=== PATIENT | female | born 2000 | race Caucasian/White ===

== ENCOUNTER 2020-04-04 13:54 | Outpatient (REF) | payer OTHER, SELFPAY | END 2020-04-04 13:55 | disposition home or self-care (01) | LOC: HO.LAB 13:54 | PROVIDERS: Visit Provider Internal Medicine | DX: Z20.828 Contact with and (suspected) exposure to other viral communicable diseases (principal) | CPT/HCPCS: 87635 ==

== ENCOUNTER 2020-05-31 04:48 | Emergency (ER) | payer OTHER, SELFPAY ==
[2020-05-31 04:51] VITALS: BP 123/69; PULSE 106; RESP 18; TEMP 36.8; O2SAT 99; BMI 26.4
[2020-05-31 05:20] LABS: Glucose Urine UA NEG (NEG); Leukocyte Esterase Urine 1+ (NEG); Nitrite Urine NEG (NEG); PH 5.5 (5.0-8.0); Specific Gravity - Urine >= 1.030 (1.005-1.025); Urine Blood TRACE (NEG); Urine Ketones NEG (NEG); Urine Protein NEG (NEG-TRACE)
--- NOTE | 2020-05-31 05:20 | ED_ITS ---
HPI - Abdominal Pain General Chief Complaint: Abdominal Pain Stated Complaint: ABD PAIN Time Seen by Provider: 05/31/20 05:20 Source: patient Mode of arrival: ambulatory Limitations: no limitations History of Present Illness HPI narrative: This is a 19-year-old female without any significant past medical history and states her LMP was 2 weeks ago and presents with onset of some vague periumbilical pain that started approximately 4:00 p.m. yesterday and then has since progressed into the right lower quadrant and patient does state that she has a history of ovarian cyst. This is not been associated with any n ausea, vomiting, fever, chills at this point. The pain is noted to be sharp and nonradiating. Related Data Allergies Allergy/AdvReac Type Severity Reaction Status Date / Time No Known Allergies Allergy Verified 05/31/20 04:51 Review of Systems Review of Systems Pertinent positives and negatives as stated in HPI 10 point review of systems otherwise negative. Physical Exam Vital Signs: Vital Signs: Last Vital Signs Temp 98.2 F 05/31/20 04:51 Pulse 106 H 05/31/20 04:51 Resp 18 05/31/20 04:51 BP 123/69 05/31/20 04:51 Pulse Ox 99 05/31/20 04:51 Body Mass Index 26.4 VITAL SIGNS: Reviewed. GENERAL: Well developed, well nourished, in no acute distress. HEAD: Normocephalic/atraumatic, EYES: PERRLA, EOMI intact without pain, no nystagmus/pallor/icterus noted EARS: Ext canals without abnormality, TMs non-bulging and non-erythematous NOSE: Nares patent bilateral OROPHARYNX: no oral lesions noted, posterior pharynx clear and non-erythematous without noted tonsillar enlargement/erythema/exudates NECK: Supple, no adenopathy LUNGS: Normal breath sounds. No adventitious sounds or accessory muscle use. SpO2<99> CARDIOVASCULAR: Regular rate and rhythm without noted murmurs, no JVD or lower extremity edema. ABDOMEN: Soft, Focal tenderness at the right lower quadrant, non-distended with bowel sounds. No rigidity. No guarding. No palpable masses or hernias noted MUSCULOSKELETAL: No tenderness, deformities, or effusions noted on gross inspection. EXTREMITIES: No cyanosis, clubbing or edema. SKIN: Inspection of the skin reveals no rashes, ulcerations, jaundice, pallor, or petechiae. NEUROLOGIC: Alert and oriented x 4. Strength and sensation to light touch were grossly intact x 4. Course Course Course Narrative: This is a 19-year-old female with history and clinical pr esentation suggestive of possible ectopic, ovarian cyst plus/ minus ruptured, mittelschmerz, appendicitis, or mesenteric adenitis. Signed out to Dr Lyle. MDM - Abdominal Pain Lab Data Result diagrams: 05/31/20 05:29 05/31/20 05:29 Labs: Lab Results 05/31/20 05/31/20 05/31/20 Range/Units 05:02 05:02 05:29 WBC 7.7 (4.8-10.8) X10*3/uL RBC 4.86 (4.20-5.50) X10*6/uL Hgb 14.7 (12.0-16.0) g/dl Hct 42.9 (37-47) % MCV 88.3 (80-98) fL MCH 30.2 (27.0-33.0) pg MCHC 34.3 (31.0-35.0) g/dl RDW 12.0 (11.0-16.0) % Plt Count 368 (160-400) X10*3/uL MPV 10.1 (9.4-12.3) fL Immature Gran % (Auto) 0.1 (0.0-0.4) % Neut % (Auto) 62.1 (45-73) % Lymph % (Auto) 28.9 (20-40) % [place] % (Auto) 4.8 (2-11) % Eos % (Auto) 3.3 (0-4) % Baso % (Auto) 0.8 (0-2) % Lymph # (Auto) 2.2 (1.2-4.9) X10*3/uL [place] # (Auto) 0.4 (0.1-1.2) X10*3/uL Eos # (Auto) 0.3 (0.0-0.4) X10*3/uL Baso # (Auto) 0.1 (0.0-0.2) X10*3/uL Abs Immat Gran (auto) 0.01 (0.00-0.03) X10*3/uL Absolute Neuts (auto) 4.8 (2.0-8.3) X10*3/uL Absolute Nucleated RBC 0.000 (0.0-0.012) X10*3/uL Nucleated RBC % (auto) 0.0 (0.0-0.2) /100WBC PT (10.8-13.0) SEC INR (0.9-1.1) Sodium (135-145) mmol/L Potassium (3.3-5.1) mmol/l Chloride (96-108) mmol/L Carbon Dioxide (22-29) mmol/L Anion Gap (12-20) BUN (9-16) mg/dL Creatinine (0.5-1.4) mg/dL Estim Creat Clear Calc Estimated GFR Random Glucose (60-115) mg/dL Calcium (8.4-10.2) mg/dL Total Bilirubin (0.0-1.0) mg/dL AST (5-31) U/L ALT (0-31) U/L Alkaline Phosphatase (39-117) U/L Total Protein (6.5-8.0) g/dL Albumin (3.5-5.0) g/dL Lipase (8-78) U/L Urine Color YELLOW Urine Appearance HAZY Urine pH 5.5 (5.0-8.0) Ur Specific [place] >= 1.030 H (1.005-1.025) Urine Protein NEG (NEG-TRACE) MG/DL Urine Glucose (UA) NEG (NEG) MG/DL Urine Ketones NEG (NEG) MG/DL Urine Blood TRACE (NEG) Urine Nitrite NEG (NEG) Ur Leukocyte Esterase 1+ H (NEG) Urine RBC 0-2 (0) /HPF Urine WBC 10-14 H (0-4) /HPF Ur Squamous Epith Cells 3+ /LPF Urine Bacteria 1+ /LPF Urine Test NEGATIVE (NEGATIVE) Coronavirus (PCR) (Negative) Influenza Type A (PCR) (Negative) Influenza Type B (PCR) (Negative) RSV RNA Qual (PCR) (Negative) 05/31/20 05/31/20 05/31/20 Range/Units 05:29 05:29 05:31 WBC (4.8-10.8) X10*3/uL RBC (4.20-5.50) X10*6/uL Hgb (12.0-16.0) g/dl Hct (37-47) % MCV (80-98) fL MCH (27.0-33.0) pg MCHC (31.0-35.0) g/dl RDW (11.0-16.0) % Plt Count (160-400) X10*3/uL MPV (9.4-12.3) fL Immature Gran % (Auto) (0.0-0.4) % Neut % (Auto) (45-73) % Lymph % (Auto) (20-40) % [place] % (Auto) (2-11) % Eos % (Auto) (0-4) % Baso % (Auto) (0-2) % Lymph # (Auto) (1.2-4.9) X10*3/uL [place] # (Auto) (0.1-1.2) X10*3/uL Eos # (Auto) (0.0-0.4) X10*3/uL Baso # (Auto) (0.0-0.2) X10*3/uL Abs Immat Gran (auto) (0.00-0.03) X10*3/uL Absolute Neuts (auto) (2.0-8.3) X10*3/uL Absolute Nucleated RBC (0.0-0.012) X10*3/uL Nucleated RBC % (auto) (0.0-0.2) /100WBC PT 12.4 (10.8-13.0) SEC INR 1.0 (0.9-1.1) Sodium 139 (135-145) mmol/L Potassium 4.1 (3.3-5.1) mmol/l Chloride 106 (96-108) mmol/L Carbon Dioxide 25 (22-29) mmol/L Anion Gap 12 (12-20) BUN 10 (9-16) mg/dL Creatinine 0.76 (0.5-1.4) mg/dL Estim Creat Clear Calc 100.7 Estimated GFR > 60 Random Glucose 95 (60-115) mg/dL Calcium 9.6 (8.4-10.2) mg/dL Total Bilirubin 0.6 (0.0-1.0) mg/dL AST 22 (5-31) U/L ALT 41 H (0-31) U/L Alkaline Phosphatase 91 (39-117) U/L Total Protein 7.6 (6.5-8.0) g/dL Albumin 4.6 (3.5-5.0) g/dL Lipase 19 (8-78) U/L Urine Color Urine Appearance Urine pH (5.0-8.0) Ur Specific [place] (1.005-1.025) Urine Protein (NEG-TRACE) MG/DL Urine Glucose (UA) (NEG) MG/DL Urine Ketones (NEG) MG/DL Urine Blood (NEG) Urine Nitrite (NEG) Ur Leukocyte Esterase (NEG) Urine RBC (0) /HPF Urine WBC (0-4) /HPF Ur Squamous Epith Cells /LPF Urine Bacteria /LPF Urine Test (NEGATIVE) Coronavirus (PCR) (Negative) Influenza Type A (PCR) (Negative) Influenza Type B (PCR) (Negative) RSV RNA Qual (PCR) (Negative) 05/31/20 Range/Units 05:49 WBC (4.8-10.8) X10*3/uL RBC (4.20-5.50) X10*6/uL Hgb (12.0-16.0) g/dl Hct (37-47) % MCV (80-98) fL MCH (27.0-33.0) pg MCHC (31.0-35.0) g/dl RDW (11.0-16.0) % Plt Count (160-400) X10*3/uL MPV (9.4-12.3) fL Immature Gran % (Auto) (0.0-0.4) % Neut % (Auto) (45-73) % Lymph % (Auto) (20-40) % [place] % (Auto) (2-11) % Eos % (Auto) (0-4) % Baso % (Auto) (0-2) % Lymph # (Auto) (1.2-4.9) X10*3/uL [place] # (Auto) (0.1-1.2) X10*3/uL Eos # (Auto) (0.0-0.4) X10*3/uL Baso # (Auto) (0.0-0.2) X10*3/uL Abs Immat Gran (auto) (0.00-0.03) X10*3/uL Absolute Neuts (auto) (2.0-8.3) X10*3/uL Absolute Nucleated RBC (0.0-0.012) X10*3/uL Nucleated RBC % (auto) (0.0-0.2) /100WBC PT (10.8-13.0) SEC INR (0.9-1.1) Sodium (135-145) mmol/L Potassium (3.3-5.1) mmol/l Chloride (96-108) mmol/L Carbon Dioxide (22-29) mmol/L Anion Gap (12-20) BUN (9-16) mg/dL Creatinine (0.5-1.4) mg/dL Estim Creat Clear Calc Estimated GFR Random Glucose (60-115) mg/dL Calcium (8.4-10.2) mg/dL Total Bilirubin (0.0-1.0) mg/dL AST (5-31) U/L ALT (0-31) U/L Alkaline Phosphatase (39-117) U/L Total Protein (6.5-8.0) g/dL Albumin (3.5-5.0) g/dL Lipase (8-78) U/L Urine Color Urine Appearance Urine pH (5.0-8.0) Ur Specific [place] (1.005-1.025) Urine Protein (NEG-TRACE) MG/DL Urine Glucose (UA) (NEG) MG/DL Urine Ketones (NEG) MG/DL Urine Blood (NEG) Urine Nitrite (NEG) Ur Leukocyte Esterase (NEG) Urine RBC (0) /HPF Urine WBC (0-4) /HPF Ur Squamous Epith Cells /LPF Urine Bacteria /LPF Urine Test (NEGATIVE) Coronavirus (PCR) NEGATIVE (Negative) Influenza Type A (PCR) NEGATIVE (Negative) Influenza Type B (PCR) NEGATIVE (Negative) RSV RNA Qual (PCR) NEGATIVE (Negative) [facility] Past Medical History Source: nursing notes reviewed Medical History No known health problems Social History Social History Advance Directives: No Advance Directives Information Provided: No
[2020-05-31 05:21] LABS: Appearance Urine HAZY; Color Urine YELLOW
[2020-05-31 05:46] LABS: MANUAL DIFF FLAG NO
[2020-05-31] MEDS: 0.9 % Sodium Chloride 1,000 ML 1000 ML IV (05:46)
[2020-05-31 05:51] LABS: Basophils Absolute Auto 0.1 X10*3/uL (0.0-0.2); Basophils Percent Auto 0.8 % (0-2); Eosinophils Absolute Auto 0.3 X10*3/uL (0.0-0.4); Eosinophils Percent Auto 3.3 % (0-4); Hematocrit 42.9 % (37-47); Hemoglobin 14.7 g/dl (12.0-16.0); Imm Gran Abs Auto 0.01 X10*3/uL (0.00-0.03); Imm Gran Pct Auto 0.1 % (0.0-0.4); Lymphocytes Absolute Auto 2.2 X10*3/uL (1.2-4.9); Lymphocytes Percent Auto 28.9 % (20-40); Mean Corpuscular HGB Conc 34.3 g/dl (31.0-35.0); Mean Corpuscular Hemoglobin 30.2 pg (27.0-33.0); Mean Corpuscular Volume 88.3 fL (80-98); Mean Platelet Volume 10.1 fL (9.4-12.3); Monocytes Absolute Auto 0.4 X10*3/uL (0.1-1.2); Monocytes Percent Auto 4.8 % (2-11); Neutrophils Absolute Auto 4.8 X10*3/uL (2.0-8.3); Neutrophils Percent Auto 62.1 % (45-73); Platelet Count 368 X10*3/uL (160-400); Red Blood Count 4.86 X10*6/uL (4.20-5.50); White Blood Count 7.7 X10*3/uL (4.8-10.8)
[2020-05-31 06:05] LABS: Bacteria Urine 1+ /LPF; RBC Urine 0-2 /HPF (0); Squamous Epithelial Cell Urine 3+ /LPF
[2020-05-31 06:11] LABS: Prothrombin Time 12.4 SEC (10.8-13.0)
--- NOTE | 2020-05-31 06:19 | CT_ITS ---
EXAMINATION: CT ABDOMEN AND PELVIS WITH CONTRAST CLINICAL INFORMATION: Right lower quadrant pain. COMPARISON: None TECHNIQUE: Multidetector volumetric images were obtained from the superior aspect of the liver through the pubic symphysis following administration 85 mL of Omnipaque 350 intravenous contrast. Sagittal and coronal reformatted images were obtained on the technologist's workstation. Oral contrast: No This CT examination was performed using dose optimization techniques as appropriate, variously including the following: *Automated exposure control *Adjustment of mA and/or kV according to patient size (this includes techniques or standardized protocols for targeted exams where dose is matched to indication/reason for exam; i.e. extremities or head) *Use of iterative reconstruction technique DLP: 463 mGy-cm FINDINGS: LUNG BASES: There is 2 mm pleural-based nodule right lower lobe image 6/5. At size is normal. LIVER, GALLBLADDER, AND BILIARY TREE: The liver is normal in size, shape, and attenuation. No focal hepatic lesion or biliary ductal dilatation is present. The gallbladder is contracted with no evidence of radiopaque gallstones or wall thickening. PANCREAS: Unremarkable. SPLEEN: Unremarkable. ADRENAL GLANDS: Unremarkable. KIDNEYS AND URETERS: The kidneys are normal in size, shape, and attenuation. No hydronephrosis, hydroureter, or calculi seen. No perinephric stranding. BLADDER: Unremarkable. GASTROINTESTINAL TRACT: Scattered stool and gas is seen throughout the colon. The small bowel loops are unremarkable. Appendix is not visualized with certainty. No inflammatory changes seen in the area abdomen. There are small shotty lymph nodes in the ileocecal mesentery. ABDOMINAL WALL: No significant hernia is appreciated. LYMPH NODES: Normal. VASCULAR: Unremarkable. PELVIC VISCERA: The uterus is anteverted and appears unremarkable. No adnexal mass or free fluid seen. There is no abnormal lymph nodes. There is minimal physiological free fluid in the cul-de-sac OSSEOUS STRUCTURES: Unremarkable. CT/CT abdomen pelvis w con IMPRESSION: Mild constipation. No acute intra-abdominal process seen.
[2020-05-31 06:33] LABS: Alanine Aminotransferase 41 U/L (0-31); Albumin Level 4.6 g/dL (3.5-5.0); Alkaline Phosphatase 91 U/L (39-117); Anion Gap 12 (12-20); Aspartate Amino Transferase 22 U/L (5-31); Bilirubin Total 0.6 mg/dL (0.0-1.0); Blood Urea Nitrogen 10 mg/dL (9-16); Calcium 9.6 mg/dL (8.4-10.2); Carbon Dioxide 25 mmol/L (22-29); Chloride 106 mmol/L (96-108); Creatinine Clr Calc Pharmacy 100.7; Estimated Glomerular Filt Rate > 60; Glucose Random 95 mg/dL (60-115); Lipase 19 U/L (8-78); Potassium 4.1 mmol/l (3.3-5.1); Sodium 139 mmol/L (135-145); Total Protein 7.6 g/dL (6.5-8.0)
[2020-05-31 06:37] LABS: Influenza A PCR NEGATIVE (Negative); Influenza B PCR NEGATIVE (Negative); Resp Syncy Virus RNA Qual PCR NEGATIVE (Negative); SARS COV2 PCR INHOUSE NEGATIVE (Negative)
[2020-05-31 06:49] LABS: UPreg QC Valid YES; Urine Pregnancy NEGATIVE (NEGATIVE)
[2020-05-31 07:28] VITALS: BP 102/61; PULSE 76; RESP 16; TEMP 37.3; O2SAT 99
[2020-05-31] MEDS: iohexoL 350 MG/ML 100 ML INFUS..BTL 85 ML IV (08:40)
== END 2020-05-31 10:05 | disposition home or self-care (01) ==
PROVIDERS: Emergency Provider Student in an Organized Health Care Education/Training Program
DX: R10.31 Right lower quadrant pain (principal)
CPT/HCPCS: 0241U; 36415; 74177; 80053; 81001; 81025; 83690; 85025; 85610; 87086; 96360; 99284; Q9967

== ENCOUNTER 2020-11-06 09:42 | Emergency (ER) | payer OTHER, SELFPAY ==
--- NOTE | ~2020-11-06 | XR_ITS ---
EXAMINATION: XR CHEST CLINICAL INFORMATION: Chest symptoms, COVID-like symptoms COMPARISON: None TECHNIQUE: CT abdomen 05/31/2020 view of the chest was obtained. FINDINGS: The lungs are clear. The vascularity is normal. The costophrenic sulci are well-defined. Heart normal in size. Hilar and mediastinal contours are unremarkable. There is mild levocurvature upper thoracic spine and mild dextrocurvature lower thoracic spine. XR/XR chest 1V IMPRESSION: Lungs clear.
[2020-11-06 10:10] VITALS: BP 114/51; PULSE 110; RESP 20; TEMP 37.3; O2SAT 97; BMI 27.3
--- NOTE | 2020-11-06 10:25 | ECG_ITS ---
Test Reason : UPPER RESPIRTORY Blood Pressure : / mmHG Vent. Rate : 082 BPM Atrial Rate : 082 BPM P-R Int : 132 ms QRS Dur : 078 ms QT Int : 380 ms P-R-T Axes : 054 049 032 degrees QTc Int : 443 ms Normal sinus rhythm with sinus arrhythmia Normal ECG No previous ECGs available Referred By: Emma Oneill Electronically Signed By:Naeem Petersen
--- NOTE | 2020-11-06 10:40 | ED.URI ---
HPI - URI/Sore Throat General Chief Complaint: Upper Respiratory Symptoms Stated Complaint: cough Time Seen by Provider: 11/06/20 10:15 Source: patient Mode of arrival: ambulatory Limitations: no limitations History of Present Illness HPI Narrative: A 20-year-old female with no significant past medical history presenting to the ED with complaints of Intermittent headaches, nasal congestion/runny nose, sore throat, productive cough with green-colored mucus with associated shortness of breath/orthopnea and chest pain which she reports she feels like someone is sitting on her chest for the past week worse today. Reports that she was COVID tested last Friday and was negative. Denies any measured fevers, chills, neck pain/stiffness, dizziness, change in vision, nausea/vomiting, dyspnea on exertion, palpitations, back pain, abdominal pain, diarrhea, constipation, dysuria, hematuria, abnormal vaginal discharge, recent travel or sick contacts or any other symptoms complaints or concerns at this time. MD elicited complaint: cough, sore throat, rhinorrhea and nasal congestion Onset (ago): week(s) (One week worse today) Consistency: constant and progressively worsening Severity: moderate Description of mucous: clear, watery, yellow and green Able to tolerate fluids by mouth: Yes Exacerbating factors: deep breaths Related Data Previous Rx's Medication Instructions Recorded cephalexin [Keflex] 500 mg PO QID #20 cap 05/31/20 albuterol sulfate 1 inh INHALATION QID PRN #8.5 g 11/06/20 azithromycin See Rx Instructions .ROUTE 11/06/20 .COMPLEX #6 tab codeine-guaifenesin [Guaifenesin 5 ml PO Q6H PRN #120 ml 11/06/20 AC] cyclobenzaprine 10 mg PO Q8H #10 tab 11/06/20 dexamethasone [Decadron] 6 mg PO DAILY 7 Days #7 tab 11/06/20 Allergies Allergy/AdvReac Type Severity Reaction Status Date / Time No Known Allergies Allergy Verified 05/31/20 04:51 Review of Systems Review of Systems: Constitutional : No Weight loss, No Fever, No Chills, No Night Sweats, No Fatigue, No Malaise ENT/Mouth : Positive runny nose/nasal congestion, positive sore throat, No Hearing loss, No Ear Pain, No Sinus Pain, No Hoarseness, No Swallowing Difficulty Eyes: No Eye Pain, No Swelling, No Redness, No Foreign Body, No Discharge, No Vision Changes Cardiovascular : Positive shortness of breath/orthopnea/chest discomfort, no Dyspnea on Exertion, No Edema, No extremity swelling, No Palpitations Respiratory : Positive cough/sputum/wheezing Gastrointestinal : No Nausea, No Vomiting, No Diarrhea, No abdominal Pain, No Hematochezia, No Melena Genitourinary : No irregular bleeding, No Dysuria, No Urinary Frequency, No Hematuria, No Urinary Incontinence, No Urgency, No Flank Pain, No Urinary Flow Changes, No Hesitancy Musculoskeletal : No joint pain, No Myalgias, No Joint Swelling Skin : No Skin Lesions, No rash Neuro : No Weakness, No Numbness, No Paresthesias, No Loss of Consciousness, No Dizziness, No Headache Psych : No Anxiety/Panic, No Depression, No SI/HI/AH/VH Heme/Lymph: No Bruising, No Bleeding,No Lymphadenopathy Endocrine : No Polyuria, No Polydipsia, No Temperature Intolerance Yes all other systems are reviewed and are negative [facility] Past Medical History Attestation statement: The following information was validated with the patient. Medical History No known health problems Social History Social History Advance Directives: No Advance Directives Information Provided: No Patient : No Physical Exam Vital Signs: Vital Signs: Last Vital Signs Temp 99.1 F 11/06/20 10:10 Pulse 85 11/06/20 11:15 Resp 17 11/06/20 10:57 BP 104/59 L 11/06/20 10:57 Pulse Ox 98 11/06/20 10:57 Body Mass Index 27.3 vital signs have been reviewed as normal and appeared to be correct. Blood pressure normal. Heart rate tachycardic at 110. Respiration rate normal. Temperature normal. Oxygen saturation normal. Appearance: Alert. Oriented X3. Mild respiratory distress otherwise no other acute distress. Head: Normal external exam. Normocephalic. Eyes: PERRLA. EOMI. Conjunctiva and sclera normal. Eyelids normal. ENT: Pharynx normal. Uvula midline. Moist mucous membranes. No trismus noted. No drooling noted. No muffled voice noted. Neck: Normal inspection. Neck supple. FROM. No adenopathy. No meningeal signs. CVS: Normal heart rate and rhythm. Heart sound normal. No murmurs noted. Pulses normal throughout. Respiratory: Mild respiratory distress with pain with deep inspiration with decreased breath sounds throughout with inspiratory and expiratory wheezing throughout. No rales/rhonchi noted. Chest is nontender. No accessory muscles usage is noted. Chest is nontender. Abdomen: Soft and nontender. Nondistended. No guarding. No rigidity. Bowel sounds normal in all 4 quadrants. No distention noted. No organomegaly noted. No visible injury noted. No rebound tenderness. Negative Rovsing sign. Negative obturator's sign. Negative psoas sign. Negative Escobedo sign. Back: No CVA tenderness. Full range of motion noted. Skin: Skin warm and dry. Normal skin color. Normal skin turgor. No rashes/lesions/lacerations noted. Extremities: No lower extremity edema or calf tenderness noted. Extremities exhibit normal range of motion. Extremities nontender. Neuro: Oriented X 3. No motor deficit. No sensory deficit. Reflexes normal. Normal steady gait. Course Course Course Narrative: 12:15pm - labs reviewed and patient with an elevated white blood cell count at 12,000. D-dimer is negative. CRP 2.67. All other labs are within normal limits. COVID/RSV/flu negative. Chest x-ray negative for pneumonia or any other acute processes noted. EKG was normal sinus rhythm no acute ischemic changes noted. - patient feels much better after the hour long breathing treatment and IV Decadron. Will DC home with symptomatic treatment and antibiotics and instructions return if any new or worsening symptoms to follow up with primary care provider. Patient understands agrees with this plan. MDM - URI/Sore Throat MDM Narrative Medical decision making narrative: 10:25am - 20-year-old female with no significant past medical history presenting to the ED with complaints of Intermittent headaches, nasal congestion/runny nose, sore throat, productive cough with green-colored mucus with associated shortness of breath/orthopnea and chest pain which she reports she feels like someone is sitting on her chest for the past week worse today. - Plan: Labs, chest x-ray, EKG, rapid strep, COVID/RSV/flu swab. Provide an hour long breathing treatment and 10 mg of IV Decadron and re-evaluate. Medical Records Attestation: I reviewed the patient's medical records. Lab Data Attestation: I reviewed the patient's lab results. Result diagrams: 11/06/20 10:48 11/06/20 10:47 Labs: Lab Results 11/06/20 11/06/20 11/06/20 Range/Units 10:47 10:47 10:47 WBC (4.8-10.8) X10*3/uL RBC (4.20-5.50) X10*6/uL Hgb (12.0-16.0) g/dl Hct (37-47) % MCV (80-98) fL MCH (27.0-33.0) pg MCHC (31.0-35.0) g/dl RDW (11.0-16.0) % Plt Count (160-400) X10*3/uL MPV (9.4-12.3) fL Immature Gran % (Auto) (0.0-0.4) % Neut % (Auto) (45-73) % Lymph % (Auto) (20-40) % [place] % (Auto) (2-11) % Eos % (Auto) (0-4) % Baso % (Auto) (0-2) % Lymph # (Auto) (1.2-4.9) X10*3/uL [place] # (Auto) (0.1-1.2) X10*3/uL Eos # (Auto) (0.0-0.4) X10*3/uL Baso # (Auto) (0.0-0.2) X10*3/uL Abs Immat Gran (auto) (0.00-0.03) X10*3/uL Absolute Neuts (auto) (2.0-8.3) X10*3/uL Absolute Nucleated RBC (0.0-0.012) X10*3/uL Nucleated RBC % (auto) (0.0-0.2) /100WBC PT (10.8-13.0) SEC INR (0.9-1.1) D-Dimer 224 NG/ML Sodium 140 (135-145) mmol/L Potassium 3.9 (3.3-5.1) mmol/L Chloride 104 (96-108) mmol/L Carbon Dioxide 24 (22-29) mmol/L Anion Gap 16 (12-20) BUN 7 L (9-16) mg/dL Creatinine 0.79 (0.5-1.4) mg/dL Estim Creat Clear Calc 97.8 Estimated GFR > 60 Random Glucose 92 (60-115) mg/dL Calcium 9.8 (8.4-10.2) mg/dL Magnesium (1.6-2.6) mg/dL Ferritin 69 (10-122) ng/mL Total Bilirubin 0.7 (0.0-1.0) mg/dL AST 16 (5-31) U/L ALT 27 (0-31) U/L Alkaline Phosphatase 110 D (39-117) U/L Lactate Dehydrogenase 155 (122-220) U/L Troponin I High Sens (<3.5-17.0) ng/L C-Reactive Protein 2.67 H (< or = 0.50) mg/dL Total Protein 7.9 (6.5-8.0) g/dL Albumin 4.9 (3.5-5.0) g/dL Procalcitonin ng/mL Beta HCG, Quant < 2 mIU/mL Coronavirus (PCR) NEGATIVE (Negative) Influenza Type A (PCR) NEGATIVE (Negative) Influenza Type B (PCR) NEGATIVE (Negative) RSV RNA Qual (PCR) NEGATIVE (Negative) 11/06/20 11/06/20 11/06/20 Range/Units 10:47 10:48 10:48 WBC 12.5 H (4.8-10.8) X10*3/uL RBC 4.92 (4.20-5.50) X10*6/uL Hgb 15.1 (12.0-16.0) g/dl Hct 43.9 (37-47) % MCV 89.2 (80-98) fL MCH 30.7 (27.0-33.0) pg MCHC 34.4 (31.0-35.0) g/dl RDW 12.2 (11.0-16.0) % Plt Count 388 (160-400) X10*3/uL MPV 9.7 (9.4-12.3) fL Immature Gran % (Auto) 0.2 (0.0-0.4) % Neut % (Auto) 71.4 (45-73) % Lymph % (Auto) 15.9 L (20-40) % [place] % (Auto) 7.9 (2-11) % Eos % (Auto) 4.0 (0-4) % Baso % (Auto) 0.6 (0-2) % Lymph # (Auto) 2.0 (1.2-4.9) X10*3/uL [place] # (Auto) 1.0 (0.1-1.2) X10*3/uL Eos # (Auto) 0.5 H (0.0-0.4) X10*3/uL Baso # (Auto) 0.1 (0.0-0.2) X10*3/uL Abs Immat Gran (auto) 0.03 (0.00-0.03) X10*3/uL Absolute Neuts (auto) 8.9 H (2.0-8.3) X10*3/uL Absolute Nucleated RBC 0.000 (0.0-0.012) X10*3/uL Nucleated RBC % (auto) 0.0 (0.0-0.2) /100WBC PT 13.4 H (10.8-13.0) SEC INR 1.1 (0.9-1.1) D-Dimer NG/ML Sodium (135-145) mmol/L Potassium (3.3-5.1) mmol/L Chloride (96-108) mmol/L Carbon Dioxide (22-29) mmol/L Anion Gap (12-20) BUN (9-16) mg/dL Creatinine (0.5-1.4) mg/dL Estim Creat Clear Calc Estimated GFR Random Glucose (60-115) mg/dL Calcium (8.4-10.2) mg/dL Magnesium (1.6-2.6) mg/dL Ferritin (10-122) ng/mL Total Bilirubin (0.0-1.0) mg/dL AST (5-31) U/L ALT (0-31) U/L Alkaline Phosphatase (39-117) U/L Lactate Dehydrogenase (122-220) U/L Troponin I High Sens (<3.5-17.0) ng/L C-Reactive Protein (< or = 0.50) mg/dL Total Protein (6.5-8.0) g/dL Albumin (3.5-5.0) g/dL Procalcitonin 0.04 ng/mL Beta HCG, Quant mIU/mL Coronavirus (PCR) (Negative) Influenza Type A (PCR) (Negative) Influenza Type B (PCR) (Negative) RSV RNA Qual (PCR) (Negative) 11/06/20 11/06/20 Range/Units 10:48 10:48 WBC (4.8-10.8) X10*3/uL RBC (4.20-5.50) X10*6/uL Hgb (12.0-16.0) g/dl Hct (37-47) % MCV (80-98) fL MCH (27.0-33.0) pg MCHC (31.0-35.0) g/dl RDW (11.0-16.0) % Plt Count (160-400) X10*3/uL MPV (9.4-12.3) fL Immature Gran % (Auto) (0.0-0.4) % Neut % (Auto) (45-73) % Lymph % (Auto) (20-40) % [place] % (Auto) (2-11) % Eos % (Auto) (0-4) % Baso % (Auto) (0-2) % Lymph # (Auto) (1.2-4.9) X10*3/uL [place] # (Auto) (0.1-1.2) X10*3/uL Eos # (Auto) (0.0-0.4) X10*3/uL Baso # (Auto) (0.0-0.2) X10*3/uL Abs Immat Gran (auto) (0.00-0.03) X10*3/uL Absolute Neuts (auto) (2.0-8.3) X10*3/uL Absolute Nucleated RBC (0.0-0.012) X10*3/uL Nucleated RBC % (auto) (0.0-0.2) /100WBC PT (10.8-13.0) SEC INR (0.9-1.1) D-Dimer NG/ML Sodium (135-145) mmol/L Potassium (3.3-5.1) mmol/L Chloride (96-108) mmol/L Carbon Dioxide (22-29) mmol/L Anion Gap (12-20) BUN (9-16) mg/dL Creatinine (0.5-1.4) mg/dL Estim Creat Clear Calc Estimated GFR Random Glucose (60-115) mg/dL Calcium (8.4-10.2) mg/dL Magnesium 1.9 (1.6-2.6) mg/dL Ferritin (10-122) ng/mL Total Bilirubin (0.0-1.0) mg/dL AST (5-31) U/L ALT (0-31) U/L Alkaline Phosphatase (39-117) U/L Lactate Dehydrogenase (122-220) U/L Troponin I High Sens < 3.5 (<3.5-17.0) ng/L C-Reactive Protein (< or = 0.50) mg/dL Total Protein (6.5-8.0) g/dL Albumin (3.5-5.0) g/dL Procalcitonin ng/mL Beta HCG, Quant mIU/mL Coronavirus (PCR) (Negative) Influenza Type A (PCR) (Negative) Influenza Type B (PCR) (Negative) RSV RNA Qual (PCR) (Negative) Imaging Data Chest x-ray: Attestation: I personally reviewed and interpreted this imaging study as follows: Radiologist's impression: FINDINGS: The lungs are clear. The vascularity is normal. The costophrenic sulci are well-defined. Heart normal in size. Hilar and mediastinal contours are unremarkable. There is mild levocurvature upper thoracic spine and mild dextrocurvature lower thoracic spine. XR/XR chest 1V IMPRESSION: Lungs clear. ECG Data Attestation: I personally reviewed and interpreted this ECG as follows: ECG interpretation date: 11/06/20 ECG interpretation time: 10:55 Interpretation: Normal sinus rhythm with sinus arrhythmia with ventricular rate of 82 with a normal [place] interval normal QRS duration normal QT/QTC interval. No acute ischemic changes are noted. No prior EKGs in our system to compare to at this time. Critical Care Time Critical Care Time Critical Care Time: Yes Total Critical Care Time: 60 Attestation: I personally attest to this time spent taking care of the patient Discharge Plan Discharge Clinical Impression: Bronchitis, Upper respiratory infection Patient Disposition: Home, Self-Care Instructions: Acute Bronchitis (ED), Bronchospasm (ED), Wheezing (ED) Prescriptions: New azithromycin 250 mg tablet See Rx Instructions .ROUTE .COMPLEX Qty: 6 RF: 0 codeine-guaifenesin [Guaifenesin AC] 10-100 mg/5 mL liquid 5 ml PO Q6H PRN (Reason: cold symptoms) Qty: 120 RF: 0 albuterol sulfate 90 mcg/actuation HFA aerosol inhaler 1 inh inhalation QID PRN (Reason: shortness of breath or wheezing) Qty: 8.5 RF: 0 dexamethasone [Decadron] 6 mg tablet 6 mg PO DAILY 7 Days Qty: 7 RF: 0 cyclobenzaprine 10 mg tablet 10 mg PO Q8H Qty: 10 RF: 0 No Action cephalexin [Keflex] 500 mg capsule 500 mg PO QID Qty: 20 RF: 0 Referrals: Physician,None [Primary Care Provider] - 2 days (Your PCP) Stand Alone Forms: Work/School Release Print Language: Italian
[2020-11-06 10:55] LABS: MANUAL DIFF FLAG NO
[2020-11-06 10:57] VITALS: BP 104/59; PULSE 85; RESP 17; O2SAT 98
[2020-11-06 10:57] LABS: Basophils Absolute Auto 0.1 X10*3/uL (0.0-0.2); Basophils Percent Auto 0.6 % (0-2); Eosinophils Absolute Auto 0.5 X10*3/uL (0.0-0.4); Hematocrit 43.9 % (37-47); Hemoglobin 15.1 g/dl (12.0-16.0); Imm Gran Abs Auto 0.03 X10*3/uL (0.00-0.03); Imm Gran Pct Auto 0.2 % (0.0-0.4); Lymphocytes Percent Auto 15.9 % (20-40); Mean Corpuscular HGB Conc 34.4 g/dl (31.0-35.0); Mean Corpuscular Hemoglobin 30.7 pg (27.0-33.0); Mean Corpuscular Volume 89.2 fL (80-98); Mean Platelet Volume 9.7 fL (9.4-12.3); Monocytes Percent Auto 7.9 % (2-11); Neutrophils Absolute Auto 8.9 X10*3/uL (2.0-8.3); Neutrophils Percent Auto 71.4 % (45-73); Platelet Count 388 X10*3/uL (160-400); Red Blood Count 4.92 X10*6/uL (4.20-5.50); Red Cell Distribution Width 12.2 % (11.0-16.0); White Blood Count 12.5 X10*3/uL (4.8-10.8)
[2020-11-06 11:03] LABS: INTERNATIONAL NORM RATIO 1.1 (0.9-1.1); Prothrombin Time 13.4 SEC (10.8-13.0)
[2020-11-06 11:07] LABS: D Dimer 224 NG/ML
[2020-11-06] MEDS: Albuterol Sulfate (0.083%) 2.5 MG/3 ML VIAL.NEB 10 MG INHALE (11:14)
[2020-11-06 11:15] VITALS: PULSE 85; O2SAT 99
[2020-11-06 11:31] LABS: Magnesium 1.9 mg/dL (1.6-2.6)
[2020-11-06 11:33] LABS: Alanine Aminotransferase 27 U/L (0-31); Albumin Level 4.9 g/dL (3.5-5.0); Alkaline Phosphatase 110 U/L (39-117); Anion Gap 16 (12-20); Aspartate Amino Transferase 16 U/L (5-31); Bilirubin Total 0.7 mg/dL (0.0-1.0); Blood Urea Nitrogen 7 mg/dL (9-16); C Reactive Protein 2.67 mg/dL (< or = 0.50); Calcium 9.8 mg/dL (8.4-10.2); Carbon Dioxide 24 mmol/L (22-29); Chloride 104 mmol/L (96-108); Creatinine Clr Calc Pharmacy 97.8; Estimated Glomerular Filt Rate > 60; Glucose Random 92 mg/dL (60-115); Lactate Dehydrogenase 155 U/L (122-220); Potassium 3.9 mmol/L (3.3-5.1); Sodium 140 mmol/L (135-145); Total Protein 7.9 g/dL (6.5-8.0)
[2020-11-06 11:38] LABS: Influenza A PCR NEGATIVE (Negative); Influenza B PCR NEGATIVE (Negative); Resp Syncy Virus RNA Qual PCR NEGATIVE (Negative); SARS COV2 PCR INHOUSE NEGATIVE (Negative)
[2020-11-06 11:39] LABS: Troponin-I High Sensitivity < 3.5 ng/L (<3.5-17.0)
[2020-11-06 11:54] LABS: Ferritin 69 ng/mL (10-122); HCG Quantitative < 2 mIU/mL
[2020-11-06 12:00] LABS: Procalcitonin 0.04 ng/mL
== END 2020-11-06 12:43 | disposition home or self-care (01) ==
PROVIDERS: Physician Assistant Medical; Emergency Provider Emergency Medicine
DX: J20.9 Acute bronchitis, unspecified (principal); J06.9 Acute upper respiratory infection, unspecified; Z20.822 Contact with and (suspected) exposure to COVID-19; R00.0 Tachycardia, unspecified; R06.03 Acute respiratory distress
CPT/HCPCS: 0241U; 36415; 71045; 80053; 82728; 83615; 83735; 84145; 84484; 84702; 85025; 85379; 85610; 86140; 87071; 87880; 93005; 94640; 94644; 96374; 99284; 99291; J1100

== ENCOUNTER 2021-01-25 13:59 | Outpatient (REF) | payer OTHER, SELFPAY | END 2021-01-25 14:00 | disposition home or self-care (01) | LOC: HO.LAB 13:59 | PROVIDERS: Visit Provider Internal Medicine | DX: Z20.822 Contact with and (suspected) exposure to COVID-19 (principal) | CPT/HCPCS: C9803; U0003; U0005 ==

== ENCOUNTER 2021-01-26 10:49 | Emergency (ER) | payer OTHER, SELFPAY ==
--- NOTE | ~2021-01-26 | CT_ITS ---
EXAMINATION: CT ABDOMEN AND PELVIS WITH CONTRAST CLINICAL INFORMATION: Periumbilical and right lower quadrant pain. COMPARISON: CT abdomen and pelvis 05/31/2020 TECHNIQUE: Multidetector volumetric images were obtained from the superior aspect of the liver through the pubic symphysis following administration 85 mL of Omnipaque 350 intravenous contrast. Sagittal and coronal reformatted images were obtained on the technologist's workstation. Oral contrast: No This CT examination was performed using dose optimization techniques as appropriate, variously including the following: *Automated exposure control *Adjustment of mA and/or kV according to patient size (this includes techniques or standardized protocols for targeted exams where dose is matched to indication/reason for exam; i.e. extremities or head) *Use of iterative reconstruction technique DLP: 393 mGy-cm FINDINGS: LUNG BASES: No airspace consolidation or effusion. There is a small incidental pleural-based nodule left lateral base under 4 mm stable from prior exam 2019. No follow-up recommended, Fleischner guidelines. LIVER, GALLBLADDER, AND BILIARY TREE: The liver is normal in size, shape, and attenuation. No focal hepatic lesion or biliary ductal dilatation is present. The gallbladder is unremarkable with no evidence of radiopaque gallstones, gallbladder wall thickening, or obvious pericholecystic inflammatory changes. PANCREAS: Unremarkable. SPLEEN: Unremarkable. ADRENAL GLANDS: Unremarkable. KIDNEYS AND URETERS: The kidneys are normal in size, shape, and attenuation. No hydronephrosis, hydroureter, or calculi seen. No perinephric stranding. BLADDER: Unremarkable. GASTROINTESTINAL TRACT: There is no inflammatory changes in the bowel or adjacent mesentery. No abdominal ascites or fluid collection. There is no pneumatosis or free air. The appendix appears of normal caliber. No inflammatory changes around the terminal ileum or cecum. ABDOMINAL WALL: No significant hernia is appreciated. LYMPH NODES: No lymphadenopathy. VASCULAR: Unremarkable. PELVIC VISCERA: There is small to moderate pelvic ascites. No visible adnexal mass. The uterus is normal in size. There is an arcuate uterus versus intramural nonenhancing fibroid right of midline not seen on prior exam. No definite adnexal mass. OSSEOUS STRUCTURES: Transitional vertebrae lumbosacral junction. No acute bony abnormality. CT/CT abdomen pelvis w con IMPRESSION: 1. No bowel obstruction or focal inflammatory changes in bowel. Appendix normal in caliber. 2. Small to moderate pelvic ascites. No adnexal mass. Submucous cystic area right of midline in uterus versus arcuate uterus, not appreciated on prior exam. Recommend correlation with test. Ultrasound may be considered for further assessment.
[2021-01-26 11:26] VITALS: BP 107/67; PULSE 62; RESP 19; TEMP 35.6; O2SAT 99; BMI 26.4
[2021-01-26 12:07] LABS: Glucose Urine UA NEG (NEG); Leukocyte Esterase Urine NEG (NEG); Nitrite Urine NEG (NEG); Specific Gravity - Urine >= 1.030 (1.005-1.025); UACC Culture Trigger NO; UPreg QC Valid YES; Urine Blood TRACE (NEG); Urine Ketones NEG (NEG); Urine Pregnancy NEGATIVE (NEGATIVE); Urine Protein NEG (NEG-TRACE)
[2021-01-26 12:08] LABS: Appearance Urine HAZY; Color Urine YELLOW
[2021-01-26 12:16] LABS: Bacteria Urine TRACE /LPF; Mucus Urine TRACE /LPF; RBC Urine 0-2 /HPF (0); Squamous Epithelial Cell Urine 2+ /LPF
--- NOTE | 2021-01-26 14:20 | ED.ABDPAIN ---
HPI - Abdominal Pain General Chief Complaint: Abdominal Pain Stated Complaint: abd pain Time Seen by Provider: 01/26/21 13:55 Source: patient Mode of arrival: ambulatory Limitations: no limitations History of Present Illness HPI narrative: Patient comes emergency room complaining of right lower quadrant pain. Patient states that this morning, approximately 12 hours ago, patient woke up with periumbilical pain, has been slowly radiating towards the right lower quadrant. Patient denies nausea vomiting or diarrhea. Patient states she has not been hungry and has not eaten anything since last night. Patient states the pain is worse if she sits or stands. Patient denies UTI symptoms, no fever chills, no flank pain Related Data Previous Rx's Medication Instructions Recorded cephalexin 500 mg capsule (Keflex) 500 mg PO QID #20 cap 05/31/20 albuterol sulfate 90 mcg/actuation 1 inh INHALATION QID PRN #8.5 g 11/06/20 aerosol inhaler azithromycin 250 mg tablet See Rx Instructions .ROUTE 11/06/20 .COMPLEX #6 tab codeine 10 mg-guaifenesin 100 mg/5 5 ml PO Q6H PRN #120 ml 11/06/20 mL oral liquid (Guaifenesin AC) codeine 10 mg-guaifenesin 100 mg/5 5 ml PO Q6H PRN #120 ml 11/06/20 mL oral liquid (Guaifenesin AC) cyclobenzaprine 10 mg tablet 10 mg PO Q8H #10 tab 11/06/20 dexamethasone 6 mg tablet 6 mg PO DAILY 7 Days #7 tab 11/06/20 (Decadron) ibuprofen 600 mg tablet 600 mg PO Q6H PRN #14 tab 01/26/21 Allergies Allergy/AdvReac Type Severity Reaction Status Date / Time No Known Allergies Allergy Verified 05/31/20 04:51 Review of Systems Review of Systems Constitutional : No Weight loss, No Fever, No Chills, No Night Sweats, No Fatigue, No Malaise ENT/Mouth : No Hearing loss, No Ear Pain, No Nasal Congestion, No Sinus Pain, No Hoarseness, No sore throat, No Rhinorrhea, No Swallowing Difficulty Eyes: No Eye Pain, No Swelling, No Redness, No Foreign Body, No Discharge, No Vision Changes Cardiovascular : No Chest Pain, No SOB, No Dyspnea on Exertion, No Orthopnea, No Edema, No Palpitations Respiratory : No Cough, No Sputum, No Wheezing, No Smoke Exposure, No Dyspnea Gastrointestinal : No Nausea, No Vomiting, No Diarrhea, No Constipation, complaining of periumbilical and right lower quadrant pain, No Hematochezia, No Melena Genitourinary : no irregular bleeding, No Dysuria, No Urinary Frequency, No Hematuria, No Urinary Incontinence, No Urgency, No Flank Pain, No Urinary Flow Changes, No Hesitancy Musculoskeletal : No joint pain, No Myalgias, No Joint Swelling Skin : No Skin Lesions, No rash Neuro : No Weakness, No Numbness, No Paresthesias, No Loss of Consciousness, No Dizziness, No Headache Psych : No Anxiety/Panic, No Depression, No SI/HI/AH/VH, No Social Issues, Heme/Lymph: No Bruising, No Bleeding,No Lymphadenopathy Endocrine : No Polyuria, No Polydipsia, No Temperature Intolerance Physical Exam Vital Signs: Vital Signs: Last Vital Signs Temp 96.1 F L 01/26/21 11:26 Pulse 65 01/26/21 16:19 Resp 18 01/26/21 16:19 BP 106/60 01/26/21 16:19 Pulse Ox 100 01/26/21 16:19 Body Mass Index 26.4 Const: Other: Appearance: Alert. Oriented X3. No acute distress. Eyes: Pupils equal, round and reactive to light. ENT: Pharynx normal. Neck: Normal inspection. Neck supple. No lymph nodes noted. No crepitus CVS: Normal heart rate and rhythm. Pulses normal. Normal S1 and S2 Respiratory: No respiratory distress. Breath sounds normal. No Wheezing. No rales Abdomen: Soft, tenderness to palpation over the periumbilical area, pain more pronounced in the right lower quadrant, positive rebound, no guarding, no distension. Skin: Skin warm and dry. Normal skin color. Normal skin turgor. Extremities: No lower extremity edema. No lower extremity edema. No Lacerations. No Rash Neuro: Oriented X 3. No motor deficit. No sensory deficit. Moving all extermities. No slurred speech. Course Course Course Narrative: I discussed the CT scan with the patient, and her labs. Is possible the patient's source of pain is the submucous cystic area. Patient will follow-up with her PCP. Urinalysis negative for . At this time, patient feeling more comfortable the 1 time dose of IV Toradol. MDM - Abdominal Pain Lab Data Result diagrams: 01/26/21 14:54 01/26/21 14:55 Labs: Lab Results 01/26/21 01/26/21 01/26/21 Range/Units 11:44 11:44 14:54 WBC 8.4 (4.8-10.8) X10*3/uL RBC 4.74 (4.20-5.50) X10*6/uL Hgb 14.5 (12.0-16.0) g/dl Hct 42.2 (37-47) % MCV 89.0 (80-98) fL MCH 30.6 (27.0-33.0) pg MCHC 34.4 (31.0-35.0) g/dl RDW 11.9 (11.0-16.0) % Plt Count 353 (160-400) X10*3/uL MPV 9.7 (9.4-12.3) fL Immature Gran % (Auto) 0.2 (0.0-0.4) % Neut % (Auto) 61.6 (45-73) % Lymph % (Auto) 28.9 (20-40) % [place] % (Auto) 4.4 (2-11) % Eos % (Auto) 4.2 H (0-4) % Baso % (Auto) 0.7 (0-2) % Lymph # (Auto) 2.4 (1.2-4.9) X10*3/uL [place] # (Auto) 0.4 (0.1-1.2) X10*3/uL Eos # (Auto) 0.4 (0.0-0.4) X10*3/uL Baso # (Auto) 0.1 (0.0-0.2) X10*3/uL Abs Immat Gran (auto) 0.02 (0.00-0.03) X10*3/uL Absolute Neuts (auto) 5.2 (2.0-8.3) X10*3/uL Absolute Nucleated RBC 0.000 (0.0-0.012) X10*3/uL Nucleated RBC % (auto) 0.0 (0.0-0.2) /100WBC Sodium (135-145) mmol/L Potassium (3.3-5.1) mmol/L Chloride (96-108) mmol/L Carbon Dioxide (22-29) mmol/L Anion Gap (12-20) BUN (9-16) mg/dL Creatinine (0.5-1.4) mg/dL Estim Creat Clear Calc Estimated GFR Random Glucose (60-115) mg/dL Calcium (8.4-10.2) mg/dL Total Bilirubin (0.0-1.0) mg/dL Direct Bilirubin (0.0-0.5) mg/dL AST (5-31) U/L ALT (0-31) U/L Alkaline Phosphatase (39-117) U/L Total Protein (6.5-8.0) g/dL Albumin (3.5-5.0) g/dL Urine Color YELLOW Urine Appearance HAZY Urine pH 6.0 (5.0-8.0) Ur Specific [place] >= 1.030 H (1.005-1.025) Urine Protein NEG (NEG-TRACE) MG/DL Urine Glucose (UA) NEG (NEG) MG/DL Urine Ketones NEG (NEG) MG/DL Urine Blood TRACE (NEG) Urine Nitrite NEG (NEG) Ur Leukocyte Esterase NEG (NEG) Urine RBC 0-2 (0) /HPF Urine WBC 5-9 H (0-4) /HPF Ur Squamous Epith Cells 2+ /LPF Urine Bacteria TRACE /LPF Urine Mucus TRACE /LPF Urine Test NEGATIVE (NEGATIVE) 01/26/21 Range/Units 14:55 WBC (4.8-10.8) X10*3/uL RBC (4.20-5.50) X10*6/uL Hgb (12.0-16.0) g/dl Hct (37-47) % MCV (80-98) fL MCH (27.0-33.0) pg MCHC (31.0-35.0) g/dl RDW (11.0-16.0) % Plt Count (160-400) X10*3/uL MPV (9.4-12.3) fL Immature Gran % (Auto) (0.0-0.4) % Neut % (Auto) (45-73) % Lymph % (Auto) (20-40) % [place] % (Auto) (2-11) % Eos % (Auto) (0-4) % Baso % (Auto) (0-2) % Lymph # (Auto) (1.2-4.9) X10*3/uL [place] # (Auto) (0.1-1.2) X10*3/uL Eos # (Auto) (0.0-0.4) X10*3/uL Baso # (Auto) (0.0-0.2) X10*3/uL Abs Immat Gran (auto) (0.00-0.03) X10*3/uL Absolute Neuts (auto) (2.0-8.3) X10*3/uL Absolute Nucleated RBC (0.0-0.012) X10*3/uL Nucleated RBC % (auto) (0.0-0.2) /100WBC Sodium 138 (135-145) mmol/L Potassium 4.5 (3.3-5.1) mmol/L Chloride 107 (96-108) mmol/L Carbon Dioxide 23 (22-29) mmol/L Anion Gap 13 (12-20) BUN 8 L (9-16) mg/dL Creatinine 0.68 (0.5-1.4) mg/dL Estim Creat Clear Calc 111.7 Estimated GFR > 60 Random Glucose 86 (60-115) mg/dL Calcium 9.6 (8.4-10.2) mg/dL Total Bilirubin 0.6 (0.0-1.0) mg/dL Direct Bilirubin 0.2 (0.0-0.5) mg/dL AST 15 (5-31) U/L ALT 23 (0-31) U/L Alkaline Phosphatase 89 (39-117) U/L Total Protein 6.9 (6.5-8.0) g/dL Albumin 4.3 (3.5-5.0) g/dL Urine Color Urine Appearance Urine pH (5.0-8.0) Ur Specific [place] (1.005-1.025) Urine Protein (NEG-TRACE) MG/DL Urine Glucose (UA) (NEG) MG/DL Urine Ketones (NEG) MG/DL Urine Blood (NEG) Urine Nitrite (NEG) Ur Leukocyte Esterase (NEG) Urine RBC (0) /HPF Urine WBC (0-4) /HPF Ur Squamous Epith Cells /LPF Urine Bacteria /LPF Urine Mucus /LPF Urine Test (NEGATIVE) Imaging Data CT scan - abdomen: Radiologist's impression: FINDINGS: LUNG BASES: No airspace consolidation or effusion. There is a small incidental pleural-based nodule left lateral base under 4 mm stable from prior exam 2019. No follow-up recommended, Fleischner guidelines. LIVER, GALLBLADDER, AND BILIARY TREE: The liver is normal in size, shape, and attenuation. No focal hepatic lesion or biliary ductal dilatation is present. The gallbladder is unremarkable with no evidence of radiopaque gallstones, gallbladder wall thickening, or obvious pericholecystic inflammatory changes.? PANCREAS: Unremarkable.? SPLEEN: Unremarkable.? ADRENAL GLANDS: Unremarkable.? KIDNEYS AND URETERS: The kidneys are normal in size, shape, and attenuation. No hydronephrosis, hydroureter, or calculi seen. No perinephric stranding. ? BLADDER: Unremarkable.? GASTROINTESTINAL TRACT: There is no inflammatory changes in the bowel or adjacent mesentery. No abdominal ascites or fluid collection. There is no pneumatosis or free air. The appendix appears of normal caliber. No inflammatory changes around the terminal ileum or cecum.? ABDOMINAL WALL: No significant hernia is appreciated.? LYMPH NODES: No lymphadenopathy. VASCULAR: Unremarkable. PELVIC VISCERA: There is small to moderate pelvic ascites. No visible adnexal mass. The uterus is normal in size. There is an arcuate uterus versus intramural nonenhancing fibroid right of midline not seen on prior exam.? No definite adnexal mass. OSSEOUS STRUCTURES: Transitional vertebrae lumbosacral junction. No acute bony abnormality.? CT/CT abdomen pelvis w con IMPRESSION: ? 1. No bowel obstruction or focal inflammatory changes in bowel. Appendix normal in caliber. ? 2. Small to moderate pelvic ascites. No adnexal mass. Submucous cystic area right of midline in uterus versus arcuate uterus, not appreciated on prior exam. Recommend correlation with test. Ultrasound may be considered for further assessment.? Discharge Plan Discharge Clinical Impression: Abdominal pain Qualifiers: Abdominal location: unspecified location Qualified Code(s): R10.9 - Unspecified abdominal pain Patient Disposition: Home, Self-Care Instructions: Abdominal Pain (ED) Additional Instructions: Please follow-up with your primary care physician tomorrow. If you have any worsening or new symptoms, please return to the emergency room or call 911 Prescriptions: New ibuprofen 600 mg tablet 600 mg PO Q6H PRN (Reason: pain) Qty: 14 RF: 0 No Action azithromycin 250 mg tablet See Rx Instructions .ROUTE .COMPLEX Qty: 6 RF: 0 codeine-guaifenesin [Guaifenesin AC] 10-100 mg/5 mL liquid 5 ml PO Q6H PRN (Reason: cold symptoms) Qty: 120 RF: 0 albuterol sulfate 90 mcg/actuation HFA aerosol inhaler 1 inh inhalation QID PRN (Reason: shortness of breath or wheezing) Qty: 8.5 RF: 0 dexamethasone [Decadron] 6 mg tablet 6 mg PO DAILY 7 Days Qty: 7 RF: 0 cyclobenzaprine 10 mg tablet 10 mg PO Q8H Qty: 10 RF: 0 codeine-guaifenesin [Guaifenesin AC] 10-100 mg/5 mL liquid 5 ml PO Q6H PRN (Reason: cold symptoms) Qty: 120 RF: 0 cephalexin [Keflex] 500 mg capsule 500 mg PO QID Qty: 20 RF: 0 PMFSH Past Medical History Medical History (Updated 01/26/21 @ 17:03 by Judith Welsh MD) No known health problems Ovarian cyst Social History Social History Advance Directives: No Advance Directives Information Provided: No Patient : No
[2021-01-26 14:59] LABS: MANUAL DIFF FLAG NO
[2021-01-26 15:00] LABS: Basophils Absolute Auto 0.1 X10*3/uL (0.0-0.2); Basophils Percent Auto 0.7 % (0-2); Eosinophils Absolute Auto 0.4 X10*3/uL (0.0-0.4); Eosinophils Percent Auto 4.2 % (0-4); Hematocrit 42.2 % (37-47); Hemoglobin 14.5 g/dl (12.0-16.0); Imm Gran Abs Auto 0.02 X10*3/uL (0.00-0.03); Imm Gran Pct Auto 0.2 % (0.0-0.4); Lymphocytes Absolute Auto 2.4 X10*3/uL (1.2-4.9); Lymphocytes Percent Auto 28.9 % (20-40); Mean Corpuscular HGB Conc 34.4 g/dl (31.0-35.0); Mean Corpuscular Hemoglobin 30.6 pg (27.0-33.0); Mean Platelet Volume 9.7 fL (9.4-12.3); Monocytes Absolute Auto 0.4 X10*3/uL (0.1-1.2); Monocytes Percent Auto 4.4 % (2-11); Neutrophils Absolute Auto 5.2 X10*3/uL (2.0-8.3); Neutrophils Percent Auto 61.6 % (45-73); Platelet Count 353 X10*3/uL (160-400); Red Blood Count 4.74 X10*6/uL (4.20-5.50); Red Cell Distribution Width 11.9 % (11.0-16.0); White Blood Count 8.4 X10*3/uL (4.8-10.8)
[2021-01-26] MEDS: Ketorolac Tromethamine 15 MG/ML VIAL 30 MG IVPUSH (15:00)
[2021-01-26 15:03] VITALS: BP 111/56; PULSE 68; RESP 18; O2SAT 100
[2021-01-26 15:28] LABS: Alanine Aminotransferase 23 U/L (0-31); Albumin Level 4.3 g/dL (3.5-5.0); Alkaline Phosphatase 89 U/L (39-117); Anion Gap 13 (12-20); Aspartate Amino Transferase 15 U/L (5-31); Bilirubin Direct 0.2 mg/dL (0.0-0.5); Bilirubin Total 0.6 mg/dL (0.0-1.0); Blood Urea Nitrogen 8 mg/dL (9-16); Calcium 9.6 mg/dL (8.4-10.2); Carbon Dioxide 23 mmol/L (22-29); Chloride 107 mmol/L (96-108); Creatinine Clr Calc Pharmacy 111.7; Estimated Glomerular Filt Rate > 60; Glucose Random 86 mg/dL (60-115); Potassium 4.5 mmol/L (3.3-5.1); Sodium 138 mmol/L (135-145); Total Protein 6.9 g/dL (6.5-8.0)
[2021-01-26] MEDS: iohexoL 350 MG/ML 100 ML INFUS..BTL IV (15:58)
[2021-01-26 16:19] VITALS: BP 106/60; PULSE 65; RESP 18; O2SAT 100
== END 2021-01-26 17:13 | disposition home or self-care (01) ==
PROVIDERS: Emergency Provider Emergency Medicine
DX: R10.9 Unspecified abdominal pain (principal)
CPT/HCPCS: 36415; 74177; 80048; 80076; 81001; 81025; 85025; 87086; 96374; 96375; 99284; J1885; J2405; Q9967

== ENCOUNTER 2021-01-29 19:15 | Emergency (ER) | payer OTHER, SELFPAY ==
--- NOTE | ~2021-01-29 | US_ITS ---
EXAMINATION: ULTRASOUND PELVIS, COMPLETE CLINICAL INFORMATION: Right-sided pain for one week. History of ovarian cyst. COMPARISON: CT abdomen/pelvis dated 01/26/2021 TECHNIQUE: Transabdominal and transvaginal imaging utilizing grayscale and color Doppler technique with spectral analysis FINDINGS: Uterus normal in size and configuration measuring 5.6 x 2.5 x 3.8 cm. Endometrial signature measures 1.2 cm. No uterine or endometrial mass. Ovaries are normal in size and appearance measuring 3.7 x 2.3 x 2.4 cm on the right and 2.9 x 1.6 x 2.3 cm on the left. There is a 2.4 cm corpus luteum within the right ovary. Normal arterial and venous waveforms present within each ovary. Small pelvic free fluid is physiologic. US/US pelvic ovarian doppler IMPRESSION: No pathologic findings within the pelvis. There is a 2.4 cm corpus luteum within the right ovary.
--- NOTE | ~2021-01-29 | US_ITS ---
EXAMINATION: ULTRASOUND PELVIS, COMPLETE CLINICAL INFORMATION: Right-sided pain for one week. History of ovarian cyst. COMPARISON: CT abdomen/pelvis dated 01/26/2021 TECHNIQUE: Transabdominal and transvaginal imaging utilizing grayscale and color Doppler technique with spectral analysis FINDINGS: Uterus normal in size and configuration measuring 5.6 x 2.5 x 3.8 cm. Endometrial signature measures 1.2 cm. No uterine or endometrial mass. Ovaries are normal in size and appearance measuring 3.7 x 2.3 x 2.4 cm on the right and 2.9 x 1.6 x 2.3 cm on the left. There is a 2.4 cm corpus luteum within the right ovary. Normal arterial and venous waveforms present within each ovary. Small pelvic free fluid is physiologic. US/US pelvic and transvaginal IMPRESSION: No pathologic findings within the pelvis. There is a 2.4 cm corpus luteum within the right ovary.
[2021-01-29 20:27] VITALS: BP 99/61; PULSE 83; RESP 18; TEMP 37.1; O2SAT 100; BMI 26.4
--- NOTE | 2021-01-30 00:40 | ED.ABDPAIN ---
HPI - Abdominal Pain General Chief Complaint: Abdominal Pain Stated Complaint: abd pain Time Seen by Provider: 01/30/21 00:16 Source: patient Mode of arrival: ambulatory History of Present Illness HPI narrative: 20-year-old female without significant past medical history who presents with acute onset of worsening right lower quadrant pain that started this afternoon and has not been associated with nausea, vomiting, fever, chills, diarrhea, the patient reports urinary frequency. Related Data Previous Rx's Medication Instructions Recorded cephalexin 500 mg capsule (Keflex) 500 mg PO QID #20 cap 05/31/20 albuterol sulfate 90 mcg/actuation 1 inh INHALATION QID PRN #8.5 g 11/06/20 aerosol inhaler azithromycin 250 mg tablet See Rx Instructions .ROUTE 11/06/20 .COMPLEX #6 tab codeine 10 mg-guaifenesin 100 mg/5 5 ml PO Q6H PRN #120 ml 11/06/20 mL oral liquid (Guaifenesin AC) codeine 10 mg-guaifenesin 100 mg/5 5 ml PO Q6H PRN #120 ml 11/06/20 mL oral liquid (Guaifenesin AC) cyclobenzaprine 10 mg tablet 10 mg PO Q8H #10 tab 11/06/20 dexamethasone 6 mg tablet 6 mg PO DAILY 7 Days #7 tab 11/06/20 (Decadron) ibuprofen 600 mg tablet 600 mg PO Q6H PRN #14 tab 01/26/21 Allergies Allergy/AdvReac Type Severity Reaction Status Date / Time No Known Allergies Allergy Verified 01/29/21 20:25 Review of Systems Review of Systems Pertinent positives and negatives as stated in HPI 10 point review of systems is otherwise negative. Physical Exam Vital Signs: Vital Signs: Last Vital Signs Temp 98.6 F 01/30/21 02:37 Pulse 70 01/30/21 02:37 Resp 16 01/30/21 02:37 BP 115/58 L 01/30/21 02:37 Pulse Ox 100 01/30/21 00:43 Body Mass Index 26.4 VITAL SIGNS: Reviewed. GENERAL: Well developed, well nourished, in no acute distress. HEAD: Normocephalic/atraumatic, EYES: PERRLA, EOMI EARS: Ext canals without abnormality NOSE: Nares patent bilateral OROPHARYNX: no oral lesions noted, posterior pharynx clear NECK: Supple, no adenopathy LUNGS: Normal breath sounds. No adventitious sounds or accessory muscle use. SpO2<100> CARDIOVASCULAR: Regular rate and rhythm without noted murmurs ABDOMEN: Soft, tenderness along right side and maximal at right lower quadrant without rebound, non-distended with bowel sounds. SKIN: Inspection of the skin reveals no rashes NEUROLOGIC: Alert and oriented x 4. Strength and sensation to light touch were grossly intact x 4. Course Course Course Narrative: 20-year-old female with history and clinical presentation suggestive of renal colic, appendicitis, cholecystitis, but on review CT scan from 01/26 there was a small to moderate pelvic ascites but no visible ovarian mass and a normal caliber appendix. Review of all investigations without acute findings other than corpus luteum within the right ovary. All results and findings discussed with the patient at bedside and she was discharged home in stable condition. MDM - Abdominal Pain Lab Data Result diagrams: 01/30/21 00:52 01/30/21 00:52 Labs: Lab Results 01/30/21 01/30/21 01/30/21 Range/Units 00:41 00:41 00:52 WBC 9.0 (4.8-10.8) X10*3/uL RBC 4.49 (4.20-5.50) X10*6/uL Hgb 13.9 (12.0-16.0) g/dl Hct 39.9 (37-47) % MCV 88.9 (80-98) fL MCH 31.0 (27.0-33.0) pg MCHC 34.8 (31.0-35.0) g/dl RDW 11.9 (11.0-16.0) % Plt Count 332 (160-400) X10*3/uL MPV 9.7 (9.4-12.3) fL Immature Gran % (Auto) 0.2 (0.0-0.4) % Neut % (Auto) 55.8 (45-73) % Lymph % (Auto) 35.5 (20-40) % [place] % (Auto) 5.1 (2-11) % Eos % (Auto) 3.0 (0-4) % Baso % (Auto) 0.4 (0-2) % Lymph # (Auto) 3.2 (1.2-4.9) X10*3/uL [place] # (Auto) 0.5 (0.1-1.2) X10*3/uL Eos # (Auto) 0.3 (0.0-0.4) X10*3/uL Baso # (Auto) 0.0 (0.0-0.2) X10*3/uL Abs Immat Gran (auto) 0.02 (0.00-0.03) X10*3/uL Absolute Neuts (auto) 5.0 (2.0-8.3) X10*3/uL Absolute Nucleated RBC 0.000 (0.0-0.012) X10*3/uL Nucleated RBC % (auto) 0.0 (0.0-0.2) /100WBC Sodium (135-145) mmol/L Potassium (3.3-5.1) mmol/L Chloride (96-108) mmol/L Carbon Dioxide (22-29) mmol/L Anion Gap (12-20) BUN (9-16) mg/dL Creatinine (0.5-1.4) mg/dL Estim Creat Clear Calc Estimated GFR Random Glucose (60-115) mg/dL Calcium (8.4-10.2) mg/dL Total Bilirubin (0.0-1.0) mg/dL AST (5-31) U/L ALT (0-31) U/L Alkaline Phosphatase (39-117) U/L Total Protein (6.5-8.0) g/dL Albumin (3.5-5.0) g/dL Lipase (8-78) U/L Urine Color YELLOW Urine Appearance HAZY Urine pH 6.0 (5.0-8.0) Ur Specific [place] >= 1.030 H (1.005-1.025) Urine Protein NEG (NEG-TRACE) MG/DL Urine Glucose (UA) NEG (NEG) MG/DL Urine Ketones 40 (NEG) MG/DL Urine Blood NEG (NEG) Urine Nitrite NEG (NEG) Ur Leukocyte Esterase 1+ H (NEG) Urine RBC 0-2 (0) /HPF Urine WBC 5-9 H (0-4) /HPF Ur Squamous Epith Cells 4+ /LPF Urine Bacteria 2+ /LPF Urine Mucus 2+ /LPF Urine Test NEGATIVE (NEGATIVE) 01/30/21 Range/Units 00:52 WBC (4.8-10.8) X10*3/uL RBC (4.20-5.50) X10*6/uL Hgb (12.0-16.0) g/dl Hct (37-47) % MCV (80-98) fL MCH (27.0-33.0) pg MCHC (31.0-35.0) g/dl RDW (11.0-16.0) % Plt Count (160-400) X10*3/uL MPV (9.4-12.3) fL Immature Gran % (Auto) (0.0-0.4) % Neut % (Auto) (45-73) % Lymph % (Auto) (20-40) % [place] % (Auto) (2-11) % Eos % (Auto) (0-4) % Baso % (Auto) (0-2) % Lymph # (Auto) (1.2-4.9) X10*3/uL [place] # (Auto) (0.1-1.2) X10*3/uL Eos # (Auto) (0.0-0.4) X10*3/uL Baso # (Auto) (0.0-0.2) X10*3/uL Abs Immat Gran (auto) (0.00-0.03) X10*3/uL Absolute Neuts (auto) (2.0-8.3) X10*3/uL Absolute Nucleated RBC (0.0-0.012) X10*3/uL Nucleated RBC % (auto) (0.0-0.2) /100WBC Sodium 138 (135-145) mmol/L Potassium 4.0 (3.3-5.1) mmol/L Chloride 106 (96-108) mmol/L Carbon Dioxide 24 (22-29) mmol/L Anion Gap 12 (12-20) BUN 10 (9-16) mg/dL Creatinine 0.76 (0.5-1.4) mg/dL Estim Creat Clear Calc 100.0 Estimated GFR > 60 Random Glucose 82 (60-115) mg/dL Calcium 9.5 (8.4-10.2) mg/dL Total Bilirubin 0.5 (0.0-1.0) mg/dL AST 18 (5-31) U/L ALT 16 (0-31) U/L Alkaline Phosphatase 81 (39-117) U/L Total Protein 7.0 (6.5-8.0) g/dL Albumin 4.5 (3.5-5.0) g/dL Lipase 18 (8-78) U/L Urine Color Urine Appearance Urine pH (5.0-8.0) Ur Specific [place] (1.005-1.025) Urine Protein (NEG-TRACE) MG/DL Urine Glucose (UA) (NEG) MG/DL Urine Ketones (NEG) MG/DL Urine Blood (NEG) Urine Nitrite (NEG) Ur Leukocyte Esterase (NEG) Urine RBC (0) /HPF Urine WBC (0-4) /HPF Ur Squamous Epith Cells /LPF Urine Bacteria /LPF Urine Mucus /LPF Urine Test (NEGATIVE) Discharge Plan Discharge Clinical Impression: Corpus luteum cyst of right ovary Patient Disposition: Home, Self-Care Instructions: Ovarian Cyst (ED) Additional Instructions: 1. Tylenol 1000 mg, orally, every 6 hours as needed for pain control. Do not exceed 4000 mg within 24 hours. 2. Ibuprofen 400 mg, orally with milk or food, every 6 hours as needed for pain control. 3. Please utilize a heating pad as well for additional symptom relief. 4. Please follow-up with your primary care provider in the next 2-3 days for re-evaluation. Return to the ER for acute worsening of symptoms. Prescriptions: No Action azithromycin 250 mg tablet See Rx Instructions .ROUTE .COMPLEX Qty: 6 RF: 0 codeine-guaifenesin [Guaifenesin AC] 10-100 mg/5 mL liquid 5 ml PO Q6H PRN (Reason: cold symptoms) Qty: 120 RF: 0 albuterol sulfate 90 mcg/actuation HFA aerosol inhaler 1 inh inhalation QID PRN (Reason: shortness of breath or wheezing) Qty: 8.5 RF: 0 dexamethasone [Decadron] 6 mg tablet 6 mg PO DAILY 7 Days Qty: 7 RF: 0 cyclobenzaprine 10 mg tablet 10 mg PO Q8H Qty: 10 RF: 0 codeine-guaifenesin [Guaifenesin AC] 10-100 mg/5 mL liquid 5 ml PO Q6H PRN (Reason: cold symptoms) Qty: 120 RF: 0 ibuprofen 600 mg tablet 600 mg PO Q6H PRN (Reason: pain) Qty: 14 RF: 0 cephalexin [Keflex] 500 mg capsule 500 mg PO QID Qty: 20 RF: 0 Referrals: Physician,Unknown [Primary Care Provider] - 2 days PMFSH Past Medical History Source: nursing notes reviewed Medical History No known health problems Ovarian cyst Social History Social History Advance Directives: No Patient : No
[2021-01-30 00:43] VITALS: BP 107/67; PULSE 70; RESP 18; TEMP 36.6; O2SAT 100
[2021-01-30 00:48] LABS: Glucose Urine UA NEG (NEG); Leukocyte Esterase Urine 1+ (NEG); Nitrite Urine NEG (NEG); Specific Gravity - Urine >= 1.030 (1.005-1.025); UACC Culture Trigger YES; Urine Blood NEG (NEG); Urine Ketones 40 MG/DL (NEG); Urine Protein NEG (NEG-TRACE)
[2021-01-30 00:49] LABS: UPreg QC Valid YES; Urine Pregnancy NEGATIVE (NEGATIVE)
[2021-01-30 00:50] LABS: Appearance Urine HAZY; Color Urine YELLOW
[2021-01-30 00:56] LABS: Bacteria Urine 2+ /LPF; Mucus Urine 2+ /LPF; RBC Urine 0-2 /HPF (0); Squamous Epithelial Cell Urine 4+ /LPF
[2021-01-30 00:58] LABS: MANUAL DIFF FLAG NO
[2021-01-30 00:59] LABS: Basophils Percent Auto 0.4 % (0-2); Eosinophils Absolute Auto 0.3 X10*3/uL (0.0-0.4); Hematocrit 39.9 % (37-47); Hemoglobin 13.9 g/dl (12.0-16.0); Imm Gran Abs Auto 0.02 X10*3/uL (0.00-0.03); Imm Gran Pct Auto 0.2 % (0.0-0.4); Lymphocytes Absolute Auto 3.2 X10*3/uL (1.2-4.9); Lymphocytes Percent Auto 35.5 % (20-40); Mean Corpuscular HGB Conc 34.8 g/dl (31.0-35.0); Mean Corpuscular Volume 88.9 fL (80-98); Mean Platelet Volume 9.7 fL (9.4-12.3); Monocytes Absolute Auto 0.5 X10*3/uL (0.1-1.2); Monocytes Percent Auto 5.1 % (2-11); Neutrophils Percent Auto 55.8 % (45-73); Platelet Count 332 X10*3/uL (160-400); Red Blood Count 4.49 X10*6/uL (4.20-5.50); Red Cell Distribution Width 11.9 % (11.0-16.0)
[2021-01-30] MEDS: Acetaminophen 325 MG TABLET 975 MG PO (01:01)
[2021-01-30] MEDS: Ketorolac Tromethamine 15 MG/ML VIAL IVPUSH (01:02)
[2021-01-30 01:21] LABS: Alanine Aminotransferase 16 U/L (0-31); Albumin Level 4.5 g/dL (3.5-5.0); Alkaline Phosphatase 81 U/L (39-117); Anion Gap 12 (12-20); Aspartate Amino Transferase 18 U/L (5-31); Bilirubin Total 0.5 mg/dL (0.0-1.0); Blood Urea Nitrogen 10 mg/dL (9-16); Calcium 9.5 mg/dL (8.4-10.2); Carbon Dioxide 24 mmol/L (22-29); Chloride 106 mmol/L (96-108); Estimated Glomerular Filt Rate > 60; Glucose Random 82 mg/dL (60-115); Lipase 18 U/L (8-78); Sodium 138 mmol/L (135-145)
[2021-01-30 02:37] VITALS: BP 115/58; PULSE 70; RESP 16; TEMP 37
== END 2021-01-30 03:20 | disposition home or self-care (01) ==
PROVIDERS: Emergency Provider Student in an Organized Health Care Education/Training Program
DX: N83.11 Corpus luteum cyst of right ovary (principal); Z79.899 Other long term (current) drug therapy
CPT/HCPCS: 36415; 76830; 76856; 80053; 81001; 81025; 83690; 85025; 87086; 93975; 96372; 99284; J1885

== ENCOUNTER 2021-02-01 15:07 | Outpatient (REF) | payer OTHER, SELFPAY | END 2021-02-01 15:08 | disposition home or self-care (01) | LOC: HO.LAB 15:07 | PROVIDERS: Visit Provider Internal Medicine | DX: Z20.822 Contact with and (suspected) exposure to COVID-19 (principal) | CPT/HCPCS: C9803; U0003; U0005 ==

== ENCOUNTER 2021-02-14 13:40 | Outpatient (REF) | payer OTHER, SELFPAY ==
[2021-02-15 09:31] LABS: CT PCR NOT DETECTED (Not Detect.); NG PCR NOT DETECTED (Not Detect.)
== END 2021-02-14 13:41 | disposition home or self-care (01) ==
LOC: HO.LAB 13:40
PROVIDERS: Visit Provider Obstetrics & Gynecology
DX: Z01.419 Encounter for gynecological examination (general) (routine) without abnormal findings (principal); R10.2 Pelvic and perineal pain; N83.11 Corpus luteum cyst of right ovary
CPT/HCPCS: 87491; 87591; 88142; 99202

== ENCOUNTER 2021-02-15 10:04 | Outpatient (REF) | payer OTHER, SELFPAY | END 2021-02-15 10:05 | disposition home or self-care (01) | LOC: HO.LAB 10:04 | PROVIDERS: Visit Provider Obstetrics & Gynecology | DX: Z13.89 Encounter for screening for other disorder (principal) ==

== ENCOUNTER → 2021-03-07 14:09 | Outpatient (BNVA) | payer OTHER, SELFPAY | PROVIDERS: Visit Provider Obstetrics & Gynecology | DX: R10.2 Pelvic and perineal pain (principal) | CPT/HCPCS: 99212 ==

== ENCOUNTER 2021-04-01 21:46 | Emergency (ER) | payer OTHER, SELFPAY ==
--- NOTE | ~2021-04-01 | XR_ITS ---
EXAMINATION: XR CHEST CLINICAL INFORMATION: Cough and chest tightness. COMPARISON: Chest radiograph dated from 11/06/2020. TECHNIQUE: 2 views of the chest were obtained. FINDINGS: No significant abnormality is noted involving the heart, lungs, mediastinum, bony thorax or soft tissues. XR/XR chest 2V IMPRESSION: Unremarkable examination.
[2021-04-01 21:56] VITALS: BP 111/77; PULSE 82; RESP 16; TEMP 36.9; O2SAT 97; BMI 25.4
[2021-04-01 22:38] LABS: COVID-19 Test Negative (Negative)
--- NOTE | 2021-04-01 23:50 | ED_ITS ---
HPI - URI/Sore Throat General Chief Complaint: Upper Respiratory Symptoms Stated Complaint: diff breathing, cough Time Seen by Provider: 04/01/21 23:02 History of Present Illness HPI Narrative: Patient 20-year-old female presents today with having coughing upper respiratory symptoms that is been ongoing for 4 days. She did not receive her coronavirus vaccine. Patient from home. Claims that there is also possibility of mole in her work place. No diaphoresis. No fever no chills. P atient from home. No travel history. Related Data Previous Rx's Medication Instructions Recorded cephalexin 500 mg capsule (Keflex) 500 mg PO QID #20 cap 05/31/20 albuterol sulfate 90 mcg/actuation 1 inh INHALATION QID PRN #8.5 g 11/06/20 aerosol inhaler azithromycin 250 mg tablet See Rx Instructions .ROUTE 11/06/20 .COMPLEX #6 tab codeine 10 mg-guaifenesin 100 mg/5 5 ml PO Q6H PRN #120 ml 11/06/20 mL oral liquid (Guaifenesin AC) codeine 10 mg-guaifenesin 100 mg/5 5 ml PO Q6H PRN #120 ml 11/06/20 mL oral liquid (Guaifenesin AC) cyclobenzaprine 10 mg tablet 10 mg PO Q8H #10 tab 11/06/20 dexamethasone 6 mg tablet 6 mg PO DAILY 7 Days #7 tab 11/06/20 (Decadron) ibuprofen 600 mg tablet 600 mg PO Q6H PRN #14 tab 01/26/21 L norgest/E estradiol-E estrad 1 tab PO DAILY 84 Days #84 ea 02/14/21 0.15 mg-30 mcg (84)/10 mcg(7) tabs,3mos (Seasonique) Allergies Allergy/AdvReac Type Severity Reaction Status Date / Time No Known Allergies Allergy Verified 04/01/21 23:09 Review of Systems Review of Systems: Positive coughing congestion upper respiratory symptoms Yes all other systems are reviewed and are negative PMFSH Past Medical History Attestation statement: The following information was validated with the patient. Medical History No known health problems Ovarian cyst Social History Social History Patient Tobacco Use Status: Current everyday Tobacco user Advance Directives: No Advance Directives Information Provided: No Physical Exam Vital Signs: Vital Signs: Last Vital Signs Temp 98.5 F 04/01/21 21:56 Pulse 82 04/01/21 21:56 Resp 16 04/01/21 21:56 BP 111/77 04/01/21 21:56 Pulse Ox 97 04/01/21 21:56 Body Mass Index 25.4 Appearance: Alert. Oriented X3. No acute distress. Eyes: Pupils equal, round and reactive to light. ENT: Pharynx normal. Neck: Normal inspection. Neck supple. No lymph nodes noted. No crepitus CVS: Normal heart rate and rhythm. Pulses normal. Normal S1 and S2 Respiratory: No respiratory distress. Breath sounds normal. No Wheezing. No rales Abdomen: Soft and nontender. No rigidity. No distention. good BS x4 Skin: Skin warm and dry. Normal skin color. Normal skin turgor. Extremities: No lower extremity edema. Neurovascular intact to all extremities. No Lacerations. No Rash Neuro: Oriented X 3. No motor deficit. No sensory deficit. Moving all extermities. No slurred speech MDM - URI/Sore Throat MDM Narrative Medical decision making narrative: Patient O2 sat 97% on room air. Lungs are clear. Well-appearing. COVID test was negative. Chest x-ray showed no focal infiltrate will discharge patient home close follow-up on outpatient basis. As patient to follow strict home quarantine into all symptom has resolved. Currently in stable condition. Differential Diagnosis Differential diagnosis: Likely upper respiratory infection Medical Records Attestation: I reviewed the patient's medical records. Lab Data Attestation: I reviewed the patient's lab results. Labs: Lab Results 04/01/21 Range/Units 22:05 COVID-19 ([facility]) Negative (Negative) COVID-19 Clin Com See Note Discharge Plan Discharge Clinical Impression: Upper respiratory infection Patient Disposition: Home, Self-Care Instructions: Upper Respiratory Infection (ED) Prescriptions: No Action azithromycin 250 mg tablet See Rx Instructions .ROUTE .COMPLEX Qty: 6 RF: 0 codeine-guaifenesin [Guaifenesin AC] 10-100 mg/5 mL liquid 5 ml PO Q6H PRN (Reason: cold symptoms) Qty: 120 RF: 0 albuterol sulfate 90 mcg/actuation HFA aerosol inhaler 1 inh inhalation QID PRN (Reason: shortness of breath or wheezing) Qty: 8.5 RF: 0 dexamethasone [Decadron] 6 mg tablet 6 mg PO DAILY 7 Days Qty: 7 RF: 0 cyclobenzaprine 10 mg tablet 10 mg PO Q8H Qty: 10 RF: 0 codeine-guaifenesin [Guaifenesin AC] 10-100 mg/5 mL liquid 5 ml PO Q6H PRN (Reason: cold symptoms) Qty: 120 RF: 0 ibuprofen 600 mg tablet 600 mg PO Q6H PRN (Reason: pain) Qty: 14 RF: 0 cephalexin [Keflex] 500 mg capsule 500 mg PO QID Qty: 20 RF: 0 L norgest/e.estradiol-e.estrad [Seasonique] 0.15 mg-30 mcg (84)/10 mcg (7) tablets,dose pack,3 month 1 tab PO DAILY 84 Days Qty: 84 RF: 0 Referrals: Physician,None [Primary Care Provider] - 2 days (Small risk of COVID still exist. Please follow strict home quarantine into all symptom has resolved. No fever for at least 24-48 hours.) Stand Alone Forms: Work/School Release
== END 2021-04-02 00:22 | disposition home or self-care (01) ==
PROVIDERS: Emergency Provider Emergency Medicine Emergency Medical Services
DX: J39.8 Other specified diseases of upper respiratory tract (principal); F17.200 Nicotine dependence, unspecified, uncomplicated; Z71.6 Tobacco abuse counseling; Z20.822 Contact with and (suspected) exposure to COVID-19; Z79.899 Other long term (current) drug therapy
CPT/HCPCS: 36415; 71046; 87635; 99283

== ENCOUNTER 2021-04-08 20:21 | Emergency (ER) | payer OTHER, SELFPAY ==
--- NOTE | ~2021-04-08 | XR_ITS ---
EXAMINATION: XR CHEST CLINICAL INFORMATION: Cough COMPARISON: 04/01/2021 TECHNIQUE: 2 views of the chest were obtained. FINDINGS: Lungs are clear. No focal consolidation or mass. Normal pulmonary vascularity. No pleural effusion or pneumothorax. Normal heart size. No acute osseous abnormality. XR/XR chest 2V IMPRESSION: No acute pulmonary disease. No significant change from prior study.
[2021-04-08 20:33] VITALS: BP 122/74; PULSE 91; RESP 20; TEMP 36.9; O2SAT 99; BMI 25.4
[2021-04-08 21:19] LABS: COVID-19 Test Negative (Negative); IDNOW Serial# 9DD0AD1C
--- NOTE | 2021-04-08 21:45 | ED_ITS ---
HPI - Extremity Problem General Chief complaint: Extremity Injury, Upper Stated complaint: Cough/Wheezing Time Seen by Provider: 04/08/21 21:25 Source: patient Mode of arrival: ambulatory Limitations: no limitations History of Present Illness HPI Narrative: Patient comes to the emergency room complaining cough for 1 week, congestion. Patient was evaluated last week, patient states that she needs to be COVID tested for work. Patient denies significant shortness of breath, no vomiting, no diarrhea, no chest pain. Related Data Previous Rx's Medication Instructions Recorded cephalexin 500 mg capsule (Keflex) 500 mg PO QID #20 cap 05/31/20 albuterol sulfate 90 mcg/actuation 1 inh INHALATION QID PRN #8.5 g 11/06/20 aerosol inhaler azithromycin 250 mg tablet See Rx Instructions .ROUTE 11/06/20 .COMPLEX #6 tab codeine 10 mg-guaifenesin 100 mg/5 5 ml PO Q6H PRN #120 ml 11/06/20 mL oral liquid (Guaifenesin AC) codeine 10 mg-guaifenesin 100 mg/5 5 ml PO Q6H PRN #120 ml 11/06/20 mL oral liquid (Guaifenesin AC) cyclobenzaprine 10 mg tablet 10 mg PO Q8H #10 tab 11/06/20 dexamethasone 6 mg tablet 6 mg PO DAILY 7 Days #7 tab 11/06/20 (Decadron) ibuprofen 600 mg tablet 600 mg PO Q6H PRN #14 tab 01/26/21 L norgest/E estradiol-E estrad 1 tab PO DAILY 84 Days #84 ea 02/14/21 0.15 mg-30 mcg (84)/10 mcg(7) tabs,3mos (Seasonique) guaifenesin 400 mg tablet 400 mg PO Q4H PRN #20 tab 04/08/21 Allergies Allergy/AdvReac Type Severity Reaction Status Date / Time No Known Allergies Allergy Verified 04/01/21 23:09 Review of Systems Review of Systems: Constitutional : No Weight loss, No Fever, No Chills, No Night Sweats, No Fatigue, No Malaise ENT/Mouth : No Hearing loss, No Ear Pain, No Nasal Congestion, No Sinus Pain, No Hoarseness, No sore throat, No Rhinorrhea, No Swallowing Difficulty Eyes: No Eye Pain, No Swelling, No Redness, No Foreign Body, No Discharge, No Vision Changes Cardiovascular : No Chest Pain, No SOB, No Dyspnea on Exertion, No Orthopnea, No Edema, No Palpitations Respiratory : Complaining of cough, No Sputum, No Wheezing, No Smoke Exposure, No Dyspnea Gastrointestinal : No Nausea, No Vomiting, No Diarrhea, No Constipation, No abdominal Pain, No Hematochezia, No Melena Genitourinary : no irregular bleeding, No Dysuria, No Urinary Frequency, No Hematuria, No Urinary Incontinence, No Urgency, No Flank Pain, No Urinary Flow Changes, No Hesitancy Musculoskeletal : No joint pain, No Myalgias, No Joint Swelling Skin : No Skin Lesions, No rash Neuro : No Weakness, No Numbness, No Paresthesias, No Loss of Consciousness, No Dizziness, No Headache Psych : No Anxiety/Panic, No Depression, No SI/HI/AH/VH, No Social Issues, Heme/Lymph: No Bruising, No Bleeding,No Lymphadenopathy Endocrine : No Polyuria, No Polydipsia, No Temperature Intolerance [facility] Past Medical History Medical History No known health problems Ovarian cyst Social History Social History Patient Tobacco Use Status: Current everyday Tobacco user Advance Directives: No Advance Directives Information Provided: Yes Physical Exam Vital Signs: Vital Signs: Last Vital Signs Temp 98.4 F 04/08/21 20:33 Pulse 91 04/08/21 20:33 Resp 20 04/08/21 20:33 BP 122/74 04/08/21 20:33 Pulse Ox 99 04/08/21 20:33 Body Mass Index 25.4 Const: Other: Appearance: Alert. Oriented X3. No acute distress. Eyes: Pupils equal, round and reactive to light. ENT: Pharynx normal. Neck: Normal inspection. Neck supple. No lymph nodes noted. No crepitus CVS: Normal heart rate and rhythm. Pulses normal. Normal S1 and S2 Respiratory: No respiratory distress. Mild bilateral rhonchi, no wheezing, no rales Abdomen: Soft and nontender. No rigidity. No distention. good BS x4 Skin: Skin warm and dry. Normal skin color. Normal skin turgor. Extremities: No lower extremity edema. No lower extremity edema. No Lacerations. No Rash Neuro: Oriented X 3. No motor deficit. No sensory deficit. Moving all extermities. No slurred speech. Course Course Course Narrative: Patient tested negative for COVID-19. Patient has no fever or chills. Patient likely having bronchitis MDM - Extremity (Nontraumatic) Lab Data Labs: Lab Results 04/08/21 Range/Units 20:56 COVID-19 ([facility]) Negative (Negative) COVID-19 Clin Com See Note Imaging Data Chest x-ray: Radiologist's impression: FINDINGS: Lungs are clear. No focal consolidation or mass. Normal pulmonary vascularity.? No pleural effusion or pneumothorax. Normal heart size. No acute osseous abnormality. XR/XR chest 2V IMPRESSION: No acute pulmonary disease. No significant change from prior study. Discharge Plan Discharge Clinical Impression: Acute bronchitis, viral Patient Disposition: Home, Self-Care Instructions: Acute Bronchitis (ED) Additional Instructions: You tested negative for COVID-19. Please follow-up with your primary care physician tomorrow. If you have any worsening or new symptoms, please return to the emergency room or call 911 Prescriptions: New guaifenesin 400 mg tablet 400 mg PO Q4H PRN (Reason: cough) Qty: 20 RF: 0 No Action azithromycin 250 mg tablet See Rx Instructions .ROUTE .COMPLEX Qty: 6 RF: 0 codeine-guaifenesin [Guaifenesin AC] 10-100 mg/5 mL liquid 5 ml PO Q6H PRN (Reason: cold symptoms) Qty: 120 RF: 0 albuterol sulfate 90 mcg/actuation HFA aerosol inhaler 1 inh inhalation QID PRN (Reason: shortness of breath or wheezing) Qty: 8.5 RF: 0 dexamethasone [Decadron] 6 mg tablet 6 mg PO DAILY 7 Days Qty: 7 RF: 0 cyclobenzaprine 10 mg tablet 10 mg PO Q8H Qty: 10 RF: 0 codeine-guaifenesin [Guaifenesin AC] 10-100 mg/5 mL liquid 5 ml PO Q6H PRN (Reason: cold symptoms) Qty: 120 RF: 0 ibuprofen 600 mg tablet 600 mg PO Q6H PRN (Reason: pain) Qty: 14 RF: 0 cephalexin [Keflex] 500 mg capsule 500 mg PO QID Qty: 20 RF: 0 L norgest/e.estradiol-e.estrad [Seasonique] 0.15 mg-30 mcg (84)/10 mcg (7) tablets,dose pack,3 month 1 tab PO DAILY 84 Days Qty: 84 RF: 0
== END 2021-04-08 22:45 | disposition home or self-care (01) ==
PROVIDERS: Emergency Provider Emergency Medicine
DX: J20.8 Acute bronchitis due to other specified organisms (principal); Z20.822 Contact with and (suspected) exposure to COVID-19
CPT/HCPCS: 36415; 71046; 87635; 99283

== ENCOUNTER 2021-04-12 22:50 | Emergency (ER) | payer OTHER, SELFPAY ==
--- NOTE | ~2021-04-12 | XR_ITS ---
EXAMINATION: XR CHEST CLINICAL INFORMATION: Cough with dark mucous . COMPARISON: Chest radiograph dated from 04/08/2021. TECHNIQUE: PA view of the chest was obtained. FINDINGS: Normal appearance of the cardiomediastinal silhouette. Clear lungs. No pleural effusions or pneumothorax. No acute osseous findings. XR/XR chest 1V IMPRESSION: No acute cardiopulmonary findings.
[2021-04-12 22:59] VITALS: BP 109/71; PULSE 101; RESP 18; TEMP 36.1; O2SAT 98; BMI 25.4
--- NOTE | 2021-04-12 23:11 | ED.URI ---
HPI - URI/Sore Throat General Chief Complaint: Upper Respiratory Symptoms Stated Complaint: Cough/Dark Mucus Time Seen by Provider: 04/12/21 23:07 Source: patient Mode of arrival: ambulatory Limitations: no limitations History of Present Illness HPI Narrative: 28-year-old female with no known medical history presents to the emergency department with a wet cough X 9 days. She states that the cough has been worsening over the past 4 days. She says it is productive of a thick yellow/dark green sputum. She states that the cough is worse at night, and worse when she is lying down. She states she is recently diagnosed with bronchitis and upper respiratory infection. She denies chest pain, shortness of breath, fevers, weakness, abdominal pain, changes in bowel habits, problems with urination. She has been able to eat and drink well. She tried guaifenesin, with little to no relief. MD elicited complaint: cough Pertinent past history: other (Bronchitis) Onset (ago): day(s) (Nine) Consistency: intermittent Severity: severe Description of mucous: yellow and green Able to tolerate fluids by mouth: Yes Exacerbating factors: supine positioning and other (Worse tonight) Relieving factors: nothing Treatments prior to arrival: other (guaifenesin) Related Data Previous Rx's Medication Instructions Recorded cephalexin 500 mg capsule (Keflex) 500 mg PO QID #20 cap 05/31/20 albuterol sulfate 90 mcg/actuation 1 inh INHALATION QID PRN #8.5 g 11/06/20 aerosol inhaler azithromycin 250 mg tablet See Rx Instructions .ROUTE 11/06/20 .COMPLEX #6 tab codeine 10 mg-guaifenesin 100 mg/5 5 ml PO Q6H PRN #120 ml 11/06/20 mL oral liquid (Guaifenesin AC) codeine 10 mg-guaifenesin 100 mg/5 5 ml PO Q6H PRN #120 ml 11/06/20 mL oral liquid (Guaifenesin AC) cyclobenzaprine 10 mg tablet 10 mg PO Q8H #10 tab 11/06/20 dexamethasone 6 mg tablet 6 mg PO DAILY 7 Days #7 tab 11/06/20 (Decadron) ibuprofen 600 mg tablet 600 mg PO Q6H PRN #14 tab 01/26/21 L norgest/E estradiol-E estrad 1 tab PO DAILY 84 Days #84 ea 02/14/21 0.15 mg-30 mcg (84)/10 mcg(7) tabs,3mos (Seasonique) guaifenesin 400 mg tablet 400 mg PO Q4H PRN #20 tab 04/08/21 azithromycin 500 mg tablet See Rx Instructions .ROUTE 04/12/21 .COMPLEX #3 tab codeine 10 mg-guaifenesin 100 mg/5 5 ml PO Q6H PRN #120 ml 04/12/21 mL oral liquid (Guaifenesin AC) Allergies Allergy/AdvReac Type Severity Reaction Status Date / Time No Known Allergies Allergy Verified 04/01/21 23:09 Review of Systems Review of Systems: Constitutional : No Weight loss, No Fever, No Chills, No Night Sweats, No Fatigue, No Malaise ENT/Mouth : No Hearing loss, No Ear Pain, No Nasal Congestion, No Sinus Pain, No Hoarseness, No sore throat, No Rhinorrhea, No Swallowing Difficulty Eyes: No Eye Pain, No Swelling, No Redness, No Foreign Body, No Discharge, No Vision Changes Cardiovascular : No Chest Pain, No SOB, No Dyspnea on Exertion, No Orthopnea, No Edema, No Palpitations Respiratory : + Cough, + Sputum, No Wheezing, No Smoke Exposure, No Dyspnea Gastrointestinal : No Nausea, No Vomiting, No Diarrhea, No Constipation, No abdominal Pain, No Hematochezia, No Melena Genitourinary : no irregular bleeding, No Dysuria, No Urinary Frequency, No Hematuria, No Urinary Incontinence, No Urgency, No Flank Pain, No Urinary Flow Changes, No Hesitancy Musculoskeletal : No joint pain, No Myalgias, No Joint Swelling Skin : No Skin Lesions, No rash Neuro : No Weakness, No Numbness, No Paresthesias, No Loss of Consciousness, No Dizziness, No Headache Yes all other systems are reviewed and are negative [facility] Past Medical History Attestation statement: The following information was validated with the patient. Source: old records reviewed and nursing notes reviewed Medical History No known health problems Ovarian cyst Social History Social History Patient Tobacco Use Status: Current everyday Tobacco user Advance Directives: No Advance Directives Information Provided: Yes Physical Exam Vital Signs: Vital Signs: Last Vital Signs Temp 97 F 04/12/21 22:59 Pulse 101 H 04/12/21 22:59 Resp 18 04/12/21 22:59 BP 109/71 04/12/21 22:59 Pulse Ox 98 04/12/21 22:59 Body Mass Index 25.4 vital signs have been reviewed as normal and appeared to be correct. Blood pressure normal. Heart rate normal. Respiration rate normal. Temperature normal. Oxygen saturation normal. Appearance: Alert. Oriented X3. No acute distress. Head: Normal external exam. Normocephalic. Atraumatic. Eyes: PERRLA. EOMI. Conjunctiva and sclera normal. Eyelids normal. ENT: EAC normal. TM's Normal. Pharynx normal. Uvula midline. Moist mucous membranes. No trismus noted. No drooling noted. No muffled voice noted. Neck: Normal inspection. Neck supple. FROM. No adenopathy. Thyroid normal. No meningeal signs. CVS: Normal heart rate and rhythm. Heart sound normal. Pulses normal throughout. No murmurs/rales/gallops. Respiratory: No respiratory distress. Painless inspiration. + diminished Breath sounds over all lung espinosa b/l. + expiratory wheezes over b/l lung espinosa No accessory muscle usage noted or decreased air movement noted. + wet cough Abdomen: Soft and nontender. Bowel sounds normal in all 4 quadrants. No distention noted. No organomegaly noted. No visible injury noted. Back: Full range of motion noted. No rashes/lesion/induration/fluctuance or signs of infection noted. Skin: Skin warm and dry. Normal skin color. Normal skin turgor. No rashes/lesions/lacerations noted. Extremities: No lower extremity edema. Extremities exhibit normal range of motion. Neuro: Oriented X 3. No motor deficit. No sensory deficit. Reflexes normal. Normal steady gait. No focal neuro deficits noted. Vascular: + radial pulses/+ 2 distal pedal pulses/+2 dorsalis pedis b/l. Normal cap refill. Course Course Course Narrative: Female no known medical history presents to the emergency department stating that she was recently diagnosed with bronchitis on 04/08/21, and over the past 4 days she has been having worsening cough and increased sputum production yellow/dark green in color. Upon physical examination she is coughing throughout the examination, it is a wet cough. There are diminished lung sounds noted over all lung espinosa, bilaterally. There is also expiratory wheezes noted over all lung espinosa. Plan- chest x-ray, and COVID To note, patient was seen here on 04/08/2021, where she was diagnosed with acute bronchitis. She was discharged home with guaifenesin 400 mg for the cough. On that visit she tested negative for COVID-19. And there were no acute findings on chest x-ray. She was also seen here on April 01, where she was diagnosed with an upper respiratory infection. Reevaluation(s) Reevaluation #1: COVID negative. Chest Xray shows no acute findings. Plan at this time is to discharge the patient home on antibiotics, albuterol rescue inhaler and Robitussin with codeine for cough. She has been educated to return to the emergency department with new or worsening symptoms such as high fevers, chest pain, shortness of breath, or if she develops new or worsening symptoms. She is aware the plan, she has no questions, she feels comfortable getting discharged home. She is safe for discharge home, with PCP follow-up. MDM - URI/Sore Throat Medical Records Attestation: I reviewed the patient's medical records. Lab Data Attestation: I reviewed the patient's lab results. Labs: Lab Results 04/12/21 Range/Units 23:30 COVID-19 ([facility]) Negative (Negative) COVID-19 Clin Com See Note Imaging Data Chest x-ray: Attestation: I personally reviewed and interpreted this imaging study as follows: Radiologist's impression: FINDINGS: Normal appearance of the cardiomediastinal silhouette. Clear lungs. No pleural effusions or pneumothorax. No acute osseous findings. XR/XR chest 1V IMPRESSION: No acute cardiopulmonary findings. ? Discharge Plan Discharge Clinical Impression: Upper respiratory infection Qualifiers: URI type: unspecified URI Qualified Code(s): J06.9 - Acute upper respiratory infection, unspecified Patient Disposition: Home, Self-Care Instructions: Upper Respiratory Infection (ED) Additional Instructions: Follow-up with your primary care provider Return to the emergency department with new or worsening symptoms Prescriptions: New azithromycin 500 mg tablet See Rx Instructions .ROUTE .COMPLEX Qty: 3 RF: 0 codeine-guaifenesin [Guaifenesin AC] 10-100 mg/5 mL liquid 5 ml PO Q6H PRN (Reason: cold symptoms) Qty: 120 RF: 0 No Action azithromycin 250 mg tablet See Rx Instructions .ROUTE .COMPLEX Qty: 6 RF: 0 codeine-guaifenesin [Guaifenesin AC] 10-100 mg/5 mL liquid 5 ml PO Q6H PRN (Reason: cold symptoms) Qty: 120 RF: 0 albuterol sulfate 90 mcg/actuation HFA aerosol inhaler 1 inh inhalation QID PRN (Reason: shortness of breath or wheezing) Qty: 8.5 RF: 0 dexamethasone [Decadron] 6 mg tablet 6 mg PO DAILY 7 Days Qty: 7 RF: 0 cyclobenzaprine 10 mg tablet 10 mg PO Q8H Qty: 10 RF: 0 codeine-guaifenesin [Guaifenesin AC] 10-100 mg/5 mL liquid 5 ml PO Q6H PRN (Reason: cold symptoms) Qty: 120 RF: 0 ibuprofen 600 mg tablet 600 mg PO Q6H PRN (Reason: pain) Qty: 14 RF: 0 cephalexin [Keflex] 500 mg capsule 500 mg PO QID Qty: 20 RF: 0 guaifenesin 400 mg tablet 400 mg PO Q4H PRN (Reason: cough) Qty: 20 RF: 0 L norgest/e.estradiol-e.estrad [Seasonique] 0.15 mg-30 mcg (84)/10 mcg (7) tablets,dose pack,3 month 1 tab PO DAILY 84 Days Qty: 84 RF: 0 Referrals: Physician,Unknown J [Physician] - 2 days Stand Alone Forms: Work/School Release Print Language: [place]an
[2021-04-12 23:51] LABS: COVID-19 Test Negative (Negative); IDNOW Serial# 9DD0AD1C
[2021-04-13] MEDS: Albuterol Sulfate 90 MCG 8 GM INHALER 4 PUFF INHALE (00:26)
[2021-04-13] MEDS: predniSONE 20 MG TABLET 60 MG PO (00:26)
== END 2021-04-13 00:38 | disposition home or self-care (01) ==
LOC: HO.ED 23:20
PROVIDERS: Physician Assistant Medical; Emergency Provider Emergency Medicine; PCP Internal Medicine
DX: J06.9 Acute upper respiratory infection, unspecified (principal); Z20.822 Contact with and (suspected) exposure to COVID-19
CPT/HCPCS: 36415; 71045; 87635; 99283; 99284

== ENCOUNTER → 2021-05-17 14:20 | Outpatient (BNVA) | payer OTHER, SELFPAY | PROVIDERS: PCP Internal Medicine; Visit Provider Obstetrics & Gynecology | DX: R10.2 Pelvic and perineal pain (principal); F17.210 Nicotine dependence, cigarettes, uncomplicated | CPT/HCPCS: 99212 ==

== ENCOUNTER 2021-08-30 18:06 | Emergency (ER) | payer OTHER, SELFPAY ==
[2021-08-30 18:16] VITALS: BP 114/77; PULSE 99; RESP 18; TEMP 36.9; O2SAT 99; BMI 27.3
[2021-08-30 19:14] LABS: MANUAL DIFF FLAG NO
[2021-08-30 19:18] LABS: Basophils Absolute Auto 0.1 X10*3/uL (0.0-0.2); Basophils Percent Auto 0.8 % (0-2); Eosinophils Absolute Auto 0.1 X10*3/uL (0.0-0.4); Hematocrit 40.6 % (37.0-47.0); Hemoglobin 13.9 g/dl (12.0-16.0); Imm Gran Abs Auto 0.01 X10*3/uL (0.00-0.03); Imm Gran Pct Auto 0.1 % (0.0-0.4); Lymphocytes Absolute Auto 2.2 X10*3/uL (1.2-4.9); Lymphocytes Percent Auto 31.4 % (20-40); Mean Corpuscular HGB Conc 34.2 g/dl (31.0-35.0); Mean Corpuscular Hemoglobin 30.8 pg (27.0-33.0); Mean Corpuscular Volume 89.8 fL (80.0-98.0); Mean Platelet Volume 9.4 fL (9.4-12.3); Monocytes Absolute Auto 0.4 X10*3/uL (0.1-1.2); Monocytes Percent Auto 5.1 % (2-11); Neutrophils Absolute Auto 4.3 x10*3/uL (2.0-8.3); Neutrophils Percent Auto 60.6 % (45-73); Platelet Count 353 X10*3/uL (160-400); Red Blood Count 4.52 X10*6/uL (4.20-5.50); Red Cell Distribution Width 11.7 % (11.0-16.0); White Blood Count 7.1 X10*3/uL (4.8-10.8)
[2021-08-30 19:19] LABS: UPreg QC Valid YES; Urine Pregnancy NEGATIVE (NEGATIVE)
[2021-08-30 19:59] LABS: Alanine Aminotransferase 15 U/L (0-31); Albumin Level 4.4 g/dL (3.5-5.0); Alkaline Phosphatase 73 U/L (39-117); Anion Gap 8 (12-20); Aspartate Amino Transferase 17 U/L (5-31); Bilirubin Total 0.5 mg/dL (0.0-1.0); Blood Urea Nitrogen 9 mg/dL (9-16); Calcium 9.6 mg/dL (8.4-10.2); Carbon Dioxide 28 mmol/L (22-29); Chloride 106 mmol/L (96-108); Creatinine Clr Calc Pharmacy 101.6; Estimated Glomerular Filt Rate > 60; Glucose Random 80 mg/dL (60-115); Potassium 4.4 mmol/L (3.3-5.1); Sodium 138 mmol/L (135-145); Total Protein 7.1 g/dL (6.5-8.0)
[2021-08-30 20:39] LABS: Appearance Urine CLOUDY; Color Urine YELLOW; Glucose Urine UA NEG (NEG); Leukocyte Esterase Urine 2+ (NEG); Nitrite Urine NEG (NEG); Specific Gravity - Urine 1.025 (1.005-1.025); UACC Culture Trigger YES; Urine Blood NEG (NEG); Urine Ketones NEG (NEG); Urine Protein NEG (NEG-TRACE)
[2021-08-30 20:42] LABS: Bacteria Urine 1+ /LPF; Mucus Urine 1+ /LPF; RBC Urine 0-2 /HPF (0); Squamous Epithelial Cell Urine 2+ /LPF
[2021-08-30 21:01] VITALS: BP 114/66; PULSE 65; RESP 16; TEMP 37.1; O2SAT 100
--- NOTE | 2021-08-30 21:57 | ED.ABDPAIN ---
HPI - Abdominal Pain General Chief Complaint: Abdominal Pain Stated Complaint: abdominal cyst? Time Seen by Provider: 08/30/21 21:15 Source: patient Mode of arrival: ambulatory History of Present Illness HPI narrative: 20-year-old female without significant past medical history presents with right lower quadrant discomfort that has been ongoing since 08/19/2021 that is not been associated with fever, chills, nausea, vomiting, diarrhea. Patient states that she spotted ?a little bit? on the and then has no longer had any periods. She is sexually active. Related Data Previous Rx's Medication Instructions Recorded cephalexin 500 mg capsule (Keflex) 500 mg PO QID #20 cap 05/31/20 albuterol sulfate 90 mcg/actuation 1 inh INHALATION QID PRN #8.5 g 11/06/20 aerosol inhaler azithromycin 250 mg tablet See Rx Instructions .ROUTE 11/06/20 .COMPLEX #6 tab codeine 10 mg-guaifenesin 100 mg/5 5 ml PO Q6H PRN #120 ml 11/06/20 mL oral liquid (Guaifenesin AC) codeine 10 mg-guaifenesin 100 mg/5 5 ml PO Q6H PRN #120 ml 11/06/20 mL oral liquid (Guaifenesin AC) cyclobenzaprine 10 mg tablet 10 mg PO Q8H #10 tab 11/06/20 dexamethasone 6 mg tablet 6 mg PO DAILY 7 Days #7 tab 11/06/20 (Decadron) ibuprofen 600 mg tablet 600 mg PO Q6H PRN #14 tab 01/26/21 guaifenesin 400 mg tablet 400 mg PO Q4H PRN #20 tab 04/08/21 azithromycin 500 mg tablet See Rx Instructions .ROUTE 04/12/21 .COMPLEX #3 tab codeine 10 mg-guaifenesin 100 mg/5 5 ml PO Q6H PRN #120 ml 04/12/21 mL oral liquid (Guaifenesin AC) prednisone 20 mg tablet 40 mg PO DAILY 5 Days #10 tab 04/13/21 L norgest/E estradiol-E estrad 1 tab PO DAILY 84 Days #84 ea 05/17/21 0.15 mg-30 mcg (84)/10 mcg(7) tabs,3mos (Seasonique) ciprofloxacin HCl 500 mg tablet 500 mg PO Q12H 5 Days #10 tab 08/30/21 phenazopyridine 100 mg tablet 200 mg PO TID PRN #6 tab 08/30/21 (Pyridium) Allergies Allergy/AdvReac Type Severity Reaction Status Date / Time No Known Allergies Allergy Verified 08/30/21 18:16 Review of Systems Review of Systems Pertinent positives and negatives as stated in HPI 10 point review of systems is otherwise negative. PMFSH Past Medical History Source: nursing notes reviewed Medical History No known health problems Ovarian cyst Social History Social History Patient Tobacco Use Status: Current everyday Tobacco user Advance Directives: No Advance Directives Information Provided: No Physical Exam ED Vital Signs: Vital Signs - 24 hr 08/30/21 18:16 08/30/21 21:01 Temperature 98.5 F 98.7 F Pulse Rate 99 65 Respiratory Rate 18 16 Blood Pressure 114/77 114/66 Pulse Oximetry 99 100 BMI result Body Mass Index 27.3 VITAL SIGNS: Reviewed. GENERAL: Well developed, well nourished, in no acute distress. HEAD: Normocephalic/atraumatic EYES: PERRLA, EOMI EARS: Ext canals without abnormality OROPHARYNX: no oral lesions noted, posterior pharynx clear LUNGS: Normal breath sounds. No adventitious sounds or accessory muscle use. SpO2<99> CARDIOVASCULAR: Regular rate and rhythm without noted murmurs ABDOMEN: Soft, non-tender, non-distended with bowel sounds, mild right CVA tenderness SKIN: Inspection of the skin reveals no rashes NEUROLOGIC: Alert and oriented x 4. Strength and sensation to light touch were grossly intact x 4. Course Course Course Narrative: 20-year-old female with history and clinical presentation suggestive of cystitis or possible pyelonephritis and on review of all investigations urinalysis is positive for leukocyte esterase as well as presence of wbc's. Due to duration of symptoms and lack of associated symptoms this is not consistent with appendicitis, ovarian torsion. Patient was treated with initial antibiotics as well as combination analgesics here in the emergency room and discharged home in stable condition. MDM - Abdominal Pain Lab Data Result diagrams: 08/30/21 19:10 08/30/21 19:10 Labs: Lab Results 03/03/22 03/03/22 03/03/22 Range/Units 19:05 19:05 19:10 WBC 7.1 (4.8-10.8) X10*3/uL RBC 4.52 (4.20-5.50) X10*6/uL Hgb 13.9 (12.0-16.0) g/dl Hct 40.6 (37.0-47.0) % MCV 89.8 (80.0-98.0) fL MCH 30.8 (27.0-33.0) pg MCHC 34.2 (31.0-35.0) g/dl RDW 11.7 (11.0-16.0) % Plt Count 353 (160-400) X10*3/uL MPV 9.4 (9.4-12.3) fL Immature Gran % (Auto) 0.1 (0.0-0.4) % Neut % (Auto) 60.6 (45-73) % Lymph % (Auto) 31.4 (20-40) % [place] % (Auto) 5.1 (2-11) % Eos % (Auto) 2.0 (0-4) % Baso % (Auto) 0.8 (0-2) % Lymph # (Auto) 2.2 (1.2-4.9) X10*3/uL [place] # (Auto) 0.4 (0.1-1.2) X10*3/uL Eos # (Auto) 0.1 (0.0-0.4) X10*3/uL Baso # (Auto) 0.1 (0.0-0.2) X10*3/uL Abs Immat Gran (auto) 0.01 (0.00-0.03) X10*3/uL Absolute Neuts (auto) 4.3 (2.0-8.3) x10*3/uL Absolute Nucleated RBC 0.000 (0.0-0.012) X10*3/uL Nucleated RBC % (auto) 0.0 (0.0-0.2) /100WBC Sodium (135-145) mmol/L Potassium (3.3-5.1) mmol/L Chloride (96-108) mmol/L Carbon Dioxide (22-29) mmol/L Anion Gap (12-20) BUN (9-16) mg/dL Creatinine (0.5-1.4) mg/dL Estim Creat Clear Calc Estimated GFR Random Glucose (60-115) mg/dL Calcium (8.4-10.2) mg/dL Total Bilirubin (0.0-1.0) mg/dL AST (5-31) U/L ALT (0-31) U/L Alkaline Phosphatase (39-117) U/L Total Protein (6.5-8.0) g/dL Albumin (3.5-5.0) g/dL Urine Color YELLOW Urine Appearance CLOUDY Urine pH 6.0 (5.0-8.0) Ur Specific [place] 1.025 (1.005-1.025) Urine Protein NEG (NEG-TRACE) MG/DL Urine Glucose (UA) NEG (NEG) MG/DL Urine Ketones NEG (NEG) MG/DL Urine Blood NEG (NEG) Urine Nitrite NEG (NEG) Ur Leukocyte Esterase 2+ H (NEG) Urine RBC 0-2 (0) /HPF Urine WBC 10-14 H (0-4) /HPF Ur Squamous Epith Cells 2+ /LPF Urine Bacteria 1+ /LPF Urine Mucus 1+ /LPF Urine Test NEGATIVE (NEGATIVE) 08/30/21 Range/Units 19:10 WBC (4.8-10.8) X10*3/uL RBC (4.20-5.50) X10*6/uL Hgb (12.0-16.0) g/dl Hct (37.0-47.0) % MCV (80.0-98.0) fL MCH (27.0-33.0) pg MCHC (31.0-35.0) g/dl RDW (11.0-16.0) % Plt Count (160-400) X10*3/uL MPV (9.4-12.3) fL Immature Gran % (Auto) (0.0-0.4) % Neut % (Auto) (45-73) % Lymph % (Auto) (20-40) % [place] % (Auto) (2-11) % Eos % (Auto) (0-4) % Baso % (Auto) (0-2) % Lymph # (Auto) (1.2-4.9) X10*3/uL [place] # (Auto) (0.1-1.2) X10*3/uL Eos # (Auto) (0.0-0.4) X10*3/uL Baso # (Auto) (0.0-0.2) X10*3/uL Abs Immat Gran (auto) (0.00-0.03) X10*3/uL Absolute Neuts (auto) (2.0-8.3) x10*3/uL Absolute Nucleated RBC (0.0-0.012) X10*3/uL Nucleated RBC % (auto) (0.0-0.2) /100WBC Sodium 138 (135-145) mmol/L Potassium 4.4 (3.3-5.1) mmol/L Chloride 106 (96-108) mmol/L Carbon Dioxide 28 (22-29) mmol/L Anion Gap 8 L (12-20) BUN 9 (9-16) mg/dL Creatinine 0.76 (0.5-1.4) mg/dL Estim Creat Clear Calc 101.6 Estimated GFR > 60 Random Glucose 80 (60-115) mg/dL Calcium 9.6 (8.4-10.2) mg/dL Total Bilirubin 0.5 (0.0-1.0) mg/dL AST 17 (5-31) U/L ALT 15 (0-31) U/L Alkaline Phosphatase 73 (39-117) U/L Total Protein 7.1 (6.5-8.0) g/dL Albumin 4.4 (3.5-5.0) g/dL Urine Color Urine Appearance Urine pH (5.0-8.0) Ur Specific [place] (1.005-1.025) Urine Protein (NEG-TRACE) MG/DL Urine Glucose (UA) (NEG) MG/DL Urine Ketones (NEG) MG/DL Urine Blood (NEG) Urine Nitrite (NEG) Ur Leukocyte Esterase (NEG) Urine RBC (0) /HPF Urine WBC (0-4) /HPF Ur Squamous Epith Cells /LPF Urine Bacteria /LPF Urine Mucus /LPF Urine Test (NEGATIVE) Discharge Plan Discharge Clinical Impression: Pyelonephritis Patient Disposition: Home, Self-Care Instructions: Kidney Infection (ED) Additional Instructions: 1. Recommend [id number] Tylenol/ibuprofen as needed for pain control. 2. Complete the entire course of antibiotics. 3. Follow-up with your primary care provider next 2-3 days for re-evaluation further outpatient management. Return to the ER for worsening symptoms. Prescriptions: New ciprofloxacin HCl 500 mg tablet 500 mg PO Q12H 5 Days Qty: 10 0RF phenazopyridine [Pyridium] 100 mg tablet 200 mg PO TID PRN (Reason: pain) Qty: 6 0RF No Action azithromycin 250 mg tablet See Rx Instructions .ROUTE .COMPLEX Qty: 6 0RF Rx Instructions: take 500 mg today (day 1), then 250 mg for 4 days (days 2-5) codeine-guaifenesin [Guaifenesin AC] 10-100 mg/5 mL liquid 5 ml PO Q6H PRN (Reason: cold symptoms) Qty: 120 0RF albuterol sulfate 90 mcg/actuation HFA aerosol inhaler 1 inh inhalation QID PRN (Reason: shortness of breath or wheezing) Qty: 8.5 0RF dexamethasone [Decadron] 6 mg tablet 6 mg PO DAILY 7 Days Qty: 7 0RF cyclobenzaprine 10 mg tablet 10 mg PO Q8H Qty: 10 0RF codeine-guaifenesin [Guaifenesin AC] 10-100 mg/5 mL liquid 5 ml PO Q6H PRN (Reason: cold symptoms) Qty: 120 0RF ibuprofen 600 mg tablet 600 mg PO Q6H PRN (Reason: pain) Qty: 14 0RF cephalexin [Keflex] 500 mg capsule 500 mg PO QID Qty: 20 0RF guaifenesin 400 mg tablet 400 mg PO Q4H PRN (Reason: cough) Qty: 20 0RF azithromycin 500 mg tablet See Rx Instructions .ROUTE .COMPLEX Qty: 3 0RF Rx Instructions: take 500 mg today (day 1), then 250 mg for 4 days (days 2-5) codeine-guaifenesin [Guaifenesin AC] 10-100 mg/5 mL liquid 5 ml PO Q6H PRN (Reason: cold symptoms) Qty: 120 0RF prednisone 20 mg tablet 40 mg PO DAILY 5 Days Qty: 10 0RF L norgest/e.estradiol-e.estrad [Seasonique] 0.15 mg-30 mcg (84)/10 mcg (7) tablets,dose pack,3 month 1 tab PO DAILY 84 Days Qty: 84 0RF
[2021-08-30 22:16] VITALS: BP 126/70; PULSE 71; RESP 16; O2SAT 100
[2021-08-30] MEDS: Acetaminophen 325 MG TABLET 975 MG PO (22:17)
[2021-08-30] MEDS: levoFLOXacin 500 MG TABLET PO (22:18)
[2021-08-30] MEDS: Ibuprofen 400 MG TABLET PO (22:18)
== END 2021-08-30 22:22 | disposition home or self-care (01) ==
PROVIDERS: Emergency Provider Student in an Organized Health Care Education/Training Program
DX: N12 Tubulo-interstitial nephritis, not specified as acute or chronic (principal); R10.31 Right lower quadrant pain; F17.200 Nicotine dependence, unspecified, uncomplicated
CPT/HCPCS: 36415; 80053; 81001; 81003; 81025; 85025; 87086; 99283; 99284

== ENCOUNTER 2021-11-04 16:38 | Emergency (ER) | payer OTHER, SELFPAY ==
[2021-11-04 16:41] VITALS: BP 115/69; PULSE 100; RESP 18; TEMP 37.7; O2SAT 100; BMI 26.4
--- NOTE | 2021-11-04 17:11 | ED.URI ---
HPI - URI/Sore Throat General Chief Complaint: Upper Respiratory Symptoms Stated Complaint: Covid + Time Seen by Provider: 11/04/21 16:51 Source: patient Mode of arrival: ambulatory Limitations: no limitations History of Present Illness HPI Narrative: 21-year-old female presents with 3 days of upper respiratory symptoms, fatigue, intermittent fevers, chills, tested positive for COVID at home. Also is requesting test for abnormal menstrual cycle with spotting MD elicited complaint: fever and nasal congestion Onset (ago): day(s) (3) Consistency: constant Severity: mild Description of mucous: clear and watery Able to tolerate fluids by mouth: Yes Relieving factors: nothing Context: sick contacts Associated symptoms: fever, chills, myalgias, rhinorrhea, nasal congestion, sore throat and cough Treatments prior to arrival: none Related Data Previous Rx's Medication Instructions Recorded cephalexin 500 mg capsule (Keflex) 500 mg PO QID #20 cap 05/31/20 albuterol sulfate 90 mcg/actuation 1 inh INHALATION QID PRN #8.5 g 11/06/20 aerosol inhaler azithromycin 250 mg tablet See Rx Instructions .ROUTE 11/06/20 .COMPLEX #6 tab codeine 10 mg-guaifenesin 100 mg/5 5 ml PO Q6H PRN #120 ml 11/06/20 mL oral liquid (Guaifenesin AC) codeine 10 mg-guaifenesin 100 mg/5 5 ml PO Q6H PRN #120 ml 11/06/20 mL oral liquid (Guaifenesin AC) cyclobenzaprine 10 mg tablet 10 mg PO Q8H #10 tab 11/06/20 dexamethasone 6 mg tablet 6 mg PO DAILY 7 Days #7 tab 11/06/20 (Decadron) ibuprofen 600 mg tablet 600 mg PO Q6H PRN #14 tab 01/26/21 guaifenesin 400 mg tablet 400 mg PO Q4H PRN #20 tab 04/08/21 azithromycin 500 mg tablet See Rx Instructions .ROUTE 04/12/21 .COMPLEX #3 tab codeine 10 mg-guaifenesin 100 mg/5 5 ml PO Q6H PRN #120 ml 04/12/21 mL oral liquid (Guaifenesin AC) prednisone 20 mg tablet 40 mg PO DAILY 5 Days #10 tab 04/13/21 L norgest/E estradiol-E estrad 1 tab PO DAILY 84 Days #84 ea 05/17/21 0.15 mg-30 mcg (84)/10 mcg(7) tabs,3mos (Seasonique) ciprofloxacin HCl 500 mg tablet 500 mg PO Q12H 5 Days #10 tab 08/30/21 phenazopyridine 100 mg tablet 200 mg PO TID PRN #6 tab 08/30/21 (Pyridium) Allergies Allergy/AdvReac Type Severity Reaction Status Date / Time No Known Allergies Allergy Verified 11/04/21 16:41 Review of Systems Review of Systems: Constitutional: positive Fever, positive Chills, positive fatigue, positive Malaise ENT/Mouth: positive sore throat, positive runny nose Eyes: No Discharge Cardiovascular: No Chest Pain, No SOB Respiratory: No Cough, No Sputum, No Wheezing, No Smoke Exposure, No Dyspnea Gastrointestinal: No Nausea, No Vomiting, No Diarrhea Genitourinary: no irregular bleeding, No Dysuria, No Urinary Frequency, No Hematuria, No Urinary Incontinence, No Urgency, No Flank Pain, Musculoskeletal: positive Myalgia Skin: No rash Neuro: No Headache Yes all other systems are reviewed and are negative [facility] Past Medical History Attestation statement: The following information was validated with the patient. Source: old records reviewed Medical History No known health problems Ovarian cyst Social History Social History Patient Tobacco Use Status: Current everyday Tobacco user Advance Directives: No Advance Directives Information Provided: No Physical Exam Vital Signs: Vital Signs: Last Vital Signs Temp 99.9 F 11/04/21 16:41 Pulse 100 11/04/21 16:41 Resp 18 11/04/21 16:41 BP 115/69 11/04/21 16:41 Pulse Ox 100 11/04/21 16:41 BMI result Body Mass Index 26.4 Appearance: Alert. Oriented X3. No acute distress. Eyes: Pupils equal, round and reactive to light. ENT: Pharynx normal. Neck: Normal inspection. Neck supple. CVS: Normal heart rate and rhythm. Pulses normal. Respiratory: No respiratory distress. Breath sounds normal. Abdomen: Soft and nontender. Skin: Skin warm and dry. Normal skin color. Normal skin turgor. Extremities: No lower extremity edema. Moves all extremities against resistance. Gait well balanced well coordinated. Neuro: No motor deficit. No sensory deficit. Cranial nerves 2-12 intact Course Course Course Narrative: 21-year-old female presents with a COVID positive test with upper respiratory symptoms consistent with COVID. Also complains of an abnormal menstrual cycle and was requesting a test. Patient does not have any other concerns at this time. Physical exam is unremarkable, vital signs stable within normal limits, afebrile, not appears nontoxic. COVID-19 test is positive, test is negative. Patient verbalized understanding of and agrees to plan of care to discharge home. Verbalized understanding of signs and symptoms indicating need for emergent intervention MDM - URI/Sore Throat Differential Diagnosis Differential diagnosis: Likely upper respiratory infection, otitis media, sinusitis, viral infection, bronchitis, influenza and pharyngitis Medical Records Attestation: I reviewed the patient's medical records. Lab Data Attestation: I reviewed the patient's lab results. Labs: Lab Results 11/04/21 11/04/21 Range/Units 17:07 17:07 Urine Test NEGATIVE (NEGATIVE) COVID-19 (BARBARA) Positive A (Negative) COVID-19 Clin Com See Note Discharge Plan Discharge Clinical Impression: COVID-19 Patient Disposition: Home, Self-Care Instructions: Covid-19 Viral Syndrome and Novel Coronavirus (ED) Hey/Ath Additional Instructions: You tested positive for COVID-19. Please maintain social isolation per State and Federal guidelines. Alternate Tylenol 650 mg every 6 hours and Motrin 600 mg every 6 hours as needed for fever and pain management. Write down what time you take these medications to prevent accidental overdose. Your test was negative Thank you for choosing this emergency department for evaluation. Please follow-up with primary care physician as needed. Return to the emergency department for any new, concerning, or worsening symptoms. Prescriptions: No Action azithromycin 250 mg tablet See Rx Instructions .ROUTE .COMPLEX Qty: 6 0RF Rx Instructions: take 500 mg today (day 1), then 250 mg for 4 days (days 2-5) codeine-guaifenesin [Guaifenesin AC] 10-100 mg/5 mL liquid 5 ml PO Q6H PRN (Reason: cold symptoms) Qty: 120 0RF albuterol sulfate 90 mcg/actuation HFA aerosol inhaler 1 inh inhalation QID PRN (Reason: shortness of breath or wheezing) Qty: 8.5 0RF dexamethasone [Decadron] 6 mg tablet 6 mg PO DAILY 7 Days Qty: 7 0RF cyclobenzaprine 10 mg tablet 10 mg PO Q8H Qty: 10 0RF codeine-guaifenesin [Guaifenesin AC] 10-100 mg/5 mL liquid 5 ml PO Q6H PRN (Reason: cold symptoms) Qty: 120 0RF ibuprofen 600 mg tablet 600 mg PO Q6H PRN (Reason: pain) Qty: 14 0RF cephalexin [Keflex] 500 mg capsule 500 mg PO QID Qty: 20 0RF guaifenesin 400 mg tablet 400 mg PO Q4H PRN (Reason: cough) Qty: 20 0RF azithromycin 500 mg tablet See Rx Instructions .ROUTE .COMPLEX Qty: 3 0RF Rx Instructions: take 500 mg today (day 1), then 250 mg for 4 days (days 2-5) codeine-guaifenesin [Guaifenesin AC] 10-100 mg/5 mL liquid 5 ml PO Q6H PRN (Reason: cold symptoms) Qty: 120 0RF prednisone 20 mg tablet 40 mg PO DAILY 5 Days Qty: 10 0RF ciprofloxacin HCl 500 mg tablet 500 mg PO Q12H 5 Days Qty: 10 0RF phenazopyridine [Pyridium] 100 mg tablet 200 mg PO TID PRN (Reason: pain) Qty: 6 0RF L norgest/e.estradiol-e.estrad [Seasonique] 0.15 mg-30 mcg (84)/10 mcg (7) tablets,dose pack,3 month 1 tab PO DAILY 84 Days Qty: 84 0RF Stand Alone Forms: Work/School Release Interventions: ED Discharge Assessment Last Done: 11/04/21 17:59
[2021-11-04 17:17] LABS: UPreg QC Valid YES; Urine Pregnancy NEGATIVE (NEGATIVE)
[2021-11-04 17:26] LABS: COVID-19 Test Positive (Negative); IDNOW Serial# 16C4AD1C
== END 2021-11-04 18:03 | disposition home or self-care (01) ==
PROVIDERS: Emergency Provider Emergency Medicine
DX: U07.1 COVID-19 (principal); R50.9 Fever, unspecified; M79.10 Myalgia, unspecified site; R05.9 Cough, unspecified; Z79.899 Other long term (current) drug therapy
CPT/HCPCS: 81025; 87635; 99282; 99283

== ENCOUNTER 2022-02-22 14:51 | Outpatient (REF) | payer OTHER, SELFPAY ==
[2022-02-22 21:35] LABS: CT PCR NOT DETECTED (Not Detect.); NG PCR NOT DETECTED (Not Detect.)
[2022-02-23 15:17] LABS: BV Int Neg Control Negative (Negative); BV Int Pos Control Positive (Positive)
== END 2022-02-22 14:52 | disposition home or self-care (01) ==
LOC: HO.LAB 14:51
PROVIDERS: Visit Provider Advanced Practice Midwife
DX: N92.6 Irregular menstruation, unspecified (principal); R10.2 Pelvic and perineal pain; N64.52 Nipple discharge; L70.9 Acne, unspecified; N89.8 Other specified noninflammatory disorders of vagina; Z20.2 Contact with and (suspected) exposure to infections with a predominantly sexual mode of transmission; N64.4 Mastodynia; N73.9 Female pelvic inflammatory disease, unspecified
CPT/HCPCS: 87480; 87491; 87510; 87591; 87660; 96372; 99212; J0696

== ENCOUNTER 2022-03-12 11:13 | Outpatient (REF) | payer OTHER, SELFPAY ==
--- NOTE | ~2022-03-12 | US_ITS ---
EXAMINATION: US DIAGNOSTIC ULTRASOUND BREAST, LEFT CLINICAL INFORMATION: 21-year-old with 2 episodes of spontaneous clear left nipple discharge, most recent approximately 2 weeks ago. No palpable mass. Patient also notes history pain upper outer left breast. Family history breast cancer paternal grandmother and paternal aunt. No prior breast imaging. COMPARISON: None. TECHNIQUE: Ultrasound left breast is targeted to the retroareolar and periareolar region. In addition, the left breast is also evaluated upper outer quadrant. FINDINGS: There is no focal suspicious finding. There is no cystic or solid mass, architectural abnormality, or duct ectasia. No skin thickening or edema tracking in soft tissue planes. Results are discussed with the patient at time of visit. US/US breast LT complete IMPRESSION: Normal study. ASSESSMENT: BI-RADS 1: Negative RECOMMENDATION: Patient should be managed based on the clinical impression. If there is bilateral nipple discharge, then further assessment with laboratories is recommended. If there is recurrent unilateral nipple discharge, further imaging may be considered with mammography and/or MRI.
== END 2022-03-12 11:14 | disposition home or self-care (01) ==
LOC: HO.MAMMO 11:13
PROVIDERS: Visit Provider Advanced Practice Midwife
DX: N64.52 Nipple discharge (principal); N64.4 Mastodynia
CPT/HCPCS: 76641

== ENCOUNTER 2022-04-11 13:57 | Outpatient (REF) | payer OTHER, SELFPAY ==
--- NOTE | ~2022-04-11 | US_ITS ---
EXAMINATION: US PELVIS CLINICAL INFORMATION: Pelvic and perineal pain COMPARISON: Previous pelvic ultrasound January [address] of the abdomen and pelvis December 2020 TECHNIQUE: Ultrasound of the pelvis is performed using both transabdominal and transvaginal transducers along with Doppler. Transvaginal imaging is performed due to inadequate visualization transabdominally. FINDINGS: The uterus is anteverted and measures 7.9 x 2.8 x 3.6 cm in dimension. No focal uterine lesion is seen. Endometrial thickness is normal measuring 1 cm. The ovaries are normal. The right ovary measures 3.4 x 2.2 x 2 cm. The left ovary measures 3 x 2.6 x 1.8 cm. There is a small amount of fluid in the pelvis. US/US pelvic and transvaginal IMPRESSION: Normal pelvic ultrasound.
== END 2022-04-11 13:58 | disposition home or self-care (01) ==
LOC: HO.US 13:57
PROVIDERS: Visit Provider Advanced Practice Midwife
DX: R10.2 Pelvic and perineal pain (principal); N92.6 Irregular menstruation, unspecified
CPT/HCPCS: 76830; 76856

== ENCOUNTER 2022-04-25 14:13 | Outpatient (REF) | payer OTHER, SELFPAY ==
[2022-04-25 14:59] LABS: Hematocrit 41.2 % (37.0-47.0); Hemoglobin 13.9 g/dl (12.0-16.0); Mean Corpuscular HGB Conc 33.7 g/dl (31.0-35.0); Mean Corpuscular Hemoglobin 29.4 pg (27.0-33.0); Mean Corpuscular Volume 87.3 fL (80.0-98.0); Mean Platelet Volume 9.7 fL (9.4-12.3); Platelet Count 379 X10*3/uL (160-400); Red Blood Count 4.72 X10*6/uL (4.20-5.50); White Blood Count 7.5 X10*3/uL (4.8-10.8)
[2022-04-25 15:47] LABS: Thyroid Stimulating Hormone 1.33 uIU/mL (0.32-4.0)
[2022-04-27 06:36] LABS: DHEA Sulfate 255 mcg/dL (14-349); Prolactin 11.7 ng/mL
[2022-05-05 12:16] LABS: Testosterone, Free 2.9 pg/mL (0.1-6.4); Testosterone, Total 24 ng/dL (2-45)
== END 2022-04-25 14:14 | disposition home or self-care (01) ==
LOC: HO.LAB 14:13
PROVIDERS: Visit Provider Advanced Practice Midwife
DX: N92.1 Excessive and frequent menstruation with irregular cycle (principal); Z71.2 Person consulting for explanation of examination or test findings
CPT/HCPCS: 36415; 82627; 83498; 84146; 84402; 84403; 84443; 85027; 99212

== ENCOUNTER 2022-05-05 02:01 | Emergency (ER) | payer OTHER, SELFPAY ==
[2022-05-05 02:15] VITALS: BP 131/66; PULSE 102; RESP 14; TEMP 36.9; O2SAT 99; BMI 27.8
[2022-05-05 02:38] LABS: COVID-19 Test Negative (Negative); IDNOW Serial# 16C4AD1C; Strep A Nucleic Acid Negative (Negative)
[2022-05-05 02:42] LABS: Influenza A Negative (Negative); Influenza B2 Negative (Negative)
== END 2022-05-05 05:02 | disposition left against medical advice (07) ==
PROVIDERS: Emergency Provider Emergency Medicine
DX: R07.0 Pain in throat (principal); Z79.899 Other long term (current) drug therapy
CPT/HCPCS: 87502; 87635; 87651; 99281

== ENCOUNTER → 2022-05-07 10:57 | Outpatient (BNVA) | payer OTHER, SELFPAY | PROVIDERS: Visit Provider Advanced Practice Midwife | DX: Z71.2 Person consulting for explanation of examination or test findings (principal); N64.4 Mastodynia | CPT/HCPCS: 99212 ==

== ENCOUNTER 2022-07-21 19:58 | Emergency (ER) | payer OTHER, SELFPAY ==
--- NOTE | 2022-07-21 20:13 | ED_ITS ---
HPI - Female Genitourinary General Chief complaint: Urogenital-Female <Naomi Vera CNP - Last Filed: 07/21/22 20:17> Stated complaint: positive uti, back pain <Naomi Vera CNP - Last Filed: 07/21/22 20:17> Time Seen by Provider: 07/21/22 22:01 <Naomi Vera CNP - Last Filed: 07/21/22 20:17> Source: patient <Edgar Kee MD - Last Filed: 07/21/22 22:15> Mode of arrival: ambulatory <Edgar Kee MD - Last Filed: 07/21/22 22:15> Limitations: no limitations <Edgar Kee MD - Last Filed: 07/21/22 22:15> History of Present Illness HPI Narrative: Patient with frequency dysuria for last 4 days taking Macrobid without much response now complaining of pain in the right flank no fever had some chills no blood in the urine no history of STI no nausea no vomiting patient does not get UTI very often <Edgar Kee MD - Last Filed: 07/21/22 22:15> Related Data Home medications: Previous Rx's Medication Instructions Recorded albuterol sulfate 90 mcg/actuation 1 inh inhalation QID PRN shortness 11/06/20 aerosol inhaler of breath or wheezing #8.5 grams vitamin with calcium 1 tab PO DAILY 30 days #30 tabs 04/30/22 no.72-iron 27 mg-folic acid 1 mg tablet ( Vitamins Plus Low Iron) cefuroxime axetil 250 mg tablet 250 mg PO BID 7 days #14 tabs 07/21/22 phenazopyridine 200 mg tablet 200 mg PO TID 2 days #6 tabs 07/21/22 (Pyridium) <Naomi Vera CNP - Last Filed: 07/21/22 20:17> Allergies/Adverse reactions: Allergies Allergy/AdvReac Type Severity Reaction Status Date / Time No Known Allergies Allergy Verified 05/07/22 11:13 <Naomi Vera CNP - Last Filed: 07/21/22 20:17> Review of Systems Review of Systems: Yes all other systems are reviewed and are negative <Edgar Kee MD - Last Filed: 07/21/22 22:15> [facility] Past Medical History Medical History: Medical History Breast pain No known health problems <Naomi Vera CNP - Last Filed: 07/21/22 20:17> Social History Social History: Social History Patient Tobacco Use Status: Former Tobacco user Advance Directives: No Advance Directives Information Provided: No <Naomi Vera CNP - Last Filed: 07/21/22 20:17> Physical Exam Vital Signs: Vital Signs: Last Vital Signs Temp 98.2 F 07/21/22 20:15 Pulse 87 07/21/22 20:15 Resp 16 07/21/22 20:15 BP 139/70 07/21/22 20:15 Pulse Ox 97 07/21/22 20:15 O2 Del Method 07/21/22 20:15 BMI result Body Mass Index 27.9 <Naomi Vera CNP - Last Filed: 07/21/22 20:17> Vital Signs: Last Vital Signs Temp 98.2 F 07/21/22 20:15 Pulse 87 07/21/22 20:15 Resp 16 07/21/22 20:15 BP 139/70 07/21/22 20:15 Pulse Ox 97 07/21/22 20:15 O2 Del Method 07/21/22 20:15 BMI result Body Mass Index 27.9 <Edgar Kee MD - Last Filed: 07/21/22 22:15> Appearance: Alert. Oriented X3. No acute distress. ENT: Pharynx normal. Oral Mucosa moist Neck: Normal inspection. Neck supple. CVS: Normal heart rate and rhythm. Pulses normal. Respiratory: No respiratory distress. Equal air entry bilateral, no wheezing/rales/rhonchi Abdomen: Soft and nontender. Bowel sounds are present, no mass palpable, no CVA tenderness Skin: Skin warm and dry. Normal skin color. Normal skin turgor. Extremities: No lower extremity edema. No calf tenderness Neuro: Oriented X 3. No motor deficit. <Edgar Kee MD - Last Filed: 07/21/22 22:15> Course Course Course Narrative: This is an RME: Additional HPI, ROS, PE not included below will be deferred to primary provider. Patient is a 21-year-old female who presents emergency department for genitourinary symptoms. Symptom onset was 5 days ago, was evaluated at Urgent Care 2 days ago, given a prescription for Macrobid to treat UTI; dysuria, urinary frequency, right lower back pain. Feels her symptoms are worsening despite being on antibiotics over the past 2 days. a/w nausea no vomiting, chills, breaking out in sweats. Denies hx of renal calculi or pyelonephritis. Plan: urinalysis, labs <Naomi Vera CNP - Last Filed: 07/21/22 20:17> Medical Decision Making Medical Decision Making [facility] Narrative: Patient has stable labs afebrile had UTI likely the cause of the pain clinically does not look like pyelonephritis. Will change antibiotic to Ceftin add Pyridium advised to follow up as outpatient <Edgar Kee MD - Last Filed: 07/21/22 22:15> Lab Data [facility] Lab Attestation statement: I reviewed the patient's lab results. <Edgar Kee MD - Last File d: 07/21/22 22:15> Result Diagrams: 07/21/22 20:28 07/21/22 20:28 <Naomi Vera CNP - Last Filed: 07/21/22 20:17> Labs: Lab Results 07/21/22 07/21/22 07/21/22 Range/Units 20:28 20:28 20:33 WBC 8.9 (4.8-10.8) X10*3/uL RBC 5.10 (4.20-5.50) X10*6/uL Hgb 15.0 (12.0-16.0) g/dl Hct 43.0 (37.0-47.0) % MCV 84.3 (80.0-98.0) fL MCH 29.4 (27.0-33.0) pg MCHC 34.9 (31.0-35.0) g/dl RDW 11.9 (11.0-16.0) % Plt Count 379 (160-400) X10*3/uL MPV 9.5 (9.4-12.3) fL Immature Gran % (Auto) 0.2 (0.0-0.4) % Neut % (Auto) 61.0 (45-73) % Lymph % (Auto) 30.7 (20-40) % [place] % (Auto) 4.3 (2-11) % Eos % (Auto) 3.0 (0-4) % Baso % (Auto) 0.8 (0-2) % Lymph # (Auto) 2.7 (1.2-4.9) X10*3/uL [place] # (Auto) 0.4 (0.1-1.2) X10*3/uL Eos # (Auto) 0.3 (0.0-0.4) X10*3/uL Baso # (Auto) 0.1 (0.0-0.2) X10*3/uL Abs Immat Gran (auto) 0.02 (0.00-0.03) X10*3/uL Absolute Neuts (auto) 5.4 (2.0-8.3) x10*3/uL Absolute Nucleated RBC 0.000 (0.0-0.012) X10*3/uL Nucleated RBC % (auto) 0.0 (0.0-0.2) /100WBC Sodium 138 (135-145) mmol/L Potassium 4.3 (3.3-5.1) mmol/L Chloride 110 H (96-108) mmol/L Carbon Dioxide 19 L (22-29) mmol/L Anion Gap 13 (12-20) BUN 12 (9-16) mg/dL Creatinine 0.71 (0.5-1.4) mg/dL Estim Creat Clear Calc 108.9 Estimated GFR > 60 Random Glucose 86 (60-115) mg/dL Calcium 9.2 (8.4-10.2) mg/dL Total Bilirubin 0.6 (0.0-1.0) mg/dL AST 17 (5-31) U/L ALT 26 (0-31) U/L Alkaline Phosphatase 90 (39-117) U/L Total Protein 7.1 (6.5-8.0) g/dL Albumin 4.4 (3.5-5.0) g/dL Urine Color Yellow Urine Appearance Clear Urine pH 5.5 (5.0-9.0) Ur Specific [place] >= 1.030 H (1.005-1.025) Urine Protein Negative (Neg-Trace) mg/dL Urine Glucose (UA) Negative (Negative) mg/dL Urine Ketones Negative (Negative) mg/dL Urine Blood Negative (Negative) Urine Nitrite Negative (Negative) Ur Leukocyte Esterase Moderate (2+) H (Negative) Urine RBC 0-2 (0-2) /HPF Urine WBC 21-50 H (0-5) /HPF Ur Squamous Epith Cells 6-10 (0-2) /HPF Urine Bacteria 1+ (None Seen) Hyaline Casts 0-2 (0-2) /LPF Urine Test (NEGATIVE) 07/21/22 Range/Units 20:33 WBC (4.8-10.8) X10*3/uL RBC (4.20-5.50) X10*6/uL Hgb (12.0-16.0) g/dl Hct (37.0-47.0) % MCV (80.0-98.0) fL MCH (27.0-33.0) pg MCHC (31.0-35.0) g/dl RDW (11.0-16.0) % Plt Count (160-400) X10*3/uL MPV (9.4-12.3) fL Immature Gran % (Auto) (0.0-0.4) % Neut % (Auto) (45-73) % Lymph % (Auto) (20-40) % [place] % (Auto) (2-11) % Eos % (Auto) (0-4) % Baso % (Auto) (0-2) % Lymph # (Auto) (1.2-4.9) X10*3/uL [place] # (Auto) (0.1-1.2) X10*3/uL Eos # (Auto) (0.0-0.4) X10*3/uL Baso # (Auto) (0.0-0.2) X10*3/uL Abs Immat Gran (auto) (0.00-0.03) X10*3/uL Absolute Neuts (auto) (2.0-8.3) x10*3/uL Absolute Nucleated RBC (0.0-0.012) X10*3/uL Nucleated RBC % (auto) (0.0-0.2) /100WBC Sodium (135-145) mmol/L Potassium (3.3-5.1) mmol/L Chloride (96-108) mmol/L Carbon Dioxide (22-29) mmol/L Anion Gap (12-20) BUN (9-16) mg/dL Creatinine (0.5-1.4) mg/dL Estim Creat Clear Calc Estimated GFR Random Glucose (60-115) mg/dL Calcium (8.4-10.2) mg/dL Total Bilirubin (0.0-1.0) mg/dL AST (5-31) U/L ALT (0-31) U/L Alkaline Phosphatase (39-117) U/L Total Protein (6.5-8.0) g/dL Albumin (3.5-5.0) g/dL Urine Color Urine Appearance Urine pH (5.0-9.0) Ur Specific [place] (1.005-1.025) Urine Protein (Neg-Trace) mg/dL Urine Glucose (UA) (Negative) mg/dL Urine Ketones (Negative) mg/dL Urine Blood (Negative) Urine Nitrite (Negative) Ur Leukocyte Esterase (Negative) Urine RBC (0-2) /HPF Urine WBC (0-5) /HPF Ur Squamous Epith Cells (0-2) /HPF Urine Bacteria (None Seen) Hyaline Casts (0-2) /LPF Urine Test NEGATIVE (NEGATIVE) <Naomi Vera, MANE - Last Filed: 07/21/22 20:17> Lab Results 07/21/22 07/21/22 07/21/22 Range/Units 20:28 20:28 20:33 WBC 8.9 (4.8-10.8) X10*3/uL RBC 5.10 (4.20-5.50) X10*6/uL Hgb 15.0 (12.0-16.0) g/dl Hct 43.0 (37.0-47.0) % MCV 84.3 (80.0-98.0) fL MCH 29.4 (27.0-33.0) pg MCHC 34.9 (31.0-35.0) g/dl RDW 11.9 (11.0-16.0) % Plt Count 379 (160-400) X10*3/uL MPV 9.5 (9.4-12.3) fL Immature Gran % (Auto) 0.2 (0.0-0.4) % Neut % (Auto) 61.0 (45-73) % Lymph % (Auto) 30.7 (20-40) % [place] % (Auto) 4.3 (2-11) % Eos % (Auto) 3.0 (0-4) % Baso % (Auto) 0.8 (0-2) % Lymph # (Auto) 2.7 (1.2-4.9) X10*3/uL [place] # (Auto) 0.4 (0.1-1.2) X10*3/uL Eos # (Auto) 0.3 (0.0-0.4) X10*3/uL Baso # (Auto) 0.1 (0.0-0.2) X10*3/uL Abs Immat Gran (auto) 0.02 (0.00-0.03) X10*3/uL Absolute Neuts (auto) 5.4 (2.0-8.3) x10*3/uL Absolute Nucleated RBC 0.000 (0.0-0.012) X10*3/uL Nucleated RBC % (auto) 0.0 (0.0-0.2) /100WBC Sodium 138 (135-145) mmol/L Potassium 4.3 (3.3-5.1) mmol/L Chloride 110 H (96-108) mmol/L Carbon Dioxide 19 L (22-29) mmol/L Anion Gap 13 (12-20) BUN 12 (9-16) mg/dL Creatinine 0.71 (0.5-1.4) mg/dL Estim Creat Clear Calc 108.9 Estimated GFR > 60 Random Glucose 86 (60-115) mg/dL Calcium 9.2 (8.4-10.2) mg/dL Total Bilirubin 0.6 (0.0-1.0) mg/dL AST 17 (5-31) U/L ALT 26 (0-31) U/L Alkaline Phosphatase 90 (39-117) U/L Total Protein 7.1 (6.5-8.0) g/dL Albumin 4.4 (3.5-5.0) g/dL Urine Color Yellow Urine Appearance Clear Urine pH 5.5 (5.0-9.0) Ur Specific [place] >= 1.030 H (1.005-1.025) Urine Protein Negative (Neg-Trace) mg/dL Urine Glucose (UA) Negative (Negative) mg/dL Urine Ketones Negative (Negative) mg/dL Urine Blood Negative (Negative) Urine Nitrite Negative (Negative) Ur Leukocyte Esterase Moderate (2+) H (Negative) Urine RBC 0-2 (0-2) /HPF Urine WBC 21-50 H (0-5) /HPF Ur Squamous Epith Cells 6-10 (0-2) /HPF Urine Bacteria 1+ (None Seen) Hyaline Casts 0-2 (0-2) /LPF Urine Test (NEGATIVE) 07/21/22 Range/Units 20:33 WBC (4.8-10.8) X10*3/uL RBC (4.20-5.50) X10*6/uL Hgb (12.0-16.0) g/dl Hct (37.0-47.0) % MCV (80.0-98.0) fL MCH (27.0-33.0) pg MCHC (31.0-35.0) g/dl RDW (11.0-16.0) % Plt Count (160-400) X10*3/uL MPV (9.4-12.3) fL Immature Gran % (Auto) (0.0-0.4) % Neut % (Auto) (45-73) % Lymph % (Auto) (20-40) % [place] % (Auto) (2-11) % Eos % (Auto) (0-4) % Baso % (Auto) (0-2) % Lymph # (Auto) (1.2-4.9) X10*3/uL [place] # (Auto) (0.1-1.2) X10*3/uL Eos # (Auto) (0.0-0.4) X10*3/uL Baso # (Auto) (0.0-0.2) X10*3/uL Abs Immat Gran (auto) (0.00-0.03) X10*3/uL Absolute Neuts (auto) (2.0-8.3) x10*3/uL Absolute Nucleated RBC (0.0-0.012) X10*3/uL Nucleated RBC % (auto) (0.0-0.2) /100WBC Sodium (135-145) mmol/L Potassium (3.3-5.1) mmol/L Chloride (96-108) mmol/L Carbon Dioxide (22-29) mmol/L Anion Gap (12-20) BUN (9-16) mg/dL Creatinine (0.5-1.4) mg/dL Estim Creat Clear Calc Estimated GFR Random Glucose (60-115) mg/dL Calcium (8.4-10.2) mg/dL Total Bilirubin (0.0-1.0) mg/dL AST (5-31) U/L ALT (0-31) U/L Alkaline Phosphatase (39-117) U/L Total Protein (6.5-8.0) g/dL Albumin (3.5-5.0) g/dL Urine Color Urine Appearance Urine pH (5.0-9.0) Ur Specific [place] (1.005-1.025) Urine Protein (Neg-Trace) mg/dL Urine Glucose (UA) (Negative) mg/dL Urine Ketones (Negative) mg/dL Urine Blood (Negative) Urine Nitrite (Negative) Ur Leukocyte Esterase (Negative) Urine RBC (0-2) /HPF Urine WBC (0-5) /HPF Ur Squamous Epith Cells (0-2) /HPF Urine Bacteria (None Seen) Hyaline Casts (0-2) /LPF Urine Test NEGATIVE (NEGATIVE) <Edgar Kee MD - Last Filed: 07/21/22 22:15> Discharge Plan Discharge Clinical Impression: Urinary tract infection <Naomi Vera CNP - Last Filed: 07/21/22 20:17> Patient Disposition: Home, Self-Care <Naomi Vera CNP - Last Filed: 07/21/22 20:17> Instructions: Urinary Tract Infection in Women (ED) <Naomi Vera CNP - Last Filed: 07/21/22 20:17> Additional Instructions: Drink plenty of fluids Ceftin antibiotic as advised for UTI stop nitrofurantoin Pyridium as prescribed Report to the ER if increased flank pain/fever/vomiting <Naomi Vera CNP - Last Filed: 07/21/22 20:17> Prescriptions: New cefuroxime axetil 250 mg tablet 250 mg PO BID 7 Days Qty: 14 0RF phenazopyridine [Pyridium] 200 mg tablet 200 mg PO TID 2 Days Qty: 6 0RF No Action Vitamin Plus Low Iron 27 mg iron- 1 mg tablet 1 tab PO DAILY 30 Days Qty: 30 11RF albuterol sulfate 90 mcg/actuation HFA aerosol inhaler 1 inh inhalation QID PRN (Reason: shortness of breath or wheezing) Qty: 8.5 0RF <Naomi Vera CNP - Last Filed: 07/21/22 20:17>
[2022-07-21 20:15] VITALS: BP 139/70; PULSE 87; RESP 16; TEMP 36.8; O2SAT 97; BMI 27.9
[2022-07-21 20:35] LABS: MANUAL DIFF FLAG NO
[2022-07-21 20:36] LABS: Basophils Absolute Auto 0.1 X10*3/uL (0.0-0.2); Basophils Percent Auto 0.8 % (0-2); Eosinophils Absolute Auto 0.3 X10*3/uL (0.0-0.4); Imm Gran Abs Auto 0.02 X10*3/uL (0.00-0.03); Imm Gran Pct Auto 0.2 % (0.0-0.4); Lymphocytes Absolute Auto 2.7 X10*3/uL (1.2-4.9); Lymphocytes Percent Auto 30.7 % (20-40); Mean Corpuscular HGB Conc 34.9 g/dl (31.0-35.0); Mean Corpuscular Hemoglobin 29.4 pg (27.0-33.0); Mean Corpuscular Volume 84.3 fL (80.0-98.0); Mean Platelet Volume 9.5 fL (9.4-12.3); Monocytes Absolute Auto 0.4 X10*3/uL (0.1-1.2); Monocytes Percent Auto 4.3 % (2-11); Neutrophils Absolute Auto 5.4 x10*3/uL (2.0-8.3); Platelet Count 379 X10*3/uL (160-400); Red Cell Distribution Width 11.9 % (11.0-16.0); White Blood Count 8.9 X10*3/uL (4.8-10.8)
[2022-07-21 20:43] LABS: Appearance Urine Clear; Color Urine Yellow; Glucose Urine UA Negative (Negative); Leukocyte Esterase Urine Moderate (2+) (Negative); Nitrite Urine Negative (Negative); PH 5.5 (5.0-9.0); Specific Gravity - Urine >= 1.030 (1.005-1.025); UMIC TRIGGER UACC YES; Urine Blood Negative (Negative); Urine Ketones Negative (Negative); Urine Protein Negative (Neg-Trace)
[2022-07-21 20:46] LABS: UPreg QC Valid YES; Urine Pregnancy NEGATIVE (NEGATIVE)
[2022-07-21 20:53] LABS: Alanine Aminotransferase 26 U/L (0-31); Albumin Level 4.4 g/dL (3.5-5.0); Alkaline Phosphatase 90 U/L (39-117); Anion Gap 13 (12-20); Aspartate Amino Transferase 17 U/L (5-31); Bilirubin Total 0.6 mg/dL (0.0-1.0); Blood Urea Nitrogen 12 mg/dL (9-16); Calcium 9.2 mg/dL (8.4-10.2); Carbon Dioxide 19 mmol/L (22-29); Chloride 110 mmol/L (96-108); Creatinine Clr Calc Pharmacy 108.9; Estimated Glomerular Filt Rate > 60; Glucose Random 86 mg/dL (60-115); Potassium 4.3 mmol/L (3.3-5.1); Sodium 138 mmol/L (135-145); Total Protein 7.1 g/dL (6.5-8.0)
[2022-07-21 21:22] LABS: Bacteria Urine 1+ (None Seen); Hyaline Casts Urine 0-2 /LPF (0-2); RBC Urine 0-2 /HPF (0-2); UACC Culture Trigger YES; WBC Urine 21-50 /HPF (0-5)
--- NOTE | 2022-07-21 21:33 | PC.NURSE ---
pt aox4, no apparent distress
[2022-07-21] MEDS: Phenazopyridine HCL 200 MG TABLET PO (22:18)
[2022-07-21] MEDS: Ibuprofen 600 MG TABLET PO (22:18)
--- NOTE | 2022-07-21 22:26 | PC.NURSE ---
c/o RLQ abdominal pain that radiates to lower back; 10 pain
--- NOTE | 2022-07-21 22:27 | PC.NURSE ---
admin ceftin PO, ibuprofen PO, and pyridium PO per MAR
--- NOTE | 2022-07-21 22:27 | PC.NURSE ---
pt recalls having allergy to amoxicillin and azithromycin; provider (Dr Kee) notified and provider states not an interaction with ceftin PO prescribed
--- NOTE | 2022-07-21 22:29 | PC.NURSE ---
discharge instructions given/explained; ambulates safely/independently; aox4; no apparent distress
== END 2022-07-21 22:35 | disposition home or self-care (01) ==
PROVIDERS: Nurse Practitioner Family; Emergency Provider Internal Medicine
DX: N39.0 Urinary tract infection, site not specified (principal); R30.0 Dysuria; Z79.899 Other long term (current) drug therapy
CPT/HCPCS: 36415; 80053; 81001; 81025; 85025; 87086; 99284

== ENCOUNTER 2022-07-28 18:10 | Emergency (ER) | payer OTHER, SELFPAY ==
--- NOTE | 2022-07-28 18:14 | ED_ITS ---
HPI - Female Genitourinary General Chief complaint: Urogenital-Female <Naomi Vera CNP - Last Filed: 07/28/22 18:21> Stated complaint: bladder infection? pain <Naomi Vera CNP - Last Filed: 07/28/22 18:21> Time Seen by Provider: 07/28/22 20:43 <Naomi Vera CNP - Last Filed: 07/28/22 18:21> Source: patient <Daniela Ford NP - Last Filed: 07/28/22 21:42> Mode of arrival: ambulatory <Daniela Ford NP - Last Filed: 07/28/22 21:42> Limitations: no limitations <Daniela Ford NP - Last Filed: 07/28/22 21:42> History of Present Illness HPI Narrative: 21-year-old female presents with recurrent UTI, was treated last week with cefuroxime however states that her symptoms have not resolved in fact have worsened. She does not report any risk for sexually transmitted infections, was evaluated in urgent care and had a pelvic exam with STI panel. <Daniela Ford NP - Last Filed: 07/28/22 21:42> MD elicited complaint: dysuria and difficulty urinating <Daniela Ford NP - Last Filed: 07/28/22 21:42> Pertinent past history: recurrent UTIs <Daniela Ford NP - Last Filed: 07/28/22 21:42> Onset (ago): week(s) <Daniela Ford NP - Last Filed: 07/28/22 21:42> Location of symptoms: urethra <Daniela Ford NP - Last Filed: 07/28/22 21:42> Severity: moderate <Daniela Ford NP - Last Filed: 07/28/22 21:42> Female Urogenital Radiation: Non-Radiating <Daniela Ford NP - Last Filed: 07/28/22 21:42> Severity scale (1-10): 6 <Daniela Ford NP - Last Filed: 07/28/22 21:42> Quality of pain: burning <Daniela Ford NP - Last Filed: 07/28/22 21:42> Consistency: other (With micturition) <Daniela Ford NP - Last Filed: 07/28/22 21:42> Vaginal discharge: none <Daniela Ford NP - Last Filed: 07/28/22 21:42> Vaginal bleeding: none <Daniela Ford NP - Last Filed: 07/28/22 21:42> Urinary symptoms: Dysuria, Urgency and Hematuria <Daniela oFrd NP - Last Filed: 07/28/22 21:42> Exacerbating factors: urination <Daniela Ford NP - Last Filed: 07/28/22 21:42> Relieving factors: none <Daniela Ford NP - Last Filed: 07/28/22 21:42> Treatment prior to arrival: none <Daniela Ford NP - Last Filed: 07/28/22 21:42> Sexual activity: Yes <Daniela Ford NP - Last Filed: 07/28/22 21:42> Patient : No <Daniela Ford NP - Last Filed: 07/28/22 21:42> Related Data Home medications: Previous Rx's Medication Instructions Recorded albuterol sulfate 90 mcg/actuation 1 inh inhalation QID PRN shortness 11/06/20 aerosol inhaler of breath or wheezing #8.5 grams vitamin with calcium 1 tab PO DAILY 30 days #30 tabs 04/30/22 no.72-iron 27 mg-folic acid 1 mg tablet ( Vitamins Plus Low Iron) cefuroxime axetil 250 mg tablet 250 mg PO BID 7 days #14 tabs 07/21/22 phenazopyridine 200 mg tablet 200 mg PO TID 2 days #6 tabs 07/21/22 (Pyridium) sulfamethoxazole 800 1 tab PO Q12H 3 days #6 tabs 07/28/22 mg-trimethoprim 160 mg tablet (Bactrim DS) <Naomi Vera CNP - Last Filed: 07/28/22 18:21> Allergies/Adverse reactions: Allergies Allergy/AdvReac Type Severity Reaction Status Date / Time amoxicillin Allergy Anaphylaxis Verified 07/21/22 22:21 azithromycin Allergy Hives Verified 07/21/22 22:21 <Naomi Vera CNP - Last Filed: 07/28/22 18:21> Review of Systems Review of Systems: Constitutional: No Fever, No Chills Cardiovascular: No Chest Pain, No SOB Respiratory: No Cough, No Dyspnea Gastrointestinal: No Nausea, No Vomiting, No Diarrhea, positive suprapubic abdominal Pain Genitourinary: Positive Dysuria, No Hematuria Musculoskeletal: No joint pain, No Myalgias, No Joint Swelling Skin: No Skin lacerations, No rash Neuro: No Weakness, No Numbness, No Dizziness, No Headache <Daniela Ford NP - Last Filed: 07/28/22 21:42> Yes all other systems are reviewed and are negative <Daniela Ford NP - Last Filed: 07/28/22 21:42> PMF Past Medical History Attestation statement: The following information was validated with the patient. <Daniela Ford NP - Last Filed: 07/28/22 21:42> Source: old records reviewed <Daniela Ford NP - Last Filed: 07/28/22 21:42> Medical History: Medical History Breast pain No known health problems <Naomi Vera CNP - Last Filed: 07/28/22 18:21> Social History Social History: Social History Patient Tobacco Use Status: Former Tobacco user Advance Directives: No Advance Directives Information Provided: Yes <Naomi Vera CNP - Last Filed: 07/28/22 18:21> Physical Exam Vital Signs: Vital Signs: Last Vital Signs Temp 98.1 F 07/28/22 18:16 Pulse 96 07/28/22 18:16 Resp 18 07/28/22 18:16 BP 146/84 H 07/28/22 18:16 Pulse Ox 99 07/28/22 18:16 O2 Del Method 07/28/22 18:16 BMI result Body Mass Index 28.3 <Naomi Vera CNP - Last Filed: 07/28/22 18:21> Vital Signs: Last Vital Signs Temp 98.1 F 07/28/22 18:16 Pulse 96 07/28/22 18:16 Resp 18 07/28/22 18:16 BP 146/84 H 07/28/22 18:16 Pulse Ox 99 07/28/22 18:16 O2 Del Method 07/28/22 18:16 BMI result Body Mass Index 28.3 <Danilea Ford NP - Last Filed: 07/28/22 21:42> Appearance: Alert. Oriented X3. No acute distress. Eyes: Pupils equal, round and reactive to light. ENT: Pharynx normal. Neck: Normal inspection. Neck supple. CVS: Normal heart rate and rhythm. Pulses normal. Respiratory: No respiratory distress. Breath sounds normal. Abdomen: Soft and nontender. Skin: Skin warm and dry. Normal skin color. Normal skin turgor. Extremities: Gait well-balanced well coordinated. Neuro: No motor deficit. No sensory deficit. Cranial nerves 2-12 intact. <Daniela Ford NP - Last Filed: 07/28/22 21:42> Course Course Course Narrative: This is an RME: Additional HPI, ROS, PE not included below will be deferred to primary provider. Patient is a 21-year-old female who presents emergency department for evaluation of genitourinary complaints. States she was seen here 1 week ago, diagnosed with UTI, treated with oral ABX. Reports she we nt to [facility] 2 days later, has CT scan which she reports was normal. She went to urgent care 2 days ago, she was tested for STI (results pending) and urine which was negative, advised to complete ABX. Today she states she completed antibiotics, but has had no change in her lower abdominal pain, dysuria, hematuria. Reviewed prior urine culture, <100,000 mixed woo, likely urogenital contamination Plan: repeat urinalysis/ culture, although results likely to be skewed given oral antibiotics, BV panel, STI testing, may require urogenital examination. <Naomi Vera, MANE - Last Filed: 07/28/22 18:21> This is an RME: Additional HPI, ROS, PE not included below will be deferred to primary provider. Patient is a 21-year-old female who presents emergency department for evaluation of genitourinary complaints. States she was seen here 1 week ago, diagnosed with UTI, treated with oral ABX. Reports she went to [facility] 2 days later, has CT scan which she reports was normal. She went to urgent care 2 days ago, she was tested for STI (results pending) and urine which was negative, advised to complete ABX. Today she states she completed antibiotics, but has had no change in her lower abdominal pain, dysuria, hematuria. Reviewed prior urine culture, <100,000 mixed woo, likely urogenital contamination Plan: repeat urinalysis/ culture, although results likely to be skewed given oral antibiotics, BV panel, STI testing, may require urogenital examination. 21-year-old female presents with recurrent UTI. Was treated with cefuroxime last week with poor effect. Patient states in the past that she has been given Bactrim which has been effective. Patient was evaluated at [facility] as well as urgent care, had a pelvic exam with STI panel so is respectfully declining BV testing & pelvic exam and time. Will repeat urinalysis. Urinalysis indicates will treat for UTI with Bactrim. Patient understands she must follow-up with primary care for test of cure. Patient verbalized understanding of and agrees to plan of care. Relies understanding of signs symptoms indicate need for emergent intervention. <Daniela Ford NP - Last Filed: 07/28/22 21:42> Medical Decision Making Differential Diagnosis Differential Diagnoses: The differential diagnosis associated with the presentation includes <Daniela Ford NP - Last Filed: 07/28/22 21:42> UTI <Daniela Ford NP - Last Filed: 07/28/22 21:42> Lab Data MDM Lab Attestation statement: I reviewed the patient's lab results. <Daniela Ford NP - Last Filed: 07/28/22 21:42> Labs: Lab Results 07/28/22 07/28/22 Range/Units 20:42 20:42 Urine Color Yellow Urine Appearance Clear Urine pH 5.5 (5.0-9.0) Ur Specific [place] 1.025 (1.005-1.025) Urine Protein Negative (Neg-Trace) mg/dL Urine Glucose (UA) Negative (Negative) mg/dL Urine Ketones Negative (Negative) mg/dL Urine Blood Large (3+) H (Negative) Urine Nitrite Negative (Negative) Ur Leukocyte Esterase Trace H (Negative) Urine RBC >20 H (0-2) /HPF Urine WBC 0-5 (0-5) /HPF Ur Squamous Epith Cells 0-2 (0-2) /HPF Urine Bacteria None Seen (None Seen) Hyaline Casts 0-2 (0-2) /LPF Urine Test NEGATIVE (NEGATIVE) <Naomi Vera CNP - Last Filed: 07/28/22 18:21> Lab Results 07/28/22 07/28/22 Range/Units 20:42 20:42 Urine Color Yellow Urine Appearance Clear Urine pH 5.5 (5.0-9.0) Ur Specific [place] 1.025 (1.005-1.025) Urine Protein Negative (Neg-Trace) mg/dL Urine Glucose (UA) Negative (Negative) mg/dL Urine Ketones Negative (Negative) mg/dL Urine Blood Large (3+) H (Negative) Urine Nitrite Negative (Negative) Ur Leukocyte Esterase Trace H (Negative) Urine RBC >20 H (0-2) /HPF Urine WBC 0-5 (0-5) /HPF Ur Squamous Epith Cells 0-2 (0-2) /HPF Urine Bacteria None Seen (None Seen) Hyaline Casts 0-2 (0-2) /LPF Urine Test NEGATIVE (NEGATIVE) <Daniela Ford NP - Last Filed: 07/28/22 21:42> External Record Review External record reviewed: Outpatient record and Prior outpatient labs <Daniela Ford NP - Last Filed: 07/28/22 21:42> Prescription Management I considered prescription management with: Antibiotic <Daniela Ford NP - Last Filed: 07/28/22 21:42> Discharge Plan Discharge Clinical Impression: Urinary tract infection, Hematuria <Naomi Vera CNP - Last Filed: 07/28/22 18:21> Patient Disposition: Home, Self-Care <Naomi Vera CNP - Last Filed: 07/28/22 18:21> Instructions: Urinary Tract Infection in Women (ED), Hematuria (ED) <Naomi Vera CNP - Last Filed: 07/28/22 18:21> Additional Instructions: You were evaluated for urinary symptoms. Please take Bactrim DS every every 12 hours for the next 3 days. Please follow-up with your primary care physician for test of cure. This means that I want you to have a repeat urinalysis after you complete this course of antibiotics. Thank you for choosing this emergency department for evaluation. Please follow-up with primary care physician as needed. Return to the emergency department for any new, concerning, or worsening symptoms. <Naomi Vera CNP - Last Filed: 07/28/22 18:21> Prescriptions: New sulfamethoxazole-trimethoprim [Bactrim DS] 800-160 mg tablet 1 tab PO Q12H 3 Days Qty: 6 0RF No Action Vitamin Plus Low Iron 27 mg iron- 1 mg tablet 1 tab PO DAILY 30 Days Qty: 30 11RF albuterol sulfate 90 mcg/actuation HFA aerosol inhaler 1 inh inhalation QID PRN (Reason: shortness of breath or wheezing) Qty: 8.5 0RF cefuroxime axetil 250 mg tablet 250 mg PO BID 7 Days Qty: 14 0RF phenazopyridine [Pyridium] 200 mg tablet 200 mg PO TID 2 Days Qty: 6 0RF <Naomi Vera CNP - Last Filed: 07/28/22 18:21> Referrals: Physician,Unknown J [Primary Care Provider] - 2 weeks (Follow-up primary care) <Naomi Vera CNP - Last Filed: 07/28/22 18:21>
[2022-07-28 18:16] VITALS: BP 146/84; PULSE 96; RESP 18; TEMP 36.7; O2SAT 99; BMI 28.3
[2022-07-28 20:57] LABS: Appearance Urine Clear; Color Urine Yellow; Glucose Urine UA Negative (Negative); Leukocyte Esterase Urine Trace (Negative); Nitrite Urine Negative (Negative); PH 5.5 (5.0-9.0); Specific Gravity - Urine 1.025 (1.005-1.025); UMIC TRIGGER UACC YES; Urine Blood Large (3+) (Negative); Urine Ketones Negative (Negative); Urine Protein Negative (Neg-Trace)
[2022-07-28 21:00] LABS: UPreg QC Valid YES; Urine Pregnancy NEGATIVE (NEGATIVE)
[2022-07-28 21:04] LABS: Bacteria Urine None Seen (None Seen); Hyaline Casts Urine 0-2 /LPF (0-2); RBC Urine >20 /HPF (0-2); Squamous Epithelial Cell Urine 0-2 /HPF (0-2); WBC Urine 0-5 /HPF (0-5)
[2022-07-28] MEDS: Sulfamethox/Trimeth 800/160 TABLET 1 TAB PO (21:43)
== END 2022-07-28 22:18 | disposition home or self-care (01) ==
PROVIDERS: Nurse Practitioner Family; Emergency Provider Emergency Medicine
DX: N39.0 Urinary tract infection, site not specified (principal); R31.9 Hematuria, unspecified; Z79.899 Other long term (current) drug therapy
CPT/HCPCS: 81001; 81003; 81025; 99282

== ENCOUNTER 2022-08-02 08:28 | Emergency (ER) | payer OTHER, SELFPAY ==
[2022-08-02 08:30] VITALS: BP 122/79; PULSE 73; RESP 19; TEMP 36.6; O2SAT 98; BMI 28.3
[2022-08-02 08:51] LABS: Appearance Urine Cloudy; Color Urine Yellow; Glucose Urine UA Negative (Negative); Leukocyte Esterase Urine Trace (Negative); Nitrite Urine Negative (Negative); Specific Gravity - Urine >= 1.030 (1.005-1.025); UMIC TRIGGER UACC YES; Urine Blood Negative (Negative); Urine Ketones Negative (Negative); Urine Protein Negative (Neg-Trace)
[2022-08-02 08:53] LABS: Bacteria Urine None Seen (None Seen); Hyaline Casts Urine 0-2 /LPF (0-2); RBC Urine 0-2 /HPF (0-2); WBC Urine 0-5 /HPF (0-5)
--- NOTE | 2022-08-02 09:34 | ED.FEMALEGU ---
HPI - Female Genitourinary General Chief complaint: Urogenital-Female <Basil Lyle MD - Last Filed: 08/02/22 09:44> Stated complaint: UTI? Seen recently for same issue <Basil Lyle MD - Last Filed: 08/02/22 09:44> Time Seen by Provider: 08/02/22 09:30 <Basil Lyle MD - Last Filed: 08/02/22 09:44> Source: patient <Tyrese Tran - Last Filed: 08/02/22 09:57> Limitations: no limitations <Tyrese Tran - Last Filed: 08/02/22 09:57> History of Present Illness HPI Narrative: 21-year-old female who presents here complaining of ongoing dysuria. Patient has been treated for UTIs multiple times in the past recently finished some antibiotics without relief. Patient states she does not usually get relief with parade him either. Patient has follow-up planned with OBGYN in July. Patient had some slight body aches and nausea but no vomiting. No patient denies history states no concerns for STDs at this time. Symptoms mild to moderate. <Tyrese Millerens - Last Filed: 08/02/22 09:57> Related Data Home medications: Previous Rx's Medication Instructions Recorded albuterol sulfate 90 mcg/actuation 1 inh inhalation QID PRN shortness 11/06/20 aerosol inhaler of breath or wheezing #8.5 grams vitamin with calcium 1 tab PO DAILY 30 days #30 tabs 04/30/22 no.72-iron 27 mg-folic acid 1 mg tablet ( Vitamins Plus Low Iron) cefuroxime axetil 250 mg tablet 250 mg PO BID 7 days #14 tabs 07/21/22 phenazopyridine 200 mg tablet 200 mg PO TID 2 days #6 tabs 07/21/22 (Pyridium) sulfamethoxazole 800 1 tab PO Q12H 3 days #6 tabs 07/28/22 mg-trimethoprim 160 mg tablet (Bactrim DS) phenazopyridine 100 mg tablet 100 mg PO TID PRN pain #10 tabs 08/02/22 (Pyridium) <Basil Lyle MD - Last Filed: 08/02/22 09:44> Allergies/Adverse reactions: Allergies Allergy/AdvReac Type Severity Reaction Status Date / Time amoxicillin Allergy Anaphylaxis Verified 07/21/22 22:21 azithromycin Allergy Hives Verified 07/21/22 22:21 <Basil Lyle MD - Last Filed: 08/02/22 09:44> Review of Systems Review of Systems: Constitutional : No Weight loss, No Fever, No Chills, No Night Sweats, No Fatigue, No Malaise ENT/Mouth : No Hearing loss, No Ear Pain, No Nasal Congestion, No Sinus Pain, No Hoarseness, No sore throat, No Rhinorrhea, No Swallowing Difficulty Eyes: No Eye Pain, No Swelling, No Redness, No Foreign Body, No Discharge, No Vision Changes Cardiovascular : No Chest Pain, No SOB, No Dyspnea on Exertion, No Orthopnea, No Edema, No Palpitations Respiratory : No Cough, No Sputum, No Wheezing, No Smoke Exposure, No Dyspnea Gastrointestinal : positive nausea no vomiting no diarrhea or constipation patient does have some suprapubic pain Genitourinary : Positive dysuria positive urgency some slight vaginal discharge Musculoskeletal : No joint pain, No Myalgias, No Joint SwellingSkin : No Skin Lesions, No rash Neuro : No Weakness, No Numbness, No Paresthesias, No Loss of Consciousness, No Dizziness, No Headache Psych : No Anxiety/Panic, No Depression, No SI/HI/AH/VH, No Social Issues, Heme/Lymph: No Bruising, No Bleeding,No Lymphadenopathy Endocrine : No Polyuria, No Polydipsia, No Temperature Intolerance <Tyrese Tran - Last Filed: 08/02/22 09:57> [facility] Past Medical History Medical History: Medical History Breast pain No known health problems <Basil Lyle MD - Last Filed: 08/02/22 09:44> Social History Social History: Social History Patient Tobacco Use Status: Former Tobacco user Smoked in Last 30 Days: No Use of substances other than those prescribed or required for medical reasons: Yes Substance Use Type: Marijuana Advance Directives: No Advance Directives Information Provided: Yes <Basil Lyle MD - Last Filed: 08/02/22 09:44> Physical Exam Vital Signs: Vital Signs: Last Vital Signs Temp 98 F 08/02/22 08:30 Pulse 73 08/02/22 08:30 Resp 19 08/02/22 08:30 BP 122/79 08/02/22 08:30 Pulse Ox 98 08/02/22 08:30 O2 Del Method 08/02/22 08:30 BMI result Body Mass Index 28.3 <Basil Lyle MD - Last Filed: 08/02/22 09:44> Vital Signs: Last Vital Signs Temp 98 F 08/02/22 08:30 Pulse 73 08/02/22 08:30 Resp 19 08/02/22 08:30 BP 122/79 08/02/22 08:30 Pulse Ox 98 08/02/22 08:30 O2 Del Method 08/02/22 08:30 BMI result Body Mass Index 28.3 <Tyrese Marc - Last Filed: 08/02/22 09:57> Appearance: Alert. Oriented X3. No acute distress. Eyes: Pupils equal, round and reactive to light. Extraocular movements are intact ENT: Pharynx normal. oral mucosa is moist Neck: Normal inspection. Neck supple. CVS: Normal heart rate and rhythm. Pulses normal. Respiratory: No respiratory distress. Breath sounds normal. Abdomen: abdomen soft no rebound or guarding some slight suprapubic tenderness. Skin: Skin warm and dry. Normal skin color. Normal skin turgor. Extremities: Gait well-balanced well coordinated. Neuro: No motor deficit. No sensory deficit. No focal deficit noted or alert oriented x3 <Tyrese Tran - Last Filed: 08/02/22 09:57> Course Course Course Narrative: UTI Pyelonephritis Dysuria Chlamydia Gonorrhea Viral syndrome <Tyrese Tran - Last Filed: 08/02/22 09:57> Reevaluation(s) Reevaluation #1: I discussed and agree with BILL Tran plan and assessment <Basil Lyle MD - Last Filed: 08/02/22 09:44> Time: 09:44 <Basil Lyle MD - Last Filed: 08/02/22 09:44> Medical Decision Making Medical Decision Making MDM Narrative: 21-year-old female with a history of recurrent UTIs. States ongoing symptoms over the past week. Patient present treated with antibiotics and Pyridium without relief. Symptoms are [id number]. Patient has some slight nausea no vomiting at this time. Patient denies history of STDs or history of at this time. Patient has planned follow-up with OBGYN in mid July. Case discussed with Dr. Lyle every agrees with current treatment and plan patient has had 2- pelvic ultrasounds in the past also negative CT back in 01/26/2021 09:53 Case discussed at length with patient patient had a full pelvic exam 2 days prior at local hospital negative swabs at that time negative for BV. Will place patient on Pyridium at this time and plan follow-up with OBGYN. Patient's is informed that if the culture comes back positive for any changes treatments are needed we will call her. Patient also is instructed return if symptoms worsen. HCG is negative also at this time. <Tyrese Tran - Last Filed: 08/02/22 09:57> Lab Data Labs: Lab Results 08/02/22 08/02/22 Range/Units 08:42 09:36 Urine Color Yellow Urine Appearance Cloudy Urine pH 6.0 (5.0-9.0) Ur Specific [place] >= 1.030 H (1.005-1.025) Urine Protein Negative (Neg-Trace) mg/dL Urine Glucose (UA) Negative (Negative) mg/dL Urine Ketones Negative (Negative) mg/dL Urine Blood Negative (Negative) Urine Nitrite Negative (Negative) Ur Leukocyte Esterase Trace H (Negative) Urine RBC 0-2 (0-2) /HPF Urine WBC 0-5 (0-5) /HPF Ur Squamous Epith Cells 6-10 (0-2) /HPF Urine Bacteria None Seen (None Seen) Hyaline Casts 0-2 (0-2) /LPF Urine Test NEGATIVE (NEGATIVE) <Basil Lyle MD - Last Filed: 08/02/22 09:44> Lab Results 08/02/22 08/02/22 Range/Units 08:42 09:36 Urine Color Yellow Urine Appearance Cloudy Urine pH 6.0 (5.0-9.0) Ur Specific [place] >= 1.030 H (1.005-1.025) Urine Protein Negative (Neg-Trace) mg/dL Urine Glucose (UA) Negative (Negative) mg/dL Urine Ketones Negative (Negative) mg/dL Urine Blood Negative (Negative) Urine Nitrite Negative (Negative) Ur Leukocyte Esterase Trace H (Negative) Urine RBC 0-2 (0-2) /HPF Urine WBC 0-5 (0-5) /HPF Ur Squamous Epith Cells 6-10 (0-2) /HPF Urine Bacteria None Seen (None Seen) Hyaline Casts 0-2 (0-2) /LPF Urine Test NEGATIVE (NEGATIVE) <Tyrese Tran - Last Filed: 08/02/22 09:57> Discharge Plan Discharge Clinical Impression: Dysuria <Basil Lyle MD - Last Filed: 08/02/22 09:44> Patient Disposition: Home, Self-Care <Basil Lyle MD - Last Filed: 08/02/22 09:44> Instructions: Dysuria (ED) <Basil Lyle MD - Last Filed: 08/02/22 09:44> Additional Instructions: Urine culture is pending we will call you with any positive results Increase fluids rest medications as directed return if symptoms worsen <Basil Lyle MD - Last Filed: 08/02/22 09:44> Prescriptions: New phenazopyridine [Pyridium] 100 mg tablet 100 mg PO TID PRN (Reason: pain) Qty: 10 0RF No Action Vitamin Plus Low Iron 27 mg iron- 1 mg tablet 1 tab PO DAILY 30 Days Qty: 30 11RF albuterol sulfate 90 mcg/actuation HFA aerosol inhaler 1 inh inhalation QID PRN (Reason: shortness of breath or wheezing) Qty: 8.5 0RF cefuroxime axetil 250 mg tablet 250 mg PO BID 7 Days Qty: 14 0RF phenazopyridine [Pyridium] 200 mg tablet 200 mg PO TID 2 Days Qty: 6 0RF sulfamethoxazole-trimethoprim [Bactrim DS] 800-160 mg tablet 1 tab PO Q12H 3 Days Qty: 6 0RF <Basil Lyle MD - Last Filed: 08/02/22 09:44> Stand Alone Forms: Work/School Release <Basil Lyle MD - Last Filed: 08/02/22 09:44>
[2022-08-02 09:47] LABS: UPreg QC Valid YES; Urine Pregnancy NEGATIVE (NEGATIVE)
[2022-08-02 11:36] LABS: CT PCR NOT DETECTED (Not Detect.); NG PCR NOT DETECTED (Not Detect.)
== END 2022-08-02 10:02 | disposition home or self-care (01) ==
PROVIDERS: Physician Assistant; Emergency Provider Emergency Medicine
DX: R30.0 Dysuria (principal); M79.10 Myalgia, unspecified site; Z79.899 Other long term (current) drug therapy
CPT/HCPCS: 0353U; 81001; 81025; 99283; 99284

== ENCOUNTER 2022-08-14 13:06 | Outpatient (REF) | payer OTHER, SELFPAY | END 2022-08-14 13:07 | disposition home or self-care (01) | LOC: HO.LAB 13:06 | PROVIDERS: Visit Provider Advanced Practice Midwife | DX: R10.2 Pelvic and perineal pain (principal); R30.0 Dysuria; R35.0 Frequency of micturition; N92.6 Irregular menstruation, unspecified | CPT/HCPCS: 81003; 81025; 99212 ==

== ENCOUNTER 2022-08-14 13:36 | Outpatient (REF) | payer OTHER, SELFPAY ==
[2022-08-15 11:14] LABS: BV Int Neg Control Negative (Negative); BV Int Pos Control Positive (Positive)
[2022-08-16 15:31] LABS: CT PCR NOT DETECTED (Not Detect.)
[2022-08-16 15:32] LABS: NG PCR NOT DETECTED (Not Detect.)
== END 2022-08-14 13:37 | disposition home or self-care (01) ==
LOC: HO.LNP 13:36
PROVIDERS: Visit Provider Advanced Practice Midwife
DX: Z11.3 Encounter for screening for infections with a predominantly sexual mode of transmission (principal); R10.2 Pelvic and perineal pain
CPT/HCPCS: 0353U; 87480; 87510; 87660

== ENCOUNTER 2022-08-30 11:04 | Outpatient (REF) | payer OTHER, SELFPAY ==
--- NOTE | ~2022-08-30 | US_ITS ---
EXAMINATION: US PELVIS CLINICAL INFORMATION: Pelvic and perineal pain; the last menstrual period was on 08/17/2022. COMPARISON: Pelvic ultrasound dated 01/30/2021. TECHNIQUE: Ultrasound of the pelvis is performed using both transabdominal and transvaginal transducers along with Doppler. Transvaginal imaging is performed due to inadequate visualization transabdominally. FINDINGS: Uterus: The uterus is anteverted and anteflexed. The uterus measures 6.6 x 3.1 x 3.2 cm. The double wall endometrial thickness is 0.6 mm. The uterus is smooth in contour and has normal myometrial echogenicity. No visible fibroid. Adnexa: Both ovaries are visualized. There is normal color flow to the adnexa. There is no ovarian torsion. There is a small amount of free fluid in the cul-de-sac. Right ovary measures 3.5 x 2.0 x 2.3 cm, volume 8.4 mL. The right ovary contains a 2.1 x 1.9 x 1.9 cm dominant simple cyst. Left ovary measures 3.0 x 1.3 x 2.5 cm, volume 5.1 mL. US/US pelvic and transvaginal IMPRESSION: 1. The right ovary contains a 2.1 cm dominant, simple cyst. This is a benign finding, for which no imaging follow-up is recommended. 2. A small amount of nonspecific free fluid is seen within the cul-de-sac.
== END 2022-08-30 11:05 | disposition home or self-care (01) ==
LOC: HO.US 11:04
PROVIDERS: Visit Provider Advanced Practice Midwife
DX: R10.2 Pelvic and perineal pain (principal)
CPT/HCPCS: 76830; 76856

== ENCOUNTER → 2022-09-12 14:34 | Outpatient (BNVA) | payer OTHER, SELFPAY | PROVIDERS: Visit Provider Urology | DX: Z71.2 Person consulting for explanation of examination or test findings (principal); R10.2 Pelvic and perineal pain; N83.291 Other ovarian cyst, right side; R30.0 Dysuria; R39.89 Other symptoms and signs involving the genitourinary system | CPT/HCPCS: 51798; 99202; 99212 ==

== ENCOUNTER 2022-09-17 08:03 | Day surgery (SDC) | payer OTHER, SELFPAY ==
--- NOTE | 2022-09-16 12:37 | HO.ANESPROP2 ---
Documented by User: Keira Mancuso NP 09/16/22 12:38 HPI - Anesthesia Eval Consult details Narrative: 21yo F for Cystoscopy Hydrodistention of Bladder PMFSH Active Problems Active Problems: All Active Problems (Updated 09/12/22 @ 15:15 by Geri Adams MD) Sensation of pressure in bladder area (Acute) Dysuria (Acute) Encounter to discuss test results (Acute) Breast pain (Acute) COVID-19 (Acute) Pelvic pain (Acute) Past Medical History Medical History No known health problems Surgical History Surgical History (Updated 09/17/22 @ 09:23 by Izabel San MD) H/O wisdom tooth extraction No pertinent past surgical history Social History Social History (Updated 09/17/22 @ 09:25 by Izabel San MD) Patient Tobacco Use Status: Former Tobacco user Use of substances other than those prescribed or required for medical reasons: Yes Substance Use Type: Marijuana Substance Use Frequency: Occasionally Last Used Substance: Weeks (ago) Are you DNR?: No Advance Directives: No Advance Directives Information Provided: Yes Meds Allergies Allergy/AdvReac Type Severity Reaction Status Date / Time amoxicillin Allergy Anaphylaxis Verified 09/12/22 14:46 azithromycin Allergy Hives Verified 09/12/22 14:46 Exam Exam Date and Time: September 16, 2022 1237 Pertinent Lab Results Pertinent Lab Results: Laboratory Tests 07/21/22 07/21/22 20:28 20:28 WBC 8.9 Hgb 15.0 Hct 43.0 Plt Count 379 Sodium 138 Potassium 4.3 Chloride 110 H Carbon Dioxide 19 L BUN 12 Creatinine 0.71 Assessment and Plan Assessment Anesthesia Assessment: Chart Reviewed Documented by User: Izabel San MD 09/17/22 09:33 PMFSH Past Medical History Medical History No known health problems Family History Family history of problems with anesthesia: No Surgical History Surgical History (Updated 09/17/22 @ 09:23 by Izabel San MD) H/O wisdom tooth extraction No pertinent past surgical history History of Problems with Anesthesia: No Social History Social History (Updated 09/17/22 @ 09:25 by Izabel San MD) Patient Tobacco Use Status: Former Tobacco user Use of substances other than those prescribed or required for medical reasons: Yes Substance Use Type: Marijuana Substance Use Frequency: Occasionally Last Used Substance: Weeks (ago) Are you DNR?: No Advance Directives: No Advance Directives Information Provided: Yes Meds Allergies Allergy/AdvReac Type Severity Reaction Status Date / Time amoxicillin Allergy Anaphylaxis Verified 09/12/22 14:46 azithromycin Allergy Hives Verified 09/12/22 14:46 Active Medications: vitamins - last dose 2weeks ago Exam Height,Weight and Vital Signs: Height 5 ft 1 in Weight 71.668 kg Vital Signs Temp Pulse Resp BP Pulse Ox O2 Del Method 09/17/22 08:45 97.9 F 76 15 110/72 98 Room Air Pertinent Lab Results Pertinent Lab Results: Laboratory Tests 07/21/22 07/21/22 20:28 20:28 WBC 8.9 Hgb 15.0 Hct 43.0 Plt Count 379 Sodium 138 Potassium 4.3 Chloride 110 H Carbon Dioxide 19 L BUN 12 Creatinine 0.71 Lab Results 09/17/22 Range/Units 08:20 Urine Test NEGATIVE (NEGATIVE) Narrative Narrative: Nose stud. Patient states unable to remove.Aware of possible loss, aspiration, cooper if cautery used. Wishes to proceed. Waiver signed Airway Mallampati Class: II TM Dist: >3cm Neck ROM: Full Loose/Missing/Broken Teeth: Yes (Missing wisdom teeth) Heart: RRR Lungs: CTAB Assessment and Plan Final Anesthetic Review Family History of Problems with Anesthesia: No History of Problems with Anesthesia: No NPO: Yes ASA Class: II Final Preanesthetic Review: No Changes in Pt Med Stat, Meds/Allgs Chart Reviewed, Consent Obtained/Reviewed and Anes Risks/Benef Reviewed Patient Risk: Low Procedure Risk: Low Assessment/Block/Sedation in SS: Assess/Block/Sedation-SS Anesthetic Plan Anesthetic Plan: GA Disposition: Standard PACU
[2022-09-17] VITALS (7 sets, daily range): BP systolic 105–116; BP diastolic 65–74; PULSE 74–90; RESP 15–20; TEMP 36.3–36.8; O2SAT 97–100; BMI 29.8
[2022-09-17 08:38] LABS: UPreg QC Valid YES; Urine Pregnancy NEGATIVE (NEGATIVE)
--- NOTE | 2022-09-17 08:43 | MHC.SHP ---
Pre-Procedural Eval Section A Date of Service: 09/17/22 The patient is an INPATIENT: No The History & Physical has been completed within 30 days and I have reviewed it.: Yes Section B Chief Complaint: Dysuria Allergies: Allergies Allergy/AdvReac Type Severity Reaction Status Date / Time amoxicillin Allergy Anaphylaxis Verified 09/12/22 14:46 azithromycin Allergy Hives Verified 09/12/22 14:46 Plan Diagnosis/Plan: Unchanged I have reviewed the history and physical and performed a pertinent physical examination on my patient. No changes have occurred unless specified. Cystoscopy Hydrodistension Time Spent With Patient Time: Total time managing care of this patient today ____ minutes.
[2022-09-17] MEDS: Lactated Ringers 1,000 ML 100 ML IVCONT (08:47)
--- NOTE | 2022-09-17 10:36 | P.OP_ITS ---
Operative Note Operative Note Date of Service: 09/17/22 Narrative: PREOP DIAGNOSIS: Dysuria, pelvic pain POSTOP DIAGNOSIS: Dysuria, pelvic pain, Interstitial cystitis PROCEDURE: CYSTOSCOPY HYDRODISTENTION Anethesia: General Surgeon: Dr. Geri Adams Indications: Mini is a 21-year-old female who is referred for evaluation for dysuria. She was referred by [facility] because of bladder pressure and discomfort while urinating. 08/30/2022-USG pelvic and transvaginal-- Significant for 2.1 cm dominant, simple cyst in the right ovary and small amount of nonspecific free fluid is seen within the cul-de-sac. 01/09/2021- CAT scan imaging of abdomen Kidneys WNL and no stones. Details of procedure: The patient was brought into the operating room placed on the OR table in supine position. 2 g of Ancef IV. General anesthesia was administered. The patient was repositioned into lithotomy position, prepped and draped in the usual sterile fashion. Time-out was done per protocol. A 22 fr cystoscope was placed transurethrally into the bladder. Urine was drained from the bladder measuring 25 mL. The right and left ureteral orifices were visualized. The entire bladder was visualized. There were no suspicious bladder lesions seen. There were mild trabeculations noted. The bladder was filled with sterile water at 80 cm of water pressure under gravity. The bladder was distended for 2 minutes. Bladder capacity measured 650 mL. Revisualization of the bladder, noted moderate glomerulations. No William ulcerations. The bladder was refilled with sterile water again at 80 cm of water pressure under gravity. The bladder was distended for 3 minutes. The fluid was drained from the bladder and measured 750 mL. The cystoscope was removed. 2% lidocaine urojet was passed transurethrally, Solution of (1% lidocaine plain, 15 mL, 0.5 % Marcaine 15 mL mixed with 30, 000 units of heparin concentration 5000 units per mL total of 6 mL hepaine) instilled transurethrally into the bladder. The patient was brought out of anesthesia and taken to recovery in stable condition. Complications: None Drains: none
[2022-09-17] MEDS: Ketorolac Tromethamine 30 MG/ML VIAL 15 MG IVPUSH (10:53)
[2022-09-17] MEDS: Acetaminophen 325 MG TABLET 650 MG PO (10:53)
[2022-09-17] MEDS: oxyCODONE HCl Immed Release 5 MG TABLET PO (10:54)
[2022-09-17] MEDS: Phenazopyridine HCL 100 MG TABLET 200 MG PO ×2 (10:54→10:55)
== END 2022-09-17 12:04 | disposition home or self-care (01) ==
PROVIDERS: Nurse Practitioner; Visit Provider Urology
PROC: 0T7B7ZZ Dilation of Bladder, Via Natural or Artificial Opening (ICD-10-PCS; CPT 52260; principal; 2022-09-17 10:00)
DX: N30.10 Interstitial cystitis (chronic) without hematuria (principal); R30.0 Dysuria; R10.2 Pelvic and perineal pain; N83.291 Other ovarian cyst, right side; Z88.1 Allergy status to other antibiotic agents
CPT/HCPCS: 52260; 81025; J1100; J1885; J1956; J2250; J2405; J3010

== ENCOUNTER → 2022-10-03 11:37 | Outpatient (BNVA) | payer OTHER, SELFPAY | PROVIDERS: Visit Provider Urology | DX: R10.2 Pelvic and perineal pain (principal); R30.0 Dysuria; R39.89 Other symptoms and signs involving the genitourinary system; N30.10 Interstitial cystitis (chronic) without hematuria | CPT/HCPCS: 99212 ==

== ENCOUNTER 2022-12-09 15:23 | Emergency (ER) | payer OTHER, SELFPAY ==
--- NOTE | ~2022-12-09 | US_ITS ---
EXAMINATION: US PELVIS CLINICAL INFORMATION: Lower abdominal pain with question of ovarian torsion COMPARISON: CT scan of the abdomen and pelvis earlier today. TECHNIQUE: Ultrasound of the pelvis is performed using both transabdominal and transvaginal transducers along with Doppler. Transvaginal imaging is performed due to inadequate visualization transabdominally. FINDINGS: Uterus: The uterus is anteverted and measures 6.0 x 2.4 x 3.7 cm. The double wall endometrial thickness is 1.0 mm. The uterus is smooth in contour and has normal myometrial echogenicity. No visible fibroid. Adnexa: Both ovaries are visualized. There is normal color flow to the adnexa. There is no ovarian torsion. There is no pelvic ascites or fluid collection. Right ovary measures 2.9 x 2.0 0.6 cm for a volume of 5.0 mL. Left ovary measures 2.5 x 2.3 x 2.8 cm for a volume of 8.4 mL which includes a 1.6 cm left ovarian cyst. US/US pelvic and transvaginal IMPRESSION: Negative exam. No evidence of ovarian torsion.
--- NOTE | ~2022-12-09 | CT_ITS ---
EXAMINATION: CT ABDOMEN AND PELVIS WITH CONTRAST CLINICAL INFORMATION: lower abd pain COMPARISON: 01/26/2021 TECHNIQUE: Multidetector volumetric imaging was performed from the superior aspect of the liver through the pubic symphysis following administration of 60 mL Omnipaque 300 intravenous contrast. Sagittal and coronal reformatted images were obtained on the technologist workstation.. This CT examination was performed using dose optimization techniques as appropriate, variously including the following: *Automated exposure control *Adjustment of mA and/or kV according to patient size (this includes techniques or standardized protocols for targeted exams where dose is matched to indication/reason for exam; i.e. extremities or head) *Use of iterative reconstruction technique DLP: 510 mGy-cm FINDINGS: LUNG BASES: Stable tiny subpleural lymph node along the lateral aspect of the left lower lobe not significantly changed from the 2020 study significance. LIVER, GALLBLADDER, AND BILIARY TREE: The liver is normal in size, shape, and attenuation. No focal hepatic lesion or biliary ductal dilatation is present. The gallbladder is contracted but otherwise unremarkable with no evidence of radiopaque gallstones, gallbladder wall thickening, or obvious pericholecystic inflammatory changes. PANCREAS: Unremarkable. SPLEEN: Unremarkable. ADRENAL GLANDS: Unremarkable. KIDNEYS AND URETERS: The kidneys are normal in size, shape, and attenuation. No hydronephrosis, hydroureter, or calculi seen. No perinephric stranding. BLADDER: Unremarkable. GASTROINTESTINAL TRACT: A few scattered colonic diverticula are seen more so in the sigmoid colon. I do not appreciate any colonic wall thickening or pericolonic inflammatory change to suggest diverticulitis. Normal-appearing appendix in the right lower quadrant. Visualized small bowel is grossly unremarkable ABDOMINAL WALL: No significant hernia is appreciated. LYMPHOVASCULAR STRUCTURES: Mildly prominent mesenteric lymph nodes in the right lower quadrant but no bulky adenopathy. Aorta is unremarkable PELVIC VISCERA: Physiologic changes OSSEOUS STRUCTURES: Unremarkable. CT/CT abdomen pelvis w IV con IMPRESSION: No acute intra-abdominal process seen. There are a few scattered colonic diverticula but I do not appreciate any evidence for diverticulitis. Normal-appearing appendix in the right lower quadrant. Mildly prominent mesenteric lymph nodes in the right lower quadrant but no bulky adenopathy.
--- NOTE | ~2022-12-09 | US_ITS ---
EXAMINATION: US PELVIS CLINICAL INFORMATION: Lower abdominal pain with question of ovarian torsion COMPARISON: CT scan of the abdomen and pelvis earlier today. TECHNIQUE: Ultrasound of the pelvis is performed using both transabdominal and transvaginal transducers along with Doppler. Transvaginal imaging is performed due to inadequate visualization transabdominally. FINDINGS: Uterus: The uterus is anteverted and measures 6.0 x 2.4 x 3.7 cm. The double wall endometrial thickness is 1.0 mm. The uterus is smooth in contour and has normal myometrial echogenicity. No visible fibroid. Adnexa: Both ovaries are visualized. There is normal color flow to the adnexa. There is no ovarian torsion. There is no pelvic ascites or fluid collection. Right ovary measures 2.9 x 2.0 0.6 cm for a volume of 5.0 mL. Left ovary measures 2.5 x 2.3 x 2.8 cm for a volume of 8.4 mL which includes a 1.6 cm left ovarian cyst. US/US pelvic ovarian doppler IMPRESSION: Negative exam. No evidence of ovarian torsion.
--- NOTE | 2022-12-09 15:43 | ED.ABDPAIN ---
HPI - Abdominal Pain General Chief Complaint: Abdominal Pain Stated Complaint: ? ? issue with belly button Time Seen by Provider: 12/09/22 18:26 Related Data Previous Rx's Medication Instructions Recorded albuterol sulfate 90 mcg/actuation 1 inh inhalation QID PRN shortness 11/06/20 aerosol inhaler of breath or wheezing #8.5 grams vitamin with calcium 1 tab PO DAILY 30 days #30 tabs 04/30/22 no.72-iron 27 mg-folic acid 1 mg tablet ( Vitamins Plus Low Iron) hydroxyzine pamoate 25 mg capsule 25 mg PO BEDTIME #60 caps 10/03/22 (Vistaril) Allergies Allergy/AdvReac Type Severity Reaction Status Date / Time amoxicillin Allergy Severe Anaphylaxis Verified 12/09/22 15:42 azithromycin Allergy Intermediate Hives Verified 12/09/22 15:42 [facility] Past Medical History Medical History No known health problems Surgical History H/O wisdom tooth extraction No pertinent past surgical history Social History Social History Alcohol intake: never Patient Tobacco Use Status: Former Tobacco user Smoked in Last 30 Days: No Use of substances other than those prescribed or required for medical reasons: Yes Substance Use Type: Marijuana Advance Directives: No Advance Directives Information Provided: No Physical Exam ED Vital Signs: Vital Signs - 24 hr 12/09/22 15:44 12/09/22 19:05 12/09/22 22:09 Temperature 96.7 F L 98.8 F Pulse Rate 74 69 76 Respiratory Rate 18 18 18 Blood Pressure 124/59 L 101/66 121/67 Pulse Oximetry 100 98 100 Oxygen Delivery Method Room Air Room Air Room Air 12/09/22 23:05 Temperature 98.7 F Pulse Rate 81 Respiratory Rate 16 Blood Pressure 114/75 Pulse Oximetry 98 Oxygen Delivery Method Room Air BMI result Body Mass Index 30.1 Course Course Course Narrative: RME: 22yo F w/PMHx cysitis, presenting to the ED c/o periumbilical abdominal pain, nausea, clear drainage from belly button w/ some bleeding noted yesterday. denies fever, dysuria, hematuria, V/D LMP 5/30. Abdomen soft/nontender. No open wounds/drainage noted from umbilicus Labs, UA, ordered Full HPI, ROS and PE to be performed by primary ED provider. Medical Decision Making Lab Data 12/09/22 16:30 12/09/22 16:30 Labs: Lab Results 12/09/22 12/09/22 12/09/22 Range/Units 14:18 16:30 16:30 WBC 8.5 (4.8-10.8) X10*3/uL RBC 4.47 (4.20-5.50) X10*6/uL Hgb 13.3 (12.0-16.0) g/dl Hct 39.7 (37.0-47.0) % MCV 88.8 (80.0-98.0) fL MCH 29.8 (27.0-33.0) pg MCHC 33.5 (31.0-35.0) g/dl RDW 12.2 (11.0-16.0) % Plt Count 362 (160-400) X10*3/uL MPV 9.6 (9.4-12.3) fL Immature Gran % (Auto) 0.4 (0.0-0.4) % Neut % (Auto) 59.4 (45-73) % Lymph % (Auto) 31.6 (20-40) % [place] % (Auto) 4.0 (2-11) % Eos % (Auto) 3.8 (0-4) % Baso % (Auto) 0.8 (0-2) % Lymph # (Auto) 2.7 (1.2-4.9) X10*3/uL [place] # (Auto) 0.3 (0.1-1.2) X10*3/uL Eos # (Auto) 0.3 (0.0-0.4) X10*3/uL Baso # (Auto) 0.1 (0.0-0.2) X10*3/uL Abs Immat Gran (auto) 0.03 (0.00-0.03) X10*3/uL Absolute Neuts (auto) 5.1 (2.0-8.3) x10*3/uL Absolute Nucleated RBC 0.000 (0.0-0.012) X10*3/uL Nucleated RBC % (auto) 0.0 (0.0-0.2) /100WBC Sodium 140 (135-145) mmol/L Potassium 4.4 (3.3-5.1) mmol/L Chloride 110 H (96-108) mmol/L Carbon Dioxide 25 (22-29) mmol/L Anion Gap 9 L (12-20) BUN 11 (9-16) mg/dL Creatinine 0.77 (0.5-1.4) mg/dL Estim Creat Clear Calc 103.2 Estimated GFR > 60 Random Glucose 93 (60-115) mg/dL Calcium 9.3 (8.4-10.2) mg/dL Magnesium 1.8 (1.6-2.6) mg/dL Total Bilirubin 0.2 (0.0-1.0) mg/dL Direct Bilirubin < 0.2 (0.0-0.5) mg/dL AST 14 (5-31) U/L ALT 19 (0-31) U/L Alkaline Phosphatase 85 (39-117) U/L Total Protein 6.7 (6.5-8.0) g/dL Albumin 4.2 (3.5-5.0) g/dL Lipase 26 (8-78) U/L Beta HCG, Quant < 2 mIU/mL Urine Color Yellow Urine Appearance Turbid Urine pH 8.5 (5.0-9.0) Ur Specific [place] 1.025 (1.005-1.025) Urine Protein Negative (Neg-Trace) mg/dL Urine Glucose (UA) Negative (Negative) mg/dL Urine Ketones Negative (Negative) mg/dL Urine Blood Negative (Negative) Urine Nitrite Negative (Negative) Ur Leukocyte Esterase Negative (Negative) Urine Test (NEGATIVE) 12/09/22 Range/Units 19:06 WBC (4.8-10.8) X10*3/uL RBC (4.20-5.50) X10*6/uL Hgb (12.0-16.0) g/dl Hct (37.0-47.0) % MCV (80.0-98.0) fL MCH (27.0-33.0) pg MCHC (31.0-35.0) g/dl RDW (11.0-16.0) % Plt Count (160-400) X10*3/uL MPV (9.4-12.3) fL Immature Gran % (Auto) (0.0-0.4) % Neut % (Auto) (45-73) % Lymph % (Auto) (20-40) % [place] % (Auto) (2-11) % Eos % (Auto) (0-4) % Baso % (Auto) (0-2) % Lymph # (Auto) (1.2-4.9) X10*3/uL [place] # (Auto) (0.1-1.2) X10*3/uL Eos # (Auto) (0.0-0.4) X10*3/uL Baso # (Auto) (0.0-0.2) X10*3/uL Abs Immat Gran (auto) (0.00-0.03) X10*3/uL Absolute Neuts (auto) (2.0-8.3) x10*3/uL Absolute Nucleated RBC (0.0-0.012) X10*3/uL Nucleated RBC % (auto) (0.0-0.2) /100WBC Sodium (135-145) mmol/L Potassium (3.3-5.1) mmol/L Chloride (96-108) mmol/L Carbon Dioxide (22-29) mmol/L Anion Gap (12-20) BUN (9-16) mg/dL Creatinine (0.5-1.4) mg/dL Estim Creat Clear Calc Estimated GFR Random Glucose (60-115) mg/dL Calcium (8.4-10.2) mg/dL Magnesium (1.6-2.6) mg/dL Total Bilirubin (0.0-1.0) mg/dL Direct Bilirubin (0.0-0.5) mg/dL AST (5-31) U/L ALT (0-31) U/L Alkaline Phosphatase (39-117) U/L Total Protein (6.5-8.0) g/dL Albumin (3.5-5.0) g/dL Lipase (8-78) U/L Beta HCG, Quant mIU/mL Urine Color Urine Appearance Urine pH (5.0-9.0) Ur Specific [place] (1.005-1.025) Urine Protein (Neg-Trace) mg/dL Urine Glucose (UA) (Negative) mg/dL Urine Ketones (Negative) mg/dL Urine Blood (Negative) Urine Nitrite (Negative) Ur Leukocyte Esterase (Negative) Urine Test NEGATIVE (NEGATIVE) Medications Administered Discontinued Medications Generic Name Dose Route Start Last Admin Trade Name Freq PRN Reason Stop Dose Admin Iohexol 100 ml 12/09/22 20:52 12/09/22 20:52 Iohexol 350 Mg/Ml 100 Ml Infus..Btl IV 12/09/22 20:53 85 ml ONCE ONE Administration Discharge Plan Discharge Clinical Impression: Abdominal pain Patient Disposition: Home, Self-Care Instructions: Abdominal Pain (ED) Prescriptions: No Action Vitamin Plus Low Iron 27 mg iron- 1 mg tablet 1 tab PO DAILY 30 Days Qty: 30 11RF albuterol sulfate 90 mcg/actuation HFA aerosol inhaler 1 inh inhalation QID PRN (Reason: shortness of breath or wheezing) Qty: 8.5 0RF hydroxyzine pamoate [Vistaril] 25 mg capsule 25 mg PO BEDTIME Qty: 60 3RF Rx Instructions: may increase to 2 capsules at bedtime in 3 weeks if no significant daytime drowsiness Referrals: Physician,Unknown J [Primary Care Provider] - 12/11/22 Stand Alone Forms: Work/School Release Interventions: ED Discharge Assessment Last Done: 12/09/22 23:07 Discharge Date/Time: 12/09/22 23:08
[2022-12-09 15:44] VITALS: BP 124/59; PULSE 74; RESP 18; TEMP 35.9; O2SAT 100; BMI 30.1
[2022-12-09 16:35] LABS: MANUAL DIFF FLAG NO
[2022-12-09 16:36] LABS: Basophils Absolute Auto 0.1 X10*3/uL (0.0-0.2); Basophils Percent Auto 0.8 % (0-2); Eosinophils Absolute Auto 0.3 X10*3/uL (0.0-0.4); Eosinophils Percent Auto 3.8 % (0-4); Hematocrit 39.7 % (37.0-47.0); Hemoglobin 13.3 g/dl (12.0-16.0); Imm Gran Abs Auto 0.03 X10*3/uL (0.00-0.03); Imm Gran Pct Auto 0.4 % (0.0-0.4); Lymphocytes Absolute Auto 2.7 X10*3/uL (1.2-4.9); Lymphocytes Percent Auto 31.6 % (20-40); Mean Corpuscular HGB Conc 33.5 g/dl (31.0-35.0); Mean Corpuscular Hemoglobin 29.8 pg (27.0-33.0); Mean Corpuscular Volume 88.8 fL (80.0-98.0); Mean Platelet Volume 9.6 fL (9.4-12.3); Monocytes Absolute Auto 0.3 X10*3/uL (0.1-1.2); Neutrophils Absolute Auto 5.1 x10*3/uL (2.0-8.3); Neutrophils Percent Auto 59.4 % (45-73); Platelet Count 362 X10*3/uL (160-400); Red Blood Count 4.47 X10*6/uL (4.20-5.50); Red Cell Distribution Width 12.2 % (11.0-16.0); White Blood Count 8.5 X10*3/uL (4.8-10.8)
[2022-12-09 16:51] LABS: Alanine Aminotransferase 19 U/L (0-31); Albumin Level 4.2 g/dL (3.5-5.0); Alkaline Phosphatase 85 U/L (39-117); Anion Gap 9 (12-20); Aspartate Amino Transferase 14 U/L (5-31); Bilirubin Direct < 0.2 mg/dL (0.0-0.5); Bilirubin Total 0.2 mg/dL (0.0-1.0); Blood Urea Nitrogen 11 mg/dL (9-16); Calcium 9.3 mg/dL (8.4-10.2); Carbon Dioxide 25 mmol/L (22-29); Chloride 110 mmol/L (96-108); Creatinine Clr Calc Pharmacy 103.2; Estimated Glomerular Filt Rate > 60; Glucose Random 93 mg/dL (60-115); Lipase 26 U/L (8-78); Magnesium 1.8 mg/dL (1.6-2.6); Potassium 4.4 mmol/L (3.3-5.1); Sodium 140 mmol/L (135-145); Total Protein 6.7 g/dL (6.5-8.0)
[2022-12-09 19:05] VITALS: BP 101/66; PULSE 69; RESP 18; O2SAT 98
[2022-12-09 19:16] LABS: HCG Quantitative < 2 mIU/mL
[2022-12-09 19:20] LABS: Appearance Urine Turbid; Color Urine Yellow; Glucose Urine UA Negative (Negative); Leukocyte Esterase Urine Negative (Negative); Nitrite Urine Negative (Negative); PH 8.5 (5.0-9.0); Specific Gravity - Urine 1.025 (1.005-1.025); Urine Blood Negative (Negative); Urine Ketones Negative (Negative); Urine Protein Negative (Neg-Trace)
[2022-12-09 19:22] LABS: UPreg QC Valid YES; Urine Pregnancy NEGATIVE (NEGATIVE)
--- NOTE | 2022-12-09 19:51 | PC.NURSE ---
pt aox4, reporting central abdominals pain and states that yesterday there was clear discharge and blood coming from their umbilicus. pt vitals stable, awaiting ed provider, will ctm
--- NOTE | 2022-12-09 20:28 | ED_ITS ---
HPI - Abdominal Pain General Chief Complaint: Abdominal Pain Stated Complaint: ? ? issue with belly button Time Seen by Provider: 12/09/22 18:26 History of Present Illness HPI narrative: Patient is a 22-year-old female presents today with having lower abdominal pain. This symptom has been ongoing for about 2 weeks. Patient had a history of cystitis. Been on antibiotic pain is not affected by movement. Patient does not think she is administration is been normal in timing and duration. No chest pain or shortness of breath no diaphoresis no nausea no vomiting. No flank pain. No new vaginal discharge. Patient is sexually active with 1 partner. Does not use condoms. Related Data Previous Rx's Medication Instructions Recorded albuterol sulfate 90 mcg/actuation 1 inh inhalation QID PRN shortness 11/06/20 aerosol inhaler of breath or wheezing #8.5 grams vitamin with calcium 1 tab PO DAILY 30 days #30 tabs 04/30/22 no.72-iron 27 mg-folic acid 1 mg tablet ( Vitamins Plus Low Iron) hydroxyzine pamoate 25 mg capsule 25 mg PO BEDTIME #60 caps 10/03/22 (Vistaril) Allergies Allergy/AdvReac Type Severity Reaction Status Date / Time amoxicillin Allergy Severe Anaphylaxis Verified 12/09/22 15:42 azithromycin Allergy Intermediate Hives Verified 12/09/22 15:42 Review of Systems Review of Systems Lower abdominal pain Yes all other systems are reviewed and are negative PMFSH Past Medical History Attestation statement: The following information was validated with the patient. Medical History No known health problems Surgical History H/O wisdom tooth extraction No pertinent past surgical history Social History Social History Alcohol intake: never Patient Tobacco Use Status: Former Tobacco user Smoked in Last 30 Days: No Use of substances other than those prescribed or required for medical reasons: Yes Substance Use Type: Marijuana Advance Directives: No Advance Directives Information Provided: No Physical Exam ED Vital Signs: Vital Signs - 24 hr 12/09/22 15:44 12/09/22 19:05 12/09/22 22:09 Temperature 96.7 F L 98.8 F Pulse Rate 74 69 76 Respiratory Rate 18 18 18 Blood Pressure 124/59 L 101/66 121/67 Pulse Oximetry 100 98 100 Oxygen Delivery Method Room Air Room Air Room Air BMI result Body Mass Index 30.1 Appearance: Alert. Oriented X3. No acute distress. Eyes: Pupils equal, round and reactive to light. ENT: Pharynx normal. Neck: Normal inspection. Neck supple. No lymph nodes noted. No crepitus CVS: Normal heart rate and rhythm. Pulses normal. Normal S1 and S2 Respiratory: No respiratory distress. Breath sounds normal. No Wheezing. No rales Abdomen: Soft and nontender. No rigidity. No distention. good BS x4 Skin: Skin warm and dry. Normal skin color. Normal skin turgor. Extremities: No lower extremity edema. Neurovascular intact to all extremities. No Lacerations. No Rash Neuro: Oriented X 3. No motor deficit. No sensory deficit. Moving all extermities. No slurred speech Medical Decision Making Medical Decision Making [facility] Narrative: Patient presents today with having diffuse abdominal pain. At times is worse in the lower abdomen. Denies any new vaginal discharges. CT scan of the abdomen pelvis showed no acute evidence of appendicitis. No obstruction no abscess no perforation. An ultrasound was done. It shows no evidence of torsion. Patient is well-appearing repeated abdominal exam is soft nontender. Urine showed no signs of infection. test was negative no evidence for related issues. Will discharge patient home. In stable condition. Differential Diagnosis Differential Diagnoses: The differential diagnosis associated with the presentation includes Ovarian torsion, urinary tract infection, kidney stone, obstruction, biliary issues, diverticulitis, related issues Lab Data [facility] Lab Attestation statement: I reviewed the patient's lab results. 12/09/22 16:30 12/09/22 16:30 Labs: Lab Results 12/09/22 12/09/22 12/09/22 Range/Units 14:18 16:30 16:30 WBC 8.5 (4.8-10.8) X10*3/uL RBC 4.47 (4.20-5.50) X10*6/uL Hgb 13.3 (12.0-16.0) g/dl Hct 39.7 (37.0-47.0) % MCV 88.8 (80.0-98.0) fL MCH 29.8 (27.0-33.0) pg MCHC 33.5 (31.0-35.0) g/dl RDW 12.2 (11.0-16.0) % Plt Count 362 (160-400) X10*3/uL MPV 9.6 (9.4-12.3) fL Immature Gran % (Auto) 0.4 (0.0-0.4) % Neut % (Auto) 59.4 (45-73) % Lymph % (Auto) 31.6 (20-40) % [place] % (Auto) 4.0 (2-11) % Eos % (Auto) 3.8 (0-4) % Baso % (Auto) 0.8 (0-2) % Lymph # (Auto) 2.7 (1.2-4.9) X10*3/uL [place] # (Auto) 0.3 (0.1-1.2) X10*3/uL Eos # (Auto) 0.3 (0.0-0.4) X10*3/uL Baso # (Auto) 0.1 (0.0-0.2) X10*3/uL Abs Immat Gran (auto) 0.03 (0.00-0.03) X10*3/uL Absolute Neuts (auto) 5.1 (2.0-8.3) x10*3/uL Absolute Nucleated RBC 0.000 (0.0-0.012) X10*3/uL Nucleated RBC % (auto) 0.0 (0.0-0.2) /100WBC Sodium 140 (135-145) mmol/L Potassium 4.4 (3.3-5.1) mmol/L Chloride 110 H (96-108) mmol/L Carbon Dioxide 25 (22-29) mmol/L Anion Gap 9 L (12-20) BUN 11 (9-16) mg/dL Creatinine 0.77 (0.5-1.4) mg/dL Estim Creat Clear Calc 103.2 Estimated GFR > 60 Random Glucose 93 (60-115) mg/dL Calcium 9.3 (8.4-10.2) mg/dL Magnesium 1.8 (1.6-2.6) mg/dL Total Bilirubin 0.2 (0.0-1.0) mg/dL Direct Bilirubin < 0.2 (0.0-0.5) mg/dL AST 14 (5-31) U/L ALT 19 (0-31) U/L Alkaline Phosphatase 85 (39-117) U/L Total Protein 6.7 (6.5-8.0) g/dL Albumin 4.2 (3.5-5.0) g/dL Lipase 26 (8-78) U/L Beta HCG, Quant < 2 mIU/mL Urine Color Yellow Urine Appearance Turbid Urine pH 8.5 (5.0-9.0) Ur Specific [place] 1.025 (1.005-1.025) Urine Protein Negative (Neg-Trace) mg/dL Urine Glucose (UA) Negative (Negative) mg/dL Urine Ketones Negative (Negative) mg/dL Urine Blood Negative (Negative) Urine Nitrite Negative (Negative) Ur Leukocyte Esterase Negative (Negative) Urine Test (NEGATIVE) 12/09/22 Range/Units 19:06 WBC (4.8-10.8) X10*3/uL RBC (4.20-5.50) X10*6/uL Hgb (12.0-16.0) g/dl Hct (37.0-47.0) % MCV (80.0-98.0) fL MCH (27.0-33.0) pg MCHC (31.0-35.0) g/dl RDW (11.0-16.0) % Plt Count (160-400) X10*3/uL MPV (9.4-12.3) fL Immature Gran % (Auto) (0.0-0.4) % Neut % (Auto) (45-73) % Lymph % (Auto) (20-40) % [place] % (Auto) (2-11) % Eos % (Auto) (0-4) % Baso % (Auto) (0-2) % Lymph # (Auto) (1.2-4.9) X10*3/uL [place] # (Auto) (0.1-1.2) X10*3/uL Eos # (Auto) (0.0-0.4) X10*3/uL Baso # (Auto) (0.0-0.2) X10*3/uL Abs Immat Gran (auto) (0.00-0.03) X10*3/uL Absolute Neuts (auto) (2.0-8.3) x10*3/uL Absolute Nucleated RBC (0.0-0.012) X10*3/uL Nucleated RBC % (auto) (0.0-0.2) /100WBC Sodium (135-145) mmol/L Potassium (3.3-5.1) mmol/L Chloride (96-108) mmol/L Carbon Dioxide (22-29) mmol/L Anion Gap (12-20) BUN (9-16) mg/dL Creatinine (0.5-1.4) mg/dL Estim Creat Clear Calc Estimated GFR Random Glucose (60-115) mg/dL Calcium (8.4-10.2) mg/dL Magnesium (1.6-2.6) mg/dL Total Bilirubin (0.0-1.0) mg/dL Direct Bilirubin (0.0-0.5) mg/dL AST (5-31) U/L ALT (0-31) U/L Alkaline Phosphatase (39-117) U/L Total Protein (6.5-8.0) g/dL Albumin (3.5-5.0) g/dL Lipase (8-78) U/L Beta HCG, Quant mIU/mL Urine Color Urine Appearance Urine pH (5.0-9.0) Ur Specific [place] (1.005-1.025) Urine Protein (Neg-Trace) mg/dL Urine Glucose (UA) (Negative) mg/dL Urine Ketones (Negative) mg/dL Urine Blood (Negative) Urine Nitrite (Negative) Ur Leukocyte Esterase (Negative) Urine Test NEGATIVE (NEGATIVE) Independent Interpretation I performed an independent interpretation of an: CT Scan Radiology Impression Discussion of test interpretation with radiology: I have reviewed the radiologist's reading. Medications Administered Discontinued Medications Generic Name Dose Route Start Last Admin Trade Name Freq PRN Reason Stop Dose Admin Iohexol 100 ml 12/09/22 20:52 12/09/22 20:52 Iohexol 350 Mg/Ml 100 Ml Infus..Btl IV 12/09/22 20:53 85 ml ONCE ONE Administration Discharge Plan Discharge Clinical Impression: Abdominal pain Patient Disposition: Home, Self-Care Instructions: Abdominal Pain (ED) Prescriptions: No Action Vitamin Plus Low Iron 27 mg iron- 1 mg tablet 1 tab PO DAILY 30 Days Qty: 30 11RF albuterol sulfate 90 mcg/actuation HFA aerosol inhaler 1 inh inhalation QID PRN (Reason: shortness of breath or wheezing) Qty: 8.5 0RF hydroxyzine pamoate [Vistaril] 25 mg capsule 25 mg PO BEDTIME Qty: 60 3RF Rx Instructions: may increase to 2 capsules at bedtime in 3 weeks if no significant daytime drowsiness Referrals: Physician,Unknown J [Primary Care Provider] - 12/11/22 Stand Alone Forms: Work/School Release
--- NOTE | 2022-12-09 20:43 | PC.NURSE ---
iv inserted, pt to CT scan
[2022-12-09] MEDS: iohexoL 350 MG/ML 100 ML INFUS..BTL IV (20:52)
[2022-12-09 22:09] VITALS: BP 121/67; PULSE 76; RESP 18; TEMP 37.1; O2SAT 100
[2022-12-09 23:05] VITALS: BP 114/75; PULSE 81; RESP 16; TEMP 37.1; O2SAT 98
--- NOTE | 2022-12-09 23:06 | PC.NURSE ---
this rn assumed care of pt @ 2100. pt calm and cooperative. pt mother at bedside for discharge. iv removed at discharge. pt ambulatory at discharge. pt provided with discharge packet and work note. pt verbalized understanding of discharge plan
== END 2022-12-09 23:08 | disposition home or self-care (01) ==
PROVIDERS: Physician Assistant; Emergency Provider Emergency Medicine Emergency Medical Services
DX: R10.30 Lower abdominal pain, unspecified (principal)
CPT/HCPCS: 36415; 74177; 76830; 76856; 80048; 80076; 81003; 81025; 83690; 83735; 84702; 85025; 93975; 99284; Q9967

== ENCOUNTER → 2023-01-03 09:44 | Outpatient (BNVA) | payer OTHER, SELFPAY | PROVIDERS: Visit Provider Urology | DX: R10.2 Pelvic and perineal pain (principal); R30.0 Dysuria; N30.10 Interstitial cystitis (chronic) without hematuria | CPT/HCPCS: 51798; 99212 ==

== ENCOUNTER 2023-01-06 11:05 | Outpatient (AMB) | payer OTHER, SELFPAY ==
--- NOTE | 2023-01-06 11:09 | AM.OFFVISNUR ---
Intake Intake Visit Reasons: IC Instillation #1 Allergies amoxicillin Allergy (Severe, Verified 01/03/23 10:11) Anaphylaxis azithromycin Allergy (Intermediate, Verified 01/03/23 10:11) Hives Office Procedures Bladder/Catheter Procedure Details: pt presents to office for daily bladder instillation #1. 10 mls lidocaine urojet used to prep, 12 fr straight cath used to drain bladder and instill per Dr Crowder: 10 mls bupivicaine 10 mls lidocaine 2% 10,000 units heparin (2 mls) 1 ml solumedrol (40 mg) 14845-Gxlwhgmzix of Bladder 95762-Yaosxe Bladder Catheter Procedure code (CPT) selection complete Coding Diagnoses CPT Codes Bladder/Catheter Procedure - CPT: 87947-Ifnqpbnvbh of Bladder ([id number]) Bladder/Catheter Procedure - CPT: 83887-Ybdhdl Bladder Catheter ([id number])
== END 2023-01-06 11:51 | disposition home or self-care (01) ==
PROVIDERS: Visit Provider Urology
DX: N30.10 Interstitial cystitis (chronic) without hematuria (principal)
CPT/HCPCS: 51700; 51701

== ENCOUNTER → 2023-01-06 11:05 | Outpatient (BNVA) | payer OTHER, SELFPAY | PROVIDERS: Visit Provider Urology | DX: N30.10 Interstitial cystitis (chronic) without hematuria (principal) | CPT/HCPCS: 51700; 51701; J1643; J2920 ==

== ENCOUNTER 2023-01-07 11:01 | Outpatient (AMB) | payer OTHER, SELFPAY ==
--- NOTE | 2023-01-07 11:11 | AM.OFFVISNUR ---
Intake Intake Visit Reasons: IC Installation #2 Allergies amoxicillin Allergy (Severe, Verified 01/03/23 10:11) Anaphylaxis azithromycin Allergy (Intermediate, Verified 01/03/23 10:11) Hives Office Procedures Bladder/Catheter Procedure Details: pt presents to office for daily bladder instillation #2. 10 mls lidocaine urojet used to prep, 12 fr straight cath used to drain bladder and instill per Dr Crowder: 10 mls bupivicaine 10 mls lidocaine 2% 10,000 units heparin (2 mls) 1 ml solumedrol (40 mg) 40874-Rabkoftrft of Bladder 64284-Iceknq Bladder Catheter Procedure code (CPT) selection complete Coding Diagnoses CPT Codes Bladder/Catheter Procedure - CPT: 25183-Oniooznart of Bladder ([id number]) Bladder/Catheter Procedure - CPT: 14808-Rvlmek Bladder Catheter ([id number]) Assessment & Plan Assessment & Plan Orders: Orders AMB Bladder/Catheter Procedure Today N30.10 - Interstitial cystitis (chronic) without hematuria
== END 2023-01-07 12:17 | disposition home or self-care (01) ==
PROVIDERS: Visit Provider Urology
DX: N30.10 Interstitial cystitis (chronic) without hematuria (principal)
CPT/HCPCS: 51700; 51701

== ENCOUNTER → 2023-01-07 11:01 | Outpatient (BNVA) | payer OTHER, SELFPAY | PROVIDERS: Visit Provider Urology | DX: N30.10 Interstitial cystitis (chronic) without hematuria (principal) | CPT/HCPCS: 51700; 51701; J1643; J2920 ==

== ENCOUNTER → 2023-01-08 11:27 | Outpatient (BNVA) | payer OTHER, SELFPAY | PROVIDERS: Visit Provider Urology ==

== ENCOUNTER 2023-01-13 17:40 | Emergency (ER) | payer OTHER, SELFPAY ==
[2023-01-13 19:31] VITALS: BP 121/72; PULSE 74; RESP 18; TEMP 36.9; O2SAT 99; BMI 29.3
--- NOTE | 2023-01-13 19:31 | ED.GENADULT ---
HPI - General Adult General Chief complaint: Urogenital-Female Stated complaint: bleeding heavily, blood clot? severe pain Time Seen by Provider: 01/14/23 01:49 Source: patient Mode of arrival: ambulatory Limitations: no limitations History of Present Illness HPI narrative: patient having a heavy period today and was passing clots. After her bleeding stopped. No further heavy bleeding Onset (ago): hour(s) Related Data Previous Rx's Medication Instructions Recorded albuterol sulfate 90 mcg/actuation 1 inh inhalation QID PRN shortness 11/06/20 aerosol inhaler of breath or wheezing #8.5 grams vitamin with calcium 1 tab PO DAILY 30 days #30 tabs 04/30/22 no.72-iron 27 mg-folic acid 1 mg tablet ( Vitamins Plus Low Iron) hydroxyzine pamoate 25 mg capsule 25 mg PO BEDTIME #60 caps 01/03/23 (Vistaril) naproxen 375 mg tablet 375 mg PO Q12H PRN pain #20 tabs 01/03/23 solifenacin 10 mg tablet (Vesicare) 10 mg PO DAILY #90 tabs 01/03/23 nitrofurantoin 100 mg PO BID UTI 7 days #14 caps 01/08/23 monohydrate/macrocrystals 100 mg capsule (Macrobid) ondansetron 8 mg disintegrating 8 mg PO Q8H PRN nausea and 01/13/23 tablet vomiting 5 days #30 tabs Allergies Allergy/AdvReac Type Severity Reaction Status Date / Time amoxicillin Allergy Severe Anaphylaxis Verified 01/13/23 19:31 azithromycin Allergy Intermediate Hives Verified 01/13/23 19:31 Review of Systems Review of Systems: Yes all other systems are reviewed and are negative Genitourinary: Comments: passing clots PMFSH Past Medical History Medical History No known health problems Surgical History H/O wisdom tooth extraction No pertinent past surgical history Social History Social History Alcohol intake: never Patient Tobacco Use Status: Former Tobacco user Substance Use Type: Marijuana Advance Directives: No Advance Directives Information Provided: Yes Physical Exam ED Vital Signs: Vital Signs - 24 hr 01/13/23 19:31 01/14/23 01:12 Temperature 98.4 F 98.5 F Pulse Rate 74 66 Respiratory Rate 18 18 Blood Pressure 121/72 112/63 Pulse Oximetry 99 98 Oxygen Delivery Method Room Air BMI result Body Mass Index 29.3 Const General: healthy appearing Nutritional Appearance: average body habitus Orientation/consciousness: oriented to person and patient oriented x3 Limitations: no limitations HENMT Head: Yes normal to inspection Ears: external ears normal General nose exam: Normal external nose present Mouth: Normal oral and palatal mucosa present and oropharynx normal Throat: Yes posterior oropharynx normal Eyes General: appearance normal, both eyes and all related structures Neck Neck: Yes normal visual inspection Chest Chest palpation & inspection: normal inspection of the chest Resp Auscultation: clear to auscultation bilaterally Cardio Jugular venous distension: no JVD Rate: regular rate Rhythm: regular rhythm Heart sounds: S1 normal heart sound present and S2 normal heart sound present GI Inspection: Yes normal to inspection Palpation (GI): Soft to palpation, nontender and No hepatosplenomegaly present Auscultation: normal bowel sounds General: Yes no CVA tenderness Back/Spine/Pelvis Back: no CVA tenderness Skin General skin exam: no rashes or lesions noted Neuro General: oriented to person and patient oriented x3 Cranial nerves: Yes CN's II-XII intact bilaterally Motor exam (neuro): 5/5 motor strength present throughout Extrem General: Yes normal to inspection Psych Appearance: grossly normal Course Course Course Narrative: This is an RME: Additional HPI, ROS, PE not included below will be deferred to primary provider. This is a [id number]-female presenting to the emergency department with complaints of right suprapubic and right lower abdominal pain early this morning. Has used 1 pad per hour x 3 hours today, starting this morning, now is spotting. LMP December 20. Does not typically have heavy menses. Plan: Labs, UA, upreg, beta quant Reevaluation(s) Reevaluation #1: patients bleeding has stopped, she is not in pain, she is not , can discharge home Time: 02:04 Medical Decision Making Differential Diagnosis Differential Diagnoses: The differential diagnosis associated with the presentation includes (, miscarriage, ectopic , disfunctional uterine bleeding were all considered) Admission/Observation Consideration of admission/observation: Escalation of care including admission/observation considered (This 22yo female passing clots was considered for admission) Lab Data MDM Lab Attestation statement: I reviewed the patient's lab results. (not anemic, not , urine is contaminated) 01/13/23 20:33 01/13/23 20:33 Labs: Lab Results 01/13/23 01/13/23 01/13/23 Range/Units 20:05 20:05 20:33 WBC 10.2 (4.8-10.8) X10*3/uL RBC 4.40 (4.20-5.50) X10*6/uL Hgb 13.1 (12.0-16.0) g/dl Hct 38.8 (37.0-47.0) % MCV 88.2 (80.0-98.0) fL MCH 29.8 (27.0-33.0) pg MCHC 33.8 (31.0-35.0) g/dl RDW 12.1 (11.0-16.0) % Plt Count 329 (160-400) X10*3/uL MPV 9.7 (9.4-12.3) fL Immature Gran % (Auto) 0.3 (0.0-0.4) % Neut % (Auto) 64.7 (45-73) % Lymph % (Auto) 26.7 (20-40) % Preston % (Auto) 3.9 (2-11) % Eos % (Auto) 3.8 (0-4) % Baso % (Auto) 0.6 (0-2) % Lymph # (Auto) 2.7 (1.2-4.9) X10*3/uL Preston # (Auto) 0.4 (0.1-1.2) X10*3/uL Eos # (Auto) 0.4 (0.0-0.4) X10*3/uL Baso # (Auto) 0.1 (0.0-0.2) X10*3/uL Abs Immat Gran (auto) 0.03 (0.00-0.03) X10*3/uL Absolute Neuts (auto) 6.6 (2.0-8.3) x10*3/uL Absolute Nucleated RBC 0.000 (0.0-0.012) X10*3/uL Nucleated RBC % (auto) 0.0 (0.0-0.2) /100WBC Sodium (135-145) mmol/L Potassium (3.3-5.1) mmol/L Chloride (96-108) mmol/L Carbon Dioxide (22-29) mmol/L Anion Gap (12-20) BUN (9-16) mg/dL Creatinine (0.5-1.4) mg/dL Estim Creat Clear Calc Estimated GFR Random Glucose (60-115) mg/dL Calcium (8.4-10.2) mg/dL Total Bilirubin (0.0-1.0) mg/dL Direct Bilirubin (0.0-0.5) mg/dL AST (5-31) U/L ALT (0-31) U/L Alkaline Phosphatase (39-117) U/L Total Protein (6.5-8.0) g/dL Albumin (3.5-5.0) g/dL Beta HCG, Quant mIU/mL Urine Color PINK Urine Appearance Cloudy Urine pH 6.0 (5.0-9.0) Ur Specific Sch[place]ield 1.025 (1.005-1.025) Urine Protein 30 (1+) H (Neg-Trace) mg/dL Urine Glucose (UA) Negative (Negative) mg/dL Urine Ketones Trace (Negative) mg/dL Urine Blood Large (3+) H (Negative) Urine Nitrite Negative (Negative) Ur Leukocyte Esterase Moderate (2+) H (Negative) Urine RBC >20 H (0-2) /HPF Urine WBC >50 H (0-5) /HPF Ur Squamous Epith Cells 3-5 (0-2) /HPF Urine Bacteria Trace (None Seen) Hyaline Casts 0-2 (0-2) /LPF Urine Test NEGATIVE (NEGATIVE) 01/13/23 01/13/23 Range/Units 20:33 20:33 WBC (4.8-10.8) X10*3/uL RBC (4.20-5.50) X10*6/uL Hgb (12.0-16.0) g/dl Hct (37.0-47.0) % MCV (80.0-98.0) fL MCH (27.0-33.0) pg MCHC (31.0-35.0) g/dl RDW (11.0-16.0) % Plt Count (160-400) X10*3/uL MPV (9.4-12.3) fL Immature Gran % (Auto) (0.0-0.4) % Neut % (Auto) (45-73) % Lymph % (Auto) (20-40) % Preston % (Auto) (2-11) % Eos % (Auto) (0-4) % Baso % (Auto) (0-2) % Lymph # (Auto) (1.2-4.9) X10*3/uL Preston # (Auto) (0.1-1.2) X10*3/uL Eos # (Auto) (0.0-0.4) X10*3/uL Baso # (Auto) (0.0-0.2) X10*3/uL Abs Immat Gran (auto) (0.00-0.03) X10*3/uL Absolute Neuts (auto) (2.0-8.3) x10*3/uL Absolute Nucleated RBC (0.0-0.012) X10*3/uL Nucleated RBC % (auto) (0.0-0.2) /100WBC Sodium 138 (135-145) mmol/L Potassium 3.5 D (3.3-5.1) mmol/L Chloride 108 (96-108) mmol/L Carbon Dioxide 21 L (22-29) mmol/L Anion Gap 13 (12-20) BUN 6 L (9-16) mg/dL Creatinine 0.73 (0.5-1.4) mg/dL Estim Creat Clear Calc 107.4 Estimated GFR > 60 Random Glucose 99 (60-115) mg/dL Calcium 8.7 D (8.4-10.2) mg/dL Total Bilirubin 0.2 (0.0-1.0) mg/dL Direct Bilirubin < 0.2 (0.0-0.5) mg/dL AST 17 (5-31) U/L ALT 24 (0-31) U/L Alkaline Phosphatase 88 (39-117) U/L Total Protein 7.1 (6.5-8.0) g/dL Albumin 4.0 (3.5-5.0) g/dL Beta HCG, Quant < 2 mIU/mL Urine Color Urine Appearance Urine pH (5.0-9.0) Ur Specific Sch[place]ield (1.005-1.025) Urine Protein (Neg-Trace) mg/dL Urine Glucose (UA) (Negative) mg/dL Urine Ketones (Negative) mg/dL Urine Blood (Negative) Urine Nitrite (Negative) Ur Leukocyte Esterase (Negative) Urine RBC (0-2) /HPF Urine WBC (0-5) /HPF Ur Squamous Epith Cells (0-2) /HPF Urine Bacteria (None Seen) Hyaline Casts (0-2) /LPF Urine Test (NEGATIVE) Tests considered The following testing was considered but not selected: I considered obtaining and ultrasound but patient bleeding has stopped and she is not Discharge Plan Discharge Clinical Impression: DUB (dysfunctional uterine bleeding) Patient Disposition: Home, Self-Care Instructions: Dysfunctional Uterine Bleeding (ED) Prescriptions: No Action Vitamin Plus Low Iron 27 mg iron- 1 mg tablet 1 tab PO DAILY 30 Days Qty: 30 11RF ondansetron 8 mg tablet,disintegrating 8 mg PO Q8H PRN (Reason: nausea and vomiting) 5 Days Qty: 30 0RF albuterol sulfate 90 mcg/actuation HFA aerosol inhaler 1 inh inhalation QID PRN (Reason: shortness of breath or wheezing) Qty: 8.5 0RF naproxen 375 mg tablet 375 mg PO Q12H PRN (Reason: pain) Qty: 20 1RF solifenacin [Vesicare] 10 mg tablet 10 mg PO DAILY Qty: 90 0RF hydroxyzine pamoate [Vistaril] 25 mg capsule 25 mg PO BEDTIME Qty: 60 3RF Rx Instructions: may increase to 2 capsules at bedtime in 3 weeks if no significant daytime drowsiness nitrofurantoin monohyd/m-cryst [Macrobid] 100 mg capsule 100 mg PO BID 7 Days Qty: 14 0RF Rx Instructions: must administer with a meal/food Referrals: Physician,None [Primary Care Provider] - 5 days Stand Alone Forms: Work/School Release
[2023-01-13 20:16] LABS: Appearance Urine Cloudy; Glucose Urine UA Negative (Negative); Leukocyte Esterase Urine Moderate (2+) (Negative); Nitrite Urine Negative (Negative); Specific Gravity - Urine 1.025 (1.005-1.025); UMIC TRIGGER UACC YES; Urine Blood Large (3+) (Negative); Urine Ketones Trace mg/dL (Negative); Urine Protein 30 (1+) mg/dL (Neg-Trace)
[2023-01-13 20:17] LABS: Bacteria Urine Trace (None Seen); Color Urine PINK; Hyaline Casts Urine 0-2 /LPF (0-2); RBC Urine >20 /HPF (0-2); UACC Culture Trigger YES; WBC Urine >50 /HPF (0-5)
--- NOTE | 2023-01-13 20:34 | MHC.EDTECH ---
PATIENT BLOOD DRAWN AND SENT TO LAB .
[2023-01-13 20:40] LABS: MANUAL DIFF FLAG NO
[2023-01-13 20:42] LABS: Basophils Absolute Auto 0.1 X10*3/uL (0.0-0.2); Basophils Percent Auto 0.6 % (0-2); Eosinophils Absolute Auto 0.4 X10*3/uL (0.0-0.4); Eosinophils Percent Auto 3.8 % (0-4); Hematocrit 38.8 % (37.0-47.0); Hemoglobin 13.1 g/dl (12.0-16.0); Imm Gran Abs Auto 0.03 X10*3/uL (0.00-0.03); Imm Gran Pct Auto 0.3 % (0.0-0.4); Lymphocytes Absolute Auto 2.7 X10*3/uL (1.2-4.9); Lymphocytes Percent Auto 26.7 % (20-40); Mean Corpuscular HGB Conc 33.8 g/dl (31.0-35.0); Mean Corpuscular Hemoglobin 29.8 pg (27.0-33.0); Mean Corpuscular Volume 88.2 fL (80.0-98.0); Mean Platelet Volume 9.7 fL (9.4-12.3); Monocytes Absolute Auto 0.4 X10*3/uL (0.1-1.2); Monocytes Percent Auto 3.9 % (2-11); Neutrophils Absolute Auto 6.6 x10*3/uL (2.0-8.3); Neutrophils Percent Auto 64.7 % (45-73); Platelet Count 329 X10*3/uL (160-400); Red Cell Distribution Width 12.1 % (11.0-16.0); White Blood Count 10.2 X10*3/uL (4.8-10.8)
[2023-01-13 20:59] LABS: Alanine Aminotransferase 24 U/L (0-31); Alkaline Phosphatase 88 U/L (39-117); Anion Gap 13 (12-20); Aspartate Amino Transferase 17 U/L (5-31); Bilirubin Direct < 0.2 mg/dL (0.0-0.5); Bilirubin Total 0.2 mg/dL (0.0-1.0); Blood Urea Nitrogen 6 mg/dL (9-16); Calcium 8.7 mg/dL (8.4-10.2); Carbon Dioxide 21 mmol/L (22-29); Chloride 108 mmol/L (96-108); Creatinine Clr Calc Pharmacy 107.4; Estimated Glomerular Filt Rate > 60; Glucose Random 99 mg/dL (60-115); Potassium 3.5 mmol/L (3.3-5.1); Sodium 138 mmol/L (135-145); Total Protein 7.1 g/dL (6.5-8.0)
[2023-01-13 21:00] LABS: UPreg QC Valid YES
[2023-01-13 21:02] LABS: Urine Pregnancy NEGATIVE (NEGATIVE)
[2023-01-13 21:07] LABS: HCG Quantitative < 2 mIU/mL
[2023-01-14 01:12] VITALS: BP 112/63; PULSE 66; RESP 18; TEMP 36.9; O2SAT 98
[2023-01-14 02:31] VITALS: BP 140/68; PULSE 76; RESP 16; O2SAT 98
== END 2023-01-14 02:36 | disposition home or self-care (01) ==
PROVIDERS: Physician Assistant Medical; Emergency Provider Emergency Medicine
DX: N93.8 Other specified abnormal uterine and vaginal bleeding (principal); R10.31 Right lower quadrant pain
CPT/HCPCS: 36415; 80048; 80076; 81001; 81025; 84702; 85025; 87086; 99283

== ENCOUNTER 2023-01-23 11:05 | Outpatient (AMB) | payer OTHER, SELFPAY ==
--- NOTE | 2023-01-23 11:21 | AM.OFFVISNUR ---
Intake Intake Visit Reasons: IC instillation week #1 Allergies amoxicillin Allergy (Severe, Verified 01/13/23 19:31) Anaphylaxis azithromycin Allergy (Intermediate, Verified 01/13/23 19:31) Hives Office Procedures Bladder/Catheter Procedure Details: pt presents to office for weekly bladder instillation #1. 10 mls lidocaine urojet used to prep, 12 fr straight cath used to drain bladder and instill per Dr Crowder: 10 mls bupivicaine 10 mls lidocaine 2% 30,000 units heparin (6 mls) 1 ml solumedrol (40 mg) 88036-Vletkrmncn of Bladder 45134-Emfosr Bladder Catheter Procedure code (CPT) selection complete Coding Diagnoses CPT Codes Bladder/Catheter Procedure - CPT: 08713-Rvfljyjmkd of Bladder ([id number]) Bladder/Catheter Procedure - CPT: 89845-Rixqxx Bladder Catheter ([id number]) Assessment & Plan Assessment & Plan Orders: Orders AMB Bladder/Catheter Procedure Today N30.10 - Interstitial cystitis (chronic) without hematuria
== END 2023-01-23 11:25 | disposition home or self-care (01) ==
PROVIDERS: Visit Provider Urology
DX: N30.10 Interstitial cystitis (chronic) without hematuria (principal)

== ENCOUNTER → 2023-01-23 11:05 | Outpatient (BNVA) | payer OTHER, SELFPAY | PROVIDERS: Visit Provider Urology | DX: N30.10 Interstitial cystitis (chronic) without hematuria (principal) | CPT/HCPCS: 51700; J1643; J2920 ==

== ENCOUNTER 2023-01-29 19:18 | Emergency (ER) | payer OTHER, SELFPAY ==
[2023-01-29 19:23] VITALS: BP 123/75; PULSE 98; RESP 18; TEMP 36.8; O2SAT 98; BMI 30.4
--- NOTE | 2023-01-29 19:30 | ED_ITS ---
HPI - Chest Pain General Chief Complaint: Chest Pain Stated Complaint: sore throat,chest pain Time Seen by Provider: 01/29/23 21:53 Source: patient Mode of arrival: ambulatory Limitations: no limitations History of Present Illness HPI narrative: Patient is a 22-year-old female who presents emergency department for evaluation of mid chest pain experienced only during episodes of coughing without associated shortness of breath or difficulty breathing in addition to sore throat. Symptom onset was yesterday. Denies fevers, chills, nasal congestion, inability to swallow, nausea, vomiting, abdominal pain. Denies any known sick contacts. Related Data Previous Rx's Medication Instructions Recorded albuterol sulfate 90 mcg/actuation 1 inh inhalation QID PRN shortness 11/06/20 aerosol inhaler of breath or wheezing #8.5 grams vitamin with calcium 1 tab PO DAILY 30 days #30 tabs 04/30/22 no.72-iron 27 mg-folic acid 1 mg tablet ( Vitamins Plus Low Iron) hydroxyzine pamoate 25 mg capsule 25 mg PO BEDTIME #60 caps 01/03/23 (Vistaril) naproxen 375 mg tablet 375 mg PO Q12H PRN pain #20 tabs 01/03/23 solifenacin 10 mg tablet (Vesicare) 10 mg PO DAILY #90 tabs 01/03/23 nitrofurantoin 100 mg PO BID UTI 7 days #14 caps 01/08/23 monohydrate/macrocrystals 100 mg capsule (Macrobid) ondansetron 8 mg disintegrating 8 mg PO Q8H PRN nausea and 01/13/23 tablet vomiting 5 days #30 tabs Allergies Allergy/AdvReac Type Severity Reaction Status Date / Time amoxicillin Allergy Severe Anaphylaxis Verified 01/13/23 19:31 azithromycin Allergy Intermediate Hives Verified 01/13/23 19:31 Review of Systems Review of Systems: Constitutional: No fever. No chills. No weakness. No fatigue. ENT/ Mouth: No Ear Pain, no Nasal Congestion, positive sore throat, No Rhinorrhea, No Swallowing Difficulty Skin: No rash or itching. Cardiovascular: Positive chest pain. No palpitations. Respiratory: No shortness of breath. Positive cough. No sputum production. Gastrointestinal: No nausea. No vomiting. No diarrhea. No abdominal pain. Genitourinary: No burning micturition. No urinary frequency. Neurologic: No headache. No dizziness. No syncope. No numbness or tingling in the extremities. Musculoskeletal: No muscle pain. No back pain. No joint pain or stiffness. Yes all other systems are reviewed and are negative PMFSH Past Medical History Attestation statement: The following information was validated with the patient. Source: old records reviewed Medical History No known health problems Surgical History H/O wisdom tooth extraction No pertinent past surgical history Social History Social History Alcohol intake: never Patient Tobacco Use Status: Former Tobacco user Smoked in Last 30 Days: No Use of substances other than those prescribed or required for medical reasons: No Substance Use Type: Marijuana Advance Directives: No Advance Directives Information Provided: No Patient : No Physical Exam Vital Signs: Vital Signs: Last Vital Signs Temp 98.8 F 01/29/23 23:40 Pulse 95 01/29/23 23:40 Resp 12 01/29/23 23:40 BP 126/76 01/29/23 23:40 Pulse Ox 100 01/29/23 23:40 O2 Del Method Room Air 01/29/23 23:40 BMI result Body Mass Index 30.4 Appearance: Alert.?Oriented to person, place and time. No acute distress.?Normal affect. Eyes: Pupils equal, round and reactive to light.? ENT: TM erythematous with 2+ symmetric swelling bilaterally, uvula midline, no trismus, no drooling. ?? Neck: Normal inspection.? Neck supple.??No cervical adenopathy CVS: Heart sounds normal. Normal heart rate and rhythm.? Pulses normal.?? Respiratory: No respiratory distress.? Lung sounds clear to auscultation bilaterally?? Abdomen: Soft and non-tender. Normoactive bowel sounds. Skin: Skin warm and dry.? Normal skin color.? ? Extremities: No lower extremity edema.? Neuro: Moves all extremities spontaneously. Sensation intact bilaterally. No motor deficits. Ambulates with normal steady gait. Course Course Course Narrative: This is an RME: Additional HPI, ROS, PE not included below will be deferred to primary provider. This is a 34-fub[age]-rcy-female, with a hx of interstitial cystitis, presenting to the emergency department with a complaint of sore throat, cough, and chest pain only with coughing x 1 day. OP appears erythematous, but patent. Plan: Labs, Flu, UA, Upreg Reevaluation(s) Reevaluation #1: Received report from nursing staff that upon the time discharge there was concern about the appearance of rhythm on telemetry. At the time she was not in any apparent discomfort, denied any complaints. Printed out 2 rhythm strips, concerning for artifact versus V-tach. Sent imaging to Cardiology on-call, Dr. Sifuentes, in addition to HPI, and PMHX, cardiology at this time believes this to be artifact. Time: 23:29 Medical Decision Making Medical Decision Making [facility] Narrative: Patient is a is a 22-year-old female with past medical history of interstitial cystitis, presenting for evaluation of sore throat and chest pain as per HPI COVID-19 testing negative. Influenza testing negative. Strep testing negative At this time history and physical exam not consistent with ACS/PE/pneumonia. Well-appearing, nontoxic, afebrile, no tachycardia or tachypnea/hypoxia. Speaking clear full sentences, ambulatory with steady gait. Pain at this time likely musculoskeletal in nature, would defer chest x-ray, low suspicion for pneumonia. Symptoms consistent with a viral pharyngitis at this time. Examination not consistent with peritonsillar retropharyngeal abscess, low suspicion. Discussed conservative treatment including rest, hydration, Tylenol /ibuprofen as needed for fever and body aches, saline nasal spray, humidifier, fror-thh-pkyegod cold medication. Advised to follow-up with primary care provider as needed, discussed reasons to return back to the emergency department. All questions were answered. Patient discharged home in stable condition. Provided with a return to work/school note. Differential Diagnosis Differential Diagnoses: The differential diagnosis associated with the presentation includes (As noted above) Admission/Observation Consideration of admission/observation: Escalation of care including admission /observation considered (Considered admission for chest pain, however deferred after further evaluation as noted above) Consult Healthcare Provider Management of the patient was discussed with: Tool Pusher (Cardiology as per course narrative) Lab Data [facility] Lab Attestation statement: I reviewed the patient's lab results. CBC and CMP are overall unremarkable. 01/29/23 19:57 01/29/23 19:57 Labs: Lab Results 01/29/23 01/29/23 01/29/23 Range/Units 19:30 19:30 19:30 WBC (4.8-10.8) X10*3/uL RBC (4.20-5.50) X10*6/uL Hgb (12.0-16.0) g/dl Hct (37.0-47.0) % MCV (80.0-98.0) fL MCH (27.0-33.0) pg MCHC (31.0-35.0) g/dl RDW (11.0-16.0) % Plt Count (160-400) X10*3/uL MPV (9.4-12.3) fL Immature Gran % (Auto) (0.0-0.4) % Neut % (Auto) (45-73) % Lymph % (Auto) (20-40) % [place] % (Auto) (2-11) % Eos % (Auto) (0-4) % Baso % (Auto) (0-2) % Lymph # (Auto) (1.2-4.9) X10*3/uL [place] # (Auto) (0.1-1.2) X10*3/uL Eos # (Auto) (0.0-0.4) X10*3/uL Baso # (Auto) (0.0-0.2) X10*3/uL Abs Immat Gran (auto) (0.00-0.03) X10*3/uL Absolute Neuts (auto) (2.0-8.3) x10*3/uL Absolute Nucleated RBC (0.0-0.012) X10*3/uL Nucleated RBC % (auto) (0.0-0.2) /100WBC Sodium (135-145) mmol/L Potassium (3.3-5.1) mmol/L Chloride (96-108) mmol/L Carbon Dioxide (22-29) mmol/L Anion Gap (12-20) BUN (9-16) mg/dL Creatinine (0.5-1.4) mg/dL Estim Creat Clear Calc Estimated GFR Random Glucose (60-115) mg/dL Calcium (8.4-10.2) mg/dL Total Bilirubin (0.0-1.0) mg/dL AST (5-31) U/L ALT (0-31) U/L Alkaline Phosphatase (39-117) U/L Total Protein (6.5-8.0) g/dL Albumin (3.5-5.0) g/dL Urine Color Urine Appearance Urine pH (5.0-9.0) Ur Specific [place] (1.005-1.025) Urine Protein (Neg-Trace) mg/dL Urine Glucose (UA) (Negative) mg/dL Urine Ketones (Negative) mg/dL Urine Blood (Negative) Urine Nitrite (Negative) Ur Leukocyte Esterase (Negative) Urine RBC (0-2) /HPF Urine WBC (0-5) /HPF Ur Squamous Epith Cells (0-2) /HPF Urine Bacteria (None Seen) Hyaline Casts (0-2) /LPF Urine Test (NEGATIVE) COVID-19 (BARBARA) Negative (Negative) COVID-19 Clin Com See Note Influenza Type A (CARLEEN) Negative (Negative) Influenza Type B (CARLEEN) Negative (Negative) Influenza A & B Note See Note S. pyogenes GrpA CARLEEN Negative (Negative) 01/29/23 01/29/23 01/29/23 Range/Units 19:57 19:57 19:57 WBC 10.7 (4.8-10.8) X10*3/uL RBC 4.67 (4.20-5.50) X10*6/uL Hgb 13.8 (12.0-16.0) g/dl Hct 40.4 (37.0-47.0) % MCV 86.5 (80.0-98.0) fL MCH 29.6 (27.0-33.0) pg MCHC 34.2 (31.0-35.0) g/dl RDW 12.2 (11.0-16.0) % Plt Count 402 H (160-400) X10*3/uL MPV 9.4 (9.4-12.3) fL Immature Gran % (Auto) 0.3 (0.0-0.4) % Neut % (Auto) 70.9 (45-73) % Lymph % (Auto) 22.2 (20-40) % [place] % (Auto) 4.2 (2-11) % Eos % (Auto) 1.7 (0-4) % Baso % (Auto) 0.7 (0-2) % Lymph # (Auto) 2.4 (1.2-4.9) X10*3/uL [place] # (Auto) 0.5 (0.1-1.2) X10*3/uL Eos # (Auto) 0.2 (0.0-0.4) X10*3/uL Baso # (Auto) 0.1 (0.0-0.2) X10*3/uL Abs Immat Gran (auto) 0.03 (0.00-0.03) X10*3/uL Absolute Neuts (auto) 7.6 (2.0-8.3) x10*3/uL Absolute Nucleated RBC 0.000 (0.0-0.012) X10*3/uL Nucleated RBC % (auto) 0.0 (0.0-0.2) /100WBC Sodium 141 (135-145) mmol/L Potassium 4.1 (3.3-5.1) mmol/L Chloride 109 H (96-108) mmol/L Carbon Dioxide 21 L (22-29) mmol/L Anion Gap 15 (12-20) BUN 8 L (9-16) mg/dL Creatinine 0.79 (0.5-1.4) mg/dL Estim Creat Clear Calc 101.1 Estimated GFR > 60 Random Glucose 95 (60-115) mg/dL Calcium 9.2 (8.4-10.2) mg/dL Total Bilirubin 0.3 (0.0-1.0) mg/dL AST 21 (5-31) U/L ALT 34 H (0-31) U/L Alkaline Phosphatase 96 (39-117) U/L Total Protein 7.4 (6.5-8.0) g/dL Albumin 4.3 (3.5-5.0) g/dL Urine Color Yellow Urine Appearance Cloudy Urine pH 7.5 (5.0-9.0) Ur Specific [place] 1.020 (1.005-1.025) Urine Protein Negative (Neg-Trace) mg/dL Urine Glucose (UA) Negative (Negative) mg/dL Urine Ketones Negative (Negative) mg/dL Urine Blood Negative (Negative) Urine Nitrite Negative (Negative) Ur Leukocyte Esterase Moderate (2+) H (Negative) Urine RBC 0-2 (0-2) /HPF Urine WBC 6-10 H (0-5) /HPF Ur Squamous Epith Cells 6-10 (0-2) /HPF Urine Bacteria 1+ (None Seen) Hyaline Casts 0-2 (0-2) /LPF Urine Test (NEGATIVE) COVID-19 (BARBARA) (Negative) COVID-19 Clin Com Influenza Type A (CARLEEN) (Negative) Influenza Type B (CARLEEN) (Negative) Influenza A & B Note S. pyogenes GrpA CARLEEN (Negative) 01/29/23 Range/Units 19:57 WBC (4.8-10.8) X10*3/uL RBC (4.20-5.50) X10*6/uL Hgb (12.0-16.0) g/dl Hct (37.0-47.0) % MCV (80.0-98.0) fL MCH (27.0-33.0) pg MCHC (31.0-35.0) g/dl RDW (11.0-16.0) % Plt Count (160-400) X10*3/uL MPV (9.4-12.3) fL Immature Gran % (Auto) (0.0-0.4) % Neut % (Auto) (45-73) % Lymph % (Auto) (20-40) % [place] % (Auto) (2-11) % Eos % (Auto) (0-4) % Baso % (Auto) (0-2) % Lymph # (Auto) (1.2-4.9) X10*3/uL [place] # (Auto) (0.1-1.2) X10*3/uL Eos # (Auto) (0.0-0.4) X10*3/uL Baso # (Auto) (0.0-0.2) X10*3/uL Abs Immat Gran (auto) (0.00-0.03) X10*3/uL Absolute Neuts (auto) (2.0-8.3) x10*3/uL Absolute Nucleated RBC (0.0-0.012) X10*3/uL Nucleated RBC % (auto) (0.0-0.2) /100WBC Sodium (135-145) mmol/L Potassium (3.3-5.1) mmol/L Chloride (96-108) mmol/L Carbon Dioxide (22-29) mmol/L Anion Gap (12-20) BUN (9-16) mg/dL Creatinine (0.5-1.4) mg/dL Estim Creat Clear Calc Estimated GFR Random Glucose (60-115) mg/dL Calcium (8.4-10.2) mg/dL Total Bilirubin (0.0-1.0) mg/dL AST (5-31) U/L ALT (0-31) U/L Alkaline Phosphatase (39-117) U/L Total Protein (6.5-8.0) g/dL Albumin (3.5-5.0) g/dL Urine Color Urine Appearance Urine pH (5.0-9.0) Ur Specific [place] (1.005-1.025) Urine Protein (Neg-Trace) mg/dL Urine Glucose (UA) (Negative) mg/dL Urine Ketones (Negative) mg/dL Urine Blood (Negative) Urine Nitrite (Negative) Ur Leukocyte Esterase (Negative) Urine RBC (0-2) /HPF Urine WBC (0-5) /HPF Ur Squamous Epith Cells (0-2) /HPF Urine Bacteria (None Seen) Hyaline Casts (0-2) /LPF Urine Test NEGATIVE (NEGATIVE) COVID-19 (BARBARA) (Negative) COVID-19 Clin Com Influenza Type A (CARLEEN) (Negative) Influenza Type B (CARLEEN) (Negative) Influenza A & B Note S. pyogenes GrpA CARLEEN (Negative) Independent Interpretation I performed an independent interpretation of an: EKG Interpretation: Rate: 76 Rhythm:? Normal sinus rhythm [place]:? Normal Normal P waves.? Normal RODDY.?? Normal QRS complex.?? ST T wave :??No ST elevation, no ST depression, qTC: 441 The study has been interpreted contemporaneously by me. External Record Review External record reviewed: Outpatient record Tests considered The following testing was considered but not selected: Considered CT imaging of the soft tissue neck for evaluation of peritonsillar/retropharyngeal abscess, imaging deferred after physical examination. Prescription Management I considered prescription management with: Pain Medication (Acetaminophen and ibuprofen appropriate for management) and Antibiotic (Symptoms likely to be viral at this time, would defer antibiotic) Discharge Plan Discharge Clinical Impression: Pharyngitis, Costochondritis Patient Disposition: Home, Self-Care Instructions: Pharyngitis (ED), Costochondritis (ED) Additional Instructions: Be sure to rest, stay well hydrated drinking plenty of fluids, eat small frequent meals. Tylenol/ibuprofen can be used as needed for fever/pain. Wlxv-ish-bfraacb cold medications may be helpful as well for symptoms. Saline nasal spray, humidifier may be helpful. You may return to the emergency department with any new or worsening symptoms or concerns. Follow-up with your primary care provider as needed. Prescriptions: No Action Vitamin Plus Low Iron 27 mg iron- 1 mg tablet 1 tab PO DAILY 30 Days Qty: 30 11RF ondansetron 8 mg tablet,disintegrating 8 mg PO Q8H PRN (Reason: nausea and vomiting) 5 Days Qty: 30 0RF albuterol sulfate 90 mcg/actuation HFA aerosol inhaler 1 inh inhalation QID PRN (Reason: shortness of breath or wheezing) Qty: 8.5 0RF naproxen 375 mg tablet 375 mg PO Q12H PRN (Reason: pain) Qty: 20 1RF solifenacin [Vesicare] 10 mg tablet 10 mg PO DAILY Qty: 90 0RF hydroxyzine pamoate [Vistaril] 25 mg capsule 25 mg PO BEDTIME Qty: 60 3RF Rx Instructions: may increase to 2 capsules at bedtime in 3 weeks if no significant daytime drowsiness nitrofurantoin monohyd/m-cryst [Macrobid] 100 mg capsule 100 mg PO BID 7 Days Qty: 14 0RF Rx Instructions: must administer with a meal/food Referrals: Physician,None [Primary Care Provider] - Stand Alone Forms: Work/School Release Interventions: ED Discharge Assessment Last Done: 01/29/23 23:41 Discharge Date/Time: 01/29/23 23:53
[2023-01-29 19:47] LABS: IDNOW Serial# 6674DD1D; Strep A Nucleic Acid Negative (Negative)
[2023-01-29 19:58] LABS: COVID-19 Test Negative (Negative); IDNOW Serial# 08D9AD1C; IDNOW Serial# BCCEAD1C; Influenza A Negative (Negative); Influenza B2 Negative (Negative)
[2023-01-29 20:02] LABS: MANUAL DIFF FLAG NO
[2023-01-29 20:03] LABS: Basophils Absolute Auto 0.1 X10*3/uL (0.0-0.2); Basophils Percent Auto 0.7 % (0-2); Eosinophils Absolute Auto 0.2 X10*3/uL (0.0-0.4); Eosinophils Percent Auto 1.7 % (0-4); Hematocrit 40.4 % (37.0-47.0); Hemoglobin 13.8 g/dl (12.0-16.0); Imm Gran Abs Auto 0.03 X10*3/uL (0.00-0.03); Imm Gran Pct Auto 0.3 % (0.0-0.4); Lymphocytes Absolute Auto 2.4 X10*3/uL (1.2-4.9); Lymphocytes Percent Auto 22.2 % (20-40); Mean Corpuscular HGB Conc 34.2 g/dl (31.0-35.0); Mean Corpuscular Hemoglobin 29.6 pg (27.0-33.0); Mean Corpuscular Volume 86.5 fL (80.0-98.0); Mean Platelet Volume 9.4 fL (9.4-12.3); Monocytes Absolute Auto 0.5 X10*3/uL (0.1-1.2); Monocytes Percent Auto 4.2 % (2-11); Neutrophils Absolute Auto 7.6 x10*3/uL (2.0-8.3); Neutrophils Percent Auto 70.9 % (45-73); Platelet Count 402 X10*3/uL (160-400); Red Blood Count 4.67 X10*6/uL (4.20-5.50); Red Cell Distribution Width 12.2 % (11.0-16.0); White Blood Count 10.7 X10*3/uL (4.8-10.8)
--- NOTE | 2023-01-29 20:06 | MHC.EDTECH ---
This tech brought pt to triage area and labs and urine were obtained and sent to lab. Patient was brought back to waiting room
[2023-01-29 20:11] LABS: Appearance Urine Cloudy; Color Urine Yellow; Glucose Urine UA Negative (Negative); Leukocyte Esterase Urine Moderate (2+) (Negative); Nitrite Urine Negative (Negative); PH 7.5 (5.0-9.0); UMIC TRIGGER UACC YES; Urine Blood Negative (Negative); Urine Ketones Negative (Negative); Urine Protein Negative (Neg-Trace)
[2023-01-29 20:12] LABS: UPreg QC Valid YES; Urine Pregnancy NEGATIVE (NEGATIVE)
[2023-01-29 20:16] LABS: Alanine Aminotransferase 34 U/L (0-31); Albumin Level 4.3 g/dL (3.5-5.0); Alkaline Phosphatase 96 U/L (39-117); Anion Gap 15 (12-20); Aspartate Amino Transferase 21 U/L (5-31); Bilirubin Total 0.3 mg/dL (0.0-1.0); Blood Urea Nitrogen 8 mg/dL (9-16); Calcium 9.2 mg/dL (8.4-10.2); Carbon Dioxide 21 mmol/L (22-29); Chloride 109 mmol/L (96-108); Creatinine Clr Calc Pharmacy 101.1; Estimated Glomerular Filt Rate > 60; Glucose Random 95 mg/dL (60-115); Potassium 4.1 mmol/L (3.3-5.1); Sodium 141 mmol/L (135-145); Total Protein 7.4 g/dL (6.5-8.0)
[2023-01-29 20:46] LABS: Bacteria Urine 1+ (None Seen); Hyaline Casts Urine 0-2 /LPF (0-2); RBC Urine 0-2 /HPF (0-2); UACC Culture Trigger YES
[2023-01-29 21:57] VITALS: BP 124/77; PULSE 75; RESP 16; TEMP 36.9; O2SAT 100
--- NOTE | 2023-01-29 22:15 | PC.NURSE ---
this rn assumed care of pt from waiting room @ 2200. feed research aide placed pt on groundwater monitoring technician at this time
--- NOTE | 2023-01-29 23:20 | ECG_ITS ---
Test Reason : CP Blood Pressure : / mmHG Vent. Rate : 076 BPM Atrial Rate : 076 BPM P-R Int : 132 ms QRS Dur : 078 ms QT Int : 392 ms P-R-T Axes : 018 021 013 degrees QTc Int : 441 ms Normal sinus rhythm with sinus arrhythmia Normal ECG When compared with ECG of 06-NOV-2020 10:55, No significant change was found Referred By: Naomi Vera Electronically Signed By:KELLI POWELL
--- NOTE | 2023-01-29 23:39 | PC.NURSE ---
pt calm and cooperative. vss. pt provided with discharge packet and work note. pt verbalized understanding of discharge plan
[2023-01-29 23:40] VITALS: BP 126/76; PULSE 95; RESP 12; TEMP 37.1; O2SAT 100
== END 2023-01-29 23:53 | disposition home or self-care (01) ==
PROVIDERS: Emergency Provider Emergency Medicine
DX: R07.89 Other chest pain (principal); J02.9 Acute pharyngitis, unspecified; M94.0 Chondrocostal junction syndrome [Tietze]; Z20.822 Contact with and (suspected) exposure to COVID-19; Z20.828 Contact with and (suspected) exposure to other viral communicable diseases; Z79.899 Other long term (current) drug therapy
CPT/HCPCS: 80053; 81001; 81025; 85025; 87086; 87502; 87635; 87651; 93005; 99283; 99284

== ENCOUNTER → 2023-01-29 23:20 | Outpatient (BNV) | payer OTHER, SELFPAY | PROVIDERS: Emergency Provider Emergency Medicine; Visit Provider Internal Medicine | DX: I49.9 Cardiac arrhythmia, unspecified (principal) | CPT/HCPCS: 93010 ==

== ENCOUNTER 2023-01-30 11:01 | Outpatient (REF) | payer OTHER, SELFPAY | END 2023-01-30 11:02 | disposition home or self-care (01) | LOC: HO.LAB 11:01 | PROVIDERS: Visit Provider Urology | DX: N30.10 Interstitial cystitis (chronic) without hematuria (principal); J02.9 Acute pharyngitis, unspecified | CPT/HCPCS: 51700; 51701; 87070; J1643; J2920 ==

== ENCOUNTER 2023-01-30 14:00 | Outpatient (AMB) | payer OTHER, SELFPAY ==
--- NOTE | 2023-01-30 14:05 | AM.OFFWIN_ITS ---
Intake Vital Signs 01/30/23 14:08 BP 104/70 Blood Pressure Location Rt brachial Position Sitting Pulse 78 Pulse Source Pulse Oximeter Temp 97.7 F Temp Source Temporal Artery Scan Pulse Oximetry (%) 99 Oxygen Delivery Method Room Air Intake Visit Reasons: EST/difficulty swallowing(masked lobby) Intake Note: Patient here because she has been having sore throat and slight chest pain when breathing. Patient Tobacco Use Status: Former Tobacco user Allergies amoxicillin Allergy (Severe, Verified 01/30/23 14:07) Anaphylaxis azithromycin Allergy (Intermediate, Verified 01/30/23 14:07) Hives Do you need a note to return to daycare/school/sports/work: Yes HPI HPI Comments History of Present Illness Details 22-year-old female presents for sore throat. Patient states that she has had sore throat chest congestion fevers cough couple days. She is seen [facility] yesterday and had a flu COVID and negative strep test performed. She was called for follow-up today and stated that her symptoms were worse toe to come in for evaluation. [facility] Medical History No known health problems Surgical History H/O wisdom tooth extraction No pertinent past surgical history Social History Alcohol intake: never Patient Tobacco Use Status: Former Tobacco user Substance Use Type: Marijuana Review of Systems Const All systems reviewed & are unremarkable except as noted in HPI and below Eyes Reports as per HPI ENT Reports sore throat Physical Exam Vital Signs: Last Vital Signs Temp 97.7 F 01/30/23 14:08 Pulse 78 01/30/23 14:08 BP 104/70 01/30/23 14:08 Pulse Ox 99 01/30/23 14:08 Oxygen Delivery Method Room Air 01/30/23 14:08 Const General: cooperative, no acute distress and alert Orientation/consciousness: patient oriented x3 Limitations: no limitations HEENT Other: Posterior pharynx with mild erythema mild swelling of the day right tonsils. No exudates present Head: Yes normal to inspection Ears: hearing grossly normal bilaterally and external ears normal General nose exam: Normal external nose present Eyes General: appearance normal, both eyes and all related structures Neck Neck: Yes normal visual inspection Chest Chest palpation & inspection: normal inspection of the chest Resp Effort & Inspection: normal respiratory effort, able to speak in complete sentences and no audible wheezes Auscultation: clear to auscultation bilaterally Cardio Rate: regular rate Rhythm: regular rhythm GI Inspection: Yes normal to inspection Palpation (GI): Soft to palpation and nontender Skin General skin exam: no rashes or lesions noted Neuro General: patient oriented x3 Psych Appearance: grossly normal Mental Status: mental status grossly normal Speech and movement: Normal speech and movement present Affect: normal affect Attitude: cooperative Thought process: Normal thought process present Thought content: Normal thought content present Assessment & Plan Assessment & Plan (1) Pharyngitis: Code(s): J02.9 - Acute pharyngitis, unspecified Plan VSS. On exam patient presents alert and orientated exam was notable for mild erythema the posterior pharynx mild swelling of the right tonsil exam is otherwise unremarkable note above throat culture ordered will hold on antibiotics at this time likely viral. Discharge instructions, follow up and treatment are discussed with patient in my usual fashion. Alternatives in treatment are also discussed. The patient will return for worsening symptoms or as needed. Advised that any labs/imaging ordered will be followed up on and contact made if further treatment needed. Counseled that patient's condition may require further evaluation and/or treatment. Symptoms of concern for worsening disorder discussed in detail in my customary manner. Patient does verbalize understanding of the plan, there are no apparent barriers to communication. The patient is given the opportunity to ask questions and have them answered to his/her satisfaction Orders: Orders Throat Culture Today J02.9 - Acute pharyngitis, unspecified Coding Level of Care Code Est Pt Level 3 (33900) Diagnoses Pharyngitis J02.9
[2023-01-30 14:08] VITALS: BP 104/70; PULSE 78; TEMP 36.5; O2SAT 99
== END 2023-01-30 14:33 | disposition home or self-care (01) ==
PROVIDERS: Visit Provider Physician Assistant
DX: J02.9 Acute pharyngitis, unspecified (principal)
CPT/HCPCS: 99213

== ENCOUNTER 2023-02-04 15:10 | Outpatient (AMB) | payer OTHER, SELFPAY ==
--- NOTE | 2023-02-04 15:30 | A.OFFVIS_ITS ---
Intake Vital Signs 02/04/23 15:36 Height 5 ft 1 in Weight 158 lb 11.725 oz BMI 30.0 BP 120/76 Intake Visit Reasons: AUB/julian [place] Coiler Hand Required: No Information Interpreted: non-clinical & clinical Automotive Brake Technician: Automotive Brake Technician Present (Chelly RAMIREZ) Accompanied by: Self / Same As Patient Allergies amoxicillin Allergy (Severe, Verified 02/04/23 15:37) Anaphylaxis azithromycin Allergy (Intermediate, Verified 02/04/23 15:37) Hives Is last menstrual period known: Yes Last menstrual period: 01/13/23 HPI HPI Comments History of Present Illness Details Presenting complaining of irregular menstrual cycle associated with passage of blood clots and pelvic cramping. The patient went to the emergency room the following workup was done H&H was 13.8/40.3, urine test was negative and pelvic ultrasound was unremarkable. No previous Pap smear [facility] Medical History No known health problems Surgical History H/O wisdom tooth extraction No pertinent past surgical history Social History Alcohol intake: never Patient Tobacco Use Status: Former Tobacco user Substance Use Type: Marijuana Female Reproductive History Menstrual Date of last menstrual period: 01/13/23 Review of Systems Const All systems reviewed & are unremarkable except as noted in HPI and below Card Reports as per HPI Resp Reports as per HPI GI Reports as per HPI and Reports no additional complaints Reports as per HPI Physical Exam Vital Signs: Last Vital Signs BP 120/76 02/04/23 15:36 BMI result Body Mass Index 30.0 Const General: cooperative, healthy appearing and comfortable Chest Chest palpation & inspection: normal inspection of the chest and normal palpation of entire chest wall Breast/axilla inspection: normal inspection of the breasts and normal inspection of the axillae Breast/axilla palpation: normal palpation of the breasts, normal palpation of the axillae and no axillary lymphadenopathy Resp Effort & Inspection: normal respiratory effort Auscultation: clear to auscultation bilaterally Percussion: percussion normal Cardio Palpation: normal PMI Rate: regular rate Rhythm: regular rhythm Heart sounds: no murmurs and no rubs Peripheral pulses: Peripheral pulses 2+ throughout GI Inspection: Yes normal to inspection Palpation (GI): Soft to palpation, nontender, no guarding, not rigid and No hepatosplenomegaly present Percussion: Yes normal to percussion Auscultation: normal bowel sounds Rectal Exam - Female: deferred General: Yes bladder normal to palpation External Female Exam: No lesion Speculum Exam - Vagina: normal appearance of the vagina, normal palpation, normal vaginal discharge and not erythematous Speculum Exam - Cervix: normal appearance of the cervix and normal palpation Bimanual exam- vagina & uterus: normal bimanual exam, normal palpation, uterine size normal, bladder normal to palpation, consistency normal and normal palpa tion Bimanual Exam- Adnexa, other: normal adnexae, no masses and no tenderness Results AMB Test Urine AMB Test Urine Negative Last Edit by Chelly Mckeon CMA on 15:41 Assessment & Plan Assessment & Plan (1) Abnormal uterine bleeding: Code(s): N93.9 - Abnormal uterine and vaginal bleeding, unspecified Plan: Pap smear taken with GC and chlamydia Discussed with the patient the different causes of abnormal bleeding including but not limited to thyroid disorders, uterine and ovarian pathology, and other potential causes. Discussed with the patient the work up including, TSH, prolactin, hCG. Discussed with the patient the results of the work up done and options of treatment including but not limited to BCP's, cyclic Progesterone, Mirena IUD, endometrial ablation and hysterectomy. All pros, cons, risks and benefits of each option were discussed with the patient and the patient decided to go ahead with cyclic Prometrium, so a more detailed discussion re: Progesterone treatment including mechanism of action, benefits (regular menses, endometrial protection form unopposed estrogen and reduction in the risk of endometrial hyperplasia and/or cancer ...), risks (Thrombosis, mood changes, weight gain, breast soreness, ? increased breast ca, others). Instructions were given to use a back- up method for contraception since this is not a method control and to schedule a 3 months follow-up appointment, the patient verbalized understanding and agreed with the plan. Orders: Orders CT NG by PCR Today N93.9 - Abnormal uterine and vaginal bleeding, unspecified AMB HCG Urine Test Today Z32.02 - Encounter for test, result negative Pap Smear Today N93.9 - Abnormal uterine and vaginal bleeding, unspecified HCG Quantitative Today N93.9 - Abnormal uterine and vaginal bleeding, unspecified Prolactin Today N93.9 - Abnormal uterine and vaginal bleeding, unspecified TSH reflex Free T4 Today N93.9 - Abnormal uterine and vaginal bleeding, unspecified Medications: New progesterone micronized (Prometrium) Take the pill 1 tablet a day cyclically every month from day 15-24 day 1 being the 1st day of next menstrual cycle 200 mg PO BEDTIME 30 caps 0RF 10 days Coding Level of Care Code New Pt Level 3 (25533) Diagnoses Abnormal uterine bleeding N93.9
[2023-02-04 15:36] VITALS: BP 120/76
== END 2023-02-04 15:51 | disposition home or self-care (01) ==
LOC: HO.HWS 15:10
PROVIDERS: Visit Provider Obstetrics & Gynecology
DX: N93.9 Abnormal uterine and vaginal bleeding, unspecified (principal); Z32.02 Encounter for pregnancy test, result negative
CPT/HCPCS: 99213

== ENCOUNTER 2023-02-04 15:10 | Outpatient (REF) | payer OTHER, SELFPAY ==
[2023-02-05 11:44] LABS: CT PCR NOT DETECTED (Not Detect.); NG PCR NOT DETECTED (Not Detect.)
== END 2023-02-04 15:11 | disposition home or self-care (01) ==
LOC: HO.LNP 15:10
PROVIDERS: Visit Provider Obstetrics & Gynecology
DX: N93.9 Abnormal uterine and vaginal bleeding, unspecified (principal); N92.6 Irregular menstruation, unspecified; Z32.02 Encounter for pregnancy test, result negative
CPT/HCPCS: 0353U; 81025; 88142; 99212

== ENCOUNTER → 2023-02-07 11:39 | Outpatient (BNVA) | payer OTHER, SELFPAY | PROVIDERS: Visit Provider Urology | DX: R39.89 Other symptoms and signs involving the genitourinary system (principal) | CPT/HCPCS: 51700; 51701; 81003; J2920 ==

== ENCOUNTER 2023-02-10 10:08 | Outpatient (AMB) | payer OTHER, SELFPAY ==
--- NOTE | 2023-02-10 10:12 | AM.OFFVISNUR ---
Intake Intake Visit Reasons: IC instillation #1 Allergies amoxicillin Allergy (Severe, Verified 02/04/23 15:37) Anaphylaxis azithromycin Allergy (Intermediate, Verified 02/04/23 15:37) Hives Office Procedures Bladder/Catheter Procedure Details: pt presents for daily IC instillation #1- pt reports some relief from last weeks instillation. pt menstruating today but would like to proceed with instillation. 10 mls lidocaine urojet used to prep, 12 fr straight cath used to drain bladder and instill per Dr Crowder: 10 mls bupivicaine 10 mls lidocaine 2% 10,000 units heparin (2 mls) 1 ml solumedrol (40 mg) 77199-Gcyrrzncws of Bladder 11001-Roolzq Bladder Catheter Procedure code (CPT) selection complete Coding Diagnoses CPT Codes Bladder/Catheter Procedure - CPT: 05946-Ulfysripxg of Bladder ([id number]) Bladder/Catheter Procedure - CPT: 11704-Ogadzi Bladder Catheter ([id number]) Assessment & Plan Assessment & Plan Orders: Orders AMB Bladder/Catheter Procedure Today N30.10 - Interstitial cystitis (chronic) without hematuria
== END 2023-02-10 10:26 | disposition home or self-care (01) ==
PROVIDERS: Visit Provider Urology
DX: N30.10 Interstitial cystitis (chronic) without hematuria (principal)

== ENCOUNTER → 2023-02-10 10:08 | Outpatient (BNVA) | payer OTHER, SELFPAY | PROVIDERS: Visit Provider Urology | DX: N30.10 Interstitial cystitis (chronic) without hematuria (principal) | CPT/HCPCS: 51700; J1643; J2920 ==

== ENCOUNTER → 2023-02-11 10:07 | Outpatient (BNVA) | payer OTHER, SELFPAY | PROVIDERS: Visit Provider Urology ==

== ENCOUNTER 2023-02-12 09:39 | Outpatient (AMB) | payer OTHER, SELFPAY ==
--- NOTE | 2023-02-12 03:44 | A.OFFVIS_ITS ---
Intake Intake Visit Reasons: discuss new tx plan- failed bladder instillations Intake Note: Patient presents today for a follow-up to Discuss New Plan/Failed Bladder Installations: Meds- None Allergies to Antibiotic- Amoxicillin & Azithromycin Blood Thinner- None Trench Shovel Operator Required: No Accompanied by: Self / Same As Patient Allergies amoxicillin Allergy (Severe, Verified 02/12/23 09:47) Anaphylaxis azithromycin Allergy (Intermediate, Verified 02/12/23 09:47) Hives Medication List - Last Reconciled 02/12/23 by Geri Adams MD albuterol sulfate 90 mcg/actuation 1 inh inhalation QID PRN hydroxyzine pamoate (Vistaril) 25 mg PO BEDTIME naproxen 375 mg PO Q12H PRN nitrofurantoin monohyd/m-cryst 100 mg (Macrobid) 100 mg PO BID 7 days ondansetron 8 mg PO Q8H PRN 5 days pentosan polysulfate sodium (Elmiron) 100 mg orally take 2 capsules in AM one capsule at bedtime; PNV,calcium 33-oeft-hevcz acid 27 mg iron- 1 mg ( Vitamins Plus Low Iron) 1 tab PO DAILY 30 days progesterone micronized (Prometrium) 200 mg PO BEDTIME 10 days solifenacin (Vesicare) 10 mg PO DAILY HPI HPI Comments History of Present Illness Details Mini is a 22-year-old female who presents to the office for interstitial cystitis follow-up. 02/12/23-- She was last seen by me on 01/03/2023. She mentions that she continues to have bladder pain and urgency during the day and night time. She is tearful today. She states that the symptoms are affecting her day to day activities. She does not feel that she can go out and do activities with her friends because she does not feel good. She states that the bladder instillation have helped with some of the burning which she has been getting with urination. She is taking Vesicare 10 mg daily. She states that she is taking hydroxyzine 25 mg one at the bed time. She is requesting a work note for today. She has followed up with [facility] for irregular menstrual cycle as well as heavy menstrual bleeding and recently started on Progesterone. During her menstrual cycle, she gets pain in the left lower quadrant. She thinks that pain in the left ovary. 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 I did discuss that Elmiron may take 3-6 months to improve the bladder symptoms. Review of chart: 01/03/23-- The patient was last seen in the office on 10/03/22 and is being followed for interstitial cystis. She is here for 3 month follow-up. She is status post cystoscopy hydrodistention on 09/17/2022. Cystoscopy findings noted moderate glomerulation post extension and bladder capacity post extension volume was 750 mL. States taking Vistaril and naproxen. Mentions having urinary urgency in the morning. States having sharp persistent pain in the abdomen and back. The patient states that she went to the ER on 12/09/22 because of the abdominal pain and they did a pelvic US and a CAT scan. In review of the imaging the urinary tract was within normal limit and there was a left ovarian cyst. The patient also mentions that her bladder symptoms initially improved when starting the Vistaril. she started a new job in October 28 which required heavy lifting which seemed to exacerbate her pelvic pain She received a note from her PCP for her job of no lifting over 25 pounds. Evaluation today UA: Blood: negative, leukocytes: 15 August. Bladder scan PVR: 46 mL. Plan: Cont vistaril 25 mg two tabs qhs, naproxen prn. Discussed bladder instillation treatment, one daily for 5 days and then go to a series of 6 treatments with once a week for 6 weeks. 02/12/2023--Plan: Increase vistaril gradually up to 75 mg. Continue Vesicare 10 mg daily. elmiron 200mg in the morning and 100 mg in the night time. Continue bladder instillations once weekly. Follow up in 6 weeks. Blood work for liver function testing 3 months. [facility] Medical History No known health problems Surgical History H/O wisdom tooth extraction No pertinent past surgical history Family History (Updated 02/12/23 @ 09:47 by JAMES See) Mother No problems noted. Father No problems noted. Social History Alcohol intake: never Patient Tobacco Use Status: Former Tobacco user Substance Use Type: Marijuana Review of Systems Const All systems reviewed & are unremarkable except as noted in HPI and below Reports no additional complaints Eyes Reports no additional complaints ENT Reports no additional complaints Card Denies dyspnea Resp Denies cough and Denies dyspnea GI Reports no additional complaints Reports no additional complaints Musc Reports no additional complaints Skin/Breast Denies rash and Denies unusual bruising Neuro Reports no additional complaints Psych Reports no additional complaints Endo Reports no additional complaints Mehran/Lymph Reports no additional complaints Aller/Immun Reports no additional complaints Results Reviewed Results Reviewed: Date of Service: 12/09/22 EXAMINATION: CT ABDOMEN AND PELVIS WITH CONTRAST CLINICAL INFORMATION: lower abd pain COMPARISON: 01/26/2021? FINDINGS: LUNG BASES: Stable tiny subpleural lymph node along the lateral aspect of the left lower lobe not significantly changed from the 2020 study significance.? LIVER, GALLBLADDER, AND BILIARY TREE: The liver is normal in size, shape, and attenuation. No focal hepatic lesion or biliary ductal dilatation is present. The gallbladder is contracted but otherwise unremarkable with no evidence of radiopaque gallstones, gallbladder wall thickening, or obvious pericholecystic inflammatory changes.? PANCREAS: Unremarkable.? SPLEEN: Unremarkable.? ADRENAL GLANDS: Unremarkable.? KIDNEYS AND URETERS: The kidneys are normal in size, shape, and attenuation. No hydronephrosis, hydroureter, or calculi seen. No perinephric stranding. ? BLADDER: Unremarkable.? GASTROINTESTINAL TRACT: A few scattered colonic diverticula are seen more so in the sigmoid colon. I do not appreciate any colonic wall thickening or pericolonic inflammatory change to suggest diverticulitis. Normal-appearing appendix in the right lower quadrant. Visualized small bowel is grossly unremarkable ABDOMINAL WALL: No significant hernia is appreciated.? LYMPHOVASCULAR STRUCTURES: Mildly prominent mesenteric lymph nodes in the right lower quadrant but no bulky adenopathy. Aorta is unremarkable ? PELVIC VISCERA: Physiologic changes OSSEOUS STRUCTURES: Unremarkable.? IMPRESSION: No acute intra-abdominal process seen. There are a few scattered colonic diverticula but I do not appreciate any evidence for diverticulitis. Normal-appearing appendix in the right lower quadrant. Mildly prominent mesenteric lymph nodes in the right lower quadrant but no bulky adenopathy. Date of Service: 12/09/22 EXAMINATION:? US PELVIS CLINICAL INFORMATION:? Lower abdominal pain with question of ovarian torsion COMPARISON: CT scan of the abdomen and pelvis earlier today. FINDINGS: Uterus: The uterus is anteverted and measures 6.0 x 2.4 x 3.7 cm. The double wall endometrial thickness is 1.0 mm.? The uterus is smooth in contour and has normal myometrial echogenicity. ? No visible fibroid. Adnexa: Both ovaries are visualized. There is normal color flow to the adnexa. There is no ovarian torsion.? There is no pelvic ascites or fluid collection. Right ovary measures 2.9 x 2.0 0.6 cm for a volume of 5.0 mL. Left ovary measures 2.5 x 2.3 x 2.8 cm for a volume of 8.4 mL which includes a 1.6 cm left ovarian cyst. IMPRESSION: Negative exam. No evidence of ovarian torsion. Assessment & Plan Assessment & Plan (1) Pelvic pain: Code(s): R10.2 - Pelvic and perineal pain Plan: Increase vistaril gradually up to 75 mg. Continue Vesicare 10 mg daily. elmiron 200mg in the morning and 100 mg in the night time. Continue bladder instillations once weekly. Follow up in 6 weeks. Blood work for liver function testing 3 months. (2) Interstitial cystitis: Code(s): N30.10 - Interstitial cystitis (chronic) without hematuria (3) Dysuria: Code(s): R30.0 - Dysuria (4) Bladder pain: Code(s): R39.89 - Other symptoms and signs involving the genitourinary system Medications: New hydroxyzine pamoate (Vistaril) take 3 capsules at bedtime 25 mg PO BEDTIME 90 caps 3RF pentosan polysulfate sodium (Elmiron) 100 mg orally take 2 capsules in AM one capsule at bedtime; 90 caps 3RF Refilled solifenacin (Vesicare) 10 mg PO DAILY 90 tabs 0RF Discontinued hydroxyzine pamoate (Vistaril) may increase to 2 capsules at bedtime in 3 weeks if no significant daytime drowsiness Discontinued Reason: Doctor's Order 25 mg PO BEDTIME 60 caps 3RF Patient Instructions: The patient had an opportunity to ask questions regarding treatment plan. All questions were answered. Imaging, Laboratory studies and physical exam results were discussed and reviewed in detail. No major barriers to understanding were identified. The patient expressed understanding and agreement with the above treatment plan.? ? ? The patient is aware they should contact our office by phone for worsening of their current condition or the appearance of new symptoms. Compliance is encouraged with any medications and followup testing that is ordered.? ? ? It is a privilege to be allowed the opportunity to participate in the urologic care of your patient. If you have any questions or concerns regarding treatment for the above conditions please do not hesitate to contact me. The office telephone contact is [phone].? ? ? This note is constructed in part using voice recognition software. While every effort has been made to ensure accuracy cancer program consultant errors may have been included.? ? ? Yours sincerely,? ? ? Geri Adams MD? Coding Level of Care Code Est Pt Level 4 (71324) Diagnoses Pelvic pain R10.2 Interstitial cystitis N30.10 Dysuria R30.0 Bladder pain R39.89 Time Spent (min) 33
== END 2023-02-12 10:17 | disposition home or self-care (01) ==
PROVIDERS: Visit Provider Urology
DX: R10.2 Pelvic and perineal pain (principal); N30.10 Interstitial cystitis (chronic) without hematuria; R30.0 Dysuria; R39.89 Other symptoms and signs involving the genitourinary system
CPT/HCPCS: 99214

== ENCOUNTER → 2023-02-12 09:39 | Outpatient (BNVA) | payer OTHER, SELFPAY | PROVIDERS: Visit Provider Urology | DX: N30.10 Interstitial cystitis (chronic) without hematuria (principal); R10.2 Pelvic and perineal pain; R30.0 Dysuria; R39.89 Other symptoms and signs involving the genitourinary system | CPT/HCPCS: 99212 ==

== ENCOUNTER → 2023-03-05 15:09 | Outpatient (BNVA) | payer OTHER, SELFPAY | PROVIDERS: Visit Provider Urology | DX: N30.10 Interstitial cystitis (chronic) without hematuria (principal) | CPT/HCPCS: 51700; 51701 ==

== ENCOUNTER → 2023-03-12 15:06 | Outpatient (BNVA) | payer OTHER, SELFPAY | PROVIDERS: Visit Provider Urology ==

== ENCOUNTER 2023-03-19 12:05 | Outpatient (AMB) | payer OTHER, SELFPAY ==
--- NOTE | 2023-03-19 12:07 | A.OFFVIS_ITS ---
Intake Intake Visit Reasons: 2nd opinion IC Intake Note: Patient presents today for 2nd opinion interstitial cystitis/Failed Bladder Installations Urology Medications: vistaril, vesicare, elmiron (d/c due to headaches) Blood Thinner:None PVR: 188ml's Regional Retail Sales Manager Required: No Accompanied by: Self / Same As Patient Allergies amoxicillin Allergy (Severe, Verified 03/19/23 21:05) Anaphylaxis azithromycin Allergy (Intermediate, Verified 03/19/23 21:05) Hives Medication List - Last Reconciled 03/19/23 by PAM Lester albuterol sulfate 90 mcg/actuation 1 inh inhalation QID PRN hydroxyzine pamoate (Vistaril) 25 mg PO BEDTIME naproxen 375 mg PO Q12H PRN ondansetron 8 mg PO Q8H PRN 5 days PNV,calcium 41-weya-fuwmg acid 27 mg iron- 1 mg ( Vitamins Plus Low Iron) 1 tab PO DAILY 30 days progesterone micronized (Prometrium) 200 mg PO BEDTIME 10 days tadalafil (Cialis) 5 mg PO DAILY 90 days HPI HPI Comments History of Present Illness Details Mini is a pleasant 22-year-old female patient who presents to the office today for interstitial cystitis follow-up. When asked she reports she continues with lower urinary tract symptoms. She continues with urinary urgency, frequency, and nocturia. She discusses feeling very overwhelmed and has been having a hard time managing lower urinary tract symptoms despite all previous therapies.. It appears patient was seen by Dr. Crowder approximately 1 month ago at which time recommendations were made to continue with bladder installations, Vistaril, VESIcare, and Elmiron. However, patient reports she continues with no improvement in lower urinary tract symptoms and does not wish to undergo bladder installations at this time. She becomes tearful throughout today's visit and assessment. Previous interventions have included a cysto hydrodistention in August of this year; Cystoscopy findings noted moderate glomerulation post extension and bladder capacity post extension volume was 750 mL. She discusses at length her frustration in her current job at [employer] and not being able to accommodate her less than 25 pound weight restriction. In office urinalysis results reviewed with the patient today no leukocytes, no nitrates, and no microscopic hematuria noted. PH 5.5. Discussed at length importance of drinking plenty of water daily as well as bladder triggers and irritants. Discuss trial of pelvic floor therapy, and or low-dose Cialis, verses low-dose antibiotic suppression therapy. PVR 188ml's. Discussed at length affects of incomplete bladder emptying. Patient has since stopped taking all urological medications that were prescribed as she does not feel Vistaril, VESIcare, and or Elmiron to be working. Discussed at length medications can take time to work. She otherwise denies incontinence, hematuria, foul smelling urine, changes to urinary stream, flank pain, fever, and or chills. She reports having followed up with trimmer buffing wheel for abnormal bleeding and has since started progesterone. She otherwise denies any other issues or concerns at this time. [facility] Medical History No known health problems Surgical History H/O wisdom tooth extraction No pertinent past surgical history Family History Mother No problems noted. Father No problems noted. Social History Alcohol intake: never Patient Tobacco Use Status: Former Tobacco user Substance Use Type: Marijuana Review of Systems Const All systems reviewed & are unremarkable except as noted in HPI and below Reports as per HPI Eyes Reports no additional complaints ENT Reports no additional complaints Card Reports no additional complaints Resp Reports no additional complaints GI Reports no additional complaints Reports as per HPI Musc Reports no additional complaints Neuro Reports no additional complaints Psych Reports no additional complaints Endo Reports no additional complaints Mehran/Lymph Reports no additional complaints Aller/Immun Reports no additional complaints Physical Exam Const General: cooperative, healthy appearing, comfortable, no acute distress, well developed, alert and awake Orientation/consciousness: patient oriented x3 Limitations: no limitations HEENT Head: Yes normal to inspection, Yes normocephalic and Yes atraumatic Ears: hearing grossly normal bilaterally Eyes General: appearance normal, both eyes and all related structures Neck Neck: Yes normal visual inspection and Yes trachea midline Chest Chest palpation & inspection: normal inspection of the chest Resp Effort & Inspection: normal respiratory effort and able to speak in complete sentences Cardio Rate: regular rate GI Inspection: Yes normal to inspection General: Yes no CVA tenderness Back/Spine/Pelvis Back: no CVA tenderness Skin General skin exam: no rashes or lesions noted Neuro General: patient oriented x3 Extrem General: Yes normal to inspection Psych Appearance: grossly normal and well kempt Mental Status: mental status grossly normal Speech and movement: Normal speech and movement present and Clear speech present Affect: Sad affect present Attitude: cooperative Thought process: Normal thought process present Thought content: Normal thought content present Insight: Fair insight present (Psych) Judgement: Fair judgement present (Psych) Office Procedures Post Void Residual Post Residual Void Post Void Residual (PVR): 188 [id number] Void Residual by ultrasound Results AMB Urinalysis, Automated UA Leukoctes 0 August/uL Last Edit by [employer] on 03/19/23 12:23 UA Nitrite Last Edit by [employer] on 03/19/23 12:23 UA Urobilinogen 0.2 mg/dL Last Edit by [employer] on 03/19/23 12:23 UA Protein 0 mg/dL Last Edit by [employer] on 03/19/23 12:23 UA pH 5.5 Last Edit by [employer] on 03/19/23 12:23 UA Blood 0 Truong/uL Last Edit by [employer] on 03/19/23 12:23 UA Specific [place] 1.030 Last Edit by [employer] on 03/19/23 12:23 UA Ketone Last Edit by [employer] on 03/19/23 12:23 UA Bilirubin 0 mg/dL Last Edit by [employer] on 03/19/23 12:23 UA Glucose 0 mg/dL Last Edit by [employer] on 03/19/23 12:23 Results Reviewed Results Reviewed: Laboratory Last Values Urine pH (Auto) 5.5 03/19/23 12:09 Specific [place] (Auto) 1.030 03/19/23 12:09 Urine Protein (Auto) 0 mg/dL 03/19/23 12:09 Glucose (UA)(Auto) 0 mg/dL 03/19/23 12:09 Urine Blood (Auto) 0 Truong/uL 03/19/23 12:09 Urine Bilirubin (Auto) 0 mg/dL 03/19/23 12:09 Urine Urobilinogen (Auto) 0.2 mg/dL 03/19/23 12:09 Leukocyte Esterase (Auto) 0 August/uL 03/19/23 12:09 Assessment & Plan Assessment & Plan (1) Bladder pain: Code(s): R39.89 - Other symptoms and signs involving the genitourinary system (2) Interstitial cystitis: Code(s): N30.10 - Interstitial cystitis (chronic) without hematuria Plan In office urinalysis results reviewed with the patient today; as noted above. PVR [address] Patient with recent CT abdomen noting normal ureters, kidneys, and bladder. Start 5 mg Cialis daily as discussed and prescribed. Discussed and stressed the importance of drinking plenty of water daily. Discussed at length bladder triggers/irritants. Discussed benefits of pelvic floor therapy Discussed possible low-dose antibiotic suppression therapy Follow-up in 1 month; if not sooner with any issues, concerns, and or questions. Orders: Orders AMB Post Void Residual by ultrasound Today R39.89 - Other symptoms and signs involving the genitourinary system AMB Urinalysis Automated Today Z13.9 - Encounter for screening, unspecified Medications: New tadalafil (Cialis) BIN [id number] [facility] Group DR33 5 mg PO DAILY 90 days 90 tabs 0RF N30.10 - Interstitial cystitis (chronic) without hematuria, R39.89 - Other symptoms and signs involving the genitourinary system Discontinued solifenacin (Vesicare) Discontinued Reason: Doctor's Order 10 mg PO DAILY 90 tabs 0RF nitrofurantoin monohyd/m-cryst 100 mg (Macrobid) must administer with a meal/food Discontinued Reason: Doctor's Order 100 mg PO BID 7 days 14 caps 0RF UTI pentosan polysulfate sodium (Elmiron) Discontinued Reason: Doctor's Order 100 mg orally take 2 capsules in AM one capsule at bedtime; 90 caps 3RF Patient Instructions: The patient had an opportunity to ask questions regarding the treatment plan. All questions were answered. Physical exam, labs, and imaging were discussed and reviewed in detail. As well as risks, benefits, and discussion of treatment choices. No major barriers to understanding were identified. The patient expressed understanding and agreement with the above treatment plan. The patient was made aware they should contact our office by phone for worsening of their current condition, the appearance of new symptoms, or with any questions or concerns. Compliance is encouraged with any medications and follow up testing that is ordered. It is a privilege to be allowed the opportunity to participate in? your urological care.? Again, if you have any questions or concerns If you have any questions or concerns please do not hesitate to contact me. The office is [phone]. This note is constructed using voice recognition software. While every effort has been made to ensure accuracy filling station attendant errors may have been included. Yours sincerely, PAM Lester Coding Level of Care Code Est Pt Level 4 (47009) Diagnoses Bladder pain R39.89 Interstitial cystitis N30.10 CPT Codes Post Residual Void - PVR CPT Code: 40491-Twax Void Residual by ultrasound ([id number])
== END 2023-03-19 13:00 | disposition home or self-care (01) ==
PROVIDERS: Visit Provider Nurse Practitioner Family
DX: R39.89 Other symptoms and signs involving the genitourinary system (principal); N30.10 Interstitial cystitis (chronic) without hematuria
CPT/HCPCS: 99214

== ENCOUNTER → 2023-03-19 12:05 | Outpatient (BNVA) | payer OTHER, SELFPAY | PROVIDERS: Visit Provider Nurse Practitioner Family | DX: N30.10 Interstitial cystitis (chronic) without hematuria (principal); R39.89 Other symptoms and signs involving the genitourinary system | CPT/HCPCS: 51798; 81003; 99212 ==

== ENCOUNTER 2023-04-18 13:51 | Outpatient (AMB) | payer OTHER, SELFPAY ==
--- NOTE | 2023-04-18 13:59 | A.OFFVIS_ITS ---
Intake Intake Visit Reasons: 1 mo/ PVR Intake Note: Patient presents today for follow up interstitial cystitis Urology Medications: cialis Blood Thinner:None PVR: 274 ml's Pool Finisher Required: No Inter Com Servicer: Inter Com Servicer offered & declined Accompanied by: Self / Same As Patient Allergies amoxicillin Allergy (Severe, Verified 04/18/23 14:33) Anaphylaxis azithromycin Allergy (Intermediate, Verified 04/18/23 14:33) Hives Medication List - Last Reconciled 04/18/23 by ISAC Lester- albuterol sulfate 90 mcg/actuation 1 inh inhalation QID PRN hydroxyzine pamoate (Vistaril) 25 mg PO BEDTIME naproxen 375 mg PO Q12H PRN ondansetron 8 mg PO Q8H PRN 5 days PNV,calcium 37-fhqg-kvkgk acid 27 mg iron- 1 mg ( Vitamins Plus Low Iron) 1 tab PO DAILY 30 days progesterone micronized (Prometrium) 200 mg PO BEDTIME 10 days tadalafil (Cialis) 5 mg PO DAILY 90 days HPI HPI Comments History of Present Illness Details Mini is a pleasant 22-year-old female patient who presents to the office today for interstitial cystitis follow-up. Of note, patient was seen approximately 1 month ago at which time she was started on low-dose 5 mg of Cialis daily to assist with bladder instability. When asked patient reports to be doing and feeling significantly better. She does report at times to be experiencing urinary urgency, frequency, and nocturia however much more infrequently then prior. She discusses episodes of nocturia had been up to 14 times per night in now approximately 4-5 times per night. She discusses job hunting. In office urinalysis results reviewed with the patient today. PVR 274 mL. Discussed at length causes and affects of incomplete bladder emptying. Discussed attempting to double void and pelvic floor therapy. She endorses to be drinking plenty of water daily. She otherwise denies incontinence, hematuria, dysuria, foul smelling urine, changes to urinary stream, flank pain, fever, and or chills. Previous workup and management of interstitial cystitis includes the Vistaril, VESIcare, and Elmiron. Previous interventions have included a cysto hydrodistention in August of this year; Cystoscopy findings noted moderate glomerulation post extension and bladder capacity post extension volume was 750 mL. She reports having followed up with transformation specialist for abnormal bleeding and has since started progesterone. She otherwise denies any other issues or concerns at this time. [facility] Medical History No known health problems Surgical History H/O wisdom tooth extraction No pertinent past surgical history Family History Mother No problems noted. Father No problems noted. Social History Alcohol intake: never Patient Tobacco Use Status: Former Tobacco user Substance Use Type: Marijuana Review of Systems Const All systems reviewed & are unremarkable except as noted in HPI and below Reports as per HPI Eyes Reports no additional complaints ENT Reports no additional complaints Card Reports no additional complaints Resp Reports no additional complaints GI Reports no additional complaints Reports as per HPI Musc Reports no additional complaints Neuro Reports no additional complaints Psych Reports no additional complaints Endo Reports no additional complaints Mehran/Lymph Reports no additional complaints Aller/Immun Reports no additional complaints Physical Exam Const General: cooperative, healthy appearing, comfortable, no acute distress, well developed, alert and awake Orientation/consciousness: patient oriented x3 Limitations: no limitations HEENT Head: Yes normal to inspection, Yes normocephalic and Yes atraumatic Ears: hearing grossly normal bilaterally Eyes General: appearance normal, both eyes and all related structures Neck Neck: Yes normal visual inspection and Yes trachea midline Chest Chest palpation & inspection: normal inspection of the chest Resp Effort & Inspection: normal respiratory effort and able to speak in complete sentences Cardio Rate: regular rate GI Inspection: Yes normal to inspection General: Yes no CVA tenderness Back/Spine/Pelvis Back: no CVA tenderness Skin General skin exam: no rashes or lesions noted Neuro General: patient oriented x3 Extrem General: Yes normal to inspection Psych Appearance: grossly normal and well kempt Mental Status: mental status grossly normal Speech and movement: Normal speech and movement present and Clear speech present Affect: Sad affect present Attitude: cooperative Thought process: Normal thought process present Thought content: Normal thought content present Insight: Fair insight present (Psych) Judgement: Fair judgement present (Psych) Office Procedures Post Void Residual Post Residual Void Post Void Residual (PVR): 274 [id number] Void Residual by ultrasound Results AMB Urinalysis, Automated UA Leukoctes 0 August/uL Last Edit by Sylvester Guerin on 04/18/23 14:24 UA Nitrite Negative Last Edit by Sylvester Guerin on 04/18/23 14:24 UA Urobilinogen 0.2 mg/dL Last Edit by Sylvester Guerin on 04/18/23 14:24 UA Protein 0 mg/dL Last Edit by Sylvester Guerin on 04/18/23 14:24 UA pH 6.0 Last Edit by Sylvester Guerin on 04/18/23 14:24 UA Blood 10 Truong/uL Last Edit by Sylvester Guerin on 04/18/23 14:24 UA Specific [place] 1.030 Last Edit by Sylvester Guerin on 04/18/23 14:24 UA Ketone Negative Last Edit by Sylvester Guerin on 04/18/23 14:24 UA Bilirubin 0 mg/dL Last Edit by Sylvester Guerin on 04/18/23 14:24 UA Glucose 0 mg/dL Last Edit by Sylvester Guerin on 04/18/23 14:24 Results Reviewed Results Reviewed: Laboratory Last Values Urine pH (Auto) 6.0 04/18/23 14:06 Specific [place] (Auto) 1.030 04/18/23 14:06 Urine Protein (Auto) 0 mg/dL 04/18/23 14:06 Glucose (UA)(Auto) 0 mg/dL 04/18/23 14:06 Urine Ketones (Auto) Negative 04/18/23 14:06 Urine Blood (Auto) 10 Truong/uL 04/18/23 14:06 Urine Nitrite (Auto) Negative 04/18/23 14:06 Urine Bilirubin (Auto) 0 mg/dL 04/18/23 14:06 Urine Urobilinogen (Auto) 0.2 mg/dL 04/18/23 14:06 Leukocyte Esterase (Auto) 0 August/uL 04/18/23 14:06 Assessment & Plan Assessment & Plan (1) Bladder pain: Code(s): R39.89 - Other symptoms and signs involving the genitourinary system (2) Interstitial cystitis: Code(s): N30.10 - Interstitial cystitis (chronic) without hematuria (3) Sensation of pressure in bladder area: Code(s): R39.89 - Other symptoms and signs involving the genitourinary system (4) Lower urinary tract symptoms: Code(s): R39.9 - Unspecified symptoms and signs involving the genitourinary system (5) Nocturia: Code(s): R35.1 - Nocturia (6) Incomplete bladder emptying: Code(s): R33.9 - Retention of urine, unspecified Plan In office urinalysis results reviewed with the patient today; as noted above. PVR 274 mL. Continue 5 mg Cialis daily as discussed and prescribed. Discussed and stressed the importance of continuing to drink plenty of water daily. Discussed at length bladder triggers/irritants and attempting to avoid and or limit Discussed benefits of pelvic floor therapy Discussed possible low-dose antibiotic suppression therapy Discussed and stressed the importance of practicing double voiding to assist with incomplete bladder emptying Discussed at length potential causes and affects of incomplete bladder emptying. Discussed possible low-dose terazosin to assist with incomplete bladder emptying however patient would like to attempt lifestyle modifications at this time. Follow-up in 1 month with PVR; if not sooner with any issues, concerns, and or questions. Orders: Orders AMB Urinalysis Automated 04/18/23 Z13.9 - Encounter for screening, unspecified AMB Post Void Residual by ultrasound 04/18/23 N30.10 - Interstitial cystitis (chronic) without hematuria Medications: Refilled tadalafil (Cialis) BIN [id number] [facility] Group DR33 5 mg PO DAILY 90 days 90 tabs 3RF N30.10 - Interstit ial cystitis (chronic) without hematuria, R39.89 - Other symptoms and signs involving the genitourinary system Coding Level of Care Code Est Pt Level 3 (21496) Diagnoses Bladder pain R39.89 Interstitial cystitis N30.10 Sensation of pressure in bladder area R39.89 Lower urinary tract symptoms R39.9 Nocturia R35.1 Incomplete bladder emptying R33.9 CPT Codes Post Residual Void - PVR CPT Code: 67954-Yfta Void Residual by ultrasound ([id number])
== END 2023-04-18 14:27 | disposition home or self-care (01) ==
PROVIDERS: Visit Provider Nurse Practitioner Family
DX: R39.89 Other symptoms and signs involving the genitourinary system (principal); N30.10 Interstitial cystitis (chronic) without hematuria; R39.9 Unspecified symptoms and signs involving the genitourinary system; R35.1 Nocturia; R33.9 Retention of urine, unspecified
CPT/HCPCS: 99213

== ENCOUNTER → 2023-04-18 13:51 | Outpatient (BNVA) | payer OTHER, SELFPAY | PROVIDERS: Visit Provider Nurse Practitioner Family | DX: N30.10 Interstitial cystitis (chronic) without hematuria (principal); R39.89 Other symptoms and signs involving the genitourinary system; R39.9 Unspecified symptoms and signs involving the genitourinary system; R33.9 Retention of urine, unspecified; R35.1 Nocturia | CPT/HCPCS: 51798; 81003; 99212 ==

== ENCOUNTER 2023-05-05 17:38 | Emergency (ER) | payer OTHER, SELFPAY ==
[2023-05-05 18:27] VITALS: BP 122/63; PULSE 102; RESP 16; TEMP 37.7; O2SAT 98; BMI 32.1
--- NOTE | 2023-05-05 18:29 | ED.GENADULT ---
HPI - General Adult General Chief complaint: Fever Stated complaint: fever,headache,congestion cough Time Seen by Provider: 05/05/23 18:57 Source: patient Mode of arrival: ambulatory History of Present Illness HPI narrative: 22-year-old female who presents with initiation of dry cough last Friday that has progressively become productive with subjective fevers and chills minimal sore throat but reports body aches. Related Data Previous Rx's Medication Instructions Recorded albuterol sulfate 90 mcg/actuation 1 inh inhalation QID PRN shortness 11/06/20 aerosol inhaler of breath or wheezing #8.5 grams vitamin with calcium 1 tab PO DAILY 30 days #30 tabs 04/30/22 no.72-iron 27 mg-folic acid 1 mg tablet ( Vitamins Plus Low Iron) naproxen 375 mg tablet 375 mg PO Q12H PRN pain #20 tabs 01/03/23 ondansetron 8 mg disintegrating 8 mg PO Q8H PRN nausea and 01/13/23 tablet vomiting 5 days #30 tabs progesterone micronized 200 mg 200 mg PO BEDTIME 10 days #30 caps 02/04/23 capsule (Prometrium) hydroxyzine pamoate 25 mg capsule 25 mg PO BEDTIME #90 caps 02/12/23 (Vistaril) tadalafil 5 mg tablet (Cialis) 5 mg PO DAILY 90 days #90 tabs 04/18/23 Allergies Allergy/AdvReac Type Severity Reaction Status Date / Time amoxicillin Allergy Severe Anaphylaxis Verified 04/18/23 14:33 azithromycin Allergy Intermediate Hives Verified 04/18/23 14:33 Review of Systems Review of Systems: Pertinent positives and negatives as stated in HPI [facility] Past Medical History Source: nursing notes reviewed Medical History No known health problems Surgical History H/O wisdom tooth extraction No pertinent past surgical history Family History Family History Mother No problems noted. Father No problems noted. Social History Social History Alcohol intake: never Patient Tobacco Use Status: Former Tobacco user Smoked in Last 30 Days: No Use of substances other than those prescribed or required for medical reasons: No Substance Use Type: Marijuana Advance Directives: No Advance Directives Information Provided: No Patient : No Physical Exam ED Vital Signs: Vital Signs - 24 hr 05/05/23 18:27 05/05/23 18:58 Temperature 99.8 F 98.9 F Pulse Rate 102 H 90 Respiratory Rate 16 18 Blood Pressure 122/63 107/65 Pulse Oximetry 98 99 Oxygen Delivery Method Room Air Room Air BMI result Body Mass Index 32.1 VITAL SIGNS: Reviewed. GENERAL: Well developed, well nourished, in no acute distress. HEAD: Normocephalic/atraumatic EYES: PERRLA, EOMI EARS: Ext canals without abnormality, TMs non-bulging and non-erythematous NOSE: Nares patent bilateral OROPHARYNX: no oral lesions noted, posterior pharynx clear but erythematous without noted tonsillar enlargement/erythema/exudates NECK: Supple, no adenopathy LUNGS: Normal breath sounds. No adventitious sounds or accessory muscle use. SpO2<99> CARDIOVASCULAR: Regular rate and rhythm without noted murmurs ABDOMEN: Soft, non-tender, non-distended with bowel sounds. MUSCULOSKELETAL: No tenderness, deformities, or effusions noted on gross inspection. EXTREMITIES: No cyanosis, clubbing or edema. SKIN: Inspection of the skin reveals no rashes NEUROLOGIC: Alert and oriented x 4. Strength and sensation to light touch were grossly intact x 4. Course Course Course Narrative: RME- 22-year-old female presents for evaluation of cough, body aches, fevers. She is well appearing, plan for viral swab Medical Decision Making Medical Decision Making [facility] Narrative: 22-year-old female with history and clinical presentation consistent with viral illness. Patient received Tylenol ibuprofen here in the emergency room and I reviewed all investigations which are negative for COVID-19 and influenza. Patient will be discharged home with instructions to continue with rest, hydration and treatment with [id number]-jbu-[id number] analgesics. Differential Diagnosis Differential Diagnoses: The differential diagnosis associated with the presentation includes Please see the discussion above Admission/Observation Consideration of admission/observation: Escalation of care including admission/observation considered Please see the discussion above Lab Data [facility] Lab Attestation statement: I reviewed the patient's lab results. Please see the discussion above Labs: Lab Results 05/05/23 Range/Units 18:55 COVID-19 (BARBARA) Negative (Negative) COVID-19 Clin Com See Note Influenza Type A (CARLEEN) Negative (Negative) Influenza Type B (CARLEEN) Negative (Negative) Influenza A & B Note See Note External Record Review External record reviewed: Outpatient record, Prior outpatient labs and Prior outpatient radiology Discharge Plan Discharge Clinical Impression: Viral illness Patient Disposition: Home, Self-Care Instructions: Viral Syndrome (ED) Additional Instructions: 1. Recommend [id number] Tylenol/ibuprofen as needed for body aches, headaches, temperatures greater than 100.4. Continue to drink plenty of water and rest. 2. Return to the ER for any worsening symptoms. Prescriptions: No Action Vitamin Plus Low Iron 27 mg iron- 1 mg tablet 1 tab PO DAILY 30 Days Qty: 30 11RF ondansetron 8 mg tablet,disintegrating 8 mg PO Q8H PRN (Reason: nausea and vomiting) 5 Days Qty: 30 0RF albuterol sulfate 90 mcg/actuation HFA aerosol inhaler 1 inh inhalation QID PRN (Reason: shortness of breath or wheezing) Qty: 8.5 0RF naproxen 375 mg tablet 375 mg PO Q12H PRN (Reason: pain) Qty: 20 1RF progesterone micronized [Prometrium] 200 mg capsule 200 mg PO BEDTIME 10 Days Qty: 30 0RF Rx Instructions: Take the pill 1 tablet a day cyclically every month from day 15-24 day 1 being the 1st day of next menstrual cycle hydroxyzine pamoate [Vistaril] 25 mg capsule 25 mg PO BEDTIME Qty: 90 3RF Rx Instructions: take 3 capsules at bedtime tadalafil [Cialis] 5 mg tablet 5 mg PO DAILY 90 Days Qty: 90 3RF Rx Instructions: ANNAMARIA [id number] Amanda [facility] Group DR33 Stand Alone Forms: Work/School Release
[2023-05-05 18:58] VITALS: BP 107/65; PULSE 90; RESP 18; TEMP 37.2; O2SAT 99
--- NOTE | 2023-05-05 19:03 | PC.NURSE ---
vss and up to date. pt currently afebrile at this time. pt c/o upper respiratory sx for the past 3 days. pt c/o fever/chills/nausea/chest pain only on inspiration. fine crackles noted to lower lungs bilaterally upon auscultation. no hx of asthma/copd. pt currently diaphoretic at this time. respirations remain even and unlabored. significant other bedside.
--- NOTE | 2023-05-05 19:05 | PC.NURSE ---
swabs obtained and sent to lab.
[2023-05-05 19:14] LABS: COVID-19 Test Negative (Negative); IDNOW Serial# 08D9AD1C
[2023-05-05 19:15] LABS: IDNOW Serial# 9DB6401D; Influenza A Negative (Negative); Influenza B2 Negative (Negative)
[2023-05-05] MEDS: Acetaminophen 325 MG TABLET 975 MG PO (19:39)
[2023-05-05] MEDS: Ibuprofen 400 MG TABLET PO (19:40)
== END 2023-05-05 19:43 | disposition home or self-care (01) ==
PROVIDERS: Physician Assistant; Emergency Provider Student in an Organized Health Care Education/Training Program
DX: B34.9 Viral infection, unspecified (principal); R50.9 Fever, unspecified; R51.9 Headache, unspecified; R05.9 Cough, unspecified; Z11.52 Encounter for screening for COVID-19; Z20.822 Contact with and (suspected) exposure to COVID-19; Z79.899 Other long term (current) drug therapy
CPT/HCPCS: 87502; 87635; 99283; 99284

== ENCOUNTER 2023-05-21 14:29 | Outpatient (AMB) | payer OTHER, SELFPAY ==
--- NOTE | 2023-05-21 14:29 | MHC.OFFVIS ---
Intake Intake Visit Reasons: 1m/PVR Intake Note: Patient presents today for follow up interstitial cystitis Urology Medications: cialis Blood Thinner:None PVR: 135ml's Rn Lactation Required: No Quantitative Consultant: Quantitative Consultant offered & declined Accompanied by: Self / Same As Patient Allergies amoxicillin Allergy (Severe, Verified 05/25/23 21:25) Anaphylaxis azithromycin Allergy (Intermediate, Verified 05/25/23 21:25) Hives Medication List - Last Reconciled 05/25/23 by PAM Lester albuterol sulfate 90 mcg/actuation 1 inh inhalation QID PRN PNV,calcium [id number] acid 27 mg iron- 1 mg ( Vitamins Plus Low Iron) 1 tab PO DAILY 30 days progesterone micronized (Prometrium) 200 mg PO BEDTIME 10 days sulfamethoxazole-trimethoprim 800-160 mg (Bactrim DS) 1 tab PO BID 7 days tadalafil (Cialis) 5 mg PO DAILY 90 days terazosin 1 mg PO BEDTIME 30 days HPI HPI Comments History of Present Illness Details Mini is a pleasant 22-year-old female patient who presents to the office today for interstitial cystitis follow-up. Of note, patient was seen approximately 1 month ago at which time she was started on low-dose 5 mg of Cialis daily to assist with bladder instability. When asked patient reports to be doing and feeling significantly better. However, discusses noting dysuria and urinary frequency over the last week. She reports feeling urinary urgency and nocturia have significantly improved. She continues to be compliant with 5 mg of Cialis daily. In office urinalysis results reviewed with the patient today. 2+ leukocytes negative nitrates. PVR 135 mL. Discussed at length potential causes for lower urinary tract symptoms patient is experiencing. Discussed at length causes and affects of incomplete bladder emptying. Patient reports she has been attempting to double void however at times does not find this helpful. She endorses to be drinking plenty of water daily. She otherwise denies incontinence, hematuria, foul smelling urine, changes to urinary stream, flank pain, fever, and or chills. Previous workup and management of interstitial cystitis includes the Vistaril, VESIcare, and Elmiron. Previous interventions have included a cysto hydrodistention in August of this year; Cystoscopy findings noted moderate glomerulation post extension and bladder capacity post extension volume was 750 mL. She reports having followed up with loss prevention analyst for abnormal bleeding and has since started progesterone. She otherwise denies any other issues or concerns at this time. [facility] Medical History No known health problems Surgical History H/O wisdom tooth extraction No pertinent past surgical history Family History Mother No problems noted. Father No problems noted. Alcohol intake: never Patient Tobacco Use Status: Former Tobacco user Substance Use Type: Marijuana Review of Systems Const All systems reviewed & are unremarkable except as noted in HPI and below Reports as per HPI Eyes Reports no additional complaints ENT Reports no additional complaints Card Reports no additional complaints Resp Reports no additional complaints GI Reports no additional complaints Reports as per HPI Musc Reports no additional complaints Neuro Reports no additional complaints Psych Reports no additional complaints Endo Reports no additional complaints Mehran/Lymph Reports no additional complaints Aller/Immun Reports no additional complaints Physical Exam Const General: cooperative, healthy appearing, comfortable, no acute distress, well developed, alert and awake Orientation/consciousness: patient oriented x3 Limitations: no limitations HEENT Head: Yes normal to inspection, Yes normocephalic and Yes atraumatic Ears: hearing grossly normal bilaterally Eyes General: appearance normal, both eyes and all related structures Neck Neck: Yes normal visual inspection and Yes trachea midline Chest Chest palpation & inspection: normal inspection of the chest Resp Effort & Inspection: normal respiratory effort and able to speak in complete sentences Cardio Rate: regular rate GI Inspection: Yes normal to inspection General: Yes no CVA tenderness Back/Spine/Pelvis Back: no CVA tenderness Skin General skin exam: no rashes or lesions noted Neuro General: patient oriented x3 Extrem General: Yes normal to inspection Psych Appearance: grossly normal and well kempt Mental Status: mental status grossly normal Speech and movement: Normal speech and movement present and Clear speech present Affect: Sad affect present Attitude: cooperative Thought process: Normal thought process present Thought content: Normal thought content present Insight: Fair insight present (Psych) Judgement: Fair judgement present (Psych) Office Procedures Post Void Residual Post Residual Void Post Void Residual (PVR): 135 [id number]-Tywa Void Residual by ultrasound Results AMB Urinalysis, Automated UA Leukoctes 125 August/uL Last Edit by Sylvester Guerin on 05/21/23 14:41 UA Nitrite Negative Last Edit by Sylvester Guerin on 05/21/23 14:41 UA Urobilinogen 0.2 mg/dL Last Edit by Sylvester Guerin on 05/21/23 14:41 UA Protein 0 mg/dL Last Edit by Sylvester Guerin on 05/21/23 14:41 UA pH 6.0 Last Edit by Sylvester Guerin on 05/21/23 14:41 UA Blood 0 Truong/uL Last Edit by Sylvester Guerin on 05/21/23 14:41 UA Specific [place] 1.015 Last Edit by Sylvester Guerin on 05/21/23 14:41 UA Ketone Negative Last Edit by Sylvester Guerin on 05/21/23 14:41 UA Bilirubin mg/dL Last Edit by Sylvester Guerin on 05/21/23 14:41 UA Glucose mg/dL Last Edit by Sylvester Guerin on 05/21/23 14:41 Results Reviewed Results Reviewed: Laboratory Last Values Urine pH (Auto) 6.0 05/21/23 14:32 Specific [place] (Auto) 1.015 05/21/23 14:32 Urine Protein (Auto) 0 mg/dL 05/21/23 14:32 Urine Ketones (Auto) Negative 05/21/23 14:32 Urine Blood (Auto) 0 Truong/uL 05/21/23 14:32 Urine Nitrite (Auto) Negative 05/21/23 14:32 Urine Urobilinogen (Auto) 0.2 mg/dL 05/21/23 14:32 Leukocyte Esterase (Auto) 125 August/uL 05/21/23 14:32 Assessment & Plan Assessment & Plan (1) Incomplete bladder emptying: Code(s): R33.9 - Retention of urine, unspecified (2) Lower urinary tract symptoms: Code(s): R39.9 - Unspecified symptoms and signs involving the genitourinary system (3) Interstitial cystitis: Code(s): N30.10 - Interstitial cystitis (chronic) without hematuria (4) Urinary tract infection: Code(s): N39.0 - Urinary tract infection, site not specified Plan In office urinalysis results reviewed with the patient today; as noted above; will send for urine culture. Start Bactrim as discussed and prescribed. Start terazosin 1 mg at bedtime. Continue 5 mg of Cialis daily. Discussed and stressed the importance of double voiding. Continue drinking plenty of water daily. Discussed at length potential causes for lower urinary tract symptoms patient is experiencing. Discussed at length potential causes and affects of incomplete bladder emptying. Discussed pelvic floor therapy. Follow-up in 4-6 weeks with PVR; or sooner with any issues, concerns, and or questions. Orders: Orders Urine Culture 05/21/23 R39.9 - Unspecified symptoms and signs involving the genitourinary system AMB Urinalysis Automated 05/21/23 Z13.9 - Encounter for screening, unspecified AMB Post Void Residual by ultrasound 05/21/23 R33.9 - Retention of urine, unspecified Medications: New terazosin 1 mg PO BEDTIME 30 days 30 caps 1RF R39.12 - Poor urinary stream sulfamethoxazole-trimethoprim 800-160 mg (Bactrim DS) 1 tab PO BID 7 days 14 tabs 0RF N32.81 - Overactive bladder Patient Instructions: The patient had an opportunity to ask questions regarding the treatment plan. All questions were answered. Physical exam, labs, and imaging were discussed and reviewed in detail. As well as risks, benefits, and discussion of treatment choices. No major barriers to understanding were identified. The patient expressed understanding and agreement with the above treatment plan. The patient was made aware they should contact our office by phone for worsening of their current condition, the appearance of new symptoms, or with any questions or concerns. Compliance is encouraged with any medications and follow up testing that is ordered. It is a privilege to be allowed the opportunity to participate in? your urological care.? Again, if you have any questions or concerns If you have any questions or concerns please do not hesitate to contact me. The office is [phone]. This note is constructed using voice recognition software. While every effort has been made to ensure accuracy respiratory practitioner errors may have been included. Yours sincerely, PAM Lester Coding Level of Care Code Est Pt Level 4 (98584) Diagnoses Incomplete bladder emptying R33.9 Lower urinary tract symptoms R39.9 Interstitial cystitis N30.10 Urinary tract infection N39.0 CPT Codes Post Residual Void - PVR CPT Code: 04886-Ruje Void Residual by ultrasound ([id number])
== END 2023-05-21 14:56 | disposition home or self-care (01) ==
LOC: HO.HUSH 14:30
PROVIDERS: Visit Provider Nurse Practitioner Family
DX: R33.9 Retention of urine, unspecified (principal); R39.9 Unspecified symptoms and signs involving the genitourinary system; N30.10 Interstitial cystitis (chronic) without hematuria; N39.0 Urinary tract infection, site not specified
CPT/HCPCS: 99214

== ENCOUNTER 2023-05-21 14:29 | Outpatient (REF) | payer OTHER, SELFPAY | END 2023-05-21 14:30 | disposition home or self-care (01) | LOC: HO.LNP 14:29 | PROVIDERS: Visit Provider Nurse Practitioner Family | DX: R33.9 Retention of urine, unspecified (principal); R39.9 Unspecified symptoms and signs involving the genitourinary system; N30.10 Interstitial cystitis (chronic) without hematuria | CPT/HCPCS: 51798; 81003; 87086; 99212 ==

== ENCOUNTER 2023-07-02 13:37 | Outpatient (AMB) | payer OTHER, SELFPAY ==
--- NOTE | 2023-07-02 13:38 | MHC.OFFVIS ---
Intake Intake Visit Reasons: 6wks follow up/PVR Intake Note: Patient presents today for follow up interstitial cystitis Urology Medications: cialis, terazosin Blood Thinner:None PVR: 126ml's Computer Laboratory Technician Required: No Microarray Analyst: Microarray Analyst offered & declined Accompanied by: Self / Same As Patient Allergies amoxicillin Allergy (Severe, Verified 07/02/23 14:09) Anaphylaxis azithromycin Allergy (Intermediate, Verified 07/02/23 14:09) Hives Medication List - Last Reconciled 07/02/23 by PAM Lester albuterol sulfate 90 mcg/actuation 1 inh inhalation QID PRN PNV,calcium 82-rrrh-zsvit acid 27 mg iron- 1 mg ( Vitamins Plus Low Iron) 1 tab PO DAILY 30 days progesterone micronized (Prometrium) 200 mg PO BEDTIME 10 days tadalafil (Cialis) 5 mg PO DAILY 90 days terazosin 1 mg PO BEDTIME 30 days HPI HPI Comments History of Present Illness Details Mini is a pleasant 22-year-old female patient who presents to the office today for interstitial cystitis follow-up. In discussion with the patient today she reports to be doing and feeling significantly better. She reports compliance with terazosin 1 mg at bedtime and 5 mg of Cialis daily. She currently denies any bothersome urinary issues. She discusses being back to work as her urinary symptoms have significantly improved. In office urinalysis results reviewed with the patient today. PVR However, discusses noting dysuria and urinary frequency over the last week. She reports feeling urinary urgency and nocturia have significantly improved. She continues to be compliant with 5 mg of Cialis daily. In office urinalysis results reviewed with the patient today. 2+ leukocytes negative nitrates. PVR 135 mL. Discussed at length causes and affects of incomplete bladder emptying. Patient reports she has been attempting to double void however at times does not find this helpful. She endorses to be drinking plenty of water daily. She otherwise denies incontinence, hematuria, foul smelling urine, changes to urinary stream, flank pain, fever, and or chills. Previous workup and management of interstitial cystitis includes the Vistaril, VESIcare, and Elmiron. Previous interventions have included a cysto hydrodistention in August of 2022. Cystoscopy findings noted moderate glomerulation post extension and bladder capacity post extension volume was 750 mL. She otherwise offers no other issues or concerns at this time. [facility] Medical History No known health problems Surgical History H/O wisdom tooth extraction No pertinent past surgical history Family History Mother No problems noted. Father No problems noted. Social History Alcohol intake: never Patient Tobacco Use Status: Former Tobacco user Substance Use Type: Marijuana Review of Systems Const All systems reviewed & are unremarkable except as noted in HPI and below Reports as per HPI Eyes Reports no additional complaints ENT Reports no additional complaints Card Reports no additional complaints Resp Reports no additional complaints GI Reports no additional complaints Reports as per HPI Musc Reports no additional complaints Neuro Reports no additional complaints Psych Reports no additional complaints Endo Reports no additional complaints Mehran/Lymph Reports no additional complaints Aller/Immun Reports no additional complaints Physical Exam Const General: cooperative, healthy appearing, comfortable, no acute distress, well developed, alert and awake Orientation/consciousness: patient oriented x3 Limitations: no limitations HEENT Head: Yes normal to inspection, Yes normocephalic and Yes atraumatic Ears: hearing grossly normal bilaterally Eyes General: appearance normal, both eyes and all related structures Neck Neck: Yes normal visual inspection and Yes trachea midline Chest Chest palpation & inspection: normal inspection of the chest Resp Effort & Inspection: normal respiratory effort and able to speak in complete sentences Cardio Rate: regular rate GI Inspection: Yes normal to inspection General: Yes no CVA tenderness Back/Spine/Pelvis Back: no CVA tenderness Skin General skin exam: no rashes or lesions noted Neuro General: patient oriented x3 Extrem General: Yes normal to inspection Psych Appearance: grossly normal and well kempt Mental Status: mental status grossly normal Speech and movement: Normal speech and movement present and Clear speech present Affect: Sad affect present Attitude: cooperative Thought process: Normal thought process present Thought content: Normal thought content present Insight: Fair insight present (Psych) Judgement: Fair judgement present (Psych) Office Procedures Post Void Residual Post Residual Void Post Void Residual (PVR): 126 [id number] Void Residual by ultrasound Results AMB Urinalysis, Automated UA Leukoctes 70 August/uL Last Edit by Sylvester Guerin on 07/02/23 13:59 UA Nitrite Negative Last Edit by Sylvester Guerin on 07/02/23 13:59 UA Urobilinogen 0.2 mg/dL Last Edit by Sylvester Guerin on 07/02/23 13:59 UA Protein 0 mg/dL Last Edit by Sylvester Guerin on 07/02/23 13:59 UA pH 6.0 Last Edit by Sylvester Guerin on 07/02/23 13:59 UA Blood 10 Truong/uL Last Edit by Sylvester Guerin on 07/02/23 13:59 UA Specific Blue 1.030 Last Edit by Sylvester Guerin on 07/02/23 13:59 UA Ketone Negative Last Edit by Sylvester Guerin on 07/02/23 13:59 UA Bilirubin 0 mg/dL Last Edit by Sylvester Guerin on 07/02/23 13:59 UA Glucose 0 mg/dL Last Edit by Sylvester Guerin on 07/02/23 13:59 Results Reviewed Results Reviewed: Laboratory Last Values Urine pH (Auto) 6.0 07/02/23 13:40 Specific Blue (Auto) 1.030 07/02/23 13:40 Urine Protein (Auto) 0 mg/dL 07/02/23 13:40 Glucose (UA)(Auto) 0 mg/dL 07/02/23 13:40 Urine Ketones (Auto) Negative 07/02/23 13:40 Urine Blood (Auto) 10 Truong/uL 07/02/23 13:40 Urine Nitrite (Auto) Negative 07/02/23 13:40 Urine Bilirubin (Auto) 0 mg/dL 07/02/23 13:40 Urine Urobilinogen (Auto) 0.2 mg/dL 07/02/23 13:40 Leukocyte Esterase (Auto) 70 August/uL 07/02/23 13:40 Assessment & Plan Assessment & Plan (1) Incomplete bladder emptying: Code(s): R33.9 - Retention of urine, unspecified (2) Lower urinary tract symptoms: Code(s): R39.9 - Unspecified symptoms and signs involving the genitourinary system (3) Interstitial cystitis: Code(s): N30.10 - Interstitial cystitis (chronic) without hematuria (4) Urinary tract infection: Code(s): N39.0 - Urinary tract infection, site not specified Plan In office urinalysis results reviewed with the patient today; as noted above Continue terazosin 1 mg at bedtime; discussed possible increase to 2 mg if PVRs continue to be elevated Continue 5 mg of Cialis daily. Discussed and stressed the importance of double voiding. Continue drinking plenty of water daily. Discussed at length potential causes and affects of incomplete bladder emptying. Discussed pelvic floor therapy. Follow-up in 3 months with PVR; or sooner with any issues, concerns, and or questions. Orders: Orders AMB Urinalysis Automated Today Z13.9 - Encounter for screening, unspecified AMB Post Void Residual by ultrasound Today R33.9 - Retention of urine, unspecified Patient Instructions: The patient had an opportunity to ask questions regarding the treatment plan. All questions were answered. Physical exam, labs, and imaging were discussed and reviewed in detail. As well as risks, benefits, and discussion of treatment choices. No major barriers to understanding were identified. The patient expressed understanding and agreement with the above treatment plan. The patient was made aware they should contact our office by phone for worsening of their current condition, the appearance of new symptoms, or with any questions or concerns. Compliance is encouraged with any medications and follow up testing that is ordered. It is a privilege to be allowed the opportunity to participate in? your urological care.? Again, if you have any questions or concerns If you have any questions or concerns please do not hesitate to contact me. The office is [phone]. This note is constructed using voice recognition software. While every effort has been made to ensure accuracy truck driving instructor errors may have been included. Yours sincerely, PAM Lester Coding Level of Care Code Est Pt Level 3 (74800) Diagnoses Incomplete bladder emptying R33.9 Lower urinary tract symptoms R39.9 Interstitial cystitis N30.10 Urinary tract infection N39.0 CPT Codes Post Residual Void - PVR CPT Code: 35888-Rlrb Void Residual by ultrasound ([id number])
== END 2023-07-02 14:08 | disposition home or self-care (01) ==
PROVIDERS: Visit Provider Nurse Practitioner Family
DX: R33.9 Retention of urine, unspecified (principal); R39.9 Unspecified symptoms and signs involving the genitourinary system; N30.10 Interstitial cystitis (chronic) without hematuria; N39.0 Urinary tract infection, site not specified; Z13.9 Encounter for screening, unspecified
CPT/HCPCS: 99213

== ENCOUNTER → 2023-07-02 13:37 | Outpatient (BNVA) | payer OTHER, SELFPAY | PROVIDERS: Visit Provider Nurse Practitioner Family | DX: R33.9 Retention of urine, unspecified (principal); R39.9 Unspecified symptoms and signs involving the genitourinary system; N30.10 Interstitial cystitis (chronic) without hematuria; N39.0 Urinary tract infection, site not specified | CPT/HCPCS: 51798; 81003; 99212 ==

== ENCOUNTER 2023-11-25 14:59 | Outpatient (REF) | payer OTHER, SELFPAY | END 2023-11-25 15:00 | disposition home or self-care (01) | LOC: HO.LNP 14:59 | PROVIDERS: Visit Provider Nurse Practitioner Family | DX: R33.9 Retention of urine, unspecified (principal); R30.0 Dysuria; R39.9 Unspecified symptoms and signs involving the genitourinary system; N30.10 Interstitial cystitis (chronic) without hematuria | CPT/HCPCS: 51798; 81003; 87086; 99212 ==

== ENCOUNTER 2023-11-25 14:59 | Outpatient (AMB) | payer OTHER, SELFPAY ==
--- NOTE | 2023-11-25 15:00 | A.OFFVIS_ITS ---
Intake Visit Reasons: 3m/PVR Intake Note: Patient presents today for follow up interstitial cystitis Urology Medications: cialis, terazosin Blood Thinner:None PVR: 0ml's Associate Professor Of Sociology Required: No Surgical Territory Manager: Surgical Territory Manager offered & declined Accompanied by: Self / Same As Patient Allergies amoxicillin Allergy (Severe, Verified 11/25/23 15:53) Anaphylaxis azithromycin Allergy (Intermediate, Verified 11/25/23 15:53) Hives Medication List - Last Reconciled 11/25/23 by AMARILIS LesterP- albuterol sulfate 90 mcg/actuation 1 inh inhalation QID PRN nitrofurantoin monohyd/m-cryst 100 mg (Macrobid) 100 mg PO Q12H 10 days PNV,calcium 11-hfqt-xapms acid 27 mg iron- 1 mg ( Vitamins Plus Low Iron) 1 tab PO DAILY 30 days progesterone micronized (Prometrium) 200 mg PO BEDTIME 10 days tadalafil (Cialis) 5 mg PO DAILY 90 days terazosin 1 mg PO BEDTIME 30 days HPI Comments Details: Mini is a pleasant 23-year-old female patient who presents to the office today for interstitial cystitis follow-up. In discussion with the patient today she reports noting urinary urgency and frequency over the last 3-5 days. She reports prior to this she had been doing and feeling well. In office urinalysis results reviewed with the patient today. 3+ leukocytes negative nitrates. PVR 0 mL. When asked she does report compliance with terazosin and Cialis as prescribed. She reports feeling stressed at work and has not been able to drink water as much as she had previously been drinking. She otherwise denies incontinence, nocturia, hematuria, dysuria, foul smelling urine, changes to urinary stream, flank pain, fever, and or chills. She continues with attempting double voiding to assist with history of incomplete bladder emptying. Previous PVR was approximately 135 mL this is significantly improved as PVR today 0ml's. Previous workup and management of interstitial cystitis includes the Vistaril, VESIcare, and Elmiron. Previous interventions have included a cysto hydrodistention in August of 2022. Cystoscopy findings noted moderate glomerulation post extension and bladder capacity post extension volume was 750 mL. She otherwise offers no other issues or concerns at this time. [facility] Medical History No known health problems Surgical History H/O wisdom tooth extraction No pertinent past surgical history Family History Mother No problems noted. Father No problems noted. Social History Alcohol intake: never Patient Tobacco Use Status: Former Tobacco user Substance Use Type: Marijuana Review of Systems Const All systems reviewed & are unremarkable except as noted in HPI and below Reports as per HPI Eyes Reports no additional complaints ENT Reports no additional complaints Card Reports no additional complaints Resp Reports no additional complaints GI Reports no additional complaints Reports as per HPI Musc Reports no additional complaints Neuro Reports no additional complaints Psych Reports no additional complaints Endo Reports no additional complaints Mehran/Lymph Reports no additional complaints Aller/Immun Reports no additional complaints Physical Exam Const General: cooperative, healthy appearing, comfortable, no acute distress, well developed, alert and awake Orientation/consciousness: patient oriented x3 Limitations: no limitations HEENT Head: Yes normal to inspection, Yes normocephalic and Yes atraumatic Ears: hearing grossly normal bilaterally Eyes General: appearance normal, both eyes and all related structures Neck Neck: Yes normal visual inspection and Yes trachea midline Chest Chest palpation & inspection: normal inspection of the chest Resp Effort & Inspection: normal respiratory effort and able to speak in complete sentences Cardio Rate: regular rate GI Inspection: Yes normal to inspection General: Yes no CVA tenderness Back/Spine/Pelvis Back: no CVA tenderness Skin General skin exam: no rashes or lesions noted Neuro General: patient oriented x3 Extrem General: Yes normal to inspection Psych Appearance: grossly normal and well kempt Mental Status: mental status grossly normal Speech and movement: Normal speech and movement present and Clear speech present Affect: Sad affect present Attitude: cooperative Thought process: Normal thought process present Thought content: Normal thought content present Insight: Fair insight present (Psych) Judgement: Fair judgement present (Psych) Office Procedures Post Void Residual Post Residual Void Post Void Residual (PVR): 0 [id number] Void Residual by ultrasound Results AMB Urinalysis, Automated UA Leukoctes 500 August/uL Last Edit by Sylvester Guerin on 11/25/23 15:24 UA Nitrite Negative Last Edit by Sylvester Guerin on 11/25/23 15:24 UA Urobilinogen 0.2 mg/dL Last Edit by Sylvester Guerin on 11/25/23 15:24 UA Protein 15 mg/dL Last Edit by Sylvester Guerin on 11/25/23 15:24 UA pH 6.0 Last Edit by Sylvester Guerin on 11/25/23 15:24 UA Blood 0 Truong/uL Last Edit by Sylvester Guerin on 11/25/23 15:24 UA Specific [place] 1.015 Last Edit by Sylvester Guerin on 11/25/23 15:24 UA Ketone Negative Last Edit by Sylvester Guerin on 11/25/23 15:24 UA Bilirubin 0 mg/dL Last Edit by Sylvester Guerin on 11/25/23 15:24 UA Glucose 0 mg/dL Last Edit by Sylvester Guerin on 11/25/23 15:24 Results Reviewed Results Reviewed: Laboratory Last Values Urine pH (Auto) 6.0 11/25/23 15:22 Specific [place] (Auto) 1.015 11/25/23 15:22 Urine Protein (Auto) 15 mg/dL 11/25/23 15:22 Glucose (UA)(Auto) 0 mg/dL 11/25/23 15:22 Urine Ketones (Auto) Negative 11/25/23 15:22 Urine Blood (Auto) 0 Truong/uL 11/25/23 15:22 Urine Nitrite (Auto) Negative 11/25/23 15:22 Urine Bilirubin (Auto) 0 mg/dL 11/25/23 15:22 Urine Urobilinogen (Auto) 0.2 mg/dL 11/25/23 15:22 Leukocyte Esterase (Auto) 500 August/uL 11/25/23 15:22 Assessment & Plan Assessment & Plan (1) Incomplete bladder emptying: Code(s): R33.9 - Retention of urine, unspecified Category: Medical (2) Lower urinary tract symptoms: Code(s): R39.9 - Unspecified symptoms and signs involving the genitourinary system Category: Medical (3) Urinary tract infection: Code(s): N39.0 - Urinary tract infection, site not specified Category: Medical (4) Interstitial cystitis: Code(s): N30.10 - Interstitial cystitis (chronic) without hematuria Category: Medical Plan In office urinalysis results reviewed with the patient today; as noted above; will send for urine culture. Start Macrobid 100 mg b.i.d. as prescribed. Discussed, educated, and stressed the importance of drinking plenty of water daily. Continue Cialis and terazosin as prescribed. Discussed improvement in postvoid residual since last office visit. Discussed at length potential causes for lower urinary tract symptoms patient is experiencing. Discussed UTI prevention. Follow-up in 1 month with PVR or sooner with any issues, concerns, and or questions. Orders: Orders AMB Urinalysis Automated Today Z13.9 - Encounter for screening, unspecified AMB Post Void Residual by ultrasound Today R33.9 - Retention of urine, unspecified Urine Culture Today R30.0 - Dysuria Medications: New nitrofurantoin monohyd/m-cryst 100 mg (Macrobid) must administer with a meal/food 100 mg PO Q12H 20 caps 0RF 10 days Refilled tadalafil (Cialis) [facility] [id number] [facility] [address] 5 mg PO DAILY 90 tabs 3RF 90 days N30.10 - Interstitial cystitis (chronic) without hematuria, R39.89 - Other symptoms and signs involving the genitourinary system Patient Instructions: The patient had an opportunity to ask questions regarding the treatment plan. All questions were answered. Physical exam, labs, and imaging were discussed and reviewed in detail. As well as risks, benefits, and discussion of treatment choices. No major barriers to understanding were identified. The patient expressed understanding and agreement with the above treatment plan. The patient was made aware they should contact our office by phone for worsening of their current condition, the appearance of new symptoms, or with any questions or concerns. Compliance is encouraged with any medications and follow up testing that is ordered. It is a privilege to be allowed the opportunity to participate in? your urological care.? Again, if you have any questions or concerns If you have any questions or concerns please do not hesitate to contact me. The office is [phone]. This note is constructed using voice recognition software. While every effort has been made to ensure accuracy crepe box tender errors may have been included. Yours sincerely, PAM Lester Coding Level of Care Code Est Pt Level 4 (66311) Complex EM visit Add On G2211 Diagnoses Incomplete bladder emptying R33.9 Lower urinary tract symptoms R39.9 Urinary tract infection N39.0 Interstitial cystitis N30.10 CPT Codes Post Residual Void - PVR CPT Code: 16274-Mmlk Void Residual by ultrasound ([id number])
== END 2023-11-25 15:52 | disposition home or self-care (01) ==
PROVIDERS: Visit Provider Nurse Practitioner Family
DX: R33.9 Retention of urine, unspecified (principal); R39.9 Unspecified symptoms and signs involving the genitourinary system; N39.0 Urinary tract infection, site not specified; N30.10 Interstitial cystitis (chronic) without hematuria; Z13.9 Encounter for screening, unspecified
CPT/HCPCS: 99214; G2211

== ENCOUNTER 2023-11-28 18:03 | Emergency (ER) | payer OTHER, SELFPAY ==
[2023-11-28 18:08] VITALS: BP 124/67; PULSE 88; RESP 20; TEMP 37.1; O2SAT 98; BMI 30.7
--- NOTE | 2023-11-28 18:08 | ED_ITS ---
HPI - General Adult General Chief complaint: Abdominal Pain Stated complaint: vomiting, nausea, nothing staying down Time Seen by Provider: 11/28/23 21:02 Related Data Previous Rx's ?Medication ?Instructions ?Recorded albuterol sulfate 90 mcg/actuation 1 inh inhalation QID PRN shortness 11/06/20 aerosol inhaler of breath or wheezing #8.5 grams progesterone micronized 200 mg 200 mg PO BEDTIME 10 days #30 caps 02/04/23 capsule (Prometrium) vitamin with calcium 1 tab PO DAILY 30 days #30 tabs 05/13/23 no.72-iron 27 mg-folic acid 1 mg tablet ( Vitamins Plus Low Iron) terazosin 1 mg capsule 1 mg PO BEDTIME 30 days #30 caps 05/21/23 nitrofurantoin 100 mg PO Q12H 10 days #20 caps 11/25/23 monohydrate/macrocrystals 100 mg capsule (Macrobid) tadalafil 5 mg tablet (Cialis) 5 mg PO DAILY 90 days #90 tabs 11/25/23 ondansetron 4 mg disintegrating 4 mg PO TID PRN nausea and 11/29/23 tablet vomiting 5 days #10 tabs Allergies Allergy/AdvReac Type Severity Reaction Status Date / Time amoxicillin Allergy Severe Anaphylaxis Verified 11/28/23 18:09 azithromycin Allergy Intermediate Hives Verified 11/28/23 18:09 PMFSH Past Medical History Medical History No known health problems Surgical History H/O wisdom tooth extraction No pertinent past surgical history Family History Family History Mother No problems noted. Father No problems noted. Social History Social History Alcohol intake: current Alcohol intake frequency: holidays/special occasions only Patient Tobacco Use Status: Former Tobacco user Smoked in Last 30 Days: No Use of substances other than those prescribed or required for medical reasons: No Substance Use Type: Marijuana Advance Directives: No Advance Directives Information Provided: No Do you have a plan to hurt others: No Plan Patient : No Physical Exam ED Vital Signs: Vital Signs - 24 hr 11/28/23 18:08 11/28/23 20:07 Temperature 98.7 F 98.1 F Pulse Rate 88 80 Respiratory Rate 20 16 Blood Pressure 124/67 123/77 Pulse Oximetry 98 100 Oxygen Delivery Method Room Air Room Air BMI result Body Mass Index 30.7 Course Course Course Narrative: This is a Rapid Medical Examination (RME) performed by Chelsea Hampton PA-C in triage. Full HPI, ROS, assessment and treatment plan per primary provider in the Main ED. 23 yo female here for eval of nausea, vomiting, and diffuse abdominal pain that began yesterday. no known sick contacts. LMP 2 wks ago. denies etoh consumption or illicit substance use. denies fever, chills, diarrhea, constipation, dysuria, hematuria. Abdomen soft, nondistended, nontender to palpation, no rebound tenderness or guarding. Plan: labs, UA, u preg Medications Administered Discontinued Medications Generic Name Dose Route Start Last Admin Trade Name Freq PRN Reason Stop Dose Admin Sodium Chloride 1,000 mls @ 999 mls/hr 11/28/23 22:45 11/28/23 23:46 Ns IV 11/28/23 23:45 Infused .Q1H1M GERTRUDE Infusion Sodium Chloride 1,000 mls @ 999 mls/hr 11/28/23 22:45 11/28/23 23:46 Ns IV 11/28/23 23:45 Infused .Q1H1M GERTRUDE Infusion Ketorolac Tromethamine 30 mg 11/28/23 22:34 11/28/23 22:44 Ketorolac Tromethamine 30 Mg/Ml Vial IVPUSH 11/28/23 22:35 30 mg ONCE ONE Administration Ondansetron HCl 4 mg 11/28/23 22:34 11/28/23 22:44 Ondansetron Hcl 4 Mg/2 Ml Vial IVPUSH 11/28/23 22:35 4 mg ONCE ONE Administration Medical Decision Making Lab Data 11/28/23 19:00 11/28/23 19:00 Labs: Lab Results 11/28/23 11/28/23 Range/Units 19:00 19:01 WBC 10.1 (4.8-10.8) X10*3/uL RBC 4.52 (4.20-5.50) X10*6/uL Hgb 13.7 (12.0-16.0) g/dl Hct 39.3 (37.0-47.0) % MCV 86.9 (80.0-98.0) fL MCH 30.3 (27.0-33.0) pg MCHC 34.9 (31.0-35.0) g/dl RDW 12.5 (11.0-16.0) % Plt Count 363 (160-400) X10*3/uL MPV 9.6 (9.4-12.3) fL Immature Gran % (Auto) 0.1 (0.0-0.4) % Neut % (Auto) 56.5 (45-73) % Lymph % (Auto) 33.2 (20-40) % [place] % (Auto) 5.7 (2-11) % Eos % (Auto) 3.6 (0-4) % Baso % (Auto) 0.9 (0-2) % Lymph # (Auto) 3.4 (1.2-4.9) X10*3/uL [place] # (Auto) 0.6 (0.1-1.2) X10*3/uL Eos # (Auto) 0.4 (0.0-0.4) X10*3/uL Baso # (Auto) 0.1 (0.0-0.2) X10*3/uL Abs Immat Gran (auto) 0.01 (0.00-0.03) X10*3/uL Absolute Neuts (auto) 5.7 (2.0-8.3) x10*3/uL Absolute Nucleated RBC 0.000 (0.0-0.012) X10*3/uL Nucleated RBC % (auto) 0.0 (0.0-0.2) /100WBC Sodium 139 (135-145) mmol/L Potassium 3.5 (3.3-5.1) mmol/L Chloride 110 H (96-108) mmol/L Carbon Dioxide 22 (22-29) mmol/L Anion Gap 11 L (12-20) BUN 8 L (9-16) mg/dL Creatinine 0.70 (0.5-1.4) mg/dL Estim Creat Clear Calc 113.7 Estimated GFR > 60 Random Glucose 109 (60-115) mg/dL Calcium 9.2 (8.4-10.2) mg/dL Magnesium 1.9 (1.6-2.6) mg/dL Total Bilirubin 0.4 (0.0-1.0) mg/dL AST 17 (5-31) U/L ALT 22 (0-31) U/L Alkaline Phosphatase 88 (39-117) U/L Total Protein 7.0 (6.5-8.0) g/dL Albumin 4.2 (3.5-5.0) g/dL Lipase 20 (8-78) U/L Urine Color Dark Yellow Urine Appearance Clear Urine pH 5.5 (5.0-9.0) Ur Specific [place] >= 1.030 H (1.005-1.025) Urine Protein Negative (Neg-Trace) mg/dL Urine Glucose (UA) Negative (Negative) mg/dL Urine Ketones 80 (Negative) mg/dL Urine Blood Negative (Negative) Urine Nitrite Negative (Negative) Ur Leukocyte Esterase Trace H (Negative) Urine RBC 3-5 H (0-2) /HPF Urine WBC 0-5 (0-5) /HPF Ur Squamous Epith Cells 3-5 (0-2) /HPF Urine Bacteria Trace (None Seen) Hyaline Casts 3-5 (0-2) /LPF Urine Test NEGATIVE (NEGATIVE) Influenza Type A (PCR) NEGATIVE (Negative) Influenza Type B (PCR) NEGATIVE (Negative) RSV RNA Qual (PCR) NEGATIVE (Negative) SARS-CoV-2 RNA (RT-PCR) NEGATIVE (Negative) Discharge Plan Discharge Clinical Impression: Vomiting, Diarrhea Patient Disposition: Home, Self-Care Instructions: Acute Nausea and Vomiting (ED), Acute Diarrhea (ED) Additional Instructions: * Very small risk of appendicitis exists. Worsened pain returned. Prescriptions: New ondansetron 4 mg tablet,disintegrating 4 mg PO TID PRN (Reason: nausea and vomiting) 5 Days Qty: 10 0RF No Action Vitamin Plus Low Iron 27 mg iron- 1 mg tablet 1 tab PO DAILY 30 Days Qty: 30 11RF albuterol sulfate 90 mcg/actuation HFA aerosol inhaler 1 inh inhalation QID PRN (Reason: shortness of breath or wheezing) Qty: 8.5 0RF progesterone micronized [Prometrium] 200 mg capsule 200 mg PO BEDTIME 10 Days Qty: 30 0RF Rx Instructions: Take the pill 1 tablet a day cyclically every month from day 15-24 day 1 being the 1st day of next menstrual cycle terazosin 1 mg capsule 1 mg PO BEDTIME 30 Days Qty: 30 1RF nitrofurantoin monohyd/m-cryst [Macrobid] 100 mg capsule 100 mg PO Q12H 10 Days Qty: 20 0RF Rx Instructions: must administer with a meal/food tadalafil [Cialis] 5 mg tablet 5 mg PO DAILY 90 Days Qty: 90 3RF Rx Instructions: BIN [id number] [facility] [address] Referrals: Physician,None [Primary Care Provider] - 12/01/23 Print Language: Cambodian
[2023-11-28 19:06] LABS: MANUAL DIFF FLAG NO
[2023-11-28 19:07] LABS: Basophils Absolute Auto 0.1 X10*3/uL (0.0-0.2); Basophils Percent Auto 0.9 % (0-2); Eosinophils Absolute Auto 0.4 X10*3/uL (0.0-0.4); Eosinophils Percent Auto 3.6 % (0-4); Hematocrit 39.3 % (37.0-47.0); Hemoglobin 13.7 g/dl (12.0-16.0); Imm Gran Abs Auto 0.01 X10*3/uL (0.00-0.03); Imm Gran Pct Auto 0.1 % (0.0-0.4); Lymphocytes Absolute Auto 3.4 X10*3/uL (1.2-4.9); Lymphocytes Percent Auto 33.2 % (20-40); Mean Corpuscular HGB Conc 34.9 g/dl (31.0-35.0); Mean Corpuscular Hemoglobin 30.3 pg (27.0-33.0); Mean Corpuscular Volume 86.9 fL (80.0-98.0); Mean Platelet Volume 9.6 fL (9.4-12.3); Monocytes Absolute Auto 0.6 X10*3/uL (0.1-1.2); Monocytes Percent Auto 5.7 % (2-11); Neutrophils Absolute Auto 5.7 x10*3/uL (2.0-8.3); Neutrophils Percent Auto 56.5 % (45-73); Platelet Count 363 X10*3/uL (160-400); Red Blood Count 4.52 X10*6/uL (4.20-5.50); Red Cell Distribution Width 12.5 % (11.0-16.0); White Blood Count 10.1 X10*3/uL (4.8-10.8)
[2023-11-28 19:12] LABS: Appearance Urine Clear; Color Urine Dark Yellow; Glucose Urine UA Negative (Negative); Leukocyte Esterase Urine Trace (Negative); Nitrite Urine Negative (Negative); PH 5.5 (5.0-9.0); Specific Gravity - Urine >= 1.030 (1.005-1.025); UMIC TRIGGER UACC YES; Urine Blood Negative (Negative); Urine Ketones 80 mg/dL (Negative); Urine Protein Negative (Neg-Trace)
[2023-11-28 19:22] LABS: Alanine Aminotransferase 22 U/L (0-31); Albumin Level 4.2 g/dL (3.5-5.0); Alkaline Phosphatase 88 U/L (39-117); Anion Gap 11 (12-20); Aspartate Amino Transferase 17 U/L (5-31); Bilirubin Total 0.4 mg/dL (0.0-1.0); Blood Urea Nitrogen 8 mg/dL (9-16); Calcium 9.2 mg/dL (8.4-10.2); Carbon Dioxide 22 mmol/L (22-29); Chloride 110 mmol/L (96-108); Creatinine Clr Calc Pharmacy 113.7; Estimated Glomerular Filt Rate > 60; Glucose Random 109 mg/dL (60-115); Lipase 20 U/L (8-78); Magnesium 1.9 mg/dL (1.6-2.6); Potassium 3.5 mmol/L (3.3-5.1); Sodium 139 mmol/L (135-145)
[2023-11-28 19:43] LABS: Influenza A PCR NEGATIVE (Negative); Influenza B PCR NEGATIVE (Negative); Resp Syncy Virus RNA Qual PCR NEGATIVE (Negative); SARS COV2 PCR INHOUSE NEGATIVE (Negative)
[2023-11-28 19:44] LABS: UPreg QC Valid YES; Urine Pregnancy NEGATIVE (NEGATIVE)
[2023-11-28 20:07] VITALS: BP 123/77; PULSE 80; RESP 16; TEMP 36.7; O2SAT 100
[2023-11-28 20:48] LABS: Bacteria Urine Trace (None Seen); WBC Urine 0-5 /HPF (0-5)
--- NOTE | 2023-11-28 22:35 | ED.ABDPAIN ---
HPI - Abdominal Pain General Chief Complaint: Abdominal Pain Stated Complaint: vomiting, nausea, nothing staying down Time Seen by Provider: 11/28/23 21:02 History of Present Illness HPI narrative: Patient is a 23-year-old female presents today with having nausea vomiting diarrhea generalized malaise. Patient from home. Diarrhea is brown in color. Vomiting mostly food. Water. Does not think she is her menstruation has been normal in timing and duration. No diaphoresis. No chest pain. No coughing or congestion or upper respiratory symptoms. Patient is from home. Related Data Previous Rx's ?Medication ?Instructions ?Recorded albuterol sulfate 90 mcg/actuation 1 inh inhalation QID PRN shortness 11/06/20 aerosol inhaler of breath or wheezing #8.5 grams progesterone micronized 200 mg 200 mg PO BEDTIME 10 days #30 caps 02/04/23 capsule (Prometrium) vitamin with calcium 1 tab PO DAILY 30 days #30 tabs 05/13/23 no.72-iron 27 mg-folic acid 1 mg tablet ( Vitamins Plus Low Iron) terazosin 1 mg capsule 1 mg PO BEDTIME 30 days #30 caps 05/21/23 nitrofurantoin 100 mg PO Q12H 10 days #20 caps 11/25/23 monohydrate/macrocrystals 100 mg capsule (Macrobid) tadalafil 5 mg tablet (Cialis) 5 mg PO DAILY 90 days #90 tabs 11/25/23 ondansetron 4 mg disintegrating 4 mg PO TID PRN nausea and 11/29/23 tablet vomiting 5 days #10 tabs Allergies Allergy/AdvReac Type Severity Reaction Status Date / Time amoxicillin Allergy Severe Anaphylaxis Verified 11/28/23 18:09 azithromycin Allergy Intermediate Hives Verified 11/28/23 18:09 Review of Systems Review of Systems Positive abdominal pain. Positive nausea vomiting diarrhea Yes all other systems are reviewed and are negative PMFSH Past Medical History Attestation statement: The following information was validated with the patient. Medical History No known health problems Surgical History H/O wisdom tooth extraction No pertinent past surgical history Family History Family History Mother No problems noted. Father No problems noted. Social History Social History Alcohol intake: current Alcohol intake frequency: holidays/special occasions only Patient Tobacco Use Status: Former Tobacco user Smoked in Last 30 Days: No Use of substances other than those prescribed or required for medical reasons: No Substance Use Type: Marijuana Advance Directives: No Advance Directives Information Provided: No Do you have a plan to hurt others: No Plan Patient : No Physical Exam ED Vital Signs: Vital Signs - 24 hr 11/28/23 18:08 11/28/23 20:07 Temperature 98.7 F 98.1 F Pulse Rate 88 80 Respiratory Rate 20 16 Blood Pressure 124/67 123/77 Pulse Oximetry 98 100 Oxygen Delivery Method Room Air Room Air BMI result Body Mass Index 30.7 Appearance: Alert. Oriented X3. No acute distress. Eyes: Pupils equal, round and reactive to light. ENT: Pharynx normal. Neck: Normal inspection. Neck supple. No lymph nodes noted. No crepitus CVS: Normal heart rate and rhythm. Pulses normal. Normal S1 and S2 Respiratory: No respiratory distress. Breath sounds normal. No Wheezing. No rales Abdomen: Soft and nontender. No rigidity. No distention. good BS x4 Skin: Skin warm and dry. Normal skin color. Normal skin turgor. Extremities: No lower extremity edema. Neurovascular intact to all extremities. No Lacerations. No Rash Neuro: Oriented X 3. No motor deficit. No sensory deficit. Moving all extermities. No slurred speech Medical Decision Making Medical Decision Making [facility] Narrative: Patient is a 23-year-old female presents today with having nausea vomiting diarrhea generalized malaise. Patient's abdominal exam was soft nontender. White count is normal. Vital signs are normal. Electrolytes are normal. test was negative urine was negative for infection. Repeat abdominal exam is soft nontender. After IV fluid hydration symptom much improved. Repeat abdominal exam is soft. Patient well-appearing. At this time felt patient risk of appendicitis is low. Will discharge home close follow-up on an outpatient basis. Differential Diagnosis Differential Diagnoses: The differential diagnosis associated with the presentation includes Gastroenteritis, kidney stone, appendicitis Admission/Observation Consideration of admission/observation: Escalation of care including admission/observation considered Lab Data [facility] Lab Attestation statement: I reviewed the patient's lab results. 11/28/23 19:00 11/28/23 19:00 Labs: Lab Results 11/28/23 11/28/23 Range/Units 19:00 19:01 WBC 10.1 (4.8-10.8) X10*3/uL RBC 4.52 (4.20-5.50) X10*6/uL Hgb 13.7 (12.0-16.0) g/dl Hct 39.3 (37.0-47.0) % MCV 86.9 (80.0-98.0) fL MCH 30.3 (27.0-33.0) pg MCHC 34.9 (31.0-35.0) g/dl RDW 12.5 (11.0-16.0) % Plt Count 363 (160-400) X10*3/uL MPV 9.6 (9.4-12.3) fL Immature Gran % (Auto) 0.1 (0.0-0.4) % Neut % (Auto) 56.5 (45-73) % Lymph % (Auto) 33.2 (20-40) % [place] % (Auto) 5.7 (2-11) % Eos % (Auto) 3.6 (0-4) % Baso % (Auto) 0.9 (0-2) % Lymph # (Auto) 3.4 (1.2-4.9) X10*3/uL [place] # (Auto) 0.6 (0.1-1.2) X10*3/uL Eos # (Auto) 0.4 (0.0-0.4) X10*3/uL Baso # (Auto) 0.1 (0.0-0.2) X10*3/uL Abs Immat Gran (auto) 0.01 (0.00-0.03) X10*3/uL Absolute Neuts (auto) 5.7 (2.0-8.3) x10*3/uL Absolute Nucleated RBC 0.000 (0.0-0.012) X10*3/uL Nucleated RBC % (auto) 0.0 (0.0-0.2) /100WBC Sodium 139 (135-145) mmol/L Potassium 3.5 (3.3-5.1) mmol/L Chloride 110 H (96-108) mmol/L Carbon Dioxide 22 (22-29) mmol/L Anion Gap 11 L (12-20) BUN 8 L (9-16) mg/dL Creatinine 0.70 (0.5-1.4) mg/dL Estim Creat Clear Calc 113.7 Estimated GFR > 60 Random Glucose 109 (60-115) mg/dL Calcium 9.2 (8.4-10.2) mg/dL Magnesium 1.9 (1.6-2.6) mg/dL Total Bilirubin 0.4 (0.0-1.0) mg/dL AST 17 (5-31) U/L ALT 22 (0-31) U/L Alkaline Phosphatase 88 (39-117) U/L Total Protein 7.0 (6.5-8.0) g/dL Albumin 4.2 (3.5-5.0) g/dL Lipase 20 (8-78) U/L Urine Color Dark Yellow Urine Appearance Clear Urine pH 5.5 (5.0-9.0) Ur Specific [place] >= 1.030 H (1.005-1.025) Urine Protein Negative (Neg-Trace) mg/dL Urine Glucose (UA) Negative (Negative) mg/dL Urine Ketones 80 (Negative) mg/dL Urine Blood Negative (Negative) Urine Nitrite Negative (Negative) Ur Leukocyte Esterase Trace H (Negative) Urine RBC 3-5 H (0-2) /HPF Urine WBC 0-5 (0-5) /HPF Ur Squamous Epith Cells 3-5 (0-2) /HPF Urine Bacteria Trace (None Seen) Hyaline Casts 3-5 (0-2) /LPF Urine Test NEGATIVE (NEGATIVE) Influenza Type A (PCR) NEGATIVE (Negative) Influenza Type B (PCR) NEGATIVE (Negative) RSV RNA Qual (PCR) NEGATIVE (Negative) SARS-CoV-2 RNA (RT-PCR) NEGATIVE (Negative) Medications Administered Discontinued Medications Generic Name Dose Route Start Last Admin Trade Name Freq PRN Reason Stop Dose Admin Sodium Chloride 1,000 mls @ 999 mls/hr 11/28/23 22:45 11/28/23 23:46 Ns IV 11/28/23 23:45 Infused .Q1H1M GERTRUDE Infusion Sodium Chloride 1,000 mls @ 999 mls/hr 11/28/23 22:45 11/28/23 23:46 Ns IV 11/28/23 23:45 Infused .Q1H1M GERTRUDE Infusion Ketorolac Tromethamine 30 mg 11/28/23 22:34 11/28/23 22:44 Ketorolac Tromethamine 30 Mg/Ml Vial IVPUSH 11/28/23 22:35 30 mg ONCE ONE Administration Ondansetron HCl 4 mg 11/28/23 22:34 11/28/23 22:44 Ondansetron Hcl 4 Mg/2 Ml Vial IVPUSH 11/28/23 22:35 4 mg ONCE ONE Administration Discharge Plan Discharge Clinical Impression: Vomiting, Diarrhea Patient Disposition: Home, Self-Care Instructions: Acute Nausea and Vomiting (ED), Acute Diarrhea (ED) Additional Instructions: Very small risk of appendicitis exists. Worsened pain returned. Prescriptions: New ondansetron 4 mg tablet,disintegrating 4 mg PO TID PRN (Reason: nausea and vomiting) 5 Days Qty: 10 0RF No Action Vitamin Plus Low Iron 27 mg iron- 1 mg tablet 1 tab PO DAILY 30 Days Qty: 30 11RF albuterol sulfate 90 mcg/actuation HFA aerosol inhaler 1 inh inhalation QID PRN (Reason: shortness of breath or wheezing) Qty: 8.5 0RF progesterone micronized [Prometrium] 200 mg capsule 200 mg PO BEDTIME 10 Days Qty: 30 0RF Rx Instructions: Take the pill 1 tablet a day cyclically every month from day 15-24 day 1 being the 1st day of next menstrual cycle terazosin 1 mg capsule 1 mg PO BEDTIME 30 Days Qty: 30 1RF nitrofurantoin monohyd/m-cryst [Macrobid] 100 mg capsule 100 mg PO Q12H 10 Days Qty: 20 0RF Rx Instructions: must administer with a meal/food tadalafil [Cialis] 5 mg tablet 5 mg PO DAILY 90 Days Qty: 90 3RF Rx Instructions: [facility] [id number] [facility] Referrals: Physician,None [Primary Care Provider] - 12/01/23 Print Language: Moroccan
[2023-11-28] MEDS: 0.9 % Sodium Chloride 1,000 ML 999 ML IV ×2 (22:44→22:45)
[2023-11-28] MEDS: ondansetron HCL 4 MG/2 ML VIAL IVPUSH (22:44)
[2023-11-28] MEDS: Ketorolac Tromethamine 30 MG/ML VIAL IVPUSH (22:44)
[2023-11-29 00:25] VITALS: BP 120/70; PULSE 76; RESP 16; TEMP 36.7; O2SAT 100
== END 2023-11-29 00:26 | disposition home or self-care (01) ==
PROVIDERS: Physician Assistant Medical; Emergency Provider Emergency Medicine Emergency Medical Services
DX: R11.2 Nausea with vomiting, unspecified (principal); R19.7 Diarrhea, unspecified
CPT/HCPCS: 0241U; 80053; 81001; 81003; 81025; 83690; 83735; 85025; 96361; 96374; 96375; 99284; 99285; J1885; J2405

== ENCOUNTER 2024-01-09 15:31 | Outpatient (AMB) | payer OTHER, SELFPAY ==
--- NOTE | 2024-01-09 15:48 | MHC.OFFVIS ---
Intake Visit Reasons: follow up Intake Note: Patient presents today for follow up interstitial cystitis Urology Medications: cialis, terazosin Blood Thinner:None PVR: 155ml's Personal Care Worker Required: No Feather Washer: Feather Washer offered & declined Accompanied by: Self / Same As Patient Allergies amoxicillin Allergy (Severe, Verified 01/10/24 15:23) Anaphylaxis azithromycin Allergy (Intermediate, Verified 01/10/24 15:23) Hives Medication List - Last Reconciled 01/10/24 by MASTER Lester albuterol sulfate 90 mcg/actuation 1 inh inhalation QID PRN ondansetron 4 mg PO TID PRN 5 days PNV,calcium [id number]-[id number] acid 27 mg iron- 1 mg ( Vitamins Plus Low Iron) 1 tab PO DAILY 30 days progesterone micronized (Prometrium) 200 mg PO BEDTIME 10 days tadalafil (Cialis) 5 mg PO DAILY 90 days terazosin 1 mg PO BEDTIME 30 days HPI Comments Details: Mini is a very pleasant 23-year-old female patient who presents to the office today for a follow up of her interstitial cystitis follow-up. Of note, patient was seen approximately 6 weeks ago at which time she was reporting UTI like symptoms and urinalysis was sent for culture. Culture 11/20 noted mixed 100,000 cfu/ Mixed bacterial woo. In discussion with the patient today she reports having completed Macrobid as prescribed. She reports feeling UTI like symptoms have since subsided however is having feelings of incomplete bladder emptying. She discusses feeling incomplete bladder emptying when on her menses. In office urinalysis results reviewed with the patient today negative nitrates in 1+ leukocytes. PH 5.5 discussed correlation of low pH with history of interstitial cystitis. PVR 155 mL. She does report compliance with tadalafil and low-dose terazosin as prescribed. Discussed further treatment options for incomplete bladder emptying to include CIC verses trial of bethanechol. However, patient feels incomplete bladder emptying when on menses therefore will reassess in 2-3 weeks. She discusses following up with obstetrics gynecology physician later this month for her abnormal menses. She otherwise denies incontinence, nocturia, hematuria, dysuria, foul smelling urine, changes to urinary stream, flank pain, fever, and or chills. She continues with attempting double voiding to assist with incomplete bladder emptying. Previous workup and management of interstitial cystitis includes the Vistaril, VESIcare, and Elmiron. Previous interventions have included a cysto hydrodistention in August of 2022. Cystoscopy findings noted moderate glomerulation post extension and bladder capacity post extension volume was 750 mL. She otherwise offers no other issues or concerns at this time. [facility] Medical History No known health problems Surgical History H/O wisdom tooth extraction No pertinent past surgical history Family History Mother No problems noted. Father No problems noted. Social History Alcohol intake: current Alcohol intake frequency: holidays/special occasions only Patient Tobacco Use Status: Former Tobacco user Substance Use Type: Marijuana Review of Systems Const All systems reviewed & are unremarkable except as noted in HPI and below Reports as per HPI Eyes Reports no additional complaints ENT Reports no additional complaints Card Reports no additional complaints Resp Reports no additional complaints GI Reports no additional complaints Reports as per HPI Musc Reports no additional complaints Neuro Reports no additional complaints Psych Reports no additional complaints Endo Reports no additional complaints Mehran/Lymph Reports no additional complaints Aller/Immun Reports no additional complaints Physical Exam Const General: cooperative, healthy appearing, comfortable, no acute distress, well developed, alert and awake Orientation/consciousness: patient oriented x3 Limitations: no limitations HEENT Head: Yes normal to inspection, Yes normocephalic and Yes atraumatic Ears: hearing grossly normal bilaterally Eyes General: appearance normal, both eyes and all related structures Neck Neck: Yes normal visual inspection and Yes trachea midline Chest Chest palpation & inspection: normal inspection of the chest Resp Effort & Inspection: normal respiratory effort and able to speak in complete sentences Cardio Rate: regular rate GI Inspection: Yes normal to inspection General: Yes no CVA tenderness Back/Spine/Pelvis Back: no CVA tenderness Skin General skin exam: no rashes or lesions noted Neuro General: patient oriented x3 Extrem General: Yes normal to inspection Psych Appearance: grossly normal and well kempt Mental Status: mental status grossly normal Speech and movement: Normal speech and movement present and Clear speech present Affect: Sad affect present Attitude: cooperative Thought process: Normal thought process present Thought content: Normal thought content present Insight: Fair insight present (Psych) Judgement: Fair judgement present (Psych) Office Procedures Post Void Residual Post Residual Void Post Void Residual (PVR): 155 [id number] Void Residual by ultrasound Results AMB Urinalysis, Automated UA Leukoctes 15 August/uL Last Edit by Sylvester Guerin on 01/09/24 16:07 UA Nitrite Negative Last Edit by [employer] on 01/09/24 16:07 UA Urobilinogen 0.2 mg/dL Last Edit by [employer] on 01/09/24 16:07 UA Protein 15 mg/dL Last Edit by [employer] on 01/09/24 16:07 UA pH 5.5 Last Edit by [employer] on 01/09/24 16:07 UA Blood 0 Truong/uL Last Edit by [employer] on 01/09/24 16:07 UA Specific [place] 1.020 Last Edit by [employer] on 01/09/24 16:07 UA Ketone Negative Last Edit by [employer] on 01/09/24 16:07 UA Bilirubin 0 mg/dL Last Edit by [employer] on 01/09/24 16:07 UA Glucose 0 mg/dL Last Edit by [employer] on 01/09/24 16:07 Results Reviewed Results Reviewed: Laboratory Last Values Urine pH (Auto) 5.5 01/09/24 16:04 Specific [place] (Auto) 1.020 01/09/24 16:04 Urine Protein (Auto) 15 mg/dL 01/09/24 16:04 Glucose (UA)(Auto) 0 mg/dL 01/09/24 16:04 Urine Ketones (Auto) Negative 01/09/24 16:04 Urine Blood (Auto) 0 Truong/uL 01/09/24 16:04 Urine Nitrite (Auto) Negative 01/09/24 16:04 Urine Bilirubin (Auto) 0 mg/dL 01/09/24 16:04 Urine Urobilinogen (Auto) 0.2 mg/dL 01/09/24 16:04 Leukocyte Esterase (Auto) 15 August/uL 01/09/24 16:04 Assessment & Plan Assessment & Plan (1) Incomplete bladder emptying: Code(s): R33.9 - Retention of urine, unspecified Category: Medical (2) Interstitial cystitis: Code(s): N30.10 - Interstitial cystitis (chronic) without hematuria Category: Medical (3) Sensation of pressure in bladder area: Code(s): R39.89 - Other symptoms and signs involving the genitourinary system Category: Medical Plan In office urinalysis results reviewed with the patient today; as noted above. PVR 155ml's. Continue tadalafil and terazosin as discussed and prescribed. Discussed further treatment options of incomplete bladder emptying to include CIC verses trial of bethanechol versus surveillance monitoring. Follow-up with obstetrics gynecology physician as planned. Patient currently denies any UTI like symptoms. Continue to attempt double voiding to assist with incomplete bladder emptying. Discussed, educated, and stressed the importance of adequate hydration in relation to interstitial cystitis as well as overall health and well-being. Discussed bladder triggers/irritants. Information provided for pelvic floor exercises. Follow-up in 2-3 weeks with PVR; or sooner with any issues, concerns, and or questions. Orders: Orders AMB Urinalysis Automated 01/09/24 Z13.9 - Encounter for screening, unspecified AMB Post Void Residual by ultrasound 01/09/24 R33.9 - Retention of urine, unspecified Patient Instructions: The patient had an opportunity to ask questions regarding the treatment plan. All questions were answered. Physical exam, labs, and imaging were discussed and reviewed in detail. As well as risks, benefits, and discussion of treatment choices. No major barriers to understanding were identified. The patient expressed understanding and agreement with the above treatment plan. The patient was made aware they should contact our office by phone for worsening of their current condition, the appearance of new symptoms, or with any questions or concerns. Compliance is encouraged with any medications and follow up testing that is ordered. It is a privilege to be allowed the opportunity to participate in? your urological care.? Again, if you have any questions or concerns If you have any questions or concerns please do not hesitate to contact me. The office is [phone]. This note is constructed using voice recognition software. While every effort has been made to ensure accuracy hide cooking operator errors may have been included. Yours sincerely, PAM Lester Coding Level of Care Code Est Pt Level 4 (33779) Diagnoses Incomplete bladder emptying R33.9 Interstitial cystitis N30.10 Sensation of pressure in bladder area R39.89 CPT Codes Post Residual Void - PVR CPT Code: 90168-Yhlh Void Residual by ultrasound ([id number]) Time Spent (min) 25
== END 2024-01-09 16:08 | disposition home or self-care (01) ==
PROVIDERS: Visit Provider Nurse Practitioner Family
DX: R33.9 Retention of urine, unspecified (principal); N30.10 Interstitial cystitis (chronic) without hematuria; R39.89 Other symptoms and signs involving the genitourinary system
CPT/HCPCS: 99214

== ENCOUNTER → 2024-01-09 15:31 | Outpatient (BNVA) | payer OTHER, SELFPAY | PROVIDERS: Visit Provider Nurse Practitioner Family | DX: R33.9 Retention of urine, unspecified (principal); R39.89 Other symptoms and signs involving the genitourinary system; N30.10 Interstitial cystitis (chronic) without hematuria | CPT/HCPCS: 51798; 81003; 99212 ==

== ENCOUNTER 2024-02-13 09:44 | Emergency (ER) | payer OTHER, SELFPAY ==
--- NOTE | ~2024-02-13 | US_ITS ---
EXAMINATION: US PELVIS CLINICAL INFORMATION: Right pelvic pain. History of cyst. LMP 2 weeks ago. COMPARISON: Pelvic ultrasound dated 12/09/2022. TECHNIQUE: Ultrasound of the pelvis is performed using both transabdominal and transvaginal transducers along with Doppler. Transvaginal imaging is performed due to inadequate visualization transabdominally. FINDINGS: Uterus: The uterus is anteverted and measures 6.5 x 2.7 x 3.5 cm. The double wall endometrial thickness is 1.2 mm. The uterus is smooth in contour and has normal myometrial echogenicity. No visible fibroid. Adnexa: Both ovaries are visualized. There is normal color flow to the adnexa. There is no ovarian torsion. There is a small amount of free fluid within the cul-de-sac. Right ovary measures 3.0 x 2.3 x 2.3 cm. There is a 1.6 x 1.4 x 1.2 cm corpus luteal cyst. Left ovary measures 2.7 x 1.5 x 2.0 cm. US/US pelvic and transvaginal IMPRESSION: Both ovaries are visualized. There is a corpus luteal cyst measuring 1.6 x 1.4 x 1.2 cm on the right. The left ovary is normal in appearance.
--- NOTE | ~2024-02-13 | US_ITS ---
EXAMINATION: US PELVIS CLINICAL INFORMATION: Right pelvic pain. History of cyst. LMP 2 weeks ago. COMPARISON: Pelvic ultrasound dated 12/09/2022. TECHNIQUE: Ultrasound of the pelvis is performed using both transabdominal and transvaginal transducers along with Doppler. Transvaginal imaging is performed due to inadequate visualization transabdominally. FINDINGS: Uterus: The uterus is anteverted and measures 6.5 x 2.7 x 3.5 cm. The double wall endometrial thickness is 1.2 mm. The uterus is smooth in contour and has normal myometrial echogenicity. No visible fibroid. Adnexa: Both ovaries are visualized. There is normal color flow to the adnexa. There is no ovarian torsion. There is a small amount of free fluid within the cul-de-sac. Right ovary measures 3.0 x 2.3 x 2.3 cm. There is a 1.6 x 1.4 x 1.2 cm corpus luteal cyst. Left ovary measures 2.7 x 1.5 x 2.0 cm. US/US pelvic ovarian doppler IMPRESSION: Both ovaries are visualized. There is a corpus luteal cyst measuring 1.6 x 1.4 x 1.2 cm on the right. The left ovary is normal in appearance.
[2024-02-13 09:53] VITALS: BP 103/70; PULSE 68; RESP 16; TEMP 36.9; O2SAT 98; BMI 29.7
[2024-02-13 10:11] VITALS: BP 103/70; PULSE 68; RESP 16; TEMP 36.9; O2SAT 98
[2024-02-13 10:29] LABS: MANUAL DIFF FLAG NO
[2024-02-13 10:30] LABS: Appearance Urine Clear; Color Urine Yellow; Glucose Urine UA Negative (Negative); Leukocyte Esterase Urine Trace (Negative); Nitrite Urine Negative (Negative); Specific Gravity - Urine 1.025 (1.005-1.025); UMIC TRIGGER UACC YES; Urine Blood Negative (Negative); Urine Ketones Negative (Negative); Urine Protein Negative (Neg-Trace)
[2024-02-13 10:30] LABS: Basophils Absolute Auto 0.1 X10*3/uL (0.0-0.2); Basophils Percent Auto 1.1 % (0-2); Eosinophils Absolute Auto 0.3 X10*3/uL (0.0-0.4); Eosinophils Percent Auto 3.9 % (0-4); Hematocrit 39.1 % (37.0-47.0); Hemoglobin 13.6 g/dl (12.0-16.0); Imm Gran Abs Auto 0.01 X10*3/uL (0.00-0.03); Imm Gran Pct Auto 0.2 % (0.0-0.4); Lymphocytes Absolute Auto 2.2 X10*3/uL (1.2-4.9); Lymphocytes Percent Auto 34.4 % (20-40); Mean Corpuscular HGB Conc 34.8 g/dl (31.0-35.0); Mean Corpuscular Hemoglobin 30.2 pg (27.0-33.0); Mean Corpuscular Volume 86.9 fL (80.0-98.0); Mean Platelet Volume 9.6 fL (9.4-12.3); Monocytes Absolute Auto 0.4 X10*3/uL (0.1-1.2); Monocytes Percent Auto 6.5 % (2-11); Neutrophils Absolute Auto 3.4 x10*3/uL (2.0-8.3); Neutrophils Percent Auto 53.9 % (45-73); Platelet Count 361 X10*3/uL (160-400); Red Cell Distribution Width 12.6 % (11.0-16.0); White Blood Count 6.3 X10*3/uL (4.8-10.8)
[2024-02-13 10:32] LABS: Bacteria Urine Trace (None Seen); Hyaline Casts Urine 0-2 /LPF (0-2); RBC Urine 0-2 /HPF (0-2); WBC Urine 0-5 /HPF (0-5)
[2024-02-13 10:44] LABS: Alanine Aminotransferase 25 U/L (0-31); Albumin Level 3.8 g/dL (3.5-5.0); Alkaline Phosphatase 88 U/L (39-117); Anion Gap 11 (12-20); Aspartate Amino Transferase 20 U/L (5-31); Bilirubin Total 0.2 mg/dL (0.0-1.0); Blood Urea Nitrogen 9 mg/dL (9-16); Calcium 9.1 mg/dL (8.4-10.2); Carbon Dioxide 22 mmol/L (22-29); Chloride 111 mmol/L (96-108); Creatinine Clr Calc Pharmacy 111.9; Estimated Glomerular Filt Rate > 60; Glucose Random 91 mg/dL (60-115); Lipase 32 U/L (8-78); Potassium 4.2 mmol/L (3.3-5.1); Sodium 140 mmol/L (135-145); Total Protein 6.6 g/dL (6.5-8.0)
[2024-02-13 11:04] LABS: HCG Quantitative < 2 mIU/mL
--- NOTE | 2024-02-13 11:35 | ED.ABDPAIN ---
HPI - Abdominal Pain General Chief Complaint: Abdominal Pain Stated Complaint: abd pain Time Seen by Provider: 02/13/24 10:06 Source: patient Mode of arrival: ambulatory Limitations: no limitations History of Present Illness ED Provider: Adia Chaudhry PA-C HPI narrative: 23-year-old female presents to the ER for evaluation of acute onset of right lower quadrant/right pelvic pain that started at 06:00 this morning. She reports the pain is sharp, constant and it woke her up out of sleep. She has had nausea and diarrhea x4, no blood. No vomiting. No radiation of the pain. She states her last menstrual period was 2 weeks ago and she has had some intermittent spotting since then. She has normal vaginal discharge without any foul odor. She denies any fever or chills. She reports remote history of ovarian cysts in the past. She denies any urinary symptoms or back pain. MD elicited complaint: abdominal pain Pertinent past history: other (ovarian cysts) Onset (ago): hour(s) Pain Consistency: constant Location: RLQ Severity: severe Quality: cramping and sharp Radiation: none Migration to: no migration Exacerbating factors: nothing Relieving factors: nothing Context: history of similar episodes Associated symptoms: nausea and diarrhea Related Data Date of Last Menstrual Period: 01/29/24 Previous Rx's ?Medication ?Instructions ?Recorded albuterol sulfate 90 mcg/actuation 1 inh inhalation QID PRN shortness 11/06/20 aerosol inhaler of breath or wheezing #8.5 grams progesterone micronized 200 mg 200 mg PO BEDTIME 10 days #30 caps 02/04/23 capsule (Prometrium) vitamin with calcium 1 tab PO DAILY 30 days #30 tabs 05/13/23 no.72-iron 27 mg-folic acid 1 mg tablet ( Vitamins Plus Low Iron) terazosin 1 mg capsule 1 mg PO BEDTIME 30 days #30 caps 05/21/23 tadalafil 5 mg tablet (Cialis) 5 mg PO DAILY 90 days #90 tabs 11/25/23 ondansetron 4 mg disintegrating 4 mg PO TID PRN nausea and 11/29/23 tablet vomiting 5 days #10 tabs naproxen 500 mg tablet 500 mg PO BID PRN pain #20 tabs 02/13/24 Allergies Allergy/AdvReac Type Severity Reaction Status Date / Time amoxicillin Allergy Severe Anaphylaxis Verified 02/13/24 09:55 azithromycin Allergy Intermediate Hives Verified 02/13/24 09:55 Review of Systems Review of Systems Yes all other systems are reviewed and are negative [facility] Past Medical History Medical History No known health problems Surgical History H/O wisdom tooth extraction No pertinent past surgical history Date of Last Menstrual Period: 01/29/24 Family History Family History Mother No problems noted. Father No problems noted. Social History Social History Alcohol intake: never Patient Tobacco Use Status: Former Tobacco user Smoked in Last 30 Days: Yes Substance Use Type: Marijuana Advance Directives: No Advance Directives Information Provided: No Patient : No Physical Exam ED Vital Signs: Vital Signs - 24 hr 02/13/24 09:53 02/13/24 10:11 02/13/24 13:11 Temperature 98.5 F 98.5 F 98.7 F Pulse Rate 68 68 62 Respiratory Rate 16 16 16 Blood Pressure 103/70 103/70 102/65 Pulse Oximetry 98 98 99 Oxygen Delivery Method Room Air Room Air Room Air 02/13/24 15:45 Temperature 97.2 F Pulse Rate 71 Respiratory Rate 18 Blood Pressure 108/65 Pulse Oximetry 100 Oxygen Delivery Method Room Air BMI result Body Mass Index 29.7 Appearance: Alert. Oriented X3. No acute distress. Head: normocephalic, atraumatic. Eyes: Pupils equal, round and reactive to light. ENT: Pharynx normal. No tonsillar swelling or exudate. Neck: Normal inspection. Neck supple. CVS: Normal heart rate and rhythm. Pulses normal. Respiratory: No respiratory distress. Breath sounds normal. Abdomen: Soft with mild right lower quadrant/right pelvic pain without rebound or guarding, negative rovsings sign. normal active +BS x4 Skin: Skin warm and dry. Normal skin color. Normal skin turgor. No rashes. Extremities: No lower extremity edema. No joint swelling. Neuro/psych: Oriented X 3. No motor deficit. No sensory deficit. CN II-XII intact. Normal speech and cognition. Medical Decision Making Medical Decision Making [facility] Narrative: 23-year-old female with a history of interstitial cystitis, history of ovarian cysts who presents the ER for evaluation of right lower quadrant/pelvic pain that started this morning when she woke up. Last menstrual period was 2 weeks ago. On arrival to ER patient appears uncomfortable. She is not tachycardic or hypertensive, no fevers to suggest sepsis. Examination reveals a soft abdomen with tenderness in the lower pelvic area on the right side. Lab workup shows no leukocytosis. Urinalysis negative for infection and . Low lower clinical suspicion for acute appendicitis. Ultrasound of the pelvis was done that showed a small cyst on the right side. Pain improved with Toradol. Stable for d/c home with PRN NSAID, [facility] MAGISTRATE follow up. return precautions were discussed. Differential Diagnosis Differential Diagnoses: The differential diagnosis associated with the presentation includes Ovarian cyst, ovarian torsion, ruptured cyst, PID, tubo-ovarian abscess, gas, colitis, appendicitis Admission/Observation Consideration of admission/observation: Escalation of care including admission/observation considered Right lower quadrant pain, considered observation/admission however workup was unremarkable and pain improved with Toradol Lab Data [facility] Lab Attestation statement: I reviewed the patient's lab results. No leukocytosis, normal renal function 02/13/24 10:10 02/13/24 10:10 Labs: Lab Results 02/13/24 02/13/24 Range/Units 10:10 10:17 WBC 6.3 (4.8-10.8) X10*3/uL RBC 4.50 (4.20-5.50) X10*6/uL Hgb 13.6 (12.0-16.0) g/dl Hct 39.1 (37.0-47.0) % MCV 86.9 (80.0-98.0) fL MCH 30.2 (27.0-33.0) pg MCHC 34.8 (31.0-35.0) g/dl RDW 12.6 (11.0-16.0) % Plt Count 361 (160-400) X10*3/uL MPV 9.6 (9.4-12.3) fL Immature Gran % (Auto) 0.2 (0.0-0.4) % Neut % (Auto) 53.9 (45-73) % Lymph % (Auto) 34.4 (20-40) % [place] % (Auto) 6.5 (2-11) % Eos % (Auto) 3.9 (0-4) % Baso % (Auto) 1.1 (0-2) % Lymph # (Auto) 2.2 (1.2-4.9) X10*3/uL [place] # (Auto) 0.4 (0.1-1.2) X10*3/uL Eos # (Auto) 0.3 (0.0-0.4) X10*3/uL Baso # (Auto) 0.1 (0.0-0.2) X10*3/uL Abs Immat Gran (auto) 0.01 (0.00-0.03) X10*3/uL Absolute Neuts (auto) 3.4 (2.0-8.3) x10*3/uL Absolute Nucleated RBC 0.000 (0.0-0.012) X10*3/uL Nucleated RBC % (auto) 0.0 (0.0-0.2) /100WBC Sodium 140 (135-145) mmol/L Potassium 4.2 (3.3-5.1) mmol/L Chloride 111 H (96-108) mmol/L Carbon Dioxide 22 (22-29) mmol/L Anion Gap 11 L (12-20) BUN 9 (9-16) mg/dL Creatinine 0.70 (0.5-1.4) mg/dL Estim Creat Clear Calc 111.9 Estimated GFR > 60 Random Glucose 91 (60-115) mg/dL Calcium 9.1 (8.4-10.2) mg/dL Total Bilirubin 0.2 (0.0-1.0) mg/dL AST 20 (5-31) U/L ALT 25 (0-31) U/L Alkaline Phosphatase 88 (39-117) U/L Total Protein 6.6 (6.5-8.0) g/dL Albumin 3.8 (3.5-5.0) g/dL Lipase 32 (8-78) U/L Beta HCG, Quant < 2 mIU/mL Urine Color Yellow Urine Appearance Clear Urine pH 6.0 (5.0-9.0) Ur Specific [place] 1.025 (1.005-1.025) Urine Protein Negative (Neg-Trace) mg/dL Urine Glucose (UA) Negative (Negative) mg/dL Urine Ketones Negative (Negative) mg/dL Urine Blood Negative (Negative) Urine Nitrite Negative (Negative) Ur Leukocyte Esterase Trace H (Negative) Urine RBC 0-2 (0-2) /HPF Urine WBC 0-5 (0-5) /HPF Ur Squamous Epith Cells 6-10 (0-2) /HPF Urine Bacteria Trace (None Seen) Hyaline Casts 0-2 (0-2) /LPF Independent Interpretation I performed an independent interpretation of an: Ultrasound Interpretation: No large cyst appreciated, agree w/ radiology read Radiology Impression Discussion of test interpretation with radiology: I have reviewed the radiologist's reading. Radiologist Impression: EXAMINATION: US PELVIS CLINICAL INFORMATION: Right pelvic pain. History of cyst. LMP 2 weeks ago. COMPARISON: Pelvic ultrasound dated 12/09/2022. TECHNIQUE: Ultrasound of the pelvis is performed using both transabdominal and transvaginal transducers along with Doppler. Transvaginal imaging is performed due to inadequate visualization transabdominally. FINDINGS: Uterus: The uterus is anteverted and measures 6.5 x 2.7 x 3.5 cm. The double wall endometrial thickness is 1.2 mm. The uterus is smooth in contour and has normal myometrial echogenicity. No visible fibroid. Adnexa: Both ovaries are visualized. There is normal color flow to the adnexa. There is no ovarian torsion. There is a small amount of free fluid within the cul-de-sac. Right ovary measures 3.0 x 2.3 x 2.3 cm. There is a 1.6 x 1.4 x 1.2 cm corpus luteal cyst. Left ovary measures 2.7 x 1.5 x 2.0 cm. US/US pelvic and transvaginal IMPRESSION: Both ovaries are visualized. There is a corpus luteal cyst measuring 1.6 x 1.4 x 1.2 cm on the right. The left ovary is normal in appearanc External Record Review External record reviewed: Outpatient record, Prior outpatient labs and Prior outpatient radiology Tests considered The following testing was considered but not selected: CT scan abdomen pelvis was considered however low indication for acute appendicitis or acute abdomen Prescription Management I considered prescription management with: Pain Medication and Antibiotic Chronic Conditions Patient?s care impacted by: Other (Ovarian cysts) Medications Administered Discontinued Medications Generic Name Dose Route Start Last Admin Trade Name Freq PRN Reason Stop Dose Admin Ketorolac Tromethamine 15 mg 02/13/24 14:57 02/13/24 15:13 Ketorolac Tromethamine 15 Mg/Ml Vial IVPUSH 02/13/24 14:58 15 mg ONCE ONE Administration Critical Care Time Critical Care Time Critical Care Time: No Discharge Plan Discharge Clinical Impression: Ovarian cyst Qualifiers: Laterality: right Qualified Code(s): N83.201 - Unspecified ovarian cyst, right side Patient Disposition: Home, Self-Care Instructions: Ovarian Cyst (ED) Additional Instructions: Your lab workup today was unremarkable. Your urine test was negative for infection and Your ultrasound showed a small ovarian cyst on the right side Take the prescribed anti-inflammatory pain medication as needed for pain Follow up with [facility] [facility] MAGISTRATE If you develop new or worsening symptoms call 911 or come back to the ER for further evaluation. Prescriptions: New naproxen 500 mg tablet 500 mg PO BID PRN (Reason: pain) Qty: 20 0RF No Action Vitamin Plus Low Iron 27 mg iron- 1 mg tablet 1 tab PO DAILY 30 Days Qty: 30 11RF albuterol sulfate 90 mcg/actuation HFA aerosol inhaler 1 inh inhalation QID PRN (Reason: shortness of breath or wheezing) Qty: 8.5 0RF ondansetron 4 mg tablet,disintegrating 4 mg PO TID PRN (Reason: nausea and vomiting) 5 Days Qty: 10 0RF progesterone micronized [Prometrium] 200 mg capsule 200 mg PO BEDTIME 10 Days Qty: 30 0RF Rx Instructions: Take the pill 1 tablet a day cyclically every month from day 15-24 day 1 being the 1st day of next menstrual cycle terazosin 1 mg capsule 1 mg PO BEDTIME 30 Days Qty: 30 1RF tadalafil [Cialis] 5 mg tablet 5 mg PO DAILY 90 Days Qty: 90 3RF Rx Instructions: BIN [id number] [facility] [id number] Referrals: Eduardo Dacosta MD [Physician] - Stand Alone Forms: Work/School Release Interventions: ED Discharge Assessment Last Done: 02/13/24 15:45 Discharge Date/Time: 02/13/24 15:46 Print Language: [place]
[2024-02-13 13:11] VITALS: BP 102/65; PULSE 62; RESP 16; TEMP 37.1; O2SAT 99
[2024-02-13] MEDS: Ketorolac Tromethamine 15 MG/ML VIAL IVPUSH (15:13)
[2024-02-13 15:45] VITALS: BP 108/65; PULSE 71; RESP 18; TEMP 36.2; O2SAT 100
== END 2024-02-13 15:46 | disposition home or self-care (01) ==
PROVIDERS: Emergency Provider Emergency Medicine
DX: R10.2 Pelvic and perineal pain (principal); N83.11 Corpus luteum cyst of right ovary; Z87.891 Personal history of nicotine dependence
CPT/HCPCS: 36415; 76830; 76856; 80053; 81001; 83690; 84702; 85025; 93975; 96374; 99284; J1885

== ENCOUNTER 2024-04-07 15:03 | Outpatient (AMB) | payer OTHER, SELFPAY ==
--- NOTE | 2024-04-07 14:55 | A.OFFVIS_ITS ---
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 Services: Frankfurter Inspector Present Information Interpreted: clinical only Tree Pruner: Tree Pruner Present Allergies amoxicillin Allergy (Severe, Verified 04/07/24 15:04) Anaphylaxis azithromycin Allergy (Intermediate, Verified 04/07/24 15:04) Hives Medication List - Last Reconciled 04/07/24 by Rachell Del Real CNM albuterol sulfate 90 mcg/actuation 1 inh inhalation QID PRN ondansetron 4 mg PO TID PRN 5 days PNV,calcium 28-ydzp-aqpoi acid 27 mg iron- 1 mg ( Vitamins Plus Low Iron) 1 tab PO DAILY 30 days tadalafil (Cialis) 5 mg PO DAILY 90 days terazosin 1 mg PO BEDTIME 30 days Is last menstrual period known: Yes Last menstrual period: 03/21/24 HPI HPI 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 She has a history of having ovarian cysts and says she was put on Prometrium by Dr. Dacosta last year to manage it she has been trying to get so she has not wanted to use control. She was getting regular periods but the last 2 months has not had a real. Just a little spotting for 1 day her last real period for 3 days was in November (december 10). She feels bloated and crampy like she is going to get her period. She does think she has gained weight in the last year. [facility] Medical History No known health problems Surgical History H/O wisdom tooth extraction No pertinent past surgical history Family History Mother No problems noted. Father No problems noted. Social History Alcohol intake: never Patient Tobacco Use Status: Former Tobacco user Substance Use Type: Marijuana Female Reproductive History Menstrual Age of Menarche: 12 Duration of menses: <3 days Date of last menstrual period: 03/21/24 control method: none Total pregnancies: 0 Date of last pap smear: 02/06/23 (negative,previous pap 2020 neg) History of abnormal pap smear: No Physical Exam Vital Signs: Last Vital Signs BP 116/66 04/07/24 15:01 BMI result Body Mass Index 29.7 Const Other: Skin slightly dusky, patient denies been a cigarette smoker General: healthy appearing, comfortable, no acute distress, well developed and alert Nutritional Appearance: average body habitus Orientation/consciousness: patient oriented x3 Limitations: no limitations HEENT Head: Yes normocephalic Neck Neck: Yes normal visual inspection Chest Chest palpation & inspection: normal inspection of the chest Breast/axilla inspection: normal inspection of the breasts and normal inspection of the axillae Breast/axilla palpation: normal palpation of the breasts and normal palpation of the axillae Resp Effort & Inspection: normal respiratory effort GI Inspection: Yes normal to inspection, No Abdominal wall edema and No distended Palpation (GI): Soft to palpation and nontender Other: External exam within normal limits vagina pink and moist her cervix is nulliparous pink smooth healthy appearing normal clear scant healthy appearing mucus cervix long thick closed mobile nontender uterus mobile nontender midposition no adnexal mass or tenderness good tone with Kegel. General: Yes bladder normal to palpation External Female Exam: normal external appearance and normal appearance of the urethra Speculum Exam - Vagina: normal appearance of the vagina, normal palpation and no rmal vaginal discharge Speculum Exam - Cervix: normal appearance of the cervix, normal palpation and nontender Bimanual exam- vagina & uterus: normal bimanual exam, normal palpation, uterine size normal, bladder normal to palpation, consistency normal, normal palpation, uterine mobility normal, uterine shape normal, No Cervical tenderness present, non-tender and no cervical motion tenderness Bimanual Exam- Adnexa, other: normal adnexae, no masses, normal and No adnexal tenderness Neuro General: patient oriented x3 Results Reviewed Results Reviewed: Name: Mini Villaafna Age/Sex: 22/F Attending: Eduardo Dacosta MD : 2000 Submitted by: Eduardo Dacosta MD Copies to: Physician,Unknown MR #: [id number] Status: DEP REF Collected: 02/04/23 Location: [facility] Received: 02/06/23 Interpretation Satisfactory for evaluation. Negative for intraepithelial lesion or malignancy. Mild inflammation. Clinical Information LMP:01/13/23 Previous PAP test:Unknown date/findings Other history:Abnormal uterine and vaginal bleeding Material Received ThinPrep-Cervical Copies To Physician,Chris , Eduardo Dacosta MD [address] [place] [address] Dr. Ferrara [address] [place] [address] [id number] Electronically Signed By: Liz Denise 02/22/23 2260 The Pap Test is a screening procedure with the inherent possibility of both false negative and false positive results. Results should be interpreted in the context of historic and current clinical findings. Reliability of the Pap Test is enhanced by performing the test on a regular repetitive basis. Patient: Mini Villafana Age/Sex: 22/F MR#: [id number] Page 1 of 1 Patient: Mini Villafana MR#: [id number] : 2000 Acct:[id number] Age/Sex: 23 / F ADM Date: 02/13/24 Loc: .ED Attending Dr: Ordering Physician: Tresa Chaudhry Date of Service: 02/13/24 Procedure(s): US pelvic and transvaginal Accession Number(s): [id number] cc: Physician,None ; Tresa Chaudhry~ EXAMINATION: US PELVIS CLINICAL INFORMATION: Right pelvic pain. History of cyst. LMP 2 weeks ago. COMPARISON: Pelvic ultrasound dated 12/09/2022. TECHNIQUE: Ultrasound of the pelvis is performed using both transabdominal and transvaginal transducers along with Doppler. Transvaginal imaging is performed due to inadequate visualization transabdominally. FINDINGS: Uterus: The uterus is anteverted and measures 6.5 x 2.7 x 3.5 cm. The double wall endometrial thickness is 1.2 mm. The uterus is smooth in contour and has normal myometrial echogenicity. No visible fibroid. Adnexa: Both ovaries are visualized. There is normal color flow to the adnexa. There is no ovarian torsion. There is a small amount of free fluid within the cul-de-sac. Right ovary measures 3.0 x 2.3 x 2.3 cm. There is a 1.6 x 1.4 x 1.2 cm corpus luteal cyst. Left ovary measures 2.7 x 1.5 x 2.0 cm. US/US pelvic and transvaginal IMPRESSION: Both ovaries are visualized. There is a corpus luteal cyst measuring 1.6 x 1.4 x 1.2 cm on the right. The left ovary is normal in appearance. 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 Assessment & Plan Assessment & Plan (1) Menstrual periods irregular: Code(s): N92.6 - Irregular menstruation, unspecified Category: Medical (2) Patient desires : Code(s): Z31.9 - Encounter for procreative management, unspecified Category: Medical (3) Hx of ovarian cyst: Comment: pt states recurrent; u/s per ED 02/20 shows a corpus luteum cyst Code(s): Z87.42 - Personal history of other diseases of the female genital tract Category: Medical Plan -----Discussed in this visit the following: healthy balanced diet, regular and consistent exercise, getting recommended health screens, doing the best she can for her particular health concerns, kegel exercises, pap smear screening and followup recommendations, mammography screening and SBE, normal changes in cycles in her life stage--- . I reviewed her history as she described it to me she is starting to think she probably should see somebody for infertility but she has also gotten fed up with not getting so she is going to given up she was trying to be healthy and lose weight but she is coming given up on that to she says she is a nonsmoker. She works from home right now because she got fired from [employer]. She has been with the same partner for few years and wants to have a baby. She says her last periods were just spotting she had been given Prometrium in the past to help have her have a regular withdrawal bleed but she got tired of taking it after about 3 months. She had been seen in the emergency room after an appointment that she had with Dr. Dacosta got canceled so she went there and they did an ultrasound and showed a an ovarian cyst which I reviewed with her today was just a corpus luteum cyst. She said she had an appointment yesterday with Dr. Dacosta but it got canceled so this got scheduled as an annual instead and then she got lost on the way here so she is here now. She definitely does not want control but she feels like it would be good to get a real period Since she has not had a real periods since November. Discussed that she would need to not have any unprotected intercourse for that least 2 weeks then do a test to ensure that she is not and then start Provera for 10 days. I told her to expect to feel very premenstrual during that time. If she does not get a period she should let us know meanwhile I think she should consider changing her insurance so she has access to [employer] Additionally she should copy done all the information in her phone in case the information gets lost some how as sometimes the data can get erased and she would want a year's worth of her period dates and information if she were going to seek infertility treatment. Meanwhile I recommend resuming gene as healthy as she possibly can losing weight because that will help her and if she does get we placed to go for care [facility] be [facility]. Orders: Orders CT NG by PCR Today N89.8 - Other specified noninflammatory disorders of vagina Bacterial Vaginosis Panel Today N89.8 - Other specified noninflammatory disorders of vagina Medications: New medroxyprogesterone (Provera) No unprotected intercourse for 2 weeks and confirm a negative test before starting. 10 mg PO DAILY 10 tabs 0RF Coding Level of Care Code Est Pt Prev Care [id number]) Diagnoses Menstrual periods irregular N92.6 Patient desires Z31.9 Hx of ovarian cyst Z87.42
[2024-04-07 15:01] VITALS: BP 116/66; BMI 29.7
== END 2024-04-07 15:44 | disposition home or self-care (01) ==
LOC: HO.HWSM 15:03
PROVIDERS: Visit Provider Advanced Practice Midwife
DX: Z01.411 Encounter for gynecological examination (general) (routine) with abnormal findings (principal); N92.6 Irregular menstruation, unspecified; Z87.42 Personal history of other diseases of the female genital tract
CPT/HCPCS: 99395

== ENCOUNTER 2024-04-07 15:03 | Outpatient (REF) | payer OTHER, SELFPAY ==
[2024-04-08 05:50] LABS: CT PCR NOT DETECTED (Not Detect.); NG PCR NOT DETECTED (Not Detect.)
[2024-04-08 10:47] LABS: Bacterial Vaginosis PCR NEGATIVE (Negative); Candida Group PCR NOT DETECTED (Not Detect); Candida glab krusei PCR NOT DETECTED (Not Detect); Trichomonas vaginalis PCR NOT DETECTED (Not Detect)
== END 2024-04-07 15:04 | disposition home or self-care (01) ==
LOC: HO.LAB 15:03
PROVIDERS: Visit Provider Advanced Practice Midwife
DX: Z01.411 Encounter for gynecological examination (general) (routine) with abnormal findings (principal); Z31.9 Encounter for procreative management, unspecified; N89.8 Other specified noninflammatory disorders of vagina; N92.6 Irregular menstruation, unspecified; Z87.42 Personal history of other diseases of the female genital tract
CPT/HCPCS: 0352U; 87491; 87591; 99395

== ENCOUNTER 2024-05-19 09:39 | Outpatient (AMB) | payer OTHER, SELFPAY ==
--- NOTE | 2024-05-19 09:43 | MHC.OFFVIS ---
Intake Visit Reasons: 1m/PVR Intake Note: Patient is present for 1M/PVR Urology Medication:TADALAFIL Antibiotic Allergy:AMOXICILLIN,AZITHROMYCIN Blood Thinner:NONE TODAY'S PVR: 0ML'S Allergies amoxicillin Allergy (Severe, Verified 05/19/24 10:07) Anaphylaxis azithromycin Allergy (Intermediate, Verified 05/19/24 10:07) Hives Medication List - Last Reconciled 05/19/24 by ISAC Lester- albuterol sulfate 90 mcg/actuation 1 inh inhalation QID PRN medroxyprogesterone (Provera) 10 mg PO DAILY ondansetron 4 mg PO TID PRN 5 days PNV,calcium 29-iiue-cwmsg acid 27 mg iron- 1 mg ( Vitamins Plus Low Iron) 1 tab PO DAILY 30 days tadalafil (Cialis) 5 mg PO DAILY 90 days terazosin 1 mg PO BEDTIME 30 days HPI Comments Details: Mini is a very pleasant 23-year-old female patient who presents to the office today for a follow up of her interstitial cystitis follow-up. In discussion with the patient today she reports to be doing and feeling well. She discusses having followed up with gynecology teacher for abnormal menses. She reports feeling lower urinary tract symptoms and bladder issues typically correlate with her menses. She reports compliance with tadalafil and low-dose terazosin. She currently denies any bothersome urinary issues or concerns. She discusses her recent change in jobs and feels this has been helpful in managing her stress levels as she is now working from home. In office urinalysis results reviewed with the patient today. PVR 0 mL. We discussed significant increase in PVR today compared to previous office visits. We discussed correlation of menses with lower urinary tract symptoms. She otherwise denies incontinence, nocturia, hematuria, dysuria, foul smelling urine, changes to urinary stream, flank pain, fever, and or chills. She continues with attempting double voiding to assist with incomplete bladder emptying. Previous workup and management of interstitial cystitis includes the Vistaril, VESIcare, and Elmiron. Previous interventions have included a cysto hydrodistention in August of 2022. Cystoscopy findings noted moderate glomerulation post extension and bladder capacity post extension volume was 750 mL. She discusses having missed her follow-up appointment as she had been having family issues however these have since resolved. She otherwise offers no other issues or concerns at this time. [facility] Medical History No known health problems Surgical History H/O wisdom tooth extraction No pertinent past surgical history Family History Mother No problems noted. Father No problems noted. Social History Alcohol intake: never Patient Tobacco Use Status: Former Tobacco user Substance Use Type: Marijuana Female Reproductive History Menstrual Age of Menarche: 12 Review of Systems Const All systems reviewed & are unremarkable except as noted in HPI and below Reports as per HPI Eyes Reports no additional complaints ENT Reports no additional complaints Card Reports no additional complaints Resp Reports no additional complaints GI Reports no additional complaints Reports as per HPI Musc Reports no additional complaints Neuro Reports no additional complaints Psych Reports no additional complaints Endo Reports no additional complaints Mehran/Lymph Reports no additional complaints Aller/Immun Reports no additional complaints Physical Exam Const General: cooperative, healthy appearing, comfortable, no acute distress, well developed, alert and awake Orientation/consciousness: patient oriented x3 Limitations: no limitations HEENT Head: Yes normal to inspection, Yes normocephalic and Yes atraumatic Ears: hearing grossly normal bilaterally Eyes General: appearance normal, both eyes and all related structures Neck Neck: Yes normal visual inspection and Yes trachea midline Chest Chest palpation & inspection: normal inspection of the chest Resp Effort & Inspection: normal respiratory effort and able to speak in complete sentences Cardio Rate: regular rate GI Inspection: Yes normal to inspection General: Yes no CVA tenderness Back/Spine/Pelvis Back: no CVA tenderness Skin General skin exam: no rashes or lesions noted Neuro General: patient oriented x3 Extrem General: Yes normal to inspection Psych Appearance: grossly normal and well kempt Mental Status: mental status grossly normal Speech and movement: Normal speech and movement present and Clear speech present Affect: Sad affect present Attitude: cooperative Thought process: Normal thought process present Thought content: Normal thought content present Insight: Fair insight present (Psych) Judgement: Fair judgement present (Psych) Office Procedures Post Void Residual Post Residual Void Post Void Residual (PVR): 0 [id number]-[id number] Void Residual by ultrasound Results AMB Urinalysis, Automated UA Leukoctes 15 August/uL Last Edit by KOBE Dunn on 05/19/24 09:55 UA Nitrite Negative [facility] 05/19/[facility] 09:55 UA Urobilinogen 0.2 mg/dL Last Edit by Sonya Daugherty [facility] on 05/19/24 09:55 UA Protein 15 mg/dL Last Edit by Sonya Daugherty [facility] on 05/19/24 09:55 UA pH 6.0 Last Edit by Sonya Daugherty [facility] on 05/19/24 09:55 UA Blood 10 Rtuong/uL Last Edit by Sonya Daugherty [facility] on 05/19/24 09:55 UA Specific [place] 1.030 Last Edit by Sonya Daugherty [facility] on 05/19/24 09:55 UA Ketone Negative Last Edit by Sonya Daugherty [facility] on 05/19/24 09:55 UA Bilirubin 0 mg/dL Last Edit by Sonya Daugherty [facility] on 05/19/24 09:55 UA Glucose 0 mg/dL Last Edit by Sonya Daugherty [facility] on 05/19/24 09:55 Results Reviewed Results Reviewed: Laboratory Last Values Urine pH (Auto) 6.0 05/19/24 09:53 Specific [place] (Auto) 1.030 05/19/24 09:53 Urine Protein (Auto) 15 mg/dL 05/19/24 09:53 Glucose (UA)(Auto) 0 mg/dL 05/19/24 09:53 Urine Ketones (Auto) Negative 05/19/24 09:53 Urine Blood (Auto) 10 Truong/uL 05/19/24 09:53 Urine Nitrite (Auto) Negative 05/19/24 09:53 Urine Bilirubin (Auto) 0 mg/dL 05/19/24 09:53 Urine Urobilinogen (Auto) 0.2 mg/dL 05/19/24 09:53 Leukocyte Esterase (Auto) 15 August/uL 05/19/24 09:53 Assessment & Plan Assessment & Plan (1) Incomplete bladder emptying: Code(s): R33.9 - Retention of urine, unspecified Category: Medical (2) Nocturia: Code(s): R35.1 - Nocturia Category: Medical (3) Lower urinary tract symptoms: Code(s): R39.9 - Unspecified symptoms and signs involving the genitourinary system Category: Medical (4) Bladder pain: Code(s): R39.89 - Other symptoms and signs involving the genitourinary system Category: Medical (5) Interstitial cystitis: Code(s): N30.10 - Interstitial cystitis (chronic) without hematuria Category: Medical Plan In office urinalysis results reviewed with the patient today; as noted above. PVR 0 mL. Continue Cialis and terazosin as discussed and prescribed. Patient currently denies any bothersome urinary issues or concerns. She reports be happy with current voiding parameters. Discussed bladder triggers/irritants. Discussed, educated, and stressed the importance of adequate hydration relation to lower urinary tract symptoms as well as overall health and well-being. Discussed correlation of menses and lower urinary tract symptoms. Follow-up in 3 months with PVR; or sooner with any issues, concerns, and or questions. Orders: Orders AMB Urinalysis Automated Today Z13.9 - Encounter for screening, unspecified Patient Instructions: The patient had an opportunity to ask questions regarding the treatment plan. All questions were answered. Physical exam, labs, and imaging were discussed and reviewed in detail. As well as risks, benefits, and discussion of treatment choices. No major barriers to understanding were identified. The patient expressed understanding and agreement with the above treatment plan. The patient was made aware they should contact our office by phone for worsening of their current condition, the appearance of new symptoms, or with any questions or concerns. Compliance is encouraged with any medications and follow up testing that is ordered. It is a privilege to be allowed the opportunity to participate in? your urological care.? Again, if you have any questions or concerns If you have any questions or concerns please do not hesitate to contact me. The office is [phone]. This note is constructed using voice recognition software. While every effort has been made to ensure accuracy customer counter associate errors may have been included. Yours sincerely, PAM Lester Coding Level of Care Code Est Pt Level 3 (26700) Diagnoses Incomplete bladder emptying R33.9 Nocturia R35.1 Lower urinary tract symptoms R39.9 Bladder pain R39.89 Interstitial cystitis N30.10 CPT Codes Post Residual Void - PVR CPT Code: 98364-[id number] Void Residual by ultrasound ([id number])
== END 2024-05-19 10:08 | disposition home or self-care (01) ==
PROVIDERS: Visit Provider Nurse Practitioner Family
DX: R33.9 Retention of urine, unspecified (principal); R35.1 Nocturia; R39.9 Unspecified symptoms and signs involving the genitourinary system; R39.89 Other symptoms and signs involving the genitourinary system; N30.10 Interstitial cystitis (chronic) without hematuria; Z13.9 Encounter for screening, unspecified
CPT/HCPCS: 99213

== ENCOUNTER → 2024-05-19 09:39 | Outpatient (BNVA) | payer OTHER, SELFPAY | PROVIDERS: Visit Provider Nurse Practitioner Family | DX: N30.10 Interstitial cystitis (chronic) without hematuria (principal); R33.9 Retention of urine, unspecified; R35.1 Nocturia; R39.9 Unspecified symptoms and signs involving the genitourinary system; R39.89 Other symptoms and signs involving the genitourinary system | CPT/HCPCS: 51798; 81003; 99212 ==

== ENCOUNTER 2024-12-06 20:35 | Emergency (ER) | payer MEDICAID, SELFPAY ==
--- NOTE | ~2024-12-06 | US_ITS ---
CLINICAL HISTORY: spotting, lower abdominal pain hx of cysts US pelvis transabdominal and transvaginal Comparison: None Findings: Transabdominal scanning performed for overall anatomy. Transvaginal scanning performed for additional detail. Anteverted uterus is 7 cm length. Normal myometrium. Endometrium 8 mm thickness. Right ovary 2.7 x 1.5 x 2 cm. Left ovary 3.1 x 2.2 x 1.8 cm. Dominant follicle or cyst in the left ovary measures 1.7 x 1.4 x 1.6 cm. Normal color Doppler of both ovaries. No free fluid. IMPRESSION: 1. Unremarkable pelvic ultrasound This document has been electronically signed by: Uzair Roberson MD, PHD on 12/07/2024 03:08:05
[2024-12-06 20:45] VITALS: BP 133/77; PULSE 79; RESP 18; TEMP 36.6; O2SAT 99; BMI 32.1
--- NOTE | 2024-12-06 20:46 | ED_ITS ---
HPI - General Adult General Chief complaint: Abdominal Pain Stated complaint: spotting 3 days not related to menstrual Time Seen by Provider: 12/07/24 01:00 Source: patient and old records reviewed Mode of arrival: ambulatory Limitations: no limitations History of Present Illness ED Provider: SHANDRA CORDON narrative: 24 yo female with PMH of ovarian cyst who reports instead of her usual menses she has had spotting for 3 days with pelvic pain. No n/v/d fevers and no concern for STI. She has had ovarian cysts before. She denies discharge. She was concerned for . complaint: spotting, pelvic pain Onset (ago): day(s) (3) Location: pelvis Radiation: non-radiation Severity: moderate Quality: aching Pain Consistency: intermittent Relieving factors: none Exacerbating factors: none Associated symptoms: denies other symptoms Treatments prior to arrival: none Related Data Previous Rx's ?Medication ?Instructions ?Recorded albuterol sulfate 90 mcg/actuation 1 inh inhalation QID PRN shortness 11/06/20 aerosol inhaler of breath or wheezing #8.5 grams vitamin with calcium 1 tab PO DAILY 30 days #30 tabs 05/13/23 no.72-iron 27 mg-folic acid 1 mg tablet ( Vitamins Plus Low Iron) terazosin 1 mg capsule 1 mg PO BEDTIME 30 days #30 caps 05/21/23 tadalafil 5 mg tablet (Cialis) 5 mg PO DAILY 90 days #90 tabs 11/25/23 ondansetron 4 mg disintegrating 4 mg PO TID PRN nausea and 11/29/23 tablet vomiting 5 days #10 tabs medroxyprogesterone 10 mg tablet 10 mg PO DAILY #10 tabs 04/07/24 (Provera) Allergies Allergy/AdvReac Type Severity Reaction Status Date / Time amoxicillin Allergy Severe Anaphylaxis Verified 12/06/24 20:46 azithromycin Allergy Intermediate Hives Verified 12/06/24 20:46 Review of Systems 2 Review of Systems: Constitutional : No Fever, No Chills ENT/Mouth : No sore throat, No Rhinorrhea Eyes: No Eye Pain, No Redness Cardiovascular : No Chest Pain, No SOB Respiratory : No Cough, No Sputum, No Wheezing Gastrointestinal : no Nausea, No Vomiting, No Diarrhea, positive abdominal pain, Genitourinary : positive irregular bleeding, No Dysuria, No Urinary Frequency, positive pelvic pain Musculoskeletal : No Myalgias Skin : No rash Neuro : No Weakness, No Headache All other systems reviewed and are negative [facility] Past Medical History Attestation statement: The following information was validated with the patient. Source: old records reviewed Medical History No known health problems Surgical History H/O wisdom tooth extraction No pertinent past surgical history Family History Family History Mother No problems noted. Father No problems noted. Social History Social History Alcohol intake: never Patient Tobacco Use Status: Former Tobacco user Substance Use Type: Marijuana Advance Directives: No Advance Directives Information Provided: No Do you have a plan to hurt others: No Plan Physical Exam ED Vital Signs: Vital Signs - 24 hr 12/06/24 20:45 12/07/24 00:59 Temperature 98 F 98.4 F Pulse Rate 79 83 Respiratory Rate 18 20 Blood Pressure 133/77 134/74 Pulse Oximetry 99 93 Oxygen Delivery Method Room Air Room Air BMI result Body Mass Index 32.1 Appearance: Alert. Oriented X3. No acute distress. Eyes: Pupils equal, round and reactive to light. ENT: Pharynx normal. Neck: Normal inspection. Neck supple. CVS: Normal heart rate and rhythm. Pulses normal. Respiratory: No respiratory distress. Breath sounds normal. Abdomen: Soft and milder lower abd pain but no rebound or guarding Skin: Skin warm and dry. Normal skin color. Normal skin turgor. Extremities: No lower extremity edema. No calf ttp Neuro: Oriented X 3. No motor deficit. No sensory deficit. CN2-12 intact Course Course Course Narrative: RME, this is a rapid medical exam performed by Christofer Beavers please refer to primary provider for complete H&P- 24 year old female presents for evaluation of pelvic pain and abnormal vaginal bleeding that she feels is not related to her normal menstrual cycle. Plan for labs and a UA, as well as HCG Medical Decision Making Medical Decision Making MDM Narrative: 24 yo female with PMH of ovarian cyst here with spotting and irregular bleeding with lower pelvic pain at this time will obtain labs, quant, UA and US to evaluate for ovarian cysts. She declines STI test and states she has no concerns. Differential Diagnosis Differential Diagnoses: The differential diagnosis associated with the presentation includes ovarian cyst no STI concerns fibroids Admission/Observation Consideration of admission/observation: Escalation of care including admission/observation considered negative work up stable for DC Lab Data MDM Lab Attestation statement: I reviewed the patient's lab results. 12/06/24 21:05 12/06/24 21:05 Labs: Lab Results 12/06/24 12/06/24 Range/Units 21:05 21:11 WBC 8.2 (4.8-10.8) X10*3/uL RBC 4.56 (4.20-5.50) X10*6/uL Hgb 13.7 (12.0-16.0) g/dl Hct 38.6 (37.0-47.0) % MCV 84.6 (80.0-98.0) fL MCH 30.0 (27.0-33.0) pg MCHC 35.5 H (31.0-35.0) g/dl RDW 12.4 (11.0-16.0) % Plt Count 358 (160-400) X10*3/uL MPV 9.6 (9.4-12.3) fL Immature Gran % (Auto) 0.2 (0.0-0.4) % Neut % (Auto) 61.4 (45-73) % Lymph % (Auto) 31.2 (20-40) % [place] % (Auto) 3.3 (2-11) % Eos % (Auto) 3.3 (0-4) % Baso % (Auto) 0.6 (0-2) % Lymph # (Auto) 2.6 (1.2-4.9) X10*3/uL [place] # (Auto) 0.3 (0.1-1.2) X10*3/uL Eos # (Auto) 0.3 (0.0-0.4) X10*3/uL Baso # (Auto) 0.1 (0.0-0.2) X10*3/uL Abs Immat Gran (auto) 0.02 (0.00-0.03) X10*3/uL Absolute Neuts (auto) 5.0 (2.0-8.3) x10*3/uL Absolute Nucleated RBC 0.000 (0.0-0.012) X10*3/uL Nucleated RBC % (auto) 0.0 (0.0-0.2) /100WBC Sodium 138 (135-145) mmol/L Potassium 3.8 (3.3-5.1) mmol/L Chloride 109 H (96-108) mmol/L Carbon Dioxide 21 L (22-29) mmol/L Anion Gap 12 (12-20) BUN 8 L (9-16) mg/dL Creatinine 0.73 (0.5-1.4) mg/dL Estim Creat Clear Calc 110.7 Estimated GFR > 60 Random Glucose 124 H (60-115) mg/dL Calcium 8.7 (8.4-10.2) mg/dL Total Bilirubin 0.5 (0.0-1.0) mg/dL AST 24 (5-31) U/L ALT 28 (0-31) U/L Alkaline Phosphatase 94 (39-117) U/L Total Protein 6.9 (6.5-8.0) g/dL Albumin 4.1 (3.5-5.0) g/dL Lipase 21 (8-78) U/L Beta HCG, Quant < 2 mIU/mL Urine Color Yellow Urine Appearance Clear Urine pH 7.0 (5.0-9.0) Ur Specific [place] 1.025 (1.005-1.025) Urine Protein Negative (Neg-Trace) mg/dL Urine Glucose (UA) Negative (Negative) mg/dL Urine Ketones Negative (Negative) mg/dL Urine Blood Negative (Negative) Urine Nitrite Negative (Negative) Ur Leukocyte Esterase Moderate (2+) H (Negative) Urine RBC 0-2 (0-2) /HPF Urine WBC 6-10 H (0-5) /HPF Ur Squamous Epith Cells 0-2 (0-2) /HPF Urine Bacteria Trace (None Seen) Hyaline Casts 0-2 (0-2) /LPF Independent Interpretation I performed an independent interpretation of an: Ultrasound (normal ) Radiology Impression Discussion of test interpretation with radiology: I have reviewed the radiologist's reading. External Record Review External record reviewed: Outpatient record Prescription Management I considered prescription management with: Pain Medication Discharge Plan Discharge Clinical Impression: Abnormal uterine bleeding Patient Disposition: Home, Self-Care Instructions: Abnormal (Dysfunctional) Uterine Bleeding (ED) Additional Instructions: labs reassuring negative test US normal and reassuring return for any worsening symptoms or concerns. Findings: Transabdominal scanning performed for overall anatomy. Transvaginal scanning performed for additional detail. Anteverted uterus is 7 cm length. Normal myometrium. Endometrium 8 mm thickness. Right ovary 2.7 x 1.5 x 2 cm. Left ovary 3.1 x 2.2 x 1.8 cm. Dominant follicle or cyst in the left ovary measures 1.7 x 1.4 x 1.6 cm. Normal color Doppler of both ovaries. No free fluid. IMPRESSION: 1. Unremarkable pelvic ultrasound This document has been electronically signed by: Uzair Roberson MD, PHD on 12/07/2024 03:08:05 Prescriptions: No Action Vitamin Plus Low Iron 27 mg iron- 1 mg tablet 1 tab PO DAILY 30 Days Qty: 30 11RF albuterol sulfate 90 mcg/actuation HFA aerosol inhaler 1 inh inhalation QID PRN (Reason: shortness of breath or wheezing) Qty: 8.5 0RF ondansetron 4 mg tablet,disintegrating 4 mg PO TID PRN (Reason: nausea and vomiting) 5 Days Qty: 10 0RF medroxyprogesterone [Provera] 10 mg tablet 10 mg PO DAILY Qty: 10 0RF Rx Instructions: No unprotected intercourse for 2 weeks and confirm a negative test before starting. terazosin 1 mg capsule 1 mg PO BEDTIME 30 Days Qty: 30 1RF tadalafil [Cialis] 5 mg tablet 5 mg PO DAILY 90 Days Qty: 90 3RF Rx Instructions: BIN [id number] [facility] Group [id number] Stand Alone Forms: Work/School Release Print Language: Tajik
[2024-12-06 21:16] LABS: MANUAL DIFF FLAG NO
[2024-12-06 21:17] LABS: Basophils Absolute Auto 0.1 X10*3/uL (0.0-0.2); Basophils Percent Auto 0.6 % (0-2); Eosinophils Absolute Auto 0.3 X10*3/uL (0.0-0.4); Eosinophils Percent Auto 3.3 % (0-4); Hematocrit 38.6 % (37.0-47.0); Hemoglobin 13.7 g/dl (12.0-16.0); Imm Gran Abs Auto 0.02 X10*3/uL (0.00-0.03); Imm Gran Pct Auto 0.2 % (0.0-0.4); Lymphocytes Absolute Auto 2.6 X10*3/uL (1.2-4.9); Lymphocytes Percent Auto 31.2 % (20-40); Mean Corpuscular HGB Conc 35.5 g/dl (31.0-35.0); Mean Corpuscular Volume 84.6 fL (80.0-98.0); Mean Platelet Volume 9.6 fL (9.4-12.3); Monocytes Absolute Auto 0.3 X10*3/uL (0.1-1.2); Monocytes Percent Auto 3.3 % (2-11); Neutrophils Percent Auto 61.4 % (45-73); Platelet Count 358 X10*3/uL (160-400); Red Blood Count 4.56 X10*6/uL (4.20-5.50); Red Cell Distribution Width 12.4 % (11.0-16.0); White Blood Count 8.2 X10*3/uL (4.8-10.8)
[2024-12-06 21:18] LABS: Appearance Urine Clear; Color Urine Yellow; Glucose Urine UA Negative (Negative); Leukocyte Esterase Urine Moderate (2+) (Negative); Nitrite Urine Negative (Negative); Specific Gravity - Urine 1.025 (1.005-1.025); UMIC TRIGGER UACC YES; Urine Blood Negative (Negative); Urine Ketones Negative (Negative); Urine Protein Negative (Neg-Trace)
[2024-12-06 21:20] LABS: Bacteria Urine Trace (None Seen); Hyaline Casts Urine 0-2 /LPF (0-2); RBC Urine 0-2 /HPF (0-2); Squamous Epithelial Cell Urine 0-2 /HPF (0-2); UACC Culture Trigger YES
[2024-12-06 21:39] LABS: Alanine Aminotransferase 28 U/L (0-31); Albumin Level 4.1 g/dL (3.5-5.0); Alkaline Phosphatase 94 U/L (39-117); Anion Gap 12 (12-20); Aspartate Amino Transferase 24 U/L (5-31); Bilirubin Total 0.5 mg/dL (0.0-1.0); Blood Urea Nitrogen 8 mg/dL (9-16); Calcium 8.7 mg/dL (8.4-10.2); Carbon Dioxide 21 mmol/L (22-29); Chloride 109 mmol/L (96-108); Creatinine Clr Calc Pharmacy 110.7; Estimated Glomerular Filt Rate > 60; Glucose Random 124 mg/dL (60-115); Lipase 21 U/L (8-78); Potassium 3.8 mmol/L (3.3-5.1); Sodium 138 mmol/L (135-145); Total Protein 6.9 g/dL (6.5-8.0)
[2024-12-06 22:08] LABS: HCG Quantitative < 2 mIU/mL
[2024-12-07 00:59] VITALS: BP 134/74; PULSE 83; RESP 20; TEMP 36.9; O2SAT 93
[2024-12-07 03:28] VITALS: BP 134/74; PULSE 83; RESP 20; TEMP 36.9; O2SAT 93
== END 2024-12-07 03:28 | disposition home or self-care (01) ==
PROVIDERS: Physician Assistant; Emergency Provider Emergency Medicine
DX: N93.8 Other specified abnormal uterine and vaginal bleeding (principal); R10.2 Pelvic and perineal pain; Z87.891 Personal history of nicotine dependence; Z79.899 Other long term (current) drug therapy
CPT/HCPCS: 36415; 76830; 76856; 80053; 81001; 83690; 84702; 85025; 87086; 99282; 99284

== ENCOUNTER → 2024-12-07 01:00 | Outpatient (BNV) | payer MEDICAID, SELFPAY | PROVIDERS: Emergency Provider Emergency Medicine; Visit Provider General Practice | DX: N93.9 Abnormal uterine and vaginal bleeding, unspecified (principal); R10.30 Lower abdominal pain, unspecified | CPT/HCPCS: 76830; 76856 ==

== ENCOUNTER 2025-06-20 08:46 | Emergency (ER) | payer MEDICAID, SELFPAY ==
--- NOTE | ~2025-06-20 | XR_ITS ---
EXAMINATION: XR CHEST 2 VIEWS HISTORY: cough COMPARISON: Comparison is made with the prior examination dated 04/13/2021. FINDINGS: PA and lateral views of the chest are submitted. The lungs are expanded and clear. There is no pleural effusion, pneumothorax, or pulmonary vascular congestion. The heart is normal in size. The bones are intact. XR/XR chest 2V IMPRESSION: No acute cardiopulmonary abnormality. Electronically signed by: Ke Diggs MD 06/20/2025 09:24 AM SERGIO
[2025-06-20 08:55] VITALS: BP 131/71; PULSE 94; RESP 16; TEMP 36.9; O2SAT 96; BMI 33.4
--- NOTE | 2025-06-20 09:12 | ED_ITS ---
HPI - URI/Sore Throat General Chief Complaint: Upper Respiratory Symptoms Stated Complaint: diff breathing, coughing up mucus Time Seen by Provider: 06/20/25 09:10 Source: patient Mode of arrival: ambulatory Limitations: no limitations History of Present Illness ED Provider: TINA GAN PA-C HPI Narrative: 24 year old female with pmhx significant for childhood asthma presents to the ED today for evaluation of nasal congestion, sinus pain, headache, productive cough, and sore throat x6 days. Seen at at onset of symptoms. She reportedly tested negative for covid, flu, rsv, and strep throat. She was prescribed prednisone, albuterol, flonase and tessalon perles. She was not started on any antibiotics. She has been taking these without much improvement in symptoms. Reports multiple sick contacts at home. No recent travel. Denies fever, chills, difficulty swallowing, N/V/D, chest pain, sob. Related Data Previous Rx's ?Medication ?Instructions ?Recorded albuterol sulfate 90 mcg/actuation 1 inh inhalation QI D PRN shortness 11/06/20 aerosol inhaler of breath or wheezing #8.5 g catrina vitamins with calcium 1 tab PO DAILY 30 days #30 tabs 05/13/23 no.72-iron 27 mg-folic acid 1 mg tablet ( Vitamins Plus Low Iron) terazosin 1 mg capsule 1 mg PO BEDTIME 30 days #30 caps 05/21/23 tadalafil 5 mg tablet (Cialis) 5 mg PO DAILY 90 days # 90 tabs 11/25/23 ondansetron 4 mg disintegrating 4 mg PO TID PRN nausea and 11/29/23 tablet vomiting 5 days #10 tabs medroxyprogesterone 10 mg tablet 10 mg PO DAILY #10 ta bs 04/07/24 (Provera) benzocaine 15 mg-menthol 3.6 mg 1 janell mucous membrane Q4H PRN sore 06/20/25 lozenges (Cepacol Sore Throat throat #16 ea (benzocaine-menthol)) guaifenesin 200 mg/5 mL oral liquid 200 mg (5 mL) PO Q 4H PRN cough 06/20/25 #118 mL Allergies Allergy/AdvReac Type Severity Reaction Status Date / Time amoxicillin Allergy Severe Anaphylaxis Verified 06/20/25 08:59 azithromycin Allergy Intermediate Hives Verified 06/20/25 08:59 Review of Systems Review of Systems: Yes all other systems are reviewed and are negative [facility] Past Medical History Attestation statement: The following information was validated with the patient. Source: old records reviewed and nursing notes reviewed Medical History No known health problems Surgical History H/O wisdom tooth extraction No pertinent past surgical history Family History Family History Mother No problems noted. Father No problems noted. Social History Social History Alcohol intake: never Patient Tobacco Use Status: Former Tobacco user Substance Use Type: Marijuana Advance Directives: No Advance Directives Information Provided: No Physical Exam Vital Signs: Vital Signs: Last Vital Signs Temp 98.4 F 06/20/25 11:06 Pulse 94 06/20/25 11:06 Resp 16 06/20/25 11:06 BP 131/71 06/20/25 11:06 Pulse Ox 96 06/20/25 11:06 O2 Del Method Room Air 06/20/25 11:06 BMI result Body Mass Index 33.4 vital signs stable, afebrile, not hypoxic General: Well appearing, in no acute distress. Skin: Warm, dry, intact. No rashes or lesions. Head: Normocephalic, atraumatic. EENT: Hearing is intact b/l. Conjunctiva clear. Sclera is anicteric. PERRLA. EOM intact. Moist mucous membranes.?posterior oropharynx erythematous with bilateral tonsillar hypertrophy, uvula midline, no tonsillar exudates, no peritonsillar masses, controlling secretions, speaking complete sentences, no muffled voice. Neck: Supple without LAD Cardiac: Chest wall symmetric. RRR Lungs: Normal respiratory effort without accessory muscle use. no tripoding. lungs w/ expiratory rhonchi to b/l bases. no wheezing, no crackles. Abdomen: Soft, non-tender, non-distended. No rebound tenderness or guarding. Positive BS x4. Back: No midline spinous or paraspinal tenderness. No step off deformity. Ext: Upper and lower extremities atraumatic, without tenderness, deformity, swelling or erythema Neuro: AOx3. Normal speech. Ambulating with steady gait Course Course Course Narrative: Patient tested positive for influenza A. negative covid, rsv, strep. cxr without pneumonia. Educated on symptomatic treatment. Patient has remained stable throughout ED visit today. Discussed worrisome signs and symptoms and when to return to the ED. All questions answered at this time. Patient is agreeable with disposition and stable for discharge. Medications Administered Discontinued Medications Generic Name Dose Route Start Last Admin Trade Name Freq PRN Reason Stop Dose Admin Albuterol Sulfate 12 puff 06/20/25 09:47 06/20/25 09:52 Albuterol Sulfate 90 Mcg 8 Gm Inhaler INHALE 06/20/25 09:48 12 puff ONCE ONE Administration Medical Decision Making Medical Decision Making [facility] Narrative: 24 year old female with pmhx significant for childhood asthma presents to the ED today for evaluation of nasal congestion, sinus pain, headache, productive cough, and sore throat x6 days. on exam, posterior oropharynx erythematous with bilateral tonsillar hypertrophy, uvula midline, no tonsillar exudates, no peritonsillar masses, controlling secretions, speaking complete sentences, no muffled voice. lungs w/ expiratory rhonchi to b/l bases. Differential diagnosis includes viral syndrome, strep throat, pharyngitis, sinusitis, pneumonia, URI. 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 Plan for viral/strep swabs, chest xr, bronch treatment. anticipate dc home. Differential Diagnosis Differential Diagnoses: The differential diagnosis associated with the presentation includes as above. Admission/Observation not indicated. Lab Data [facility] Lab Attestation statement: I reviewed the patient's lab results. As above Labs: Lab Results 06/20/25 Range/Units 09:25 Influenza Type A (PCR) POSITIVE A (Negative) Influenza Type B (PCR) NEGATIVE (Negative) RSV RNA Qual (PCR) NEGATIVE (Negative) SARS-CoV-2 RNA (RT-PCR) NEGATIVE (Negative) S. pyogenes GrpA CARLEEN Negative (Negative) Independent Interpretation I performed an independent interpretation of an: Plain X-Ray Interpretation: chest xr without infiltrate or consolidation Radiology Impression Discussion of test interpretation with radiology: I have reviewed the ra diologist's reading. Radiologist Impression: Procedure(s): XR chest 2V Accession Number(s): [id number] cc: Ellie Marques DO; Physician,None ~ Reason for Exam: cough EXAMINATION: XR CHEST 2 VIEWS HISTORY: cough COMPARISON: Comparison is made with the prior examination dated 04/13/2021. FINDINGS: PA and lateral views of the chest are submitted. The lungs are expanded and clear. There is no pleural effusion, pneumothorax, or pulmonary vascular congestion. The heart is normal in size. The bones are intact. XR/XR chest 2V IMPRESSION: No acute cardiopulmonary abnormality. Electronically signed by: Ke Diggs MD 06/20/2025 09:24 AM EST Independent Historian Clinical information obtained from an independent historian. History obtained from or confirmed by: Friend External Record Review External record reviewed: Inpatient record Chronic Conditions Patient?s care impacted by: Other (asthma) Social Determinants Patient?s care significantly limited by Social Determinants of Health including: Other Social Determinant of Health Critical Care Time Critical Care Time Critical Care Time: No Discharge Plan Discharge Clinical Impression: Influenza A Patient Disposition: Home, Self-Care Instructions: Influenza (ED) Additional Instructions: You tested positive for influenza A. Negative strep, COVID, RSV. Your chest x-ray was normal - no evidence of pneumonia. You do not require treatment with antibiotics. I am sending guaifenesin to your pharmacy for you to take as needed for cough. Cepacol throat lozenges have been sent to your pharmacy for you to take as needed for throat pain. Continue prednisone, albuterol and Flonase as prescribed by urgent care. Alter ibuprofen and Tylenol for fevers and body aches. Follow up with your primary care provider. If symptoms persist or worsen please return to the emergency department. The case of an emergency call 911. Prescriptions: New guaifenesin 200 mg/5 mL liquid 200 mg PO Q4H PRN (Reason: cough) Qty: 118 0RF Cepacol Sore Throat (joão-men) 15-3.6 mg lozenge 1 janell mucous membrane Q4H PRN (Reason: sore throat) Qty: 16 0RF No Action Vitamin Plus Low Iron 27 mg iron- 1 mg tablet 1 tab PO DAILY 30 Days Qty: 30 11RF albuterol sulfate 90 mcg/actuation HFA aerosol inhaler 1 inh inhalation QID PRN (Reason: shortness of breath or wheezing) Qty: 8.5 0RF ondansetron 4 mg tablet,disintegrating 4 mg PO TID PRN (Reason: nausea and vomiting) 5 Days Qty: 10 0RF medroxyprogesterone [Provera] 10 mg tablet 10 mg PO DAILY Qty: 10 0RF Rx Instructions: No unprotected intercourse for 2 weeks and confirm a negative test before starting. terazosin 1 mg capsule 1 mg PO BEDTIME 30 Days Qty: 30 1RF tadalafil [Cialis] 5 mg tablet 5 mg PO DAILY 90 Days Qty: 90 3RF Rx Instructions: BIN [id number] [id number] Referrals: Physician,None [Primary Care Provider, Medical] Stand Alone Forms: Work/School Release Interventions: ED Discharge Assessment Last Done: 06/20/25 11:06 Discharge Date/Time: 06/20/25 11:06 Print Language: Wolof
--- NOTE | 2025-06-20 09:16 | PC.NURSE ---
Away for xray. Patient to have swabs collected upon return to ED [facility] chair. Care ongoing by this RN.
[2025-06-20 09:41] LABS: Strep A Nucleic Acid Negative (Negative)
[2025-06-20] MEDS: Albuterol Sulfate 90 MCG 8 GM INHALER 12 PUFF INHALE (09:52)
[2025-06-20 10:10] LABS: Resp Syncy Virus RNA Qual PCR NEGATIVE (Negative); SARS COV2 PCR INHOUSE NEGATIVE (Negative)
[2025-06-20 11:06] VITALS: BP 131/71; PULSE 94; RESP 16; TEMP 36.9; O2SAT 96
--- OUTSIDE RECORDS SUMMARY | 2025-06-20 12:28 | XMS_ITS | Clinical Summary ---
Author Organization [facility] Address [address] [place] [address] Phone Care Team Providers Care Notcher Name Role Phone Unavailable Primary Care Provider Unavailabl e Encounters Date Type Department Care Team Description 03/28/2025 [facility] GENERATED External System Generated Encounter [address] [place] [address] Unknown, Unknown, from Last 3 Months Social History Tobacco Use Types Packs/Day Years Used Date Smoking Tobacco: Never Assessed Comments Unknown Sex and Gender Information Value Date Recorded Sex Assigned at Not on file Legal Sex Female 3:03 AM EDT Gender Identity Not on file Sexual Orientation Not on file Plan of Treatment Not on file Medical Devices Not on file Additional Source Comments The information contained in this document represents components of the legal health record. It is not the complete legal health record.[facility]
--- OUTSIDE RECORDS SUMMARY | 2025-06-20 12:28 | XMS_ITS | Clinical Summary ---
Author Organization [facility] Address [address] [place] [address] Care Team Providers Care Dairy Store Manager Name Role Phone Unavailable Primary Care Provider Unavailabl e Social History Tobacco Use Types Packs/Day Years Used Date Smoking Tobacco: Never Assessed Comments Unknown Sex and Gender Information Value Date Recorded Sex Assigned at Not on file Legal Sex Female 8:43 PM EST Gender Identity Not on file Sexual Orientation Not on file Plan of Treatment Health Maintenance Due Date Last Done Comments HPV Vaccines (1 - 3-dose series) 09/19/2014 DTaP,Tdap,and Td Vaccines (1 - Tdap) 09/19/2018 Hepatitis B Vaccines (1 of 3 - 19+ 3-dose series) 09/19/2018 Cervical Cancer Screening: P ap Smear 09/19/2020 HIV Screening 07/25/2023 Hepatitis C Screening 07/25/2023 Social Influencers of Health Screening 07/25/2023 Depression Screening 06/30/2024 COVID-19 Vaccine ( - 2024-2 6 season) 2025 Influenza Vaccine (#1) 2025 RSV Immunization Adult Patie nts (1 - 1-dose 75+ series) 09/19/2074 HIB Vaccines Aged Out No longer eligi ble based on patient's age to complete this topic Hepatitis A Vaccines Aged Out No long er eligible based on patient's age to complete this topic IPV Vaccines Aged Out No longer eligi ble based on patient's age to complete this topic MMR Vaccines Aged Out No longer eligi ble based on patient's age to complete this topic Meningococcal ACWY Vaccine Aged Out N o longer eligible based on patient's age to complete this topic Meningococcal B Vaccine Aged Out No l onger eligible based on patient's age to complete this topic Pneumococcal Vaccine: Pediat rics (0 to 5 Years) and At-Risk Patients (6 to 49 Years) Aged Out No longer eligible b ased on patient's age to complete this topic RSV Immunization Patients Un yunior 20 months Aged Out No longer eligible b ased on patient's age to complete this topic Varicella Vaccines Aged Out No longer eligible based on patient's age to complete this topic
== END 2025-06-20 11:06 | disposition home or self-care (01) ==
PROVIDERS: Emergency Provider Emergency Medicine
DX: J10.1 Influenza due to other identified influenza virus with other respiratory manifestations (principal); R06.02 Shortness of breath; R51.9 Headache, unspecified; Z03.818 Encounter for observation for suspected exposure to other biological agents ruled out; Z87.891 Personal history of nicotine dependence
CPT/HCPCS: 71046; 87637; 87651; 99282; 99284

== ENCOUNTER → 2025-06-20 09:15 | Outpatient (BNV) | payer MEDICAID, SELFPAY | PROVIDERS: Emergency Provider Emergency Medicine; Visit Provider Radiology Diagnostic Radiology | DX: R05.9 Cough, unspecified (principal) | CPT/HCPCS: 71046 ==